=== PATIENT | male | born 1945 | race Caucasian/White ===

== ENCOUNTER → 2017-02-18 | Outpatient (CLI) | payer BC ==
[~2017-02-18] MED LIST: ASPI81TA28 PO; ATOR-26 PO; CHOL1TAB42; GLC500; GLIM2TAB2; IRBE1TAB50; METO25TA3 PO; PANT40TA PO
[2017-02-18 12:38] LABS: BASO % 0.3 %; BASO ABS # 0.03 K/uL (0-0.2); COMPLETE YES; EOS % 1.5 %; HEMATOCRIT 47.8 % (42-52); IG% 0.3 %; LYMPH % 22.8 %; LYMPH ABS # 1.96 K/uL (1.2-3.4); MEAN CELL VOLUME 87.9 fL (80-100); MEAN CORPUSCULAR HGB CONC 34.1 g/dl (32-36); MEAN PLATELET VOLUME 11.3 fL (7.4-10.4); MONO % 6.9 %; NEUT % 68.2 %; PLATELET COUNT 243 K/uL (130-400); RED BLOOD COUNT 5.44 M/uL (4.7-6.1)
[2017-02-18 12:57] LABS: ESTIMATED AVERAGE GLUCOSE 157 mg/dl; HA1C FLAG Normal (Normal)
[2017-02-18 13:27] LABS: ALT/SGPT 46 U/L (12-78); AST/SGOT 15 U/L (15-37); BLOOD UREA NITROGEN 17 mg/dl (7-18); BUN/CREATININE RATIO 17.9 (10-20); CALCIUM 9.5 mg/dl (8.5-10.1); CARBON DIOXIDE 25 mmol/L (21-32); CHLORIDE 104 mmol/L (98-107); CREATININE 0.96 mg/dl (0.60-1.40); GLUCOSE 208 mg/dl (70-99); SODIUM 138 mmol/L (136-145)
[2017-02-18 13:38] LABS: ALB/GLOB RATIO 1.1 (0.9-2); ALKALINE PHOSPHATASE 99 U/L (45-117)
[2017-02-18 14:18] LABS: LYME DISEASE AB IGG NEG (NEG); LYME DISEASE AB IGM NEG (NEG)
[2017-02-19 15:02] LABS: EBV EARLY ANTIGEN AB <0.91 INDEX; EPSTEIN BARR VIR CAPSID IGG 1.29 INDEX
--- NOTE | 2017-02-25 14:01 | CODING QUERY MEDICAL NECESSITY ---
CQSUPPORTING DIAGNOSIS NEEDED A supporting diagnosis is required for the test/procedure performed on this patient in order for us to be reimbursed by the patient's insurance. Please provide a supporting diagnosis for the following test/procedure listed below next to the test name along with your signature. *If there is no additional diagnosis for this patient that would support the following test/procedure please document that below next to the test/procedure. Test(s)/Procedure(s) that require a supporting diagnosis: DOS 02/18/17 VITAMIN D VITAMIN B12 Provider Signature: Date: Thank you Bri Bernabe Health Information Management Once completed, please kindly fax back to [phone] For questions please call [phone]
== END | disposition home or self-care (01) ==
LOC: C.LABPVFM 10:50
PROVIDERS: ATTEND Family Medicine
DX: R53.83 Other fatigue (principal); E11.65 Type 2 diabetes mellitus with hyperglycemia; E55.9 Vitamin D deficiency, unspecified; R53.1 Weakness

== ENCOUNTER → 2017-04-20 | Outpatient (CLI) | payer BC ==
[2017-04-20 13:37] LABS: CHOLESTEROL/HDL RATIO 3.8
== END | disposition home or self-care (01) ==
LOC: C.LABPVFM 09:28
PROVIDERS: ATTEND Family Medicine
DX: E78.5 Hyperlipidemia, unspecified (principal); E11.65 Type 2 diabetes mellitus with hyperglycemia

== ENCOUNTER → 2017-05-13 | Outpatient (CLI) | payer BC ==
--- NOTE | 2017-05-13 10:09 | DIAGNOSTIC IMAGING REPORT ---
(CHEST) THORAX WITHOUT CT DOSE: 569.54 mGy.cm CLINICAL HISTORY: 72 years-old Male with I71.9,R91.1. Follow-up exam for pulmonary nodules. History of thoracic aortic aneurysm. TECHNIQUE: Multiaxial CT images of the chest were performed without contrast. A dose lowering technique was utilized adhering to the principles of ALARA. COMPARISON: Chest CT 05/14/2016, 08/25/2015 and 03/07/2015. FINDINGS: Heterogeneous soft tissue attenuating mass of the left superior mediastinum contiguous with the posterior left thyroid lobe is again seen suggesting thyroid goiter measuring up to 5.0 x 4.8 x 5.8 cm, unchanged from comparison. Additionally, there is a left superior axillary lymph node which is mildly enlarged, 1.5 x 1.4 cm, 1.5 x 1.4 cm on prior study which is again nonspecific. No new adenopathy by CT size criteria. Heart is normal in size with extensive three-vessel distribution coronary arterial calcifications. Moderate atherosclerotic plaquing of the aorta. There is mild dilation of the aortic isthmus measuring up to 4.0 cm transversely, also unchanged. There is no pneumothorax or pleural effusion. The previous noted nodule of the superior segment right lower lobe has decreased in size, now measuring 5 x 5 mm, previously 7 x 5 mm on study dated 05/14/2016. There is mild bibasilar atelectasis with calcified granulomas of the right lower lobe. There is minimal subsegmental scarring of the apical segment right upper lobe and medial segment right middle lobe. There is unchanged mild right hemidiaphragmatic elevation. Central airways are patent. There is mild fatty infiltration of the liver. There is moderate pancreatic atrophy. At least moderate degenerative changes involving the shoulders bilaterally. IMPRESSION: 1. Noncalcified pulmonary nodule of the superior segment right lower lobe has slightly decreased in size from comparison, now measuring 5 x 5 mm. As there has been no documented growth of this lesion since initial exam dated 03/07/2015 this suggest benign etiology with no additional need for follow-up per the guidelines below. 2. No new noncalcified pulmonary nodules or masses are identified. 3. Unchanged mild fusiform dilation of the thoracic aortic isthmus, 4.0 cm. 4. Additional incidental findings as above including left thyroid goiter. Please refer to below summary of Fleischner criteria recommendations for follow-up of incidental CT nodules (H MacMahon, Guidelines for management of small pulmonary nodules detected on CT scans: A statement from the Fleischner Society, Radiology 237: [phone].) SOLID NODULES Solitary nodule size: <6 mm * Low risk patients: no follow-up needed * high risk patients: optional CT at 12 months Solitary nodule size: 6-8 mm * Low risk patients: follow-up at 6-12 months, then consider further follow-up at 18-24 months * high risk patients: initial follow-up CT at 6-12 months and then at 18-24 months if no change Note: newly detected indeterminate nodule in persons 35 years of age or older. * Low risk patients: minimal or absent history of smoking and/or other known risk factors * high risk patients: history of smoking or of other known risk factors (e.g. first degree relative with lung cancer, or exposure to asbestos, radon, uranium) * if a nodule up to 8 mm is partly solid or is ground glass further follow-up is required after 24 months to exclude possible slow growing adenocarcinoma (URIEL) The above report was generated using voice recognition software. It may contain grammatical, syntax or spelling errors. Electronically signed by: Josef Pinzon M.D. 05/13/2017 10:08 AM Dictated Date/Time: 05/13/2017 9:56 AM
== END | disposition home or self-care (01) ==
LOC: C.CTS 09:36
PROVIDERS: ATTEND Internal Medicine Pulmonary Disease
DX: I71.9 Aortic aneurysm of unspecified site, without rupture (principal); R91.1 Solitary pulmonary nodule

== ENCOUNTER → 2018-01-22 | Outpatient (CLI) | payer BC ==
[2018-01-22 13:53] LABS: ALBUMIN 3.8 gm/dl (3.4-5.0); ALT/SGPT 64 U/L (12-78); AST/SGOT 24 U/L (15-37); BLOOD UREA NITROGEN 12 mg/dl (7-18); CALCIUM 9.3 mg/dl (8.5-10.1); CARBON DIOXIDE 26 mmol/L (21-32); CHOLESTEROL 94 mg/dl (0-200); CREATININE 0.86 mg/dl (0.60-1.40); GLUCOSE 161 mg/dl (70-99); POTASSIUM 3.8 mmol/L (3.5-5.1); SODIUM 137 mmol/L (136-145)
[2018-01-22 13:57] LABS: ALKALINE PHOSPHATASE 83 U/L (45-117); LDL CHOLESTEROL CALCULATED 39 mg/dl; TOTAL PROTEIN 7.1 gm/dl (6.4-8.2)
[2018-01-22 14:08] LABS: HEMOGLOBIN A1C 7.2 % (4.5-5.6)
== END | disposition home or self-care (01) ==
LOC: C.LABPVFM 09:16
PROVIDERS: ATTEND Family Medicine
DX: I10 Essential (primary) hypertension (principal); E78.5 Hyperlipidemia, unspecified; R53.83 Other fatigue; F32.9 Major depressive disorder, single episode, unspecified; E11.65 Type 2 diabetes mellitus with hyperglycemia; R53.1 Weakness; R35.1 Nocturia

== ENCOUNTER → 2018-05-23 | Outpatient (CLI) | payer BC ==
[2018-05-23 13:08] LABS: HEMOGLOBIN A1C 7.6 % (4.5-5.6)
[2018-05-23 13:17] LABS: ALBUMIN 3.9 gm/dl (3.4-5.0); ALKALINE PHOSPHATASE 79 U/L (45-117); ALT/SGPT 55 U/L (12-78); AST/SGOT 23 U/L (15-37); BLOOD UREA NITROGEN 15 mg/dl (7-18); CALCIUM 9.6 mg/dl (8.5-10.1); CARBON DIOXIDE 30 mmol/L (21-32); CREATININE 0.83 mg/dl (0.60-1.40); GLUCOSE 145 mg/dl (70-99); POTASSIUM 4.2 mmol/L (3.5-5.1); SODIUM 138 mmol/L (136-145); TOTAL PROTEIN 7.2 gm/dl (6.4-8.2)
== END | disposition home or self-care (01) ==
LOC: C.LABPVFM 08:43
PROVIDERS: ATTEND Family Medicine
DX: I10 Essential (primary) hypertension (principal); E78.5 Hyperlipidemia, unspecified; R91.1 Solitary pulmonary nodule; I71.9 Aortic aneurysm of unspecified site, without rupture; K21.9 Gastro-esophageal reflux disease without esophagitis; E11.65 Type 2 diabetes mellitus with hyperglycemia; Z11.59 Encounter for screening for other viral diseases

== ENCOUNTER 2021-02-12 12:31 | Inpatient (IN) ==
[2021-02-12] MEDS ORDERED: LABETALOL HCL IV 5 MG/ML 20ML IV STA (12:57)
--- NOTE | 2021-02-12 13:02 | Emergency Department Note ---
History of Present Illness General Chief complaint: Stroke/CVA Symptoms Stated complaint: STROKE SYPMTOMS Time Seen by Provider: 02/12/21 12:47 Source: patient and family Mode of arrival: ambulatory Limitations: no limitations History of Present Illness Provider complaint: Slurred speech This is a 75-year-old male who presents to the ED with a chief complaint of some slurred speech and left-sided facial weakness. The states that she first noticed that his speech seemed to be a little weak and slurred on Saturday and possibly Saturday evening. Last known well would be Saturday. The patient upon going to tenriism this morning was noticed to have some left-sided facial droop and continued slurred speech and weak speech this morning. After tenriism the and daughter brought him in for evaluation. He has been complaining about some headaches recently according to the family. The patient has no specific complaints at this time. No recent illness or fevers. No trauma. He states that he did yard work yesterday without difficulty. He denies any focal weakness in any extremity. Home Medications Medication Instructions Recorded Confirmed Type multivitamin 1 tab PO DAILY 06/16/19 12/27/20 History aspirin 81 mg tablet 81 mg PO DAILY tab 10/25/19 12/27/20 History cholecalciferol (vitamin D3) 25 5,000 units PO DAILY cap 01/20/20 12/27/20 History mcg (1,000 unit) capsule atorvastatin 80 mg tablet 80 mg PO DAILY #90 tab 06/28/20 12/27/20 Rx metoprolol tartrate 25 mg tablet 25 mg PO DAILY #90 tab 06/28/20 12/27/20 Rx pantoprazole 40 mg tablet,delayed 40 mg PO DAILY #90 tab 06/28/20 12/27/20 Rx release sildenafil (pulm.hypertension) 20 See Rx Instructions .ROUTE 06/28/20 12/27/20 Rx mg tablet .COMPLEX #30 tablet telmisartan 80 mg tablet 80 mg PO DAILY #90 tab 06/28/20 12/27/20 Rx Novolog Flexpen U-100 Insulin 100 5 - 6 unit SQ DAILY #15 ml NS 12/19/20 12/27/20 Rx unit/mL (3 mL) subcutaneous Tresiba FlexTouch U-100 100 30 unit SQ DAILY #30 ml NS 03/01/21 03/09/21 Rx unit/mL (3 mL) subcutaneous pen blood sugar diagnostic ea 12/19/20 12/27/20 History metformin 500 mg tablet,extended 1,000 mg PO BID #360 tab 12/19/20 12/27/20 Rx release 24 hr triamcinolone acetonide 55 mcg 1 spray INTNAS DAILY PRN 12/19/20 12/27/20 History nasal spray aerosol bimatoprost 0.01 % eye drops 1 drp OPHTHALMIC (EYE) DAILY PRN 12/27/20 12/27/20 History Allergies Allergy/AdvReac Type Severity Reaction Status Date / Time lisinopril AdvReac Unknown COUGH Verified 12/27/20 10:13 Past Med/Surg History Medical History Acute sinusitis Anxiety and depression Aortic aneurysm Aortic dissection Cervical facet joint syndrome Cervicalgia DM (diabetes mellitus), type 2 Goiter Hyperlipidemia Loss of protective sensation of skin of foot Macular degeneration Mild sleep apnea Pulmonary nodule seen on imaging study Vitamin D deficiency Surgical History H/O knee surgery Family History Father Coronary heart disease Diabetes Myocardial infarction Mother Myocardial infarction Denies family history of Ovarian cancer Prostate cancer Breast cancer Colorectal cancer Cancer Social History Smoking Status: Never smoker Second Hand Exposure: No; Hx Alcohol Use: No Hx Substance Use: No marital status: Current Living Situation: Spouse current occupational status: retired Feels Safe at Home: Yes caffeine: Yes (coffee) Dental Care, Regularly: Yes Physical Activity Frequency: 3-4 Times per Week Seatbelt Use: sometimes Sunscreen Use: No Review of Systems A total of 10 systems reviewed and were otherwise negative Physical Exam Vital Signs Vital Signs - 24 hr 02/12/21 12:35 02/12/21 13:31 Temperature 36.8 C Temperature Source Oral Pulse Rate 101 H Pulse Rate [Apical] 70 Respiratory Rate 18 18 Blood Pressure 166/89 H Blood Pressure [Left Arm] 168/88 H Blood Pressure Mean 114 Blood Pressure Mean [Left Arm] 114 Pulse Oximetry 94 94 Oxygen Delivery Method Room Air Room Air Sepsis Recent Fever Within 48 Hours No Sepsis New/Unexplained Change in Mental Status No Sepsis Action Taken by Nursing No Action Required CONSTITUTIONAL/VITAL SIGNS: Reviewed / noted above. GENERAL: Non-toxic in appearance. INTEGUMENTARY: Warm, dry, and [place]. HEAD: Normocephalic. EYES: without scleral icterus or trauma. ENT/OROPHARYNX: clear and moist. LYMPHADENOPATHY/NECK: Is supple without lymphadenopathy or meningismus. RESPIRATORY: Lungs clear and equal. CARDIOVASCULAR: Regular rate and rhythm. GI/ABDOMEN: Soft and nontender. No organomegaly or pulsatile mass. No rebound or guarding. Normal bowel sounds. EXTREMITIES: Warm and well perfused. BACK: No CVA tenderness. NEUROLOGICAL: Intact without focal deficits. Mild left-sided facial weakness in the lower aspect of the face particularly when the patient is speaking. Speech is not as articulate as normal, according to the family possibly related to his left lower facial weakness. No pronator drift. Normal strength in the arms and legs. Patient read sentences normally and describe pictures normally. PSYCHIATRIC: normal affect. MUSCULOSKELETAL: Normally developed with good muscle tone. TRIAGE NURSING DOCUMENTATION REVIEWED. Course Administered Medications Discontinued Medications Labetalol HCl (Labetalol Hcl Iv 5 Mg/Ml 20ml) 10 mg IV NOW STA Stop: 02/12/21 12:58 Last Admin: 02/12/21 13:28 Dose: 10 mg Documented by: [id number] Cosigned by: [id number] Medical Decision Making Differential Diagnosis Differential includes acute coronary syndrome, myocardial infarction, CVA, TIA, anemia, infection, pneumonia, UTI, pyelonephritis, poor nutrition, dehydration, electrolyte disturbance,hypoglycemia. Medical Records Attestation: I reviewed the patient's medical records. Home Medications Current Medication List: was personally reviewed by me Laboratory Data Attestation: I reviewed the patient's lab results. Result diagrams: 02/12/21 12:45 02/12/21 12:45 Lab Results 02/12/21 02/12/21 02/12/21 Range/Units 12:45 12:45 12:45 WBC 10.44 (4.8-10.8) K/uL RBC 5.46 (4.7-6.1) M/uL Hgb 16.7 (14.0-18.0) g/dL POC Hgb (14.0-18.0) g/dl Hct 48.7 (42-52) % POC Hct (42-52) % MCV 89.2 (80-100) fL MCH 30.6 (25-34) pg MCHC 34.3 (32-36) g/dL RDW Std Deviation 45.0 (36.4-46.3) fL RDW Coeff of Taylor 13.9 (11.5-14.5) % Plt Count 220 (130-400) K/uL MPV 11.4 H (7.4-10.4) fL Immature Gran % (Auto) 0.4 % Neut % (Auto) 62.5 % Lymph % (Auto) 27.5 % [place] % (Auto) 7.6 % Eos % (Auto) 1.7 % Baso % (Auto) 0.3 % Neut # (Auto) 6.53 H (1.4-6.5) K/uL Lymph # (Auto) 2.87 (1.2-3.4) K/uL Cabell # (Auto) 0.79 H (0.11-0.59) K/uL Eos # (Auto) 0.18 (0-0.5) K/uL Baso # (Auto) 0.03 (0-0.2) K/uL Immature Gran # (Auto) 0.04 H (0.00-0.02) K/uL PT 10.6 (9.0-12.0) Seconds INR 1.0 (0.9-1.1) APTT 25.9 (21.0-31.0) Seconds PTT Ratio 1.0 POC Sodium (135-144) mmol/L Sodium 140 (136-145) mmol/L POC Potassium (3.3-5.0) mmol/L Potassium 4.2 (3.5-5.1) mmol/L POC Chloride (101-112) mmol/L Chloride 105 (98-107) mmol/L Carbon Dioxide 30 (21-32) mmol/L POC Total CO2 (24-31) mmol/L Anion Gap 5.0 (3-11) POC Anion Gap (16-25) mmol/L POC BUN (7-18) mg/dl BUN 12 (7-18) mg/dl Creatinine 0.74 (0.6-1.4) mg/dl POC Creatinine (0.6-1.3) mg/dl Est Cr Clr Drug Dosing 103.1 ml/min Est GFR ( Amer) 104.6 Est GFR (Non-Af Amer) 90.2 BUN/Creatinine Ratio 15.7 (10-20) Glucose 126 H (70-99) mg/dl POC Glucose (other) (70-99) mg/dl Calcium 9.8 (8.5-10.1) mg/dl POC Ioniz Calcium Zainab (1.12-1.32) mmol/l Magnesium 1.9 (1.8-2.4) mg/dl Total Bilirubin 0.8 (0.2-1) mg/dl AST 23 (15-37) U/L ALT 53 (12-78) U/L Alkaline Phosphatase 105 (45-117) U/L Troponin I < 0.015 (0-0.045) ng/ml Total Protein 7.8 (6.4-8.2) gm/dl Albumin 3.9 (3.4-5.0) gm/dl Globulin 3.9 (2.5-4.0) gm/dl Albumin/Globulin Ratio 1.0 (0.9-2) 02/12/21 Range/Units 12:52 WBC (4.8-10.8) K/uL RBC (4.7-6.1) M/uL Hgb (14.0-18.0) g/dL POC Hgb 17.3 (14.0-18.0) g/dl Hct (42-52) % POC Hct 51 (42-52) % MCV (80-100) fL MCH (25-34) pg MCHC (32-36) g/dL RDW Std Deviation (36.4-46.3) fL RDW Coeff of Taylor (11.5-14.5) % Plt Count (130-400) K/uL MPV (7.4-10.4) fL Immature Gran % (Auto) % Neut % (Auto) % Lymph % (Auto) % [place] % (Auto) % Eos % (Auto) % Baso % (Auto) % Neut # (Auto) (1.4-6.5) K/uL Lymph # (Auto) (1.2-3.4) K/uL [place] # (Auto) (0.11-0.59) K/uL Eos # (Auto) (0-0.5) K/uL Baso # (Auto) (0-0.2) K/uL Immature Gran # (Auto) (0.00-0.02) K/uL PT (9.0-12.0) Seconds INR (0.9-1.1) APTT (21.0-31.0) Seconds PTT Ratio POC Sodium 140 (135-144) mmol/L Sodium (136-145) mmol/L POC Potassium 4.2 (3.3-5.0) mmol/L Potassium (3.5-5.1) mmol/L POC Chloride 101 (101-112) mmol/L Chloride (98-107) mmol/L Carbon Dioxide (21-32) mmol/L POC Total CO2 27 (24-31) mmol/L Anion Gap (3-11) POC Anion Gap 16.0 (16-25) mmol/L POC BUN 11 (7-18) mg/dl BUN (7-18) mg/dl Creatinine (0.6-1.4) mg/dl POC Creatinine 0.7 (0.6-1.3) mg/dl Est Cr Clr Drug Dosing ml/min Est GFR ( Amer) Est GFR (Non-Af Amer) BUN/Creatinine Ratio (10-20) Glucose (70-99) mg/dl POC Glucose (other) 125 H (70-99) mg/dl Calcium (8.5-10.1) mg/dl POC Ioniz Calcium Zainab 1.23 (1.12-1.32) mmol/l Magnesium (1.8-2.4) mg/dl Total Bilirubin (0.2-1) mg/dl AST (15-37) U/L ALT (12-78) U/L Alkaline Phosphatase (45-117) U/L Troponin I (0-0.045) ng/ml Total Protein (6.4-8.2) gm/dl Albumin (3.4-5.0) gm/dl Globulin (2.5-4.0) gm/dl Albumin/Globulin Ratio (0.9-2) Imaging Data Radiologist's Impression: Chest X-Ray 02/12/21 12:57 XR chest 1V portable CLINICAL HISTORY: Stroke Like Symptoms COMPARISON STUDY: Chest CT October 19, 2020. FINDINGS: Lung volumes are normal. Lungs are clear. There is no pneumothorax or pleural effusion. Cardiac size is normal. Mediastinal contours are normal. There is no evidence for pulmonary edema. Elevation of the right hemidiaphragm is unchanged. Rightward displacement of the trachea with upper mediastinal widening is due to a goiter. This is unchanged. IMPRESSION: No acute cardiopulmonary findings. No significant change in appearance of the chest. ACT 112: Negative or not required by law. Electronically signed by: Ethan Colin M.D. 02/12/2021 1:[address] 02/12/21 12:57 CT OF THE HEAD WITHOUT CONTRAST CLINICAL HISTORY: Stroke Like Symptoms COMPARISON STUDY: None. TECHNIQUE: Helical axial images of the head were obtained without IV contrast. Automated exposure control was utilized for the study. A dose lowering technique was utilized adhering to the principles of ALARA. FINDINGS: No acute intracranial hemorrhage, midline shift or mass effect is present. A 9 mm hypodensity within the left rodriguez radiata is chronic. There is bilateral basal ganglia calcification. White matter hypodensity suggests small vessel disease. There are no findings to suggest acute dural sinus thrombosis or acute territorial infarct. There is no calvarial fracture. IMPRESSION: No acute intracranial findings. ACT 112: Negative or not required by law. Electronically signed by: Ethan Colin M.D. 02/12/2021 1:41 PM Head CTA 02/12/21 12:57 CTA ANGIOGRAPHY OF THE HEAD CLINICAL HISTORY: Stroke Like Symptoms COMPARISON STUDY: No previous studies for comparison. TECHNIQUE: Helical axial images of the head were obtained following uneventful intravenous administration of 120 cc of Optiray. Sagittal and coronal recon structions were viewed as well as maximal intensity projections on an independent 3-D workstation. Automated exposure control was utilized for the study. A dose lowering technique was utilized adhering to the principles of ALARA. FINDINGS: No acute intracranial hemorrhage, midline shift or mass effect is present. Bilateral basal ganglia calcification is present. The bilateral M1, M2, A1 and A2 segments are patent. There is no intracranial aneurysm. No central vessel occlusion is noted. The posterior circulation is intact. Mild plaque within the bilateral cavernous carotids is noted. The left A1 segment is dominant. IMPRESSION: No central vessel occlusion. No intracranial aneurysm. ACT 112: Negative or not required by law. Electronically signed by: Ethan Colin M.D. 02/12/2021 1:50 PM Neck CTA 02/12/21 12:57 CT ANGIOGRAPHY OF THE NECK WITH CONTRAST CLINICAL HISTORY: Stroke Like Symptoms COMPARISON STUDY: No previous studies for comparison. Technique: CT angiography of the carotid and vertebral arteries was obtained using Optiray and 3D reconstruction on an independent workstation. NASCET criteria was utilized. Automated exposure control was utilized for the study. A dose lowering technique was utilized adhering to the principles of ALARA. CT DOSE: 1276.31 mGy.cm Findings: Incidental note is made of a large left lobe thyroid nodule with rightward displacement of the trachea. This is unchanged. The origins of the bilateral vertebral arteries are suboptimally assessed on this examination. No dissection within the major vessels of the neck is noted. This extensive calcified atherosclerotic plaque within the proximal bilateral internal carotid arteries. This results in 50% stenosis of the proximal right internal carotid artery. The vessel measures 2.1 mm in caliber at site of narrowing and 4.1 mm distally. There is approximately 30% stenosis of the proximal left internal carotid artery. IMPRESSION: Extensive calcified plaque within the proximal bilateral internal carotid arteries with resultant 50% stenosis of the proximal right internal carotid gerardo ry and 30% stenosis of the proximal left internal carotid artery. ACT 112: Negative or not required by law. Electronically signed by: Ethan Colin M.D. 02/12/2021 1:47 PM ECG Data Attestation: I personally reviewed and interpreted this ECG as follows: Indication: + weakness Rate (beats per minute): 80 Rhythm: + normal sinus ECG Intervals/blocks: + Normal QT-c ECG ST segments: no ST elevation ECG Findings: no PVCs MDM Narrative Patient presents with left facial weakness and some slurred speech that has been present since possibly Saturday. No other focal weakness. Has been complaining about a headache. Mostly posterior. No visual changes. Vital signs reveal hypertension. He does take metoprolol for his blood pressure. He is also on cholesterol medication and takes aspirin 81 mg daily. He also takes insulin for his diabetes. A CT scan of the brain did not show acute process. CT scan angiogram of the head did not show acute process. CT angiogram of the neck shows extensive calcification and plaque within the bilateral internal carotid arteries with 50% stenosis of the proximal right ICA and 30% stenosis of the proximal left ICA. Patient CBC and chemistry panel was normal. Troponin was n egative. Chest x-ray did not show acute process. An EKG shows a normal sinus rhythm at a rate of 80. The patient was told the results. He will be seen by inpatient services for further inpatient evaluation and care. Impression & Plan Acute CVA (cerebrovascular accident) Discharge Plan Visit Data Chief Complaint: Stroke/CVA Symptoms Stated Complaint: STROKE SYPMTOMS ED Provider: Chepe Amezquita Discharge Problem: Acute CVA (cerebrovascular accident) Patient Disposition: Being Evaluated by Hospitalist Forms Stand Alone Forms: [facility] [employer] Prescriptions Prescriptions: No Action multivitamin tablet 1 tab PO DAILY RF: 0 aspirin 81 mg tablet 81 mg PO DAILY RF: 0 cholecalciferol (vitamin D3) 25 mcg (1,000 unit) capsule 5,000 units PO DAILY RF: 0 triamcinolone acetonide [Nasacort] 55 mcg aerosol,spray 1 spray INTNAS DAILY PRNRF: 0 atorvastatin 80 mg tablet 80 mg PO DAILY Qty: 90 RF: 3 pantoprazole 40 mg tablet,delayed release (DR/EC) 40 mg PO DAILY Qty: 90 RF: 3 telmisartan 80 mg tablet 80 mg PO DAILY Qty: 90 RF: 1 sildenafil (pulm.hypertension) 20 mg tablet See Rx Instructions .ROUTE .COMPLEX Qty: 30 RF: 1 metoprolol tartrate 25 mg tablet 25 mg PO DAILY Qty: 90 RF: 1 (DME) OneTouch Verio test strips Strip See Rx Instructions .ROUTE .MEDSUPPLY RF: 0 metformin 500 mg tablet extended release 24 hr 1,000 mg PO BID Qty: 360 RF: 3 insulin aspart U-100 [Novolog Flexpen U-100 Insulin] 100 unit/mL (3 mL) insulin pen 5 - 6 unit SQ DAILY Qty: 15 RF: 3 Tresiba FlexTouch U-100 100 unit/mL (3 mL) insulin pen 30 unit SQ DAILY Qty: 30 RF: 3 Lumigan 0.01 % drops 1 drp ophthalmic (eye) DAILY PRNRF: 0 Referrals Referrals: Jsesee Smith DO [Primary Care Provider] -
[2021-02-12 13:04] LABS: iSTAT Creatinine 0.7 mg/dl (0.6-1.3); iSTAT Hemoglobin 17.3 g/dl (14.0-18.0); iSTAT Ionized Calcium 1.23 mmol/l (1.12-1.32); iSTAT Potassium 4.2 mmol/L (3.3-5.0)
[2021-02-12 13:05] LABS: Basophils # (auto) 0.03 K/uL (0-0.2); Basophils % (auto) 0.3 %; Eosinophils # (auto) 0.18 K/uL (0-0.5); Eosinophils % (auto) 1.7 %; Hematocrit (blood only) 48.7 % (42-52); Hemoglobin 16.7 g/dL (14.0-18.0); Immature Granulocytes # (auto) 0.04 K/uL (0.00-0.02); Immature Granulocytes % (auto) 0.4 %; Lymphocytes # (auto) 2.87 K/uL (1.2-3.4); Lymphocytes % (auto) 27.5 %; Mean Corpuscular Hemoglobin 30.6 pg (25-34); Mean Corpuscular Hgb Conc 34.3 g/dL (32-36); Mean Corpuscular Volume 89.2 fL (80-100); Mean Platelet Volume 11.4 fL (7.4-10.4); Monocytes # (auto) 0.79 K/uL (0.11-0.59); Monocytes % (auto) 7.6 %; Neutrophils # (auto) 6.53 K/uL (1.4-6.5); Neutrophils % (auto) 62.5 %; Platelet Count 220 K/uL (130-400); RDW Coefficient of Variation 13.9 % (11.5-14.5); Red Blood Count 5.46 M/uL (4.7-6.1); White Blood Count 10.44 K/uL (4.8-10.8)
[2021-02-12 13:20] LABS: Alanine Aminotransferase 53 U/L (12-78); Albumin Level 3.9 gm/dl (3.4-5.0); Aspartate Aminotransferase 23 U/L (15-37); BUN Creatinine Ratio 15.7 (10-20); Blood Urea Nitrogen 12 mg/dl (7-18); Calcium 9.8 mg/dl (8.5-10.1); Carbon Dioxide 30 mmol/L (21-32); Chloride 105 mmol/L (98-107); Creatinine Clr Calc Pharmacy 103.1 ml/min; Est GFR (African American) 104.6; Est GFR (Non-African American) 90.2; Glucose 126 mg/dl (70-99); Magnesium 1.9 mg/dl (1.8-2.4); Partial Thromboplastin Time 25.9 Seconds (21.0-31.0); Potassium 4.2 mmol/L (3.5-5.1); Prothrombin Time 10.6 Seconds (9.0-12.0); Sodium 140 mmol/L (136-145)
[2021-02-12 13:25] LABS: Alkaline Phosphatase 105 U/L (45-117); Bilirubin,Total 0.8 mg/dl (0.2-1); Globulin 3.9 gm/dl (2.5-4.0); Total Protein 7.8 gm/dl (6.4-8.2); Troponin I < 0.015 ng/ml (0-0.045)
--- NOTE | 2021-02-12 13:34 | XRay Report ---
XR chest 1V portable CLINICAL HISTORY: Stroke Like Symptoms COMPARISON STUDY: Chest CT October 19, 2020. FINDINGS: Lung volumes are normal. Lungs are clear. There is no pneumothorax or pleural effusion. Car diac size is normal. Mediastinal contours are normal. There is no evidence for pulmonary edema. Burgess tion of the right hemidiaphragm is unchanged. Rightward displacement of the trachea with upper medias tinal widening is due to a goiter. This is unchanged. IMPRESSION: No acute cardiopulmonary findings. No significant change in appearance of the chest. ACT 112: Negative or not required by law. Electronically signed by: Ethan Colin M.D. 02/12/2021 1:33 PM
--- NOTE | 2021-02-12 13:42 | CT Scan Report ---
CT OF THE HEAD WITHOUT CONTRAST CLINICAL HISTORY: Stroke Like Symptoms COMPARISON STUDY: None. TECHNIQUE: Helical axial images of the head were obtained without IV contrast. Automated exposure con trol was utilized for the study. A dose lowering technique was utilized adhering to the principles o f ALARA. FINDINGS: No acute intracranial hemorrhage, midline shift or mass effect is present. A 9 mm hypodensi ty within the left rodriguez radiata is chronic. There is bilateral basal ganglia calcification. White m atter hypodensity suggests small vessel disease. There are no findings to suggest acute dural sinus t hrombosis or acute territorial infarct. There is no calvarial fracture. IMPRESSION: No acute intracranial findings. ACT 112: Negative or not required by law. Electronically signed by: Ethan Colin M.D. 02/12/2021 1:41 PM
--- NOTE | 2021-02-12 13:48 | CT Scan Report ---
CT ANGIOGRAPHY OF THE NECK WITH CONTRAST CLINICAL HISTORY: Stroke Like Symptoms COMPARISON STUDY: No previous studies for comparison. Technique: CT angiography of the carotid and vertebral arteries was obtained using Optiray and 3D rec onstruction on an independent workstation. NASCET criteria was utilized. Automated exposure control was utilized for the study. A dose lowering technique was utilized adhering to the principles of ALA RA. CT DOSE: 1276.31 mGy.cm Findings: Incidental note is made of a large left lobe thyroid nodule with rightward displacement of the trachea. This is unchanged. The origins of the bilateral vertebral arteries are suboptimally asse ssed on this examination. No dissection within the major vessels of the neck is noted. This extensive calcified atherosclerotic plaque within the proximal bilateral internal carotid arteries. This resul ts in 50% stenosis of the proximal right internal carotid artery. The vessel measures 2.1 mm in calib er at site of narrowing and 4.1 mm distally. There is approximately 30% stenosis of the proximal left internal carotid artery. IMPRESSION: Extensive calcified plaque within the proximal bilateral internal carotid arteries with resultant 50% stenosis of the proximal right internal carotid artery and 30% stenosis of the proximal left interna l carotid artery. ACT 112: Negative or not required by law. Electronically signed by: Ethan Colin M.D. 02/12/2021 1:47 PM
--- NOTE | 2021-02-12 13:52 | CT Scan Report ---
CTA ANGIOGRAPHY OF THE HEAD CLINICAL HISTORY: Stroke Like Symptoms COMPARISON STUDY: No previous studies for comparison. TECHNIQUE: Helical axial images of the head were obtained following uneventful intravenous administr ation of 120 cc of Optiray. Sagittal and coronal reconstructions were viewed as well as maximal inten sity projections on an independent 3-D workstation. Automated exposure control was utilized for the study. A dose lowering technique was utilized adhering to the principles of ALARA. FINDINGS: No acute intracranial hemorrhage, midline shift or mass effect is present. Bilateral basal ganglia calcification is present. The bilateral M1, M2, A1 and A2 segments are patent. There is no in tracranial aneurysm. No central vessel occlusion is noted. The posterior circulation is intact. Mild plaque within the bilateral cavernous carotids is noted. The left A1 segment is dominant. IMPRESSION: No central vessel occlusion. No intracranial aneurysm. ACT 112: Negative or not required by law. Electronically signed by: Ethan Colin M.D. 02/12/2021 1:50 PM
--- NOTE | 2021-02-12 15:05 | History & Physical Report ---
Date of Service February 12, 2021 Assessment & Plan (1) Acute CVA (cerebrovascular accident): [facility]- 2- left facial droop and mild dysarthria - continue ASA - - Neurology consult placed - MRI of the brain pending - Allow permissive HTN- will continue BB with his hx of thoracic aneurysm - Continue high dose statin - lipids in the morning - Telemetry r/o arrhythmia - ECHO with bubble study - Speech swallow screen pending - NPO until evaluated- IVF LR 75ml/hour (2) HTN (hypertension): Marginally controlled with outpatient review as well - goal upon discharge <130 - HLD, DM, CVA, Carotid artery stenosis (3) Hyperlipidemia: Lipid panel in the morning - continue high dose statin (4) 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- continues with screening - 4.2cm fusiform aneurysm - Continue as above (5) Type 2 diabetes mellitus with hyperlipidemia: Lantus 30 units, sliding scale, and metformin at home - hold metformin while in house - NPO 1/2 dose Lantus tonight - add sliding scale insulin in when passes swallow screen and able to take PO (6) BPH (benign prostatic hyperplasia): Patient wie 2-4 night time awakenings to void - does not feel like he completely empties his bladder - PVR bladder scan - Bladder scan PRN for retention - UA pending - reportedly refused flow agent from PCP (7) Nodular thyroid disease: Patient follows this with endocrinology Dr. Raphael- last seen 2019 - FNA was colloid nodules - Follow TSH in am CTA of the neck: note is made of a large left lobe thyroid nodule with rightward displacement of the trachea. This is unchanged. 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 - Is on B12, Vitamin D at home - Check thyroid level - This may be increasing a sedentary lifestyle and inability to perform his routine excercise requirements - B12 in morning - Am cortisol History of Present Illness Primary Care Provider: Jessee Smith, DO 75 YOM with past medical history of DM II on insulin, HTN, HLD, Proximal Descending throacic aneurysm and ascending aorta aneurysm (followed with serial CT scans and cardiology), enlarged nodular thyroid (FNA= colloid nodules), basal cell carcinoma of the face, and cervical facet syndrome, chronic fatigue, BPH with frequency and feeling of incomplete bladder emptying, benign stable pulmonary nodules and stable left axillary lymph node. Patient was accompanied to the emergency room today by his and daughter. They report that on Saturday PM he may have had some slurring of his speech. Saturday morning the definitely noticed the left sided facial droop and slurring of his speech. Today He was picking his and daughter up from [facility] and she noticed his facial droop being worse, so they made him come to the emergency room. He had a CT scan of the head and neck performed, which did not show any acute intracranial process, CTA of the neck revealed extensive calcified plaques within the proximal bilateral arteries 50% stenosis of the proximal JOSE and 30 % stenosis of the proximal LICA. He took his aspirin and his short acting insulin this morning. He is not a TPA candidate secondary to last known well. He will be admitted to the medical telemetry floor, continue CVA workup, MRI of the brain, ECHO, telemetry for 24 hours, and neurology consult. Allergies Allergy/AdvReac Type Severity Reaction Status Date / Time lisinopril AdvReac Unknown COUGH Verified 02/12/21 14:16 Home Medications Medication Instructions Recorded Confirmed Type multivitamin 1 tab PO DAILY 06/16/19 02/12/21 History cholecalciferol (vitamin D3) 25 5,000 units PO DAILY cap 01/20/20 02/12/21 History mcg (1,000 unit) capsule atorvastatin 80 mg tablet 80 mg PO DAILY #90 tab 06/28/20 02/12/21 Rx metoprolol tartrate 25 mg tablet 25 mg PO DAILY #90 tab 06/28/20 02/12/21 Rx pantoprazole 40 mg tablet,delayed 40 mg PO DAILY #90 tab 06/28/20 02/12/21 Rx release telmisartan 80 mg tablet 80 mg PO DAILY #90 tab 06/28/20 02/12/21 Rx Novolog Flexpen U-100 Insulin 100 5 - 6 unit SQ DAILY #15 ml NS 12/19/20 02/12/21 Rx unit/mL (3 mL) subcutaneous Tresiba FlexTouch U-100 100 30 unit SQ DAILY #30 ml NS 12/19/20 02/12/21 Rx unit/mL (3 mL) subcutaneous pen blood sugar diagnostic ea 12/19/20 12/27/20 History metformin 500 mg tablet,extended 1,000 mg PO BID #360 tab 12/19/20 02/12/21 Rx release 24 hr triamcinolone acetonide 55 mcg 1 spray INTNAS DAILY PRN 12/19/20 02/12/21 History nasal spray aerosol bimatoprost 0.01 % eye drops 1 drp OPHTHALMIC (EYE) DAILY PRN 12/27/20 02/12/21 History acetaminophen [Tylenol Extra 500 mg PO Q6H PRN 02/12/21 02/12/21 History Strength] aspirin 81 mg PO DAILY 02/12/21 02/12/21 History sildenafil (pulm.hypertension) 40 - 60 mg PO DIRECTED PRN 02/12/21 02/12/21 History Past Med/Surg History Medical History Acute sinusitis Anxiety and depression Aortic aneurysm Aortic dissection Cervical facet joint syndrome Cervicalgia DM (diabetes mellitus), type 2 Goiter Hyperlipidemia Loss of protective sensation of skin of foot Macular degeneration Mild sleep apnea Pulmonary nodule seen on imaging study Vitamin D deficiency Surgical History H/O knee surgery Family History Father Coronary heart disease Diabetes Myocardial infarction Mother Myocardial infarction Denies family history of Ovarian cancer Prostate cancer Breast cancer Colorectal cancer Cancer Social History Smoking Status: Never smoker Second Hand Exposure: No; Hx Alcohol Use: No Hx Substance Use: No marital status: Current Living Situation: Spouse current occupational status: retired Feels Safe at Home: Yes caffeine: Yes (coffee) Dental Care, Regularly: Yes Physical Activity Frequency: 3-4 Times per Week Seatbelt Use: sometimes Sunscreen Use: No Review of Systems Review of Systems: REVIEW OF SYSTEMS: Constitutional: (+) fatigue, No fever, sweats or chills Eyes: No diplopia, no worsening or blurred vision ENT: normal hearing, no trouble swallowing Respiratory: No cough, sputum, dyspnea at rest or on exertion Cardiovascular: No chest pain, tightness or palpitations Abdomen: No pain, nausea, vomiting, diarrhea or constipation Musculoskeletal:(+) chronic right neck pain, No joint pain, calf pain, swelling Neurologic: No weakness, numbness/tingling, or balance problems Psychiatric: No anxiety or depression Skin: No rash or itch Physical Exam Physical Exam: PHYSICAL EXAM: General: awake, alert, no apparent distress Head: Normocephalic, atraumatic ENT: no pharyngeal exudate, mucous membranes moist, eyes clear Neuro: NIHSS- 2- PERRL, EOMI, AAO x 3, speech clear and appropriate, strength intact bilaterally 5/5, sensation intact and equal all extremities and dermatomes, no pronator drift Chest: equal rise and fall of the chest, no accessory muscle use, no heaves or thrills, Clear to auscultation, on room air, Cardiac: Regular rate and rhythm, telemetry reviewed, skin warm dry, cap refill <3 seconds, peripheral pulses +2 no JVD, no murmur, no edema, no cartotid bruits GI: NABS x 4 quadrants, soft, nontender to palpation, no rebound, guarding or tenderness : Spontaneously voiding, no pain, no CVA tenderness, Extremities: Normal inspection, no peripheral edema or erythema, calfs nontender to palpation Psych: Normal mood and affect Skin: no rash or erythema Results & Data Results & Data ([facility]) Vital Signs (Past 12 Hours) Vital Signs Temp Pulse Pulse Resp BP BP Pulse Ox 02/12/21 13:31 70 18 168/88 H 94 02/12/21 12:35 36.8 C 101 H 18 166/89 H 94 Laboratory Results Abnormal lab results 02/12/21 02/12/21 02/12/21 Range/Units 12:45 12:45 12:52 MPV 11.4 H (7.4-10.4) fL Neut # (Auto) 6.53 H (1.4-6.5) K/uL [place] # (Auto) 0.79 H (0.11-0.59) K/uL Immature Gran # (Auto) 0.04 H (0.00-0.02) K/uL Glucose 126 H (70-99) mg/dl POC Glucose (other) 125 H (70-99) mg/dl Diagnostic Findings CT OF THE HEAD WITHOUT CONTRAST CLINICAL HISTORY: Stroke Like Symptoms COMPARISON STUDY: None. TECHNIQUE: Helical axial images of the head were obtained without IV contrast. Automated exposure control was utilized for the study. A dose lowering technique was utilized adhering to the principles of ALARA. FINDINGS: No acute intracranial hemorrhage, midline shift or mass effect is present. A 9 mm hypodensity within the left rodriguez radiata is chronic. There is bilateral basal ganglia calcification. White matter hypodensity suggests small vessel disease. There are no findings to suggest acute dural sinus thrombosis or acute territorial infarct. There is no calvarial fracture. IMPRESSION: No acute intracranial findings. CTA ANGIOGRAPHY OF THE HEAD CLINICAL HISTORY: Stroke Like Symptoms COMPARISON STUDY: No previous studies for comparison. TECHNIQUE: Helical axial images of the head were obtained following uneventful intravenous administration of 120 cc of Optiray. Sagittal and coronal reconstructions were viewed as well as maximal intensity projections on an independent 3-D workstation. Automated exposure control was utilized for the study. A dose lowering technique was utilized adhering to the principles of ALARA. FINDINGS: No acute intracranial hemorrhage, midline shift or mass effect is present. Bilateral basal ganglia calcification is present. The bilateral M1, M2, A1 and A2 segments are patent. There is no intracranial aneurysm. No central vessel occlusion is noted. The posterior circulation is intact. Mild plaque within the bilateral cavernous carotids is noted. The left A1 segment is dominant. IMPRESSION: No central vessel occlusion. No intracranial aneurysm. CT ANGIOGRAPHY OF THE NECK WITH CONTRAST CLINICAL HISTORY: Stroke Like Symptoms COMPARISON STUDY: No previous studies for comparison. Technique: CT angiography of the carotid and vertebral arteries was obtained using Optiray and 3D reconstruction on an independent workstation. NASCET criteria was utilized. Automated exposure control was utilized for the study. A dose lowering technique was utilized adhering to the principles of ALARA. CT DOSE: 1276.31 mGy.cm Findings: Incidental note is made of a large left lobe thyroid nodule with rightward displacement of the trachea. This is unchanged. The origins of the bilateral vertebral arteries are suboptimally assessed on this examination. No dissection within the major vessels of the neck is noted. This extensive calcified atherosclerotic plaque within the proximal bilateral internal carotid arteries. This results in 50% stenosis of the proximal right internal carotid artery. The vessel measures 2.1 mm in caliber at site of narrowing and 4.1 mm distally. There is approximately 30% stenosis of the proximal left internal carotid artery. IMPRESSION: Extensive calcified plaque within the proximal bilateral internal carotid arteries with resultant 50% stenosis of the proximal right internal carotid artery and 30% stenosis of the proximal left internal carotid artery. Medications Administered Home Medications multivitamin 1 tab PO DAILY 06/16/19 [History Confirmed 02/12/21] cholecalciferol (vitamin D3) 25 mcg (1,000 unit) capsule 5,000 units PO DAILY cap 01/20/20 [History Confirmed 02/12/21] atorvastatin 80 mg tablet 80 mg PO DAILY #90 tab 06/28/20 [Rx Confirmed 02/12/21] metoprolol tartrate 25 mg tablet 25 mg PO DAILY #90 tab 06/28/20 [Rx Confirmed 02/12/21] pantoprazole 40 mg tablet,delayed release 40 mg PO DAILY #90 tab 06/28/20 [Rx Confirmed 02/12/21] telmisartan 80 mg tablet 80 mg PO DAILY #90 tab 06/28/20 [Rx Confirmed 02/12/21] Novolog Flexpen U-100 Insulin 100 unit/mL (3 mL) subcutaneous 5 - 6 unit SQ DAILY #15 ml NS 12/19/20 [Rx Confirmed 02/12/21] Tresiba FlexTouch U-100 100 unit/mL (3 mL) subcutaneous pen 30 unit SQ DAILY #30 ml NS 12/19/20 [Rx Confirmed 02/12/21] blood sugar diagnostic ea 12/19/20 [History Confirmed 12/27/20] metformin 500 mg tablet,extended release 24 hr 1,000 mg PO BID #360 tab 12/19/20 [Rx Confirmed 02/12/21] triamcinolone acetonide 55 mcg nasal spray aerosol 1 spray INTNAS DAILY PRN 12/19/20 [History Confirmed 02/12/21] bimatoprost 0.01 % eye drops 1 drp OPHTHALMIC (EYE) DAILY PRN 12/27/20 [History Confirmed 02/12/21] acetaminophen [Tylenol Extra Strength] 500 mg PO Q6H PRN 02/12/21 [History Confirmed 02/12/21] aspirin 81 mg PO DAILY 02/12/21 [History Confirmed 02/12/21] sildenafil (pulm.hypertension) 40 - 60 mg PO DIRECTED PRN 02/12/21 [History Confirmed 02/12/21] ECG Additional Comments: Sinus rhythm with Premature atrial complexes with Aberrant conduction Nonspecific ST abnormality Abnormal ECG When compared with ECG of 03-JUL-2003 10:44, Aberrant conduction is now Present Code Status & VTE Plan Code Status CODE: FULL VTE: SCD's, Heparin subq VTE Prophylaxis Plan VTE Prophylaxis will be ordered: Yes Supervising Physician Co-Signing Physician Notes I supervised HAMMAD Uribe on this admission. I examined the patient to day independently of him. I discussed the plan of care with him with the plan being as written in his note except for any following changes/exceptions: None. Pleasant 75yo M w/ hx of CAD, DM, HTN who presents with left-sided facial droops and dysarthria for about 2 days. Family at first thought it was dry mouth or fatigue, but with facial droop on Saturday decided to bring him to the hospital. At present, still with mild facial droop, though I don't notice overt dysarthria. Plan for CVA work-up with TTE, MRI, neurology consult, risk factor mitigation. PG Care Time/CCT Total # of Minutes Spent Total Time Spent with Patient: Total time spent is greater than 50% in coordination of care (as documented) at patient's floor/unit and/or counseling patient: Coding Level of Care Code 26797 Initial Inpt Care Lvl 3 Diagnoses Acute CVA (cerebrovascular accident) I63.9 HTN (hypertension) I10 Hypertension type: essential hypertension Hyperlipidemia E78.5 Hyperlipidemia type: unspecified Intrathoracic aortic aneurysm I71.2 Type 2 diabetes mellitus with hyperlipidemia E11.69; E78.5 BPH (benign prostatic hyperplasia) N40.1; R39.14 Lower urinary tract symptom detail: incomplete bladder emptying Lower urinary tract symptom presence: symptoms present Nodular thyroid disease E04.1 Cervical facet joint syndrome M47.812 Urinary frequency R35.0 Carotid artery stenosis I65.29 Chronic fatigue R53.82 (1) BPH (benign prostatic hyperplasia) Lower urinary tract symptom detail: incomplete bladder emptying Lower urinary tract symptom presence: symptoms present Qualified Code(s): N40.1 - Benign prostatic hyperplasia with lower urinary tract symptoms; R39.14 - Feeling of incomplete bladder emptying (2) Hyperlipidemia Hyperlipidemia type: unspecified Qualified Code(s): E78.5 - Hyperlipidemia, unspecified (3) HTN (hypertension) Hypertension type: essential hypertension Qualified Code(s): I10 - Essential (primary) hypertension
[2021-02-12 16:09] LABS: Influenza A virus by PCR Negative (Neg); Influenza B virus by PCR Negative (Neg); RSV by PCR Negative (Neg); SARS CoV2 RNA(COVID-19) InHosp NEGATIVE (Negative)
[2021-02-12] MEDS ORDERED: ONDANSETRON INJ 2 MG/ML 2 ML VIAL IV PRN (18:12)
[2021-02-12] MEDS ORDERED: DEXTROSE 50% 50 ML SYRINGE IV PRN (18:12)
[2021-02-12] MEDS ORDERED: CARBOHYDRATES FOR HYPOGLYCEMIA PO PRN (18:12)
[2021-02-12] MEDS ORDERED: GLUCAGON FOR INJ 1 MG VIAL SQ PRN (18:12)
[2021-02-12] MEDS ORDERED: ACETAMINOPHEN 325 MG TAB PO PRN (18:12)
[2021-02-12] MEDS ORDERED: PHARMACIST DISCHARGE MED REC CONSULT PRN (18:12)
[2021-02-12] MEDS ORDERED: GLUCOSE 40% GEL 15 GM TUBE PO PRN (18:12)
[2021-02-12] MEDS ORDERED: POLYETHYLENE (MIRALAX) 17 GM PACK PO PRN (18:12)
[2021-02-12] MEDS ORDERED: LACTATED RINGER'S 1,000 ML IV SCH (18:12)
[2021-02-12] MEDS ORDERED: GLUCOSE 10 TABS/TUBE PO PRN (18:12)
[2021-02-12] MEDS ORDERED: BIMATOPROST 0.01% OP SOLN 2.5 ML BTL OP PRN (18:49)
[2021-02-12 19:18] LABS: INR 1.1 (0.9-1.1); Partial Thromboplastin Time 25.9 Seconds (21.0-31.0); Prothrombin Time 10.8 Seconds (9.0-12.0)
[2021-02-12 20:43] LABS: Appearance Urine Clear (Clear); Bilirubin Urine Negative (Negative); Blood Urine Negative (Negative); Color Urine Yellow; Glucose Urine UA Negative (Negative); Ketones Urine Negative (Negative); Leukocyte Esterase Urine Negative (Negative); Nitrite Urine Negative (Negative); Protein Urine Negative (Negative); Specific Gravity Urine 1.029 (1.000-1.030); Urobilinogen Urine Negative (Negative); pH Urine 7.5 (4.5-7.5)
[2021-02-12] MEDS ORDERED: Nursing to Pharmacy Communication SCH (20:45)
[2021-02-12] MEDS ORDERED: INSULIN GLARGINE SOLOSTAR 100 UNITS/ML 3 ML PEN SC SCH ×2 (21:00)
[2021-02-12] MEDS: D5W AND NSS 1,000 ML IV SCH (21:01)
[2021-02-12] MEDS: HEPARIN SOD 5,000 UNIT/0.5 ML VIAL SQ SCH (21:15)
--- NOTE | 2021-02-13 07:32 | Magnetic Resonance Report ---
Brain MRI WITHOUT CONTRAST HISTORY: Left-sided facial droop and slurred speech. TECHNIQUE: Multiplanar multisequence MRI of the brain was performed without the use of contrast. COMPARISON STUDY: Head CT 02/12/2021. FINDINGS: There is a 1 cm focus of restricted diffusion seen within the right periventricular white m atter consistent with an acute lacunar infarct. Atrophy and microvascular ischemic changes are noted. There is a chronic lacunar infarct within the left rodriguez radiata. The paranasal sinuses and mastoid air cells are clear. The major vascular level to the skull base are well-maintained. There is no mas s, hematoma or midline shift. IMPRESSION: A 1 cm acute lacunar infarct seen within the right periventricular white matter. ACT 112: Negative or not required by law. Electronically signed by: Rei Woodruff M.D. 02/13/2021 7:30 AM
[2021-02-13 07:54] LABS: Basophils # (auto) 0.04 K/uL (0-0.2); Basophils % (auto) 0.6 %; Eosinophils # (auto) 0.19 K/uL (0-0.5); Eosinophils % (auto) 2.6 %; Hematocrit (blood only) 45.8 % (42-52); Hemoglobin 15.8 g/dL (14.0-18.0); Immature Granulocytes # (auto) 0.03 K/uL (0.00-0.02); Immature Granulocytes % (auto) 0.4 %; Lymphocytes # (auto) 2.03 K/uL (1.2-3.4); Lymphocytes % (auto) 28.3 %; Mean Corpuscular Hemoglobin 30.4 pg (25-34); Mean Corpuscular Hgb Conc 34.5 g/dL (32-36); Mean Corpuscular Volume 88.1 fL (80-100); Mean Platelet Volume 11.2 fL (7.4-10.4); Monocytes # (auto) 0.57 K/uL (0.11-0.59); Monocytes % (auto) 7.9 %; Neutrophils # (auto) 4.31 K/uL (1.4-6.5); Neutrophils % (auto) 60.2 %; Platelet Count 209 K/uL (130-400); RDW Standard Deviation 45.6 fL (36.4-46.3); White Blood Count 7.17 K/uL (4.8-10.8)
[2021-02-13 08:23] LABS: BUN Creatinine Ratio 12.4 (10-20); Calcium 9.1 mg/dl (8.5-10.1); Creatinine Clr Calc Pharmacy 110.6 ml/min; Est GFR (African American) 107.6; Est GFR (Non-African American) 92.9; Potassium 3.7 mmol/L (3.5-5.1)
[2021-02-13 08:28] LABS: Estimated Average Glucose 143 mg/dl; Hemoglobin A1C 6.6 % (4.5-5.6)
[2021-02-13] MEDS ORDERED: PANTOprazole 40 MG TAB PO SCH (09:00)
[2021-02-13] MEDS ORDERED: METOPROLOL TARTRATE 25 MG TAB PO SCH (09:00)
[2021-02-13] MEDS ORDERED: CHOLECALCIFEROL 1,000 UNITS 25 MCG TAB PO SCH (09:00)
[2021-02-13] MEDS ORDERED: ASPIRIN 300 MG SUPP PR PRN (09:00)
[2021-02-13] MEDS ORDERED: ATORVASTATIN 40 MG TAB PO SCH (09:00)
[2021-02-13] MEDS ORDERED: ASPIRIN 81 MG ECTAB PO SCH (09:00)
[2021-02-13] MEDS: HEPARIN SOD 5,000 UNIT/0.5 ML VIAL SQ SCH (09:34)
[2021-02-13] MEDS: D5W AND NSS 1,000 ML IV SCH (10:57)
--- NOTE | 2021-02-13 12:56 | XCELERA ---
[id number]
--- NOTE | 2021-02-13 14:13 | Electrocardiogram Report ---
Test Reason : Blood Pressure : / mmHG Vent. Rate : 080 BPM Atrial Rate : 080 BPM P-R Int : 132 ms QRS Dur : 094 ms QT Int : 392 ms P-R-T Axes : 051 -22 019 degrees QTc Int : 452 ms Sinus rhythm Nonspecific ST abnormality Abnormal ECG When compared with ECG of 03-JUL-2003 10:44, No significant change Confirmed by Srinath Ying ([id number]) on 02/13/2021 2:13:28 PM Referred By: Confirmed By:Srinath Ying
--- NOTE | 2021-02-13 14:38 | Electrocardiogram Report ---
Test Reason : Blood Pressure : / mmHG Vent. Rate : 059 BPM Atrial Rate : 059 BPM P-R Int : 136 ms QRS Dur : 094 ms QT Int : 468 ms P-R-T Axes : 045 -07 006 degrees QTc Int : 463 ms Sinus bradycardia Inferior infarct , age undetermined Abnormal ECG When compared with ECG of 12-FEB-2021 12:46, (unconfirmed) Aberrant conduction is no longer Present Confirmed by Srinath Ying ([id number]) on 02/13/2021 2:37:53 PM Referred By: REFERRED SELF Confirmed By:Srinath Ying
--- NOTE | 2021-02-13 14:39 | Neurology Consultation ---
Date of Consultation February 13, 2021 Assessment & Plan (1) Carotid artery stenosis: (2) Acute CVA (cerebrovascular accident): Chris Lynn is a 75 yo man w/ PMH of HTN, HLD, SUSAN, DM, anxiety/depression, known aortic aneurysm and cervicalgia who p/t [facility] with acute onset of dysarthria and left facial droop. Symptom localization: right centrum semiovale Stroke mechanism: most likely lacunar/lipohyalinosis, much less likely vessel to vessel Stroke WorkUp: - CT head: shows no hemorrhage; there is significant bilateral basal ganglia calcification, small chronic infarct in the left centrum semiovale - CTA head/neck: notable for mild to moderate right ICA stenosis at the bifurcation with calcified plaque, mild left ICA stenosis at the bifurcation, and diffuse extra and intracranial atherosclerosis, no LVO, high-grade stenosis or aneurysm noted - MRI brain: shows a small acute infarct in the right centrum semiovale, re- demonstration of bilateral basal ganglia calcification, moderate SVID, mild generalized atrophy with ex vacuo dilation - TTE: EF 55-60%, mild LVH, moderate , no interatrial shunt - Telemetry: NSR - A1c: 6.6 - FLP: 38 - B12: 1158 - Troponin, TSH: negative, WNL Stroke Management: - Acute treatment: ASA - Continuous cardiac monitoring, consider 7 day event monitor as outpatient if telemetry here unrevealing - Vitals, Neurochecks, NIHSS per unit routine - BP parameters: SBP CAP 180, restart home anti-hypertensives for goal normotension - Consult speech, PT, OT for supportive management - Will business and financial counsel concerning stroke education, smoking cessation, healthy diet, physical activity, weight loss - Follow up with PCP for assistance with outpatient goals (BP <130/80, LDL <70, A1c <7) - Follow up in neurology clinic in 6-8 weeks with CARLINE Vazquez Secondary Stroke Prevention: - Antiplatelet: ASA 81mg po daily/plavix 75mg daily x 21 days, then plavix 75mg daily - Anticoagulation: Not indicated at this time - Statin: Atorvastatin 80mg daily HTN: - BP parameters, as above - Restart home medications with goal of lowering BP to normotension over next 3- 4 days FEN/GI: - Diet: Cardiac HH diet and PO meds given absence of bulbar signs or symptoms - Monitor lytes and replete PRN Glucose Control: - Sliding scale insulin and accuchecks per primary team to avoid hyperglycemia Thank you for this interesting consult. Plan of care was discussed with primary team. Please call with any questions. He is stable for discharge from a neurology standpoint. (3) HTN (hypertension): (4) Type 2 diabetes mellitus with hyperlipidemia: History of Present Illness Attending Physician: Odin Pabon MD History of Present Illness Chris Lynn is a 75 yo man w/ PMH of HTN, HLD, SUSAN, DM, anxiety/depression, known aortic aneurysm and cervicalgia who p/t [facility] with acute onset of dysar thria and left facial droop. 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 In the ED, he was afebrile, BP 166/89, heart rate 101, respiratory 18, satting 94% on room air. Labs notable for WBC 10.44, hemoglobin 16.7, platelets 220, electrolytes within normal, creatinine 0.74, glucose 126, INR 1, LFTs within normal, troponin negative. Imaging independently reviewed. CT head shows no hemorrhage; there is significant bilateral basal ganglia calcification, small chronic infarct in the left centrum semiovale. CTA head and neck notable for mild to moderate right ICA stenosis at the bifurcation with calcified plaque, mild left ICA stenosis at the bifurcation, and diffuse extra and intracranial atherosclerosis, no LVO, high-grade stenosis or aneurysm noted. MRI brain shows a small acute infarct in the right centrum semiovale, re-demonstration of bilateral basal ganglia calcification, moderate SVID, mild generalized atrophy with ex vacuo dilation. On examination, he reports that he was in his normal state of health until Saturday when his noticed dysarthria and facial droop. Symptoms did not improve, so he presented to the ED for evaluation. Denies any N/T/W in extremities, speech difficulties or vision changes with symptoms. May have missed a few doses of aspirin recently. Denies any other medication changes, illnesses or injuries recently. Does endorse smoking cigars occasionally and has a h/o tobacco abuse in the past. Stroke Workflow: Where patient arrived from: home CT ASPECT: 9 Time IV tpa is given: NA tPA bolus: NA tPA dose: NA If tpa not given, why not: Outside of time window If delay >60min after hospital arrival, why: NA If no IA therapy, why not: No LVO on CTA Patient Features: Admission NIHSS: 2 Admission Modified John Scale: 0-1 Time patient last seen well: 02/10/21 Wake up stroke: No Intubation status: Not intubated Stroke Risk Factors: Hypertension: Y Hyperlipidemia: Y Atrial Fib: N Tobacco: N Diabetes: Y Taking NOAC or warfarin: Y Allergies Allergy/AdvReac Type Severity Reaction Status Date / Time lisinopril AdvReac Mild COUGH Verified 02/13/21 10:58 Home Medications Medication Instructions Recorded Confirmed Type multivitamin 1 tab PO DAILY 06/16/19 02/12/21 History cholecalciferol (vitamin D3) 25 5,000 units PO DAILY cap 01/20/20 02/12/21 History mcg (1,000 unit) capsule atorvastatin 80 mg tablet 80 mg PO DAILY #90 tab 06/28/20 02/12/21 Rx metoprolol tartrate 25 mg tablet 25 mg PO DAILY #90 tab 06/28/20 02/12/21 Rx pantoprazole 40 mg tablet,delayed 40 mg PO DAILY #90 tab 06/28/20 02/12/21 Rx release telmisartan 80 mg tablet 80 mg PO DAILY #90 tab 06/28/20 02/12/21 Rx Novolog Flexpen U-100 Insulin 100 5 - 6 unit SQ DAILY #15 ml NS 12/19/20 02/12/21 Rx unit/mL (3 mL) subcutaneous Tresiba FlexTouch U-100 100 30 unit SQ DAILY #30 ml NS 12/19/20 02/12/21 Rx unit/mL (3 mL) subcutaneous pen blood sugar diagnostic ea 12/19/20 12/27/20 History metformin 500 mg tablet,extended 1,000 mg PO BID #360 tab 12/19/20 02/12/21 Rx release 24 hr triamcinolone acetonide 55 mcg 1 spray INTNAS DAILY PRN 12/19/20 02/12/21 History nasal spray aerosol bimatoprost 0.01 % eye drops 1 drp OPHTHALMIC (EYE) DAILY PRN 12/27/20 02/12/21 History acetaminophen [Tylenol Extra 500 mg PO Q6H PRN 02/12/21 02/12/21 History Strength] aspirin 81 mg PO DAILY 02/12/21 02/12/21 History sildenafil (pulm.hypertension) 40 - 60 mg PO DIRECTED PRN 02/12/21 02/12/21 History clopidogrel [Plavix] 75 mg PO DAILY #30 tab 02/13/21 Rx Patient History Medical History Acute sinusitis Anxiety and depression Aortic aneurysm Aortic dissection Cervical facet joint syndrome Cervicalgia DM (diabetes mellitus), type 2 Goiter Hyperlipidemia Loss of protective sensation of skin of foot Macular degeneration Mild sleep apnea Pulmonary nodule seen on imaging study Vitamin D deficiency Surgical History H/O knee surgery Family History Father Coronary heart disease Diabetes Myocardial infarction Mother Myocardial infarction Denies family history of Ovarian cancer Prostate cancer Breast cancer Colorectal cancer Cancer Social History Smoking Status: Never smoker Second Hand Exposure: No; Hx Alcohol Use: No Hx Substance Use: No Preferred Language: Angolan Communication Ability: Effective 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 Exam (Neuro) Physical Exam: General Exam: GEN: NAD, sitting down in examination bed. HEENT: No conjunctival injection, no rhinorrhea. CV: RRR on monitor, no significant edema. PULM: Nonlabored respirations on room air. Neuro Exam: MS: Awake and Alert. Oriented to person, place, and date. Speech fluent and appropriate without dysarthria or paraphasic errors. Language intact including naming, comprehension, repetition. Cognition and memory grossly intact. Attention intact. No neglect. CN: Visual rowe full, + blink to threat bilaterally. No extinction to double simultaneous stimuli. Unable to visualize fundi on fundoscopic exam. PERRLA OU. EOMI without nystagmus. Facial sensation intact to LT. Facial muscles full and symmetric. Hearing intact to conversations. Shoulder shrug normal. Tongue midline. MOTOR: Normal bulk and tone. No pronator drift. BUE strength 5/5 at deltoids, biceps, triceps, wrist flexors and extensors, and finger flexors bilaterally. BLE strength 5/5 at iliopsoas, hamstrings, quadriceps, tibialis anterior, and gastrocnemius bilaterally. REFLEXES: 1+ at biceps, triceps, brachioradialis, trace patella, and absent Achilles bilaterally. Flexor plantar responses bilaterally. SENSORY: Intact to LT throughout, no extinction to double simultaneous stimuli. Vibration diminished in BLEs up to the knees. COORDINATION: No dysmetria or ataxia on [id number] bilaterally. Normal Maggie bilaterally. GAIT: Deferred due to physical status. NIH STROKE SCALE 1A. Level of Consciousness (0-3) = 0 1B. LOC Questions (0-2) = 0 1C. LOC Commands (0-2) = 0 2. Best Horizontal Gaze (0-2) = 0 3. Visual Rowe (0-3) = 0 4. Facial Palsy (0-3) = 0 5. Motor Arm Right (0-4) = 0 Left (0-4) = 0 6. Motor Leg Right (0-4) = 0 Left (0-4) = 0 7. Limb Ataxia (0-2) = 0 8. Sensory (0-2) = 0 9. Best Language (0-3) = 0 10. Dysarthria (0-2) = 0 11. Extinction and Inattention (0-2) = 0 NIHSS TOTAL = 0 Results & Data ([facility]) Vital Signs (Past 12 Hours) Vital Signs Temp Pulse Pulse Pulse Resp BP Pulse Ox 02/13/21 12:00 36.5 C 52 L 20 163/79 H 95 02/13/21 09:40 36.6 C 62 16 169/89 H 95 02/13/21 07:42 62 02/13/21 03:21 36.5 C 63 18 167/82 H 95 PG Care Time/CCT Total # of Minutes Spent Total Time Spent with Patient: Total time spent is greater than 50% in coordination of care (as documented) at patient's floor/unit and/or counseling patient: 60 Coding Level of Care Code 99678 Initial Inpt Care Lvl 3 Diagnoses Carotid artery stenosis I65.29 Acute CVA (cerebrovascular accident) I63.9 HTN (hypertension) I10 Hypertension type: essential hypertension Type 2 diabetes mellitus with hyperlipidemia E11.69; E78.5 (1) HTN (hypertension) Hypertension type: essential hypertension Qualified Code(s): I10 - Essential (primary) hypertension
[2021-02-13] MEDS ORDERED: STROKE PATIENT DISCHARGE STA (16:43)
--- NOTE | 2021-02-13 17:10 | Pharmacy Report ---
Pharmacist Stroke Counseling - Date of Service February 13, 2021 - Scope: Pharmacy has been consulted to provide medication discharge counseling for this patient admitted with [ischemic stroke] [hemorrhagic stroke] [transient ischemic attack] as per the Pharmacist Discharge Counseling for Stroke Patients Protoc ol. - Medications on Discharge: Home Medications Medication Instructions Recorded Confirmed multivitamin 1 tab PO DAILY 06/16/19 02/12/21 cholecalciferol (vitamin D3) 25 5,000 units PO DAILY cap 01/20/20 02/12/21 mcg (1,000 unit) capsule blood sugar diagnostic ea 12/19/20 12/27/20 triamcinolone acetonide 55 mcg 1 spray INTNAS DAILY PRN 12/19/20 02/12/21 nasal spray aerosol bimatoprost 0.01 % eye drops 1 drp OPHTHALMIC (EYE) DAILY PRN 12/27/20 02/12/21 acetaminophen [Tylenol Extra 500 mg PO Q6H PRN 02/12/21 02/12/21 Strength] aspirin 81 mg PO DAILY 02/12/21 02/12/21 sildenafil (pulm.hypertension) 40 - 60 mg PO DIRECTED PRN 02/12/21 02/12/21 New Rx's Medication Instructions Recorded atorvastatin 80 mg tablet 80 mg PO DAILY #90 tab 06/28/20 metoprolol tartrate 25 mg tablet 25 mg PO DAILY #90 tab 06/28/20 pantoprazole 40 mg tablet,delayed 40 mg PO DAILY #90 tab 06/28/20 release telmisartan 80 mg tablet 80 mg PO DAILY #90 tab 06/28/20 Novolog Flexpen U-100 Insulin 100 5 - 6 unit SQ DAILY #15 ml NS 12/19/20 unit/mL (3 mL) subcutaneous Tresiba FlexTouch U-100 100 30 unit SQ DAILY #30 ml NS 12/19/20 unit/mL (3 mL) subcutaneous pen metformin 500 mg tablet,extended 1,000 mg PO BID #360 tab 12/19/20 release 24 hr clopidogrel [Plavix] 75 mg PO DAILY #30 tab 02/13/21 - Action: The above medications, specifically ones for stroke treatment/prophylaxis, have been reviewed in detail with the patient and/or patient inside sales account representative(s) prior to discharge. This includes indication, common adverse reactions, drug interactions, and medication administration. Medication counseling has been employed using the teach-back method to ensure understanding. - Outcome: The patient and/or patient inside sales account representative(s) have demonstrated understanding of the medications. Thank you for allowing pharmacy to be involved in the care of this patient. Please call [phone] with any additional questions
--- NOTE | 2021-02-13 18:14 | Discharge Summary ---
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 Patient was accompanied to the emergency room today by his and daughter. They report that on Saturday PM he may have had some slurring of his speech. Saturday morning the d efinitely noticed the left sided facial droop and slurring of his speech. Today He was picking his and daughter up from [facility] and she noticed his facial droop being worse, so they made him come to the emergency room. He had a CT scan of the head and neck performed, which did not show any acute intracranial process, CTA of the neck revealed extensive calcified plaques within the proximal bilateral arteries 50% stenosis of the proximal JOSE and 30 % stenosis of the proximal LICA. He took his aspirin and his short acting insulin this morning. He is not a TPA candidate secondary to last known well. He will be admitted to the medical telemetry floor, continue CVA workup, MRI of the brain, ECHO, telemetry for 24 hours, and neurology consult. Principal Diagnosis Stroke Discharge Exam Constitutional WD/WN, vitals as above Eyes EOM intact bilaterally; no conjunctival abnormality ENMT external ear and nose normal, oropharynx normal Neck trachea midline, no thyromegaly normal visual inspection Respiratory normal respiratory effort, lungs clear to auscultation no respiratory distress Cardiovascular RRR, no murmur, no edema Gastrointestinal (Abdomen) Inspection/Auscultation: abdomen normal to inspection; abdomen not distended Musculoskeletal no cyanosis or clubbing, extremities motor strength 5/5 Skin no rashes, warm and dry Neurologic moves all extremities and awake Speech / Cognition: + abnormal speech (Mild dysarthria) Psychiatric Orientation: alert, oriented to person and cooperative Discharge Data Allergies Allergy/AdvReac Type Severity Reaction Status Date / Time lisinopril AdvReac Mild COUGH Verified 02/13/21 10:58 Consultations 02/12/21 18:12 Consult Neurology Routine Ordered Studies 02/12/21 12:57 CT angio head w con Stat CT angio neck with con Stat CT head/brain wo con Stat 02/12/21 14:40 MR brain wo con Routine Hospital Course (1) Acute CVA (cerebrovascular accident): MRI brain showed a 1 cm acute lacunar infarct seen within the right periventricular white matter. - Neurology recommended: * ASA & Plavix for 3 weeks, then just use Plavix. * Continue statin, DM, HTN care. All of these sound like they are in quite good control at home. Mildly hypertensive here, but in the context of stress. Increased metoprolol to BID dosing. * Follow-up with neurology in 4-6 weeks. 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 (2) HTN (hypertension): Marginally controlled with outpatient review as well - Goal upon discharge <130 (3) Hyperlipidemia: Lipid panel in the morning showed good control with LDL < 70. - Continue high dose statin (4) 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- continues with screening - 4.2cm fusiform aneurysm - Increased beta-genna on discharge to BID. (5) Type 2 diabetes mellitus with hyperlipidemia: Lantus 30 units, sliding scale, and metformin at home - hold metformin while in house - NPO 1/2 dose Lantus tonight - add sliding scale insulin in when passes swallow screen and able to take PO (6) BPH (benign prostatic hyperplasia): Patient wie 2-4 night time awakenings to void - Does not feel like he completely empties his bladder - PVR bladder scan - Bladder scan PRN for retention - Reportedly refused flow agent from PCP -> Can reassess as outpatient. (7) Nodular thyroid disease: Patient follows this with endocrinology Dr. Raphael- last seen 2019 - FNA was colloid nodules - Follow TSH in am CTA of the neck: note is made of a large left lobe thyroid nodule with rightward displacement of the trachea. This is unchanged. (8) Cervical facet joint syndrome: Chronic- last injected in 2020 by chronic pain - no acute needs, continue Tylenol for pain when able to take PO (9) Urinary frequency: UA showed no infection. (10) Carotid artery stenosis: As above, lipid lowering medication, blood pressure control, HGB A1c improvement, weight reducation (11) Chronic fatigue: Patient has been following up with his PCP and custom stock maker for this . - Is on B12, Vitamin D at home -> B12 is high/normal. - TSH was 1.1 in 12/2020. - AM cortisol was 21, so normal as well. - Unclear cause; continue work-up with PCP. Total Time Total Time Spent Total Time Spent (In Minutes): 35 Discharge Plan Discharge Items Patient Disposition: Home - Home Health Services Reason For Visit: CVA Discharge Diagnosis: Stroke Activity: Resume your previous activity Non-emergency contact: Primary Care Provider and Neurologist Call non-emergency contact if: your symptoms worsen Follow-up/Referrals: Jessee Smith DO [Primary Care Provider] - 02/16/21 11:00 am (If you have any questions or need to change this appointment, please call [phone].) Yvnone Mcdaniels PA-C [Physician Cooker Pie Filling] - (Dr Sarmiento's office will call you to set up an neurology appointment. If you have any questions, please call [phone].) Diet: Carb Consistent or DM2 and Heart Healthy Addtl Attending Provider Instructions: Mr. Lynn, You were admitted to the hospital with some slurred speech and facial droop that your family noticed. Unfortunately, the MRI machine here showed that you had a small stroke. Dr. Sarmiento (our neurologist) saw you and has some medication adjustments to try to avoid this from happening again. We are also setting up speech therapy to visit you at home to help continue to improve your speech and get it back to normal. Finally, we will adjust your medications to help prevent this from happening again. First: For 21 days, please take BOTH aspirin 81 mg (sometimes called a baby aspirin) and a new medication called Plavix. Do this for 3 weeks, then STOP JUST the baby aspirin. CONTINUE the Plavix daily until seen by Dr. Sarmiento or another provider in the clinic. Second: Please take your metoprolol twice per day to help keep your heart rate and blood pressure under good control. Addtl Car Painter Provider Instructions: [facility] will provide home Speech Therapy and will contact you to schedule times. If you decide that you would rather outpatient speech therapy, please call Greg Allenhurst to make an appointment ([phone]). It's located in the [facility]. Pending Studies at Discharge: No Stand-Alone Forms: My [facility] [employer], Smoking Cessation Medications and DC Order Prescriptions: New clopidogrel [Plavix] 75 mg tablet 75 mg PO DAILY Qty: 30 RF: 1 Continued multivitamin tablet 1 tab PO DAILY RF: 0 cholecalciferol (vitamin D3) 25 mcg (1,000 unit) capsule 5,000 units PO DAILY RF: 0 triamcinolone acetonide [Nasacort] 55 mcg aerosol,spray 1 spray INTNAS DAILY PRN (Reason: Unknown) RF: 0 atorvastatin 80 mg tablet 80 mg PO DAILY Qty: 90 RF: 3 pantoprazole 40 mg tablet,delayed release (DR/EC) 40 mg PO DAILY Qty: 90 RF: 3 telmisartan 80 mg tablet 80 mg PO DAILY Qty: 90 RF: 1 (DME) OneTouch Verio test strips Strip See Rx Instructions .ROUTE .MEDSUPPLY RF: 0 metformin 500 mg tablet extended release 24 hr 1,000 mg PO BID Qty: 360 RF: 3 insulin aspart U-100 [Novolog Flexpen U-100 Insulin] 100 unit/mL (3 mL) insulin pen 5 - 6 unit SQ DAILY Qty: 15 RF: 3 Tresiba FlexTouch U-100 100 unit/mL (3 mL) insulin pen 30 unit SQ DAILY Qty: 30 RF: 3 Lumigan 0.01 % drops 1 drp ophthalmic (eye) DAILY PRN (Reason: Unknown) RF: 0 aspirin 81 mg Tablet,Delayed Release (Dr/Ec) 81 mg PO DAILY RF: 0 acetaminophen [Tylenol Extra Strength] 500 mg Tablet 500 mg PO Q6H PRN (Reason: Pain) RF: 0 sildenafil (pulm.hypertension) 20 mg tablet 40 - 60 mg PO DIRECTED PRN (Reason: sexual dysfunction) RF: 0 Changed metoprolol tartrate 25 mg tablet 25 mg PO BID Qty: 90 RF: 1 Discharge Orders: Discharge Order (Routine); Ordered 02/13/21 Ordered By: Odin Pabon Admission Data Admit Date/Time: 02/12/21 14:47 Attending Provider: Odin Pabon Admit Provider: Odin Pabon Primary Care Provider: Jessee Smith Other Providers: Jim Reagan Other Interventions: Discharge Summary Assessment (RN) Last Done: 02/13/21 17:50 Coding Level of Care Code D/C Day Management >30 mins Diagnoses Acute CVA (cerebrovascular accident) I63.9 HTN (hypertension) I10 Hypertension type: essential hypertension Hyperlipidemia E78.5 Hyperlipidemia type: unspecified Intrathoracic aortic aneurysm I71.2 Type 2 diabetes mellitus with hyperlipidemia E11.69; E78.5 BPH (benign prostatic hyperplasia) N40.1; R39.14 Lower urinary tract symptom presence: symptoms present Lower urinary tract symptom detail: incomplete bladder emptying Nodular thyroid disease E04.1 Cervical facet joint syndrome M47.812 Urinary frequency R35.0 Carotid artery stenosis I65.29 Chronic fatigue R53.82
--- NOTE | 2021-02-23 13:18 | Coding Query ---
CODING QUERY To promote full compliance with coding requirements relating to patient care, provider participation is requested in all cases of buckle wire inserter uncertainty. Please assist us with the question(s) below: Coding Question(s): Acute CVA is documented as well as Carotid Artery Stenosis 50% stenosis of the proximal JOSE and 30% stenosis of the proximal LICA. Please specify below in your clinical opinion, regarding the relationship, if any, between the Carotid Stenosis and the Acute CVA. (X ) Acute CVA not likely due to Carotid Stenosis ( ) Acute CVA likely due to Carotid Stenosis. Please specify below, regarding the Carotid Stenosis likely causing CVA: ( ) Right ICA ( ) Left ICA ( ) Bilateral ICA ( ) Other: Please Specify_Unlikely that the small stroke was vessel to vessel from the known R ICA stenosis but cannot completely rule that out Physician's Response(s): Thank you Irish Purcell Principal Diagnosis: "that condition established after study, to be chiefly responsible for occasioning the admission of the patient to the hospital for care." Co-Existing Principal Diagnosis: "when two or more diagnoses equally meet the criteria for principal diagnosis as determined by the circumstances of admission, diagnostic work up, and/or therapy provided, and the Alphabetic Index, Tabular List, or another coding guideline does not provide sequencing direction, any one of the diagnoses may be sequenced first." "When the physician has documented what appears to be a current diagnosis in the body of the record, but has not included the diagnosis in the final diagnostic statement, the physician should be asked whether the diagnosis should be added." (Source Coding Clinic 2 QTR90. p3-4) LO
== END 2021-02-13 18:20 | disposition home health service (06) | DRG 66 ==
LOC: ED 12:31 → 2N 14:47

== ENCOUNTER 2022-01-21 10:56 | Observation (INO) ==
[2022-01-21] MEDS ORDERED: SODIUM CHLORIDE 0.9% 1000ML 500 ML IV ONE ×2 (11:33→13:58)
[2022-01-21 11:45] LABS: Eosinophils # (auto) 0.03 K/uL (0-0.5); Eosinophils % (auto) 0.3 %; Hematocrit (blood only) 44.2 % (42-52); Hemoglobin 14.9 g/dL (14.0-18.0); Immature Granulocytes # (auto) 0.05 K/uL (0.00-0.02); Immature Granulocytes % (auto) 0.4 %; Lymphocytes % (auto) 6.9 %; Mean Corpuscular Hemoglobin 30.8 pg (25-34); Mean Corpuscular Hgb Conc 33.7 g/dL (32-36); Mean Corpuscular Volume 91.3 fL (80-100); Mean Platelet Volume 11.2 fL (7.4-10.4); Monocytes # (auto) 0.79 K/uL (0.11-0.59); Monocytes % (auto) 6.8 %; Neutrophils # (auto) 9.99 K/uL (1.4-6.5); Neutrophils % (auto) 85.6 %; Platelet Count 173 K/uL (130-400); RDW Coefficient of Variation 14.1 % (11.5-14.5); RDW Standard Deviation 47.3 fL (36.4-46.3); Red Blood Count 4.84 M/uL (4.7-6.1); White Blood Count 11.66 K/uL (4.8-10.8)
[2022-01-21 12:13] LABS: Troponin I < 0.03 ng/ml (0-0.04)
--- NOTE | 2022-01-21 12:16 | XRay Report ---
XR chest 1V portable CLINICAL HISTORY: vomiting COMPARISON STUDY: Chest CT November 29, 2021. Chest radiograph January 06, 2022. FINDINGS: Elevation of the right hemidiaphragm is unchanged. Left upper mediastinal widening with rig htward displacement of the trachea is unchanged and due to a goiter, as shown on prior CT. Cardiomedi astinal silhouette is stable. There is no evidence for pulmonary edema.] Basilar opacity favors atele ctasis. There is no consolidation to suggest pneumonia. IMPRESSION: No acute cardiopulmonary findings. No change in appearance of the chest. ACT 112: Negative or not required by law. Electronically signed by: Ethan Colin M.D. 01/21/2022 12:15 PM
[2022-01-21 12:17] LABS: Alanine Aminotransferase 36 U/L (7-52); Albumin Level 3.1 gm/dl (3.4-5.0); Alkaline Phosphatase 78 U/L (34-104); Anion Gap 7 (3-11); Aspartate Aminotransferase 18 U/L (13-39); BUN Creatinine Ratio 33.3 (10-20); Bilirubin Direct 0.3 mg/dl (0-0.2); Bilirubin,Total 0.9 mg/dl (0.2-1.0); Blood Urea Nitrogen 21 mg/dl (6-23); Carbon Dioxide 27 mmol/L (21-32); Chloride 99 mmol/L (98-107); Creatinine Clr Calc Pharmacy 119.2 ml/min; Est GFR (African American) 110.9 ml/min; Est GFR (Non-African American) 95.7 ml/min; Glucose 156 mg/dl (70-99(Fasting)); Lipase 39 U/L (11-82); Sodium 133 mmol/L (136-145); Total Protein 5.3 gm/dl (6.0-8.3)
--- NOTE | 2022-01-21 12:35 | Emergency Department Note ---
Impression & Plan Somnolence, Vomiting, Headache, Diffuse abdominal pain, Abdominal mass, RLQ (right lower quadrant) ED Provider Note Name: PRERY VARELA Age: 76 Sex: M Arrives Via: Ambulance Informant: Patient, Daughter, ED Provider: Titi Dobson MD Chief Complaint: weakness Impression: As per impressions above Medical Decision Makin-year-old gentleman arrives for evaluation of nausea, vomiting, weakness and increased somnolence. He reportedly had a headache and abdominal pain earlier. He has been in [facility] rehab for the last few days after discharge from [facility]. He was admitted at [place] for bilateral subdurals is now status post surgery. Prior to this he did have a fall little over a month and a half ago with transfer to [facility] [place] for trauma evaluation. At that point a mass had been seen in the right lower abdomen which is still to be followed up by Onc surgeon as the trauma ich issues have preceded this. Per daughter and patient was much more confused earlier in the day but after Zofran and fluids he does appear improved. He is not yet back to his baseline. Patient is making comments joking about being back in the hospital. He has a CT head which shows residual subdurals bilaterally and a minimal midline shift. I did discuss this with the neurosurgeon at [facility] [place] who will review the films further but feels no need for emergent surgical intervention. Labs are unremarkable. CT of the abdomen and pelvis reveals mass in the right lower quadrant remains. I did discuss this all with the daughter and were aware of the mass in her awaiting follow-up. Per family he is far too weak [facility] and I think this is reasonable to keep him here continue some hydration and obtain repeat CT in 24 hours. Hospitalist consulted and are on board with this. Prior Medical Record and Triage/Nursing Notes reviewed by Me Additional history obtained from chart, [facility] Physician, family Differentials:Infection, dehydration, metabolic abnormality, hypo/hype rglycemia, electrolyte disturbance, anemia, hypoxia, cardiac sources, intracerebral event, toxicologic, neurologic, as well as other pathologies. Vital Signs: reviewed and remarkable for no significant abnormalities Interventions: nss bolus 500ml x2 Labs:Reviewed and remarkable for no significant abnormalities Imaging:CT head as per report below EKG:Per My Interpretation: Indication Weakness: Sinus David 57 bpm, qtc 439. No Ectopy. No Ischemia. Compared to EKG 01/06/22, no significant changes. Consults:Dr Alisa RAMSEY Hospitalist. Edyta [facility]. Plan: Disposition:Hospitalization. Condition: Fair History of Present Illness:76-year-old male arrives for evaluation of nausea an d vomiting. Patient notes that starting last night he developed abdominal pain he states it is diffuse and radiating throughout entire abdomen. At times it is sharp and then it is dull. He vomited multiple times throughout the night. He did have a normal bowel movement yesterday. She notes that his abdominal pain has now as well as his nausea. He developed some headache yesterday as well wit h a bit of vertigo but states that this is pretty chronic. He states that he was in [place] for a brain operation with bleeding on the brain after a fall a couple weeks ago. He has been living in a rehab facility recently. He was given Zofran prior to arrival and states he feels much better now. He has no current abdominal pain or nausea. He denies any chest pain, shortness of breath, current headache, visual changes, neurologic deficits other than generalized weakness. He has no other complaints nor concerns. He has had no new falls nor injuries. According to the chart he was sent to the ER for further evaluation to get imaging and his neurosurgeon wish to have the images sent down to them and [facility] [place]. ROS: See above HPI for pertinent positives & negatives. A total of 10 systems reviewed and were otherwise negative. Past Medical History:See Below Past Surgical History:See Below Family History:See Below Social History:See Below Home Medications:See Below Allergies:lisinopril Vitals:Blood Pressure: 121/56, Pulse 60, RR 16, T 36.7C, O2 96% on RA Physical Exam: GENERAL: Patient is chronically unwell appearing and in minimal distress. EYES: No scleral icterus, unremarkable pupils. ENT: Mucous membranes moist, no nasal congestion. NECK: No masses appreciated, nomeningismus, trachea is midline. RESPIRATORY: No dyspnea. Clear to auscultation and equal bilaterally. No wheeze, no rhonchi. CARDIOVASCULAR: Regular rate and rhythm.No murmurs, rubs, gallops appreciated. GASTROINTESTINAL: Abdomen soft, non-tender, no peritonitis.Bowel sounds positive.No masses appreciated. BACK: No midline tenderness, no CVA tenderness EXTREMITIES: Normal motion all extremities, no cyanosis, no edema. NEUROLOGIC: Alert and oriented, no acute motor or sensory deficits, no focal weakness, cranial nerves grossly intact. SKIN: No rash, no jaundice, no diaphoresis. PSYCH: Appropriate GCS: 15 ED Course: Times/Reassessments: Patient is breathing comfortably in no distress. He does appear bit more with it as he got fluids. Per family still not quite back to his baseline in the are on board to monitor him in the hospital overnight. Titi Dobson MD Past Med/Surg History Medical History Acute sinusitis Aortic aneurysm Aortic dissection Cervical facet joint syndrome Cervicalgia DM (diabetes mellitus), type 2 Hammertoe of right foot Hyperlipidemia Loss of protective sensation of skin of foot Macular degeneration Mild sleep apnea Pulmonary nodule seen on imaging study Vitamin D deficiency Surgical History H/O knee surgery Family History Father Coronary heart disease Diabetes Myocardial infarction Mother Myocardial infarction Denies family history of Ovarian cancer Prostate cancer Breast cancer Colorectal cancer Cancer Social History Smoking Status: Former smoker Tobacco Type: Cigars Second Hand Exposure: No; Hx Alcohol Use: No Hx Substance Use: No Preferred Language: Spanish Communication Ability: Effective Pocket Assembler Required: No Beliefs That Will Affect Care: None marital status: Current Living Situation: Spouse current occupational status: retired Feels Safe at Home: Yes caffeine: Yes (coffee) Dental Care, Regularly: Yes Physical Activity Frequency: 3-4 Times per Week Seatbelt Use: sometimes Sunscreen Use: No Assistive Devices: Cane Allergies Allergies Allergy/AdvReac Type Severity Reaction Status Date / Time lisinopril AdvReac Mild COUGH Verified 01/06/22 22:21 Home Meds Home Medications Medication Instructions Recorded Confirmed multivitamin 1 tab PO DAILY 06/16/19 01/21/22 triamcinolone acetonide 55 mcg 1 spray INTNAS DAILY PRN 12/19/20 01/21/22 nasal spray aerosol (Nasacort) acetaminophen 500 mg tablet 500 mg PO Q6H PRN 02/12/21 01/21/22 (Tylenol Extra Strength) sildenafil (pulm.hypertension) 20 40 - 60 mg PO DIRECTED PRN 02/12/21 01/21/22 mg tablet cholecalciferol (vitamin D3) 125 125 mcg PO DAILY 06/06/21 01/21/22 mcg (5,000 unit) capsule hydrocodone 5 mg-acetaminophen 325 1 tab PO Q6H PRN 01/06/22 01/21/22 mg tablet solifenacin 5 mg tablet (Vesicare) 5 mg PO QAM 01/06/22 01/21/22 Previous Rx's Medication Instructions Recorded telmisartan 80 mg tablet 80 mg PO DAILY #90 tab 03/06/21 atorvastatin 80 mg tablet 80 mg PO DAILY #90 tab 06/01/21 clopidogrel 75 mg tablet (Plavix) 75 mg PO DAILY #90 tab 06/01/21 metoprolol tartrate 50 mg tablet 50 mg PO BID #180 tab 06/01/21 amlodipine 2.5 mg tablet 2.5 mg PO DAILY #90 tab 07/13/21 escitalopram oxalate 10 mg tablet 10 mg PO DAILY #90 tab 07/13/21 tamsulosin 0.4 mg capsule 0.8 mg PO DAILY #180 cap 07/13/21 metformin 500 mg tablet,extended 1,000 mg PO DAILY 90 Days #180 tab 11/02/21 release 24 hr Novolog Flexpen U-100 Insulin 100 5 unit SQ DAILY #15 ml NS 12/12/21 unit/mL (3 mL) subcutaneous (insulin aspart U-100) insulin glargine U-300 conc 300 26 unit SUBCUT DAILY 90 Days 12/12/21 unit/mL (1.5 mL) subcutaneous pen #7.803 ml (Toujeo SoloStar U-300 Insulin) pantoprazole 40 mg tablet,delayed 40 mg PO DAILY PRN #30 tab 12/12/21 release Results & Data (ED) Vital Signs Vital Signs - 24 hr 01/21/22 11:05 01/21/22 13:00 Temperature 36.7 C Temperature Source Oral Pulse Rate 60 Pulse Rate [Left] 55 L Pulse Rhythm Regular Pulse Rhythm [Left] Regular Pulse Strength Normal Pulse Strength [Left] Normal Respiratory Rate 16 16 Respiratory Effort / Characteristics Non-Labored Spontaneous Non-Labored Spontaneous Respiratory Depth Normal Normal Respiratory Pattern Regular Regular Blood Pressure 121/56 L Blood Pressure [Right Arm] 115/58 L Blood Pressure Mean 77 Blood Pressure Mean [Right Arm] 77 Blood Pressure Position Lying Blood Pressure Position [Right Arm] Lying Pulse Oximetry 96 95 Oxygen Delivery Method Room Air Room Air Sepsis Recent Fever Within 48 Hours No Sepsis New/Unexplained Change in Mental Status N/A Sepsis Action Taken by Nursing No Action Required Laboratory Data Result diagrams: 01/22/22 06:53 01/22/22 06:53 Lab Results 01/21/22 01/21/22 01/21/22 Range/Units 11:35 11:35 14:00 WBC 11.66 H (4.8-10.8) K/uL RBC 4.84 (4.7-6.1) M/uL Hgb 14.9 (14.0-18.0) g/dL Hct 44.2 (42-52) % MCV 91.3 (80-100) fL MCH 30.8 (25-34) pg MCHC 33.7 (32-36) g/dL RDW Std Deviation 47.3 H (36.4-46.3) fL RDW Coeff of Taylor 14.1 (11.5-14.5) % Plt Count 173 (130-400) K/uL MPV 11.2 H (7.4-10.4) fL Immature Gran % (Auto) 0.4 % Neut % (Auto) 85.6 % Lymph % (Auto) 6.9 % [place] % (Auto) 6.8 % Eos % (Auto) 0.3 % Baso % (Auto) 0.0 % Neut # (Auto) 9.99 H (1.4-6.5) K/uL Lymph # (Auto) 0.80 L (1.2-3.4) K/uL [place] # (Auto) 0.79 H (0.11-0.59) K/uL Eos # (Auto) 0.03 (0-0.5) K/uL Baso # (Auto) 0.00 (0-0.2) K/uL Immature Gran # (Auto) 0.05 H (0.00-0.02) K/uL Sodium 133 L (136-145) mmol/L Potassium 4.0 (3.5-5.1) mmol/L Chloride 99 (98-107) mmol/L Carbon Dioxide 27 (21-32) mmol/L Anion Gap 7 (3-11) BUN 21 (6-23) mg/dl Creatinine 0.63 (0.6-1.4) mg/dl Est Cr Clr Drug Dosing 119.2 ml/min Est GFR ( Amer) 110.9 ml/min Est GFR (Non-Af Amer) 95.7 ml/min BUN/Creatinine Ratio 33.3 H (10-20) Glucose 156 H (70-99(Fasting)) mg/dl Calcium 8.0 L (8.5-10.1) mg/dl Total Bilirubin 0.9 (0.2-1.0) mg/dl Direct Bilirubin 0.3 H (0-0.2) mg/dl AST 18 (13-39) U/L ALT 36 (7-52) U/L Alkaline Phosphatase 78 (34-104) U/L Troponin I < 0.03 (0-0.04) ng/ml Total Protein 5.3 L (6.0-8.3) gm/dl Albumin 3.1 L (3.4-5.0) gm/dl Lipase 39 (11-82) U/L Urine Color Dark Yellow Urine Appearance Clear (Clear) Urine pH 7.0 (4.5-7.5) Ur Specific [place] 1.026 (1.000-1.030) Urine Protein Negative (Negative) Urine Glucose (UA) Trace H (Negative) Urine Ketones Trace H (Negative) Urine Blood Negative (Negative) Urine Nitrite Negative (Negative) Urine Bilirubin 1+ H (Negative) Urine Urobilinogen Positive H (Negative) Ur Leukocyte Esterase Negative (Negative) SARS-CoV-2, RNA, NAAT (NEGATIVE) 01/21/22 Range/Units 14:03 WBC (4.8-10.8) K/uL RBC (4.7-6.1) M/uL Hgb (14.0-18.0) g/dL Hct (42-52) % MCV (80-100) fL MCH (25-34) pg MCHC (32-36) g/dL RDW Std Deviation (36.4-46.3) fL RDW Coeff of Taylor (11.5-14.5) % Plt Count (130-400) K/uL MPV (7.4-10.4) fL Immature Gran % (Auto) % Neut % (Auto) % Lymph % (Auto) % [place] % (Auto) % Eos % (Auto) % Baso % (Auto) % Neut # (Auto) (1.4-6.5) K/uL Lymph # (Auto) (1.2-3.4) K/uL [place] # (Auto) (0.11-0.59) K/uL Eos # (Auto) (0-0.5) K/uL Baso # (Auto) (0-0.2) K/uL Immature Gran # (Auto) (0.00-0.02) K/uL Sodium (136-145) mmol/L Potassium (3.5-5.1) mmol/L Chloride (98-107) mmol/L Carbon Dioxide (21-32) mmol/L Anion Gap (3-11) BUN (6-23) mg/dl Creatinine (0.6-1.4) mg/dl Est Cr Clr Drug Dosing ml/min Est GFR ( Amer) ml/min Est GFR (Non-Af Amer) ml/min BUN/Creatinine Ratio (10-20) Glucose (70-99(Fasting)) mg/dl Calcium (8.5-10.1) mg/dl Total Bilirubin (0.2-1.0) mg/dl Direct Bilirubin (0-0.2) mg/dl AST (13-39) U/L ALT (7-52) U/L Alkaline Phosphatase (34-104) U/L Troponin I (0-0.04) ng/ml Total Protein (6.0-8.3) gm/dl Albumin (3.4-5.0) gm/dl Lipase (11-82) U/L Urine Color Urine Appearance (Clear) Urine pH (4.5-7.5) Ur Specific [place] (1.000-1.030) Urine Protein (Negative) Urine Glucose (UA) (Negative) Urine Ketones (Negative) Urine Blood (Negative) Urine Nitrite (Negative) Urine Bilirubin (Negative) Urine Urobilinogen (Negative) Ur Leukocyte Esterase (Negative) SARS-CoV-2, RNA, NAAT NEGATIVE (NEGATIVE) Administered Medications Acetaminophen (Acetaminophen 325 Mg Tab) 650 mg PO Q4H PRN PRN Reason: Pain or Fever Stop: 02/20/22 16:15 Last Admin: 01/21/22 20:32 Dose: 650 mg Documented by: [id number] Amlodipine Besylate (Amlodipine Besylate 5 Mg Tab) 2.5 mg PO DAILY [facility] Stop: 02/21/22 08:59 Last Admin: 01/22/22 11:22 Dose: 2.5 mg Documented by: [id number] Atorvastatin Calcium (Atorvastatin 40 Mg Tab) 80 mg PO DAILY CYNTHIA Stop: 02/21/22 08:59 Last Admin: 01/22/22 11:22 Dose: 80 mg Documented by: [id number] Calcium Carbonate (Calcium Carbonate 1250mg Tab) 1,250 mg PO BID CYNTHIA Stop: 02/21/22 08:59 Last Admin: 01/22/22 12:43 Dose: 1,250 mg Documented by: [id number] Escitalopram Oxalate (Escitalopram Oxalate 10 Mg Tab) 10 mg PO DAILY [facility] Stop: 02/21/22 08:59 Last Admin: 01/22/22 11:23 Dose: 10 mg Documented by: [id number] Lactated Ringer's (Lr) 1,000 mls @ 80 mls/hr IV .[id number] [facility] Stop: 02/20/22 16:15 Last Admin: 01/22/22 05:33 Dose: 80 mls/hr Documented by: [id number] Infusion: 01/22/22 05:33 Dose: 80 mls/hr Documented by: [id number] Admin: 01/21/22 17:26 Dose: 80 mls/hr Documented by: [id number] Insulin Aspart (Insulin Aspart Per Unit) 0 units SC ACHS [facility] Stop: 02/20/22 16:29 Last Admin: 01/22/22 12:43 Dose: 4 units Documented by: [id number] Cosigned by: [id number] Admin: 01/22/22 09:23 Dose: Not Given Documented by: [id number] Admin: 01/21/22 20:35 Dose: Not Given Documented by: [id number] Admin: 01/21/22 17:04 Dose: Not Given Documented by: [id number] Miscellaneous (Solifenacin [Vesicare] 5 Mg - Order Awaiting Action) 1 ea N/A QS [facility] Stop: 02/21/22 00:00 Last Admin: 01/22/22 17:21 Dose: Not Given Documented by: [id number] Admin: 01/22/22 09:24 Dose: Not Given Documented by: [id number] Admin: 01/21/22 23:42 Dose: Not Given Documented by: [id number] Ondansetron HCl (Ondansetron Inj 2 Mg/Ml 2 Ml Vial) 4 mg IV Q6H PRN PRN Reason: Nausea Stop: 02/20/22 16:15 Last Admin: 01/21/22 17:29 Dose: 4 mg Documented by: [id number] Tamsulosin HCl (Tamsulosin Hcl 0.4 Mg Cap) 0.8 mg PO DAILY CYNTHIA Stop: 02/21/22 08:59 Last Admin: 01/22/22 11:23 Dose: 0.8 mg Documented by: [id number] Telmisartan (Telmisartan 40 Mg Tab) 80 mg PO DAILY CYNTHIA Stop: 02/21/22 08:59 Last Admin: 01/22/22 11:23 Dose: 80 mg Documented by: [id number] Vitamin D (Cholecalciferol 5,000 Units 125 Mcg Tab) 5,000 units PO DAILY CYNTHIA Stop: 02/21/22 08:59 Last Admin: 01/22/22 11:23 Dose: 5,000 units Documented by: [id number] Discontinued Medications Sodium Chloride (Nss 1000ml) 500 mls @ 999 mls/hr IV .Q31M ONE Stop: 01/21/22 12:03 Last Infusion: 01/21/22 12:45 Dose: 0 mls/hr Documented by: [id number] Admin: 01/21/22 11:37 Dose: 999 mls/hr Documented by: [id number] Sodium Chloride (Nss 1000ml) 500 mls @ 999 mls/hr IV .Q31M ONE Stop: 01/21/22 14:28 Last Infusion: 01/21/22 15:33 Dose: 0 mls/hr Documented by: [id number] Admin: 01/21/22 14:15 Dose: 999 mls/hr Documented by: [id number] Imaging Data Radiologist's Impression: Abdomen/Pelvis CT 01/21/22 11:33 CT OF THE ABDOMEN AND PELVIS WITHOUT CONTRAST CLINICAL HISTORY: diffuse abdominal pain, vomiting COMPARISON STUDY: CT of the abdomen and pelvis January 04, 2022. TECHNIQUE: Axial images of the abdomen and pelvis were obtained without IV contrast. Images were reviewed in the axial, sagittal, and coronal planes. Automated exposure control was utilized for the study. A dose lowering technique was utilized adhering to the principles of ALARA. FINDINGS: Lung bases are unremarkable. No pneumatosis, free air or portal venous gas is present. Multiple hepatic lesions are better depicted on recent con trast-enhanced CT of January 04, 2022. These measure up to approximately 2.7 cm. These are difficult to visualize on this unenhanced exam. There is no biliary or pancreatic ductal dilatation. Unenhanced images of the spleen, adrenal glands, kidneys and pancreas are unremarkable. There is no hydronephrosis. A portion of the sigmoid colon is located within a left inguinal hernia. There is no resultant bowel obstruction. Sigmoid diverticulosis is noted without evidence for acute diverticulitis. Note is made of a 3 cm irregular lobulated mass within the right lower quadrant mesentery. This has apparent desmoplastic reaction. 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 No suspicious osseous lesions are present. No acute fractures are identified within visualized skeletal structures. Multiple healing right- sided ribs are incidentally noted. Foci of infiltration and subcutaneous gas within the anterior abdominal wall are likely related to subcutaneous injections. IMPRESSION: 1. No acute process within the abdomen or pelvis on unenhanced exam. 2. Redemonstration of a 3 cm lobulated right lower quadrant mesenteric mass. 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 Multiple hepatic lesions are better depicted on prior contrast enhanced CT and are suspicious for hepatic carcinoid metastases. 3. Portion of the sigmoid colon within a left inguinal hernia. No bowel obstruction. 4. Sigmoid diverticulosis. No evidence for acute diverticulitis. ACT 112: Negative or not required by law. Electronically signed by: Ethan Colin M.D. 01/21/2022 1:[address] 01/21/22 11:33 CT OF THE HEAD WITHOUT CONTRAST CLINICAL HISTORY: recent ICH with decompression, vomiting COMPARISON STUDY: Head CT January 06, 2022. TECHNIQUE: Helical axial images of the head were obtained without IV contrast. Automated exposure control was utilized for the study. A dose lowering technique was utilized adhering to the principles of ALARA. FINDINGS: Interval right parietal craniotomy/magdi hole placement as noted. There is also interval left parietal magdi hole placement and skin merlin. There is linear radiodense extra-axial material along the inner table of the left temporal bone. Isointense left subdural hematoma measures 1.3 cm in thickness. This previously measured 1.[address] of January 06, 2022. This has moderately decreased in size. A mixed attenuation right subdural hematoma has decreased in size since prior exam following evacuation. This measures 1.5 cm in thickness. Trace acute subdural hemorrhage along the posterior falx and right tentorium is noted. A small amount of pneumocephalus is noted. Midline shift has diminished. There is now 4 mm of leftward midline shift. No intraventricular hemorrhage is present. Basal cisterns are patent. Bilateral basal ganglia and cerebellar hemisphere calcification is chronic. There are no findings to suggest acute dural sinus thrombosis or acute territorial infarct. 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 There is no acute calvarial fracture. IMPRESSION: Status post interval bilateral subdural hematoma evacuation. [id number] residual bilateral subdural hematomas, decreased in size since CT of January 06, 2022. Interval decrease in mass effect. Short-term follow-up head CT in one to 2 days is recommended to ensure stability. ACT 112: Negative or not required by law. Electronically signed by: Ethan Colin M.D. 01/21/2022 1:13 PM Chest X-Ray 01/21/22 11:34 XR chest 1V portable CLINICAL HISTORY: vomiting COMPARISON STUDY: Chest CT November 29, 2021. Chest radiograph January 06, 2022. FINDINGS: Elevation of the right hemidiaphragm is unchanged. Left upper mediastinal widening with rightward displacement of the trachea is unchanged and due to a goiter, as shown on prior CT. Cardiomediastinal silhouette is stable. There is no evidence for pulmonary edema.] Basilar opacity favors atelectasis. There is no consolidation to suggest pneumonia. IMPRESSION: No acute cardiopulmonary findings. No change in appearance of the chest. ACT 112: Negative or not required by law. Electronically signed by: Ethan Colin M.D. 01/21/2022 12:15 PM Discharge Plan Visit Data Chief Complaint: Vomiting Stated Complaint: VOMITING ED Provider: Titi Dobson Discharge Problem: Somnolence, Vomiting, Headache, Diffuse abdominal pain, Abdominal mass, RLQ (right lower quadrant) Patient Disposition: Admitted As Inpatient Discharge Instructions Interventions: ED Discharge Assessment Last Done: 01/21/22 15:59 Discharge Problem: Vomiting Qualifiers: Vomiting type: unspecified Nausea presence: with nausea Qualified Code(s): R11.2 - Nausea with vomiting, unspecified Headache Qualifiers: Headache type: unspecified Headache chronicity pattern: acute headache Intrac tability: not intractable Qualified Code(s): R51.9 - Headache, unspecified
--- NOTE | 2022-01-21 13:15 | CT Scan Report ---
CT OF THE HEAD WITHOUT CONTRAST CLINICAL HISTORY: recent ICH with decompression, vomiting COMPARISON STUDY: Head CT January 06, 2022. TECHNIQUE: Helical axial images of the head were obtained without IV contrast. Automated exposure con trol was utilized for the study. A dose lowering technique was utilized adhering to the principles o f ALARA. FINDINGS: Interval right parietal craniotomy/magdi hole placement as noted. There is also interval lef t parietal magdi hole placement and skin merlin. There is linear radiodense extra-axial material codi g the inner table of the left temporal bone. Isointense left subdural hematoma measures 1.3 cm in thi ckness. This previously measured 1.[address] of January 06, 2022. This has moderately decreased in siz e. A mixed attenuation right subdural hematoma has decreased in size since prior exam following evacu ation. This measures 1.5 cm in thickness. Trace acute subdural hemorrhage along the posterior falx an d right tentorium is noted. A small amount of pneumocephalus is noted. Midline shift has diminished. There is now 4 mm of leftward midline shift. No intraventricular hemorrhage is present. Basal cistern s are patent. Bilateral basal ganglia and cerebellar hemisphere calcification is chronic. There are n o findings to suggest acute dural sinus thrombosis or acute territorial infarct. 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 There is no acute calvarial fracture. IMPRESSION: Status post interval bilateral subdural hematoma evacuation. [id number] residual bilateral sub dural hematomas, decreased in size since CT of January 06, 2022. Interval decrease in mass effect. Shor t-term follow-up head CT in one to 2 days is recommended to ensure stability. ACT 112: Negative or not required by law. Electronically signed by: Ethan Colin M.D. 01/21/2022 1:13 PM
--- NOTE | 2022-01-21 13:31 | CT Scan Report ---
CT OF THE ABDOMEN AND PELVIS WITHOUT CONTRAST CLINICAL HISTORY: diffuse abdominal pain, vomiting COMPARISON STUDY: CT of the abdomen and pelvis January 04, 2022. TECHNIQUE: Axial images of the abdomen and pelvis were obtained without IV contrast. Images were revi ewed in the axial, sagittal, and coronal planes. Automated exposure control was utilized for the keke dy. A dose lowering technique was utilized adhering to the principles of ALARA. FINDINGS: Lung bases are unremarkable. No pneumatosis, free air or portal venous gas is present. Mult iple hepatic lesions are better depicted on recent contrast-enhanced CT of January 04, 2022. These ana ure up to approximately 2.7 cm. These are difficult to visualize on this unenhanced exam. There is no biliary or pancreatic ductal dilatation. Unenhanced images of the spleen, adrenal glands, kidneys an d pancreas are unremarkable. There is no hydronephrosis. A portion of the sigmoid colon is located wi thin a left inguinal hernia. There is no resultant bowel obstruction. Sigmoid diverticulosis is noted without evidence for acute diverticulitis. Note is made of a 3 cm irregular lobulated mass within th e right lower quadrant mesentery. This has apparent desmoplastic reaction. 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 No suspicious osseous lesions a re present. No acute fractures are identified within visualized skeletal structures. Multiple healing right-sided ribs are incidentally noted. Foci of infiltration and subcutaneous gas within the anteri or abdominal wall are likely related to subcutaneous injections. IMPRESSION: 1. No acute process within the abdomen or pelvis on unenhanced exam. 2. Redemonstration of a 3 cm lobulated right lower quadrant mesenteric mass. 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 Multiple hepatic lesions are better depicted on prior contras t enhanced CT and are suspicious for hepatic carcinoid metastases. 3. Portion of the sigmoid colon within a left inguinal hernia. No bowel obstruction. 4. Sigmoid diverticulosis. No evidence for acute diverticulitis. ACT 112: Negative or not required by law. Electronically signed by: Ethan Colin M.D. 01/21/2022 1:29 PM
--- NOTE | 2022-01-21 14:41 | History & Physical Report ---
Date of Service January 21, 2022 Assessment & Plan (1) Diffuse abdominal pain: Plan: -Since last evening, WBC 11.66, generalized abdominal pain last night and this morning, some nausea and ? confusion, does have a known mesenteric mass. No obvious source of infection. -His pain has resolved in ED with Zofran, IVF. -Stool PCR panel ordered, pending. (2) Subdural hematoma: Plan: -Chronic from falls on 11/29, 01/06, admitted to [facility] on both occasions with decompression on 01/06. -There was concern at [facility] that he was more lethargic and confused, on my exam he is A+O x4 and joking with me. reports sugar was 60 last evening, also has been bradycardic with borderline hypotension, this may be the cause of his lethargy and confusion. -CT of head shows [id number] residual bilateral subdural hematomas, decreased in size since CT of January 06, 2022. Interval decrease in mass effect. -Repeat head CT in AM or for worsening neuro status. (3) DM (diabetes mellitus), type 2: Plan: -Home regimen includes NovoLog 5 units daily, glargine 26 units daily Metformin 1000 daily. -Hold metformin. -In the setting of nausea/vomiting, low sugar reported last night, will order accuchecks ACHS with SSI for now, can restart lantus tomorrow if pt is tolerating po intake well. 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 Had plans to see surg/onc for evaluation, however his fall resulting in SDH has delayed this. (5) Anxiety and depression: Plan: -Continue lexapro 10 mg daily. (6) Benign hypertension: Plan: -Has been borderline hypotensive today with low HR as well, may be contributing to his reported lethargy, confusion at [facility]. -Home meds include amlodipine 2.5 mg daily and telmisartan 80mg daily. -Hold these, as well as metoprolol for now. (7) Hyperlipidemia: Plan: -Continue atorvastatin 80 mg daily. (8) Aortic aneurysm: Plan: -Chronic, stable, follows with cardiology, serial CT scans. -Takes metoprolol 50 mg BID, has been bradycardic today with HR in 50s, will hold for now. (9) GERD (gastroesophageal reflux disease): Plan: -Continue Protonix 40 mg daily. (10) BPH (benign prostatic hyperplasia): Plan: -Continue Flomax .4 mg daily, Vesicare 5mg daily. Plan: -Obs med/tele. -SCDs for DVT ppx, holding on chemoppx in setting of recent SDH. -Full Code. 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 Abdominal pain is diffuse, generalized, and dull, patient and family is unsure how many times he has vomited, but that has not been frequent, however they concerned with this in the setting of a recent subdural hematoma which required surgical intervention. also reports he had a low sugar last night, reports it was in the 60s, it came up appropriately after cookies and orange juice. Otherwise has been doing well at [facility], denies fever/chills, headache, weakness, myalgias, chest pain, shortness of breath, palpitations, hematemesis, diarrhea, constipation, hematochezia, melena. In ED, he slightly bradycardic heart rate 55, otherwise vital signs within normal limits, stable. Labs significant for WBC 11.66, Na+ 133, glucose 156, UA . Head CT [id number] residual bilateral subdural hematomas, decreased in size since CT of January 06, 2022. Interval decrease in mass effect. CT A/P did not show an acute process within the abdomen or pelvis on unenhanced exam. There was re-demonstration of a 3 cm lobulated right lower quadrant mesenteric mass. Sigmoid diverticulosis without acute diverticulitis and part of sigmoid colon is in a left inguinal hernia without bowel obstruction. CXR unremarkable. The ED provider did discuss the patient's presentation and head CT findings with the neurosurgeon at [facility] who will review the films further but feels there is no need for emergent surgical intervention, recommends repeating a CT in 24-48 hours to confirm no acute change. Hospitalist service was consulted for further evaluation. Patient will be kept overnight for further monitoring of mental status, observation and repeat CT in the a.m. We will continue IV fluids, antiemetics, and pain control for management of abdominal pain. Allergies Allergy/AdvReac Type Severity Reaction Status Date / Time lisinopril AdvReac Mild COUGH Verified 01/06/22 22:21 Home Medications Medication Instructions Recorded Confirmed Type multivitamin 1 tab PO DAILY 06/16/19 01/21/22 History triamcinolone acetonide 55 mcg 1 spray INTNAS DAILY PRN 12/19/20 01/21/22 History nasal spray aerosol (Nasacort) acetaminophen 500 mg tablet 500 mg PO Q6H PRN 02/12/21 01/21/22 History (Tylenol Extra Strength) sildenafil (pulm.hypertension) 20 40 - 60 mg PO DIRECTED PRN 02/12/2101/09 History mg tablet telmisartan 80 mg tablet 80 mg PO DAILY #90 tab 03/06/21 01/21/22 Rx atorvastatin 80 mg tablet 80 mg PO DAILY #90 tab 06/01/21 01/21/22 Rx clopidogrel 75 mg tablet (Plavix) 75 mg PO DAILY #90 tab 06/01/21 01/21/22 Rx metoprolol tartrate 50 mg tablet 50 mg PO BID #180 tab 06/01/21 01/21/22 Rx cholecalciferol (vitamin D3) 125 125 mcg PO DAILY 06/06/21 01/21/22 History mcg (5,000 unit) capsule amlodipine 2.5 mg tablet 2.5 mg PO DAILY #90 tab 07/13/21 01/21/22 Rx escitalopram oxalate 10 mg tablet 10 mg PO DAILY #90 tab 07/13/21 01/21/22 Rx tamsulosin 0.4 mg capsule 0.8 mg PO DAILY #180 cap 07/13/21 01/21/22 Rx metformin 500 mg tablet,extended 1,000 mg PO DAILY 90 Days #180 tab 11/02/21 01/21/22 Rx release 24 hr Novolog Flexpen U-100 Insulin 100 5 unit SQ DAILY #15 ml NS 12/12/21 01/21/22 Rx unit/mL (3 mL) subcutaneous (insulin aspart U-100) insulin glargine U-300 conc 300 26 unit SUBCUT DAILY 90 Days 12/12/21 01/21/22 Rx unit/mL (1.5 mL) subcutaneous pen #7.803 ml (Tousridhar SoloStar U-300 Insulin) pantoprazole 40 mg tablet,delayed 40 mg PO DAILY PRN #30 tab 12/12/21 01/21/22 Rx release hydrocodone 5 mg-acetaminophen 325 1 tab PO Q6H PRN 01/06/22 01/21/22 History mg tablet solifenacin 5 mg tablet (Vesicare) 5 mg PO QAM 01/06/22 01/21/22 History Past Med/Surg History Medical History Acute sinusitis Aortic aneurysm Aortic dissection Cervical facet joint syndrome Cervicalgia DM (diabetes mellitus), type 2 Hammertoe of right foot Hyperlipidemia Loss of protective sensation of skin of foot Macular degeneration Mild sleep apnea Pulmonary nodule seen on imaging study Vitamin D deficiency Surgical History H/O knee surgery Family History Father Coronary heart disease Diabetes Myocardial infarction Mother Myocardial infarction Denies family history of Ovarian cancer Prostate cancer Breast cancer Colorectal cancer Cancer Social History Smoking Status: Former smoker Tobacco Type: Cigars Second Hand Exposure: No; Hx Alcohol Use: No Hx Substance Use: No Preferred Language: Bulgarian Communication Ability: Effective 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 Required: No Beliefs That Will Affect Care: None marital status: Current Living Situation: Spouse current occupational status: retired Feels Safe at Home: Yes caffeine: Yes (coffee) Dental Care, Regularly: Yes Physical Activity Frequency: 3-4 Times per Week Seatbelt Use: sometimes Sunscreen Use: No Assistive Devices: Walker Review of Systems Review of Systems: Constitutional: No fever/chills, weakness, myalgias, night sweats, or axial Eyes: No diplopia, no worsening or blurred vision ENT: normal hearing, no trouble swallowing Respiratory: No cough, sputum, dyspnea at rest or on exertion Cardiovascular: No chest pain, tightness or palpitations Abdomen: Reports diffuse, dull abdominal pain since last evening with nausea and associated vomiting x2; denies hematemesis, diarrhea, constipation, hematoch ezia or melena : Denies dysuria, hematuria, increased urgency/frequency, urinary retention Musculoskeletal: No joint pain, calf pain, swelling Neurologic: No weakness, numbness/tingling, or balance problems Psychiatric: No anxiety or depression Skin: No rash or itch Physical Exam Physical Exam: General: Patient sleeping during my exam, but easily arousable, alert and oriented x4 Head: Normocephalic, atraumatic ENT: PERRL, EOMI, no pharyngeal exudate, mucous membranes moist Chest: Clear to auscultation, on room air, no adventitious breath sounds Cardiac: Regular rate and rhythm, no murmur, no JVD, normal peripheral pulses, good capillary refill Abdominal: NABS x 4 quadrants, soft, nontender to palpation, no rebound, guarding or tenderness Extremities: Normal inspection, no peripheral edema or erythema, calfs nontender to palpation Psych: Normal mood and affect Neuro: AAO x 3, strength intact bilaterally and rated 5/5, no motor deficits, speech is clear, no peripheral sensory deficits Skin: no rash or erythema Results & Data Results & Data ([facility]) Vital Signs (Past 12 Hours) Vital Signs Temp Pulse Pulse Resp BP BP Pulse Ox 01/21/22 13:00 55 L 16 115/58 L 95 01/21/22 11:05 36.7 C 60 16 121/56 L 96 Laboratory Results Abnormal lab results 01/21/22 01/21/22 01/21/22 Range/Units 11:35 11:35 14:00 WBC 11.66 H (4.8-10.8) K/uL RDW Std Deviation 47.3 H (36.4-46.3) fL MPV 11.2 H (7.4-10.4) fL Neut # (Auto) 9.99 H (1.4-6.5) K/uL Lymph # (Auto) 0.80 L (1.2-3.4) K/uL Gregg # (Auto) 0.79 H (0.11-0.59) K/uL Immature Gran # (Auto) 0.05 H (0.00-0.02) K/uL Sodium 133 L (136-145) mmol/L BUN/Creatinine Ratio 33.3 H (10-20) Glucose 156 H (70-99(Fasting)) mg/dl POC Glucose (70-99) mg/dl Calcium 8.0 L (8.5-10.1) mg/dl Direct Bilirubin 0.3 H (0-0.2) mg/dl Total Protein 5.3 L (6.0-8.3) gm/dl Albumin 3.1 L (3.4-5.0) gm/dl Urine Glucose (UA) Trace H (Negative) Urine Ketones Trace H (Negative) Urine Bilirubin 1+ H (Negative) Urine Urobilinogen Positive H (Negative) 01/21/22 Range/Units 16:18 WBC (4.8-10.8) K/uL RDW Std Deviation (36.4-46.3) fL MPV (7.4-10.4) fL Neut # (Auto) (1.4-6.5) K/uL Lymph # (Auto) (1.2-3.4) K/uL Gregg # (Auto) (0.11-0.59) K/uL Immature Gran # (Auto) (0.00-0.02) K/uL Sodium (136-145) mmol/L BUN/Creatinine Ratio (10-20) Glucose (70-99(Fasting)) mg/dl POC Glucose 119 H (70-99) mg/dl Calcium (8.5-10.1) mg/dl Direct Bilirubin (0-0.2) mg/dl Total Protein (6.0-8.3) gm/dl Albumin (3.4-5.0) gm/dl Urine Glucose (UA) (Negative) Urine Ketones (Negative) Urine Bilirubin (Negative) Urine Urobilinogen (Negative) Diagnostic Findings Abdomen/Pelvis CT 01/21/22 11:33 CT OF THE ABDOMEN AND PELVIS WITHOUT CONTRAST CLINICAL HISTORY: diffuse abdominal pain, vomiting COMPARISON STUDY: CT of the abdomen and pelvis January 04, 2022. TECHNIQUE: Axial images of the abdomen and pelvis were obtained without IV contrast. Images were reviewed in the axial, sagittal, and coronal planes. Automated exposure control was utilized for the study. A dose lowering technique was utilized adhering to the principles of ALARA. FINDINGS: Lung bases are unremarkable. No pneumatosis, free air or portal venous gas is present. Multiple hepatic lesions are better depicted on recent contrast- enhanced CT of January 04, 2022. These measure up to approximately 2.7 cm. These are difficult to visualize on this unenhanced exam. There is no biliary or pancreatic ductal dilatation. Unenhanced images of the spleen, adrenal glands, kidneys and pancreas are unremarkable. There is no hydronephrosis. A portion of the sigmoid colon is located within a left inguinal hernia. There is no resultant bowel obstruction. Sigmoid diverticulosis is noted without evidence for acute diverticulitis. Note is made of a 3 cm irregular lobulated mass within the right lower quadrant mesentery. This has apparent desmoplastic reaction. 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 No suspicious osseous lesions are present. No acute fractures are identified within visualized skeletal structures. Multiple healing right- sided ribs are incidentally noted. Foci of infiltration and subcutaneous gas within the anterior abdominal wall are likely related to subcutaneous injections. IMPRESSION: 1. No acute process within the abdomen or pelvis on unenhanced exam. 2. Redemonstration of a 3 cm lobulated right lower quadrant mesenteric mass. 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 Multiple hepatic lesions are better depicted on prior contrast enhanced CT and are suspicious for hepatic carcinoid metastases. 3. Portion of the sigmoid colon within a left inguinal hernia. No bowel obstruction. 4. Sigmoid diverticulosis. No evidence for acute diverticulitis. ACT 112: Negative or not required by law. Electronically signed by: Ethan Colin M.D. 01/21/2022 1:[address] 01/21/22 11:33 CT OF THE HEAD WITHOUT CONTRAST CLINICAL HISTORY: recent ICH with decompression, vomiting COMPARISON STUDY: Head CT January 06, 2022. TECHNIQUE: Helical axial images of the head were obtained without IV contrast. Automated exposure control was utilized for the study. A dose lowering technique was utilized adhering to the principles of ALARA. FINDINGS: Interval right parietal craniotomy/magdi hole placement as noted. There is also interval left parietal magdi hole placement and skin merlin. There is linear radiodense extra-axial material along the inner table of the left temporal bone. Isointense left subdural hematoma measures 1.3 cm in thickness. This previously measured 1.[address] of January 06, 2022. This has moderately decreased in size. A mixed attenuation right subdural hematoma has decreased in size since prior exam following evacuation. This measures 1.5 cm in thickness. Trace acute subdural hemorrhage along the posterior falx and right tentorium is noted. A small amount of pneumocephalus is noted. Midline shift has diminished. There is now 4 mm of leftward midline shift. No intraventricular hemorrhage is present. Basal cisterns are patent. Bilateral basal ganglia and cerebellar hemisphere calcification is chronic. There are no findings to suggest acute dural sinus thrombosis or acute territorial infarct. 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 There is no acute calvarial fracture. IMPRESSION: Status post interval bilateral subdural hematoma evacuation. [id number] residual bilateral subdural hematomas, decreased in size since CT of January 06, 2022. Interval decrease in mass effect. Short-term follow-up head CT in one to 2 days is recommended to ensure stability. ACT 112: Negative or not required by law. Electronically signed by: Ethan Colin M.D. 01/21/2022 1:13 PM Chest X-Ray 01/21/22 11:34 XR chest 1V portable CLINICAL HISTORY: vomiting COMPARISON STUDY: Chest CT November 29, 2021. Chest radiograph January 06, 2022. FINDINGS: Elevation of the right hemidiaphragm is unchanged. Left upper mediastinal widening with rightward displacement of the trachea is unchanged and due to a goiter, as shown on prior CT. Cardiomediastinal silhouette is stable. There is no evidence for pulmonary edema.] Basilar opacity favors atelectasis. There is no consolidation to suggest pneumonia. IMPRESSION: No acute cardiopulmonary findings. No change in appearance of the chest. ACT 112: Negative or not required by law. Electronically signed by: Ethan Colin M.D. 01/21/2022 12:15 PM ECG Additional Comments: Sinus bradycardia Inferior infarct (cited on or before 13-FEB-2021) Abnormal ECG When compared with ECG of 06-JAN-2022 22:22, No significant change was found. Code Status & VTE Plan Code Status Full Code. Supervising Physician Co-Signing Physician Notes I personally saw and examined the patient. I verified all galvez points and agree with Shireen Panchal PA-C with the following exceptions and/or additions: 76 year old male with known subdural hematoma presents from [facility] due to diarrhea, nausea and vomiting. O/E HS bradycardic, regular rhythm without murmur, Chest CTAB, Abdomen SNT, BS normal, no focal neurological deficit, normal speech, A&Ox3 A/P Diarrhea, nausea and vomiting - No abdominal pain on exam, No acute etiology found on CT imaging, GI PCR stool if having diarrhea. Hypotension and bradycardia - hold metoprolol and monitor on telemetry. Other anti-hypertensives with hold parameters if sBP < 100. T2DM - unclear if he still requires Lantus especially as appetite is unknown. Agree with just using sliding scale currently especially with hypoglycemic events at [facility]. Hepatic masses - previous known but pending further workup as an outpatient, delayed due to subdural hematoma Subdural hematoma - not increasing in size, discussed with neurosurgery by ER physician and recommended repeat CT head in 24 hours to make sure this is stable. Hold clopidogrel (this was previously on hold until 01/18/22 but can likely be resumed if ok by neurosurgery depending on repeat CT head tomorrow). PG Care Time/CCT Total # of Minutes Spent Total Time Spent with Patient: Total time spent is greater than 50% in coordination of care (as documented) at patient's floor/unit and/or counseling patient: Coding Level of Care Code INT OBSERVATION CARE 70M LVL 3 Diagnoses DM (diabetes mellitus), type 2 E11.9 Subdural hematoma S06.5X9A Diffuse abdominal pain R10.84 Mesenteric mass K63.89 Anxiety and depression F41.9; F32.9 Benign hypertension I10 Aortic aneurysm I71.9 Hyperlipidemia E78.5 GERD (gastroesophageal reflux disease) K21.9 BPH (benign prostatic hyperplasia) N40.1; R39.14 Lower urinary tract symptom detail: incomplete bladder emptying Lower urinary tract symptom presence: symptoms present (1) BPH (benign prostatic hyperplasia) Lower urinary tract symptom detail: incomplete bladder emptying Lower urinary tract symptom presence: symptoms present Qualified Code(s): N40.1 - Benign prostatic hyperplasia with lower urinary tract symptoms; R39.14 - Feeling of incomplete bladder emptying
[2022-01-21] MEDS ORDERED: PROMETHAZINE HCL 12.5 MG in SODIUM CHLORIDE 0.9% 50 ML IV PRN (16:16)
[2022-01-21] MEDS ORDERED: POLYETHYLENE (MIRALAX) 17 GM PACK PO PRN (16:16)
[2022-01-21] MEDS ORDERED: GLUCOSE 40% GEL 15 GM TUBE PO PRN (16:16)
[2022-01-21] MEDS ORDERED: GLUCOSE 10 TABS/TUBE PO PRN (16:16)
[2022-01-21] MEDS ORDERED: KETOROLAC TROMETHAMINE 15 MG/ML VIAL IV PRN (16:16)
[2022-01-21] MEDS ORDERED: CARBOHYDRATES FOR HYPOGLYCEMIA PO PRN (16:16)
[2022-01-21] MEDS ORDERED: ACETAMINOPHEN 325 MG TAB PO PRN (16:16)
[2022-01-21] MEDS ORDERED: PANTOprazole 40 MG TAB PO PRN (16:16)
[2022-01-21] MEDS ORDERED: DEXTROSE 50% 50 ML SYRINGE IV PRN (16:16)
[2022-01-21] MEDS ORDERED: ACETAMINOPHEN 500 MG TAB PO PRN (16:16)
[2022-01-21] MEDS ORDERED: TRIAMCINOLONE ACET NASAL SPRAY 10.8ML BTL NAE PRN (16:16)
[2022-01-21] MEDS ORDERED: ONDANSETRON INJ 2 MG/ML 2 ML VIAL IV PRN (16:16)
[2022-01-21] MEDS ORDERED: GLUCAGON FOR INJ 1 MG VIAL SQ PRN (16:16)
[2022-01-21] MEDS: INSULIN ASPART PER UNIT SC SCH ×2 (17:04→20:35)
[2022-01-21 17:16] LABS: Appearance Urine Clear (Clear); Blood Urine Negative (Negative); Color Urine Dark Yellow; Glucose Urine UA Trace (Negative); Ketones Urine Trace (Negative); Leukocyte Esterase Urine Negative (Negative); Nitrite Urine Negative (Negative); Protein Urine Negative (Negative); Specific Gravity Urine 1.026 (1.000-1.030); Urobilinogen Urine Positive (Negative)
[2022-01-21 17:18] LABS: Bilirubin Urine 1+ (Negative)
[2022-01-21] MEDS: LACTATED RINGER'S 1,000 ML IV SCH (17:26)
[2022-01-22] MEDS: LACTATED RINGER'S 1,000 ML IV SCH ×2 (05:33→18:45)
[2022-01-22 07:27] LABS: Basophils # (auto) 0.02 K/uL (0-0.2); Basophils % (auto) 0.2 %; Eosinophils % (auto) 2.5 %; Hematocrit (blood only) 41.4 % (42-52); Hemoglobin 14.1 g/dL (14.0-18.0); Immature Granulocytes # (auto) 0.05 K/uL (0.00-0.02); Immature Granulocytes % (auto) 0.6 %; Lymphocytes # (auto) 1.53 K/uL (1.2-3.4); Lymphocytes % (auto) 19.1 %; Mean Corpuscular Hemoglobin 31.3 pg (25-34); Mean Corpuscular Hgb Conc 34.1 g/dL (32-36); Mean Corpuscular Volume 91.8 fL (80-100); Mean Platelet Volume 11.3 fL (7.4-10.4); Monocytes # (auto) 0.84 K/uL (0.11-0.59); Monocytes % (auto) 10.5 %; Neutrophils # (auto) 5.37 K/uL (1.4-6.5); Neutrophils % (auto) 67.1 %; Platelet Count 159 K/uL (130-400); RDW Coefficient of Variation 14.3 % (11.5-14.5); RDW Standard Deviation 48.4 fL (36.4-46.3); Red Blood Count 4.51 M/uL (4.7-6.1); White Blood Count 8.01 K/uL (4.8-10.8)
[2022-01-22 07:48] LABS: BUN Creatinine Ratio 21.9 (10-20); Calcium 8.1 mg/dl (8.5-10.1); Creatinine Clr Calc Pharmacy 117.4 ml/min; Est GFR (African American) 110.2 ml/min; Est GFR (Non-African American) 95.1 ml/min; Potassium 3.8 mmol/L (3.5-5.1)
--- NOTE | 2022-01-22 08:13 | CT Scan Report ---
HEAD CT NONCONTRAST CT DOSE: 537.48 mGy.cm HISTORY: Follow-up intracranial hemorrhage. TECHNIQUE: Multiaxial CT images of the head were performed without the use of intravenous contrast. A utomated exposure control was utilized for this study. A dose lowering technique was utilized adheri ng to the principles of ALARA. Comparison: None. Findings: The paranasal sinuses and mastoid air cells are clear. Bilateral mixed density subdural hem atomas are similar to the prior study and measure approximately 14 mm in thickness. There is mass eff ect along the cerebral hemispheres, unchanged. No significant midline shift. Atrophy and microvascula r ischemic changes are again noted. There are few small periventricular and right basal ganglia infar ct is again noted. Small amount of right-sided pneumocephalus remains unchanged. Small right parietal craniotomy and a left-sided parietal magdi hole remain unchanged. Impression: 1. No significant change in the small to moderate mixed density bilateral subdural hematomas. No midline shift. 2. Continued follow-up to ensure resolution. 3. Postoperative changes consistent with bilateral subdural evacuation. ACT 112: Negative or not required by law. Electronically signed by: Rei Woodruff M.D. 01/22/2022 8:12 AM
[2022-01-22] MEDS: INSULIN ASPART PER UNIT SC SCH ×4 (09:23→21:49)
--- NOTE | 2022-01-22 11:06 | Hospitalist Progress Note ---
Date of Service January 22, 2022 Assessment & Plan (1) Diffuse abdominal pain: Plan: Diffuse abdominal pain Improving, not yet resolved Improving but poor p.o. intake limited by nausea without additional vomiting Creatinine at baseline, BUN/creatinine ratio elevated 21.9 Leukocytosis resolved, initial likely reactive/demargination in the setting of vomiting Patient with known mesenteric mass pending additional evaluation Stool PCR remains pending, no bowel movements since ordered Continue Zofran, IVF while p.o. is improving Patient is hypercalcemic which may be contributing to his nausea/GI complaints and weakness. Supplementation ordered, repeat BMP tomorrow (2) Subdural hematoma: Plan: -Chronic from falls on 11/29, 01/06, admitted to [facility] on both occasions with decompression on 01/06. -There was concern at [facility] that he was more lethargic and confused, on my exam he is A+O x4 and joking with me. reports sugar was 60 last evening, also has been bradycardic with borderline hypotension, this may be the cause of his lethargy and confusion. -CT of head shows [id number]-ic-[id number] residual bilateral subdural hematomas, decreased in size since CT of January 06, 2022. Interval decrease in mass effect. -Serial head CT 01/22: 1. No significant change in the small to moderate mixed density bilateral subdural hematomas. No midline shift. 2. Continued follow-up to ensure resolution. 3. Postoperative changes consistent with bilateral subdural evacuation. (3) DM (diabetes mellitus), type 2: Plan: -Home regimen includes NovoLog 5 units daily, glargine 26 units daily Metformin 1000 daily. -Hold metformin. -Continue accuchecks ACHS with SSI for now. BSG 118, defer Lantus as p.o. 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 Had plans to see surg/onc for evaluation, however his fall resulting in SDH has delayed this. Patient is improving, unclear if is contributing to acute symptoms. Will follow for progress, if patient returns to baseline may appropriate to continue outpatient surgical oncology follow-up (5) Anxiety and depression: Plan: -Continue lexapro 10 mg daily. (6) Benign hypertension: Plan: -Has been borderline hypotensive today with low HR as well, may be contributing to his reported lethargy, confusion at [facility]. Patient mildly hypertensive today, creatinine at baseline We will resume losartan and amlodipine. Metoprolol held for bradycardia, patient does have a stable aortic aneurysm as noted below. (7) Hyperlipidemia: Plan: -Continue atorvastatin 80 mg daily. (8) Aortic aneurysm: Plan: -Chronic, stable, follows with cardiology, serial CT scans. -Takes metoprolol 50 mg BID, has been bradycardic today with HR in 50s, will hold for now. (9) GERD (gastroesophageal reflux disease): Plan: -Continue Protonix 40 mg daily. (10) BPH (benign prostatic hyperplasia): Plan: -Continue Flomax .4 mg daily, Vesicare 5mg daily. Plan: -Obs med/tele. -SCDs for DVT ppx, holding on chemoppx in setting of recent SDH. -Full Code. Admission and Anticipated Discharge Date Admission Date: January 21, 2022 Subjective Seen at bedside this morning. He reports he feels 50 to 60% better compared to yesterday. At time of visit reports he feels a little bit achy, but denies chest pain/chest pressure/difficulty breathing/shortness of breath. He does endorse some left groin pain like a pulled muscle. Denies abdominal pain at time of visit. Has not had a bowel movement yet today. He feels very nauseous and had trouble eating breakfast, but has not vomited "like it sitting there in the background still ". Minimal appetite. Still feels weak. Review of Systems Review of Systems: All systems reviewed & are unremarkable except as noted in Subjective Physical Exam Physical Exam: General: Wakens easily, oriented to name, place, and year. HEENT: Atraumatic, normocephalic. Visual acuity intact, hearing grossly intact. Pulm: Moderate air movement. CTAB A&P. -wheezes, -rales, -rhonchi. Symmetrical chest rise. No increase in work of breathing. No respiratory distress. Cardiac: RRR, -mrg. Radial pulses intact and symmetrical. Abdominal: Nontender, nondistended, soft. BS present. : Left groin tenderness with fullness consistent with inguinal hernia, no overlying erythema/warmth. Extremities: 4/5 strength in upper and lower extremities bilaterally. Fatigues easily on exam. Results & Data Results & Data ([facility]) Vital Signs (Past 12 Hours) Vital Signs Temp Pulse Pulse Pulse Resp BP BP 01/22/22 10:49 36.6 C 50 L 14 156/88 H 01/22/22 07:10 36.6 C 47 L 12 138/80 01/22/22 03:47 36.6 C 51 L 18 119/68 01/22/22 00:00 48 L 01/21/22 23:36 36.6 C 56 L 18 121/70 Pulse Ox 01/22/22 10:49 96 01/22/22 07:10 97 01/22/22 03:47 97 01/22/22 00:00 01/21/22 23:36 96 PG Care Time/CCT Total # of Minutes Spent Total Time Spent with Patient: Total time spent is greater than 50% in coordination of care (as documented) at patient's floor/unit and/or counseling patient: Coding Level of Care Code 39730 Subseq Obs Care Lvl 3 Diagnoses Diffuse abdominal pain R10.84 Subdural hematoma S06.5X9A DM (diabetes mellitus), type 2 E11.9 Mesenteric mass K63.89 Anxiety and depression F41.9; F32.9 Benign hypertension I10 Hyperlipidemia E78.5 Aortic aneurysm I71.9 GERD (gastroesophageal reflux disease) K21.9 BPH (benign prostatic hyperplasia) N40.1; R39.14 Lower urinary tract symptom presence: symptoms present Lower urinary tract symptom detail: incomplete bladder emptying (1) BPH (benign prostatic hyperplasia) Lower urinary tract symptom presence: symptoms present Lower urinary tract symptom detail: incomplete bladder emptying Qualified Code(s): N40.1 - Benign prostatic hyperplasia with lower urinary tract symptoms; R39.14 - Feeling of incomplete bladder emptying
[2022-01-22] MEDS: ATORVASTATIN 40 MG TAB PO SCH (11:22)
[2022-01-22] MEDS: amLODIPine BESYLATE 5 MG TAB PO SCH (11:22)
[2022-01-22] MEDS: CHOLECALCIFEROL 5,000 UNITS 125 MCG TAB PO SCH (11:23)
[2022-01-22] MEDS: ESCITALOPRAM OXALATE 10 MG TAB PO SCH (11:23)
[2022-01-22] MEDS: TAMSULOSIN HCL 0.4 MG CAP PO SCH (11:23)
[2022-01-22] MEDS: TELMISARTAN 40 MG TAB PO SCH (11:23)
[2022-01-22] MEDS: CALCIUM CARBONATE 1250MG TAB PO SCH ×2 (12:43→21:56)
[2022-01-23] MEDS: LACTATED RINGER'S 1,000 ML IV SCH (06:06)
--- NOTE | 2022-01-23 06:32 | Electrocardiogram Report ---
Test Reason : Blood Pressure : / mmHG Vent. Rate : 057 BPM Atrial Rate : 057 BPM P-R Int : 140 ms QRS Dur : 096 ms QT Int : 452 ms P-R-T Axes : 040 -01 013 degrees QTc Int : 439 ms Poor data quality, interpretation may be adversely affected Sinus bradycardia Inferior infarct (cited on or before 13-FEB-2021) Abnormal ECG When compared with ECG of 06-JAN-2022 22:22, No significant change was found Confirmed by Joo Cannon ([id number]) on 01/23/2022 6:32:24 AM Referred By: Confirmed By:Joo Cannon
[2022-01-23] MEDS: CHOLECALCIFEROL 5,000 UNITS 125 MCG TAB PO SCH (08:29)
[2022-01-23] MEDS: TAMSULOSIN HCL 0.4 MG CAP PO SCH (08:30)
[2022-01-23] MEDS: amLODIPine BESYLATE 5 MG TAB PO SCH (08:30)
[2022-01-23] MEDS: CALCIUM CARBONATE 1250MG TAB PO SCH (08:30)
[2022-01-23] MEDS: ATORVASTATIN 40 MG TAB PO SCH (08:31)
[2022-01-23] MEDS: TELMISARTAN 40 MG TAB PO SCH (08:31)
[2022-01-23] MEDS: ESCITALOPRAM OXALATE 10 MG TAB PO SCH (08:31)
[2022-01-23] MEDS: INSULIN ASPART PER UNIT SC SCH ×2 (08:33→12:50)
[2022-01-23 09:42] LABS: Basophils # (auto) 0.01 K/uL (0-0.2); Basophils % (auto) 0.1 %; Eosinophils # (auto) 0.21 K/uL (0-0.5); Eosinophils % (auto) 1.7 %; Hematocrit (blood only) 45.2 % (42-52); Hemoglobin 15.6 g/dL (14.0-18.0); Immature Granulocytes # (auto) 0.05 K/uL (0.00-0.02); Immature Granulocytes % (auto) 0.4 %; Lymphocytes # (auto) 1.22 K/uL (1.2-3.4); Lymphocytes % (auto) 10.1 %; Mean Corpuscular Hemoglobin 31.6 pg (25-34); Mean Corpuscular Hgb Conc 34.5 g/dL (32-36); Mean Corpuscular Volume 91.5 fL (80-100); Mean Platelet Volume 11.2 fL (7.4-10.4); Monocytes # (auto) 0.93 K/uL (0.11-0.59); Monocytes % (auto) 7.7 %; Neutrophils # (auto) 9.71 K/uL (1.4-6.5); Platelet Count 179 K/uL (130-400); RDW Coefficient of Variation 14.2 % (11.5-14.5); RDW Standard Deviation 47.6 fL (36.4-46.3); Red Blood Count 4.94 M/uL (4.7-6.1); White Blood Count 12.13 K/uL (4.8-10.8)
[2022-01-23 10:17] LABS: BUN Creatinine Ratio 15.5 (10-20); Calcium 8.8 mg/dl (8.5-10.1); Creatinine Clr Calc Pharmacy 102.8 ml/min; Est GFR (African American) 105.6 ml/min; Est GFR (Non-African American) 91.1 ml/min; Potassium 3.8 mmol/L (3.5-5.1)
[2022-01-23 10:25] LABS: Adenovirus F 40/41 PCR Not Detected (NotDetected); Astrovirus PCR Not Detected (NotDetected); Campylobacter PCR Not Detected (NotDetected); Clostridium diff Toxin A/B PCR Not Detected (NotDetected); Cryptosporidium PCR Not Detected (NotDetected); Cyclospora cayetanensis PCR Not Detected (NotDetected); Entamoeba histolytica PCR Not Detected (NotDetected); Enteroaggregative E.coli(EAEC) Not Detected (NotDetected); Enteropathogenic E.coli (EPEC) Not Detected (NotDetected); Enterotoxigenic E.coli (ETEC) Not Detected (NotDetected); Giardia lamblia PCR Not Detected (NotDetected); Plesiomonas shigelloides PCR Not Detected (NotDetected); Rotavirus A PCR Not Detected (NotDetected); Salmonella PCR Not Detected (NotDetected); Sapovirus PCR Not Detected (NotDetected); Shiga-like Toxin E.coli (STEC) Not Detected (NotDetected); Shigella/Enteroinvasive E.coli Not Detected (NotDetected); Vibrio cholerae PCR Not Detected (NotDetected); Vibrio species PCR Not Detected (NotDetected); Yersinia enterocolitica PCR Not Detected (NotDetected)
[2022-01-23 10:49] LABS: Norovirus GI/GII PCR DETECTED (NotDetected)
--- NOTE | 2022-01-23 16:36 | Discharge Summary ---
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 Abdominal pain is diffuse, generalized, and dull, patient and family is unsure how many times he has vomited, but that has not been frequent, however they concerned with this in the setting of a recent subdural hematoma which required surgical intervention. also reports he had a low sugar last night, reports it was in the 60s, it came up appropriately after cookies and orange juice. Otherwise has been doing well at [facility], denies fever/chills, headache, weakness, myalgias, chest pain, shortness of breath, palpitations, hematemesis, diarrhea, constipation, hematochezia, melena. In ED, he slightly bradycardic heart rate 55, otherwise vital signs within normal limits, stable. Labs significant for WBC 11.66, Na+ 133, glucose 156, UA . Head CT fcrda-ip-[id number] residual bilateral subdural hematomas, decreased in size since CT of January 06, 2022. Interval decrease in mass effect. CT A/P did not show an acute process within the abdomen or pelvis on unenhanced exam. There was re-demonstration of a 3 cm lobulated right lower quadrant mesenteric mass. Sigmoid diverticulosis without acute diverticulitis and part of sigmoid colon is in a left inguinal hernia without bowel obstruction. CXR unremarkable. The ED provider did discuss the patient's presentation and head CT findings with the neurosurgeon at [facility] who will review the films further but feels there is no need for emergent surgical intervention, recommends repeating a CT in 24-48 hours to confirm no acute change. Hospitalist service was consulted for further evaluation. Patient will be kept overnight for further monitoring of mental status, observation and repeat CT in the a.m. We will continue IV fluids, antiemetics, and pain control for management of abdominal pain. Principal Diagnosis Norovirus Discharge Exam General: Wakens easily, oriented to name, place, and year. HEENT: Atraumatic, normocephalic. Visual acuity intact, hearing grossly intact. Pulm: Moderate air movement. CTAB A&P. -wheezes, -rales, -rhonchi. Symmetrical chest rise. No increase in work of breathing. No respiratory distress. Cardiac: RRR, -mrg. Radial pulses intact and symmetrical. Abdominal: Nontender, nondistended, soft. BS present. : Left groin tenderness with fullness consistent with inguinal hernia, no overlying erythema/warmth. Extremities: 4-/5 strength in upper and lower extremities bilaterally. Fatigues easily on exam. Discharge Data Allergies Allergy/AdvReac Type Severity Reaction Status Date / Time lisinopril AdvReac Mild COUGH Verified 01/06/22 22:21 Ordered Studies 01/21/22 11:33 CT abd pelvis wo con Stat CT head/brain wo con Stat 01/22/22 09:19 CT head/brain wo con Routine Hospital Course (1) Diffuse abdominal pain: Patient presented with acute on chronic weakness, generalized abdominal pain, nausea, and some increased confusion. Was found to have norovirus on PCR panel, improved with fluids and rehydration To do as outpatient: 1. Continue rehab 2. Follow-up with surgery/oncology. On CT-A/P Redemonstration of a 3 cm lobulated right lower quadrant mesenteric mass. 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 Multiple hepatic lesions are better depicted on prior contrast enhanced CT and are suspicious for hepatic carcinoid metastases. Pt noted already knew this, and has a outpt surgery appointment to address and is waiting for further recovery from his subdural hematoms. 3. Followup with general surgery for elective repair of L inguinal hernia 4. Repeat BMP/CMP within 1 week 5. Hold metoprolol for HR <60 Abdominal Pain -Norovirus positive -CT-A/p: 1. No acute process within the abdomen or pelvis on unenhanced exam.2. Redemonstration of a 3 cm lobulated right lower quadrant mesenteric mass. 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 Multiple hepatic lesions are better depicted on prior contrast enhanced CT and are suspicious for hepatic carcinoid metastases.3. Portion of the sigmoid colon within a left inguinal hernia. No bowel obstruction.4. Sigmoid diverticulosis. No evidence for acute diverticulitis. -His pain has resolved in ED with Zofran, IVF. - No cdiff or ecoli. May use PRN imodium. (2) Subdural hematoma: -Chronic from falls on 11/29, 01/06, admitted to [facility] on both occasions with decompression on 01/06. -There was concern at [facility] that he was more lethargic and confused, on my exam he is A+O x4 and joking with me. reports sugar was 60 last evening, also has been bradycardic with borderline hypotension, this may be the cause of his lethargy and confusion. -CT of head shows [id number] residual bilateral subdural hematomas, decreased in size since CT of January 06, 2022. Interval decrease in mass effect. -Repeat head CT in AM stable (3) DM (diabetes mellitus), type 2: -Home regimen includes NovoLog 5 units daily, glargine 26 units daily Metformin 1000 daily. -Hold metformin as inpatient, resume on discharge (4) Mesenteric mass: -With multiple hepatic lesions, patient family is aware, not a new finding. Had plans to see surg/onc for evaluation, however his fall resulting in SDH has delayed this. Pt is comfortable following up on this w/ his , request appointment be made with [facility] Dr. Hanson with whom they were already scheduled. (5) Anxiety and depression: -Continue lexapro 10 mg daily. (6) Benign hypertension: -Has been borderline hypotensive today with low HR as well, may be contributing to his reported lethargy, confusion at [facility]. -Home meds include amlodipine 2.5 mg daily and telmisartan 80mg daily. -Home meds held on admission, pt clinically improved, resumed on dc. MTP held for bradycardia. (7) Hyperlipidemia: -Continue atorvastatin 80 mg daily. (8) Aortic aneurysm: -Chronic, stable, follows with cardiology, serial CT scans. -Takes metoprolol 50 mg BID, has been bradycardic today with HR in 50s, will hold for now. Recommend contined hold parameters <60bmp (9) GERD (gastroesophageal reflux disease): -Continue Protonix 40 mg daily. (10) BPH (benign prostatic hyperplasia): -Continue Flomax .4 mg daily, Vesicare 5mg daily. -Obs med/tele. -SCDs for DVT ppx, holding on chemoppx in setting of recent SDH. -Full Code. Total Time Total Time Spent Total Time Spent (In Minutes): total time spend 55 minutes including direct patient care, review of labs and images, coordination of care, and documentation Discharge Plan Discharge Items Patient Disposition: Transfer Inpatient Rehab Fac Reason For Visit: NAUSEA AND VOMITING Discharge Diagnosis: Norovirus Activity: Per Instructions section Non-emergency contact: Primary Care Provider Call non-emergency contact if: you have any medication questions, your symptoms worsen, your pain is not controlled, your pain is worsening and your pain is unusual for you Follow-up/Referrals: Clary Yost CRNP [Primary Care Provider] - Diet: Carb Consistent or DM2 Addtl Attending Provider Instructions: You are seen in the hospital for an acute illness and tested positive for norovirus. Norovirus is a viral infection which can cause nausea, vomiting, and diarrhea leading to acutely worsened weakness. You did receive IV fluids during admission. Your calcium was low, you received calcium supplementation and your calcium levels returned to normal by time of discharge. Antibiotics do not help neurovirus, it must run its course on its own. You were improving, although not back at baseline, at time of discharge. You may use an skou-mfa-efrzahe medication such as Imodium for diarrhea, your C. difficile testing was negative. 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 This was redemonstrated on your CAT scan during admission this was not likely to have contributed to her acute presentation, please keep your appointment with Dr. Hanson for further assessment and management of this. Initial work-up had been recommended to be delayed due to your brain bleed which is improving. Repeat CT scans showed stability and no worsening of your prior brain bleed. You are also noted to have a left inguinal hernia on your CT scan. Please discuss this with general surgery at your appointment, this can be electively repaired. This was not incarcerated at time of admission and did not require emergent surgical intervention. If you develop any new or worsening symptoms including fever, chills, sweats, chest pain, chest pressure, difficulty breathing, uncontrolled nausea/vomiting, rash, wheezing, passing out or nearly passing out, bleeding, black/bloody bowel movements, or other new or concerning symptoms please call your primary care physician, or call 911 for re-evaluation in the emergency department if you are very concerned. Pending Studies at Discharge: No Stand-Alone Forms: My [facility] Skilled Items Patient informed of condition?: Yes DNR: No Discharge Level of Care: Acute rehab Communicable Disease: No Discharge Prognosis: Stable Lines: None Urinary Catheter: No Medications and DC Order Prescriptions: Continued telmisartan 80 mg tablet 80 mg PO DAILY Qty: 90 RF: 3 Toujeo SoloStar U-300 Insulin 300 unit/mL (1.5 mL) insulin pen 26 unit subcut DAILY 90 Days Qty: 7.803 RF: 3 insulin aspart U-100 [Novolog Flexpen U-100 Insulin] 100 unit/mL (3 mL) insulin pen 5 unit SQ DAILY Qty: 15 RF: 3 pantoprazole 40 mg tablet,delayed release (DR/EC) 40 mg PO DAILY PRN (Reason: indigestion) Qty: 30 RF: 2 multivitamin tablet 1 tab PO DAILY RF: 0 triamcinolone acetonide [Nasacort] 55 mcg aerosol,spray 1 spray INTNAS DAILY PRN (Reason: Unknown) RF: 0 metoprolol tartrate 50 mg tablet 50 mg PO BID Qty: 180 RF: 3 clopidogrel [Plavix] 75 mg tablet 75 mg PO DAILY Qty: 90 RF: 3 atorvastatin 80 mg tablet 80 mg PO DAILY Qty: 90 RF: 3 tamsulosin 0.4 mg capsule 0.8 mg PO DAILY Qty: 180 RF: 3 escitalopram oxalate 10 mg tablet 10 mg PO DAILY Qty: 90 RF: 3 amlodipine 2.5 mg tablet 2.5 mg PO DAILY Qty: 90 RF: 3 cholecalciferol (vitamin D3) 125 mcg (5,000 unit) capsule 125 mcg PO DAILY RF: 0 metformin 500 mg tablet extended release 24 hr 1,000 mg PO DAILY 90 Days Qty: 180 RF: 3 acetaminophen [Tylenol Extra Strength] 500 mg Tablet 500 mg PO Q6H PRN (Reason: Pain) RF: 0 sildenafil (pulm.hypertension) 20 mg tablet 40 - 60 mg PO DIRECTED PRN (Reason: sexual dysfunction) RF: 0 solifenacin [Vesicare] 5 mg tablet 5 mg PO QAM RF: 0 hydrocodone-acetaminophen 5-325 mg tablet 1 tab PO Q6H PRN (Reason: Pain) RF: 0 Discharge Orders: Discharge Order (Routine); Ordered 01/23/22 Ordered By: Mark Jay Admission Data Admit Date/Time: 01/21/22 14:52 Attending Provider: Mark Jay Admit Provider: Deandre Cuellar Primary Care Provider: Clary Yost Other Providers: [facility] Other Interventions: Discharge Summary Assessment (RN) Last Done: 01/23/22 16:15 Coding Level of Care Code D/C DAY MANAGEMENT >30 MINS Diagnoses Diffuse abdominal pain R10.84 Subdural hematoma S06.5X9A DM (diabetes mellitus), type 2 E11.9 Mesenteric mass K63.89 Anxiety and depression F41.9; F32.9 Benign hypertension I10 Hyperlipidemia E78.5 Aortic aneurysm I71.9 GERD (gastroesophageal reflux disease) K21.9 BPH (benign prostatic hyperplasia) N40.1; R39.14 Lower urinary tract symptom presence: symptoms present Lower urinary tract symptom detail: incomplete bladder emptying
--- NOTE | 2022-02-05 13:51 | Coding Query ---
A supporting diagnosis is required for the test/procedure performed on this patient in order for us to be reimbursed by the patient's insurance. Please provide a supporting diagnosis for the following test/procedure listed below next to the test name along with your signature. *If there is no additional diagnosis for this patient that would support the following test/procedure please document that below next to the test/procedure. Test(s)/Procedure(s) that require a supporting diagnosis: * 69565 GI GASTROINTESTINAL PANEL DIAGNOSIS: Diarrhea DATE OF SERVICE: 01/23/22 Provider Signature: Date: Thank you Jignesh Mariee [facility] Information Management Once completed, please kindly fax back to [phone] For questions please call [phone] LO
== END 2022-01-23 17:50 ==
LOC: 2W 10:56 → ED 10:56 → SUATTDRO 14:52 → 2W 15:59
DX: I71.9 Aortic aneurysm of unspecified site, without rupture; I62.00 Nontraumatic subdural hemorrhage, unspecified; K21.9 Gastro-esophageal reflux disease without esophagitis; R10.84 Generalized abdominal pain; Z79.4 Long term (current) use of insulin; N40.1 Benign prostatic hyperplasia with lower urinary tract symptoms; E78.5 Hyperlipidemia, unspecified; I10 Essential (primary) hypertension; F32.9 Major depressive disorder, single episode, unspecified; E11.9 Type 2 diabetes mellitus without complications; R39.14 Feeling of incomplete bladder emptying; F17.290 Nicotine dependence, other tobacco product, uncomplicated; K63.89 Other specified diseases of intestine; Z79.84 Long term (current) use of oral hypoglycemic drugs; R19.7 Diarrhea, unspecified; Z79.01 Long term (current) use of anticoagulants; F41.9 Anxiety disorder, unspecified; Z79.899 Other long term (current) drug therapy

== ENCOUNTER 2023-01-25 19:20 | Inpatient (IN) ==
[2023-01-25] MEDS ORDERED: CEFEPIME 2,000 MG/20 ML VIAL IV STA (19:22)
[2023-01-25] MEDS ORDERED: ALBUT/IPRATROP 3MG/0.5MG NEB 3 ML VIAL NEB STA (19:22)
[2023-01-25] MEDS ORDERED: SODIUM CHLORIDE 0.9% 1000ML 500 ML IV ONE ×2 (19:31→21:08)
--- NOTE | 2023-01-25 19:35 | Emergency Department Note ---
Impression & Plan Weakness, Acute confusion, SOB (shortness of breath), Vomiting, COVID-19, Dehydration ED Provider Note NAME: PERRY VARELA AGE: 77 SEX: M : 1945 ARRIVES VIA: Ambulance INFORMANT: [Patient][nursing, EMS] ED PROVIDER(S): [Rasta Angel MD] CHIEF COMPLAINT: Confusion, fever HISTORY OF PRESENT ILLNESS: The patient is a 77-year-old male who tested positive for COVID-19 yesterday. Apparently, he has had several days of fatigue, cough, fever and malaise. Apparently, prior to arrival, the patient's O2 saturation dropped below 90%, he seemed more confused and there was an episode of vomiting. He was too weak to even stand. He was brought to the hospital for evaluation. He did receive Zofran IV in route. The patient is a poor historian. He admits to feeling poorly in general but does not give the best timeline of this illness. No family at the bedside. Given the mental state, no further history obtainable. The patient's family did arrive, they confirmed the above story. He is too weak and exhausted for them to care for him at home. PMHx/PSHx: See Below SOCIAL HISTORY: See Below. PHYSICAL EXAM: GENERAL: Patient is in no acute distress. HEENT: No acute trauma, normocephalic atraumatic, mucous membranes moist, no nasal congestion. NECK: No stridor, no adenopathy, no meningismus, trachea is midline. LUNGS: No respiratory distress, lungs are clear with listening anterior. A moist cough is noted. No respiratory distress. HEART: 3/6 systolic murmur, regular rate and rhythm. ABDOMEN: Soft, nontender, bowel sounds positive, no peritonitis. EXTREMITIES: No cyanosis or edema, full range of motion of all the joints without pain or difficulty, no signs for acute trauma. NEUROLOGIC: Awake and alert, moves all extremities, no speech slur, poor historian. SKIN: No rash, no jaundice, no diaphoresis. DIFFERENTIAL DIAGNOSIS: Sepsis or bacteremia, pneumonia, UTI, dehydration, electrolyte imbalance, COVID- 19, anemia, hypoxia, among others. EMERGENCY DEPARTMENT COURSE/PROCEDURES: Prior/Outside records reviewed: EMS notes. Recent outpatient doctor note. ECG per my interpretation: Indication was weakness. The ECG shows a normal sinus rhythm with some artifact. The rate is 67. There was no obvious ST elevation, there was some nonspecific ST change. No PVCs. The QTc was 464. Continuous Cardiac Monitoring per my interpretation: An order was placed for continuous cardiac monitoring. The monitor shows a rate of 74 with normal sinus rhythm. Critical Care Note: I have personally spent 43 minutes of critical care time in the direct management of this patient. This includes bedside care, interpretation of diagnostic studies, and testing, discussion with consultants, patient, and family members, and other required patient management activities. This 43 minutes is in excess of all separately billable procedures. MEDICAL DECISION MAKING: There is no leukocytosis or concerning anemia. Platelet count slightly low at 119. No coagulopathy. Sodium and potassium were both slightly low but not in need of emergent correction. No renal failure. Magnesium was low at 1.6. No concerning liver enzyme elevation. ECG showed a normal sinus rhythm, no obvious ischemia. Cardiac enzyme testing x1 is not consistent with acute cardiac injury. Urinalysis shows findings of dehydration, no evidence for infection. COVID test returned positive, influenza and RSV test were negative. Brain CT showed some chronic changes, no acute bleed or mass effect. Chest film per my review shows some chronic changes, no focal pneumonia. On exam, the patient appeared washed out and tired. He was not hypoxic or toxic. No speech slur or one-sided weakness. The patient received a 500 cc IV saline bolus, a second 500 cc IV saline bolus was ordered. He was ordered for IV magnesium, a DuoNeb and IV cefepime. The patient has COVID-19, this has caused dehydration, weakness, fatigue and a lower O2 saturation. He is in need of a hospital stay. I did speak with the on-call hospitalist, I spoke with the family and the patient, the case management team has been involved. DISPOSITION: Patient's presentation and findings warrant a hospital stay. 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 H/O knee surgery Hx of colonoscopy Family History Father Coronary heart disease Diabetes Myocardial infarction Mother Myocardial infarction Denies family history of Ovarian cancer Prostate cancer Breast cancer Colorectal cancer Cancer Social History Smoking Status: Former smoker Tobacco Type: Cigars Second Hand Exposure: No; Hx Alcohol Use: No Hx Substance Use: No Preferred Language: [place] Communication Ability: Effective Visual Impairment: Limited Hearing Ability: Normal Honeycomb Decapper Required: No Beliefs That Will Affect Care: None marital status: Current Living Situation: Spouse current occupational status: retired How many Children do You have: 2 Feels Safe at Home: Yes Childhood Exposure to Second-Hand Smoke: No caffeine: Yes (coffee) during the past year weight has: decreased > 10 lbs Dental Care, Regularly: Yes Physical Activity Frequency: 3-4 Times per Week Seatbelt Use: always Sunscreen Use: No Do you think of yourself as: straight/heterosexual Gender Identity: Male Assistive Devices: Cane and Glasses Allergies Allergies Allergy/AdvReac Type Severity Reaction Status Date / Time lisinopril AdvReac Mild COUGH Verified 12/26/22 09:12 Home Meds Home Medications Medication Instructions Recorded Confirmed cholecalciferol (vitamin D3) 125 125 mcg PO QAM 06/06/21 01/25/23 mcg (5,000 unit) capsule lutegold 1 tab PO HS macular degeneration 03/20/22 01/25/23 pantoprazole 40 mg tablet,delayed 40 mg PO BID PRN Gastric Reflux 12/26/22 01/25/23 release atorvastatin 80 mg tablet 80 mg PO QAM 01/25/23 01/25/23 clopidogrel 75 mg tablet (Plavix) 75 mg PO QAM 01/25/23 01/25/23 escitalopram oxalate 10 mg tablet 10 mg PO QAM 01/25/23 01/25/23 insulin glargine U-300 conc 300 12 - 22 unit subcut DAILY 01/25/23 01/25/23 unit/mL (1.5 mL) subcutaneous pen (Toaylin SoloStar U-300 Insulin) metformin 500 mg tablet,extended 1,000 mg PO QAM 01/25/23 01/25/23 release 24 hr Previous Rx's Medication Instructions Recorded blood sugar diagnostic (OneTouch #300 ea 09/19/22 Verio test strips) blood sugar diagnostic (OneTouch #400 ea 09/19/22 Verio test strips) dutasteride 0.5 mg capsule 0.5 mg PO DAILY #90 caps 11/08/22 molnupiravir 200 mg capsule (EUA) 800 mg PO Q12H 5 days #40 caps 01/25/23 Results & Data (ED) Vital Signs Vital Signs - 24 hr 01/25/23 19:27 01/25/23 19:48 01/25/23 20:41 Temperature 36.9 C Temperature Source Oral Pulse Rate 67 80 73 Respiratory Rate 18 22 Blood Pressure 192/79 H Blood Pressure Mean 116 Pulse Oximetry 92 93 Oxygen Delivery Method Room Air Room Air Sepsis Recent Fever Within 48 Hours Yes Sepsis New/Unexplained Change in Mental Status Yes Sepsis Action Taken by Nursing Physician Notified 01/25/23 19:42 01/25/23 20:30 01/25/23 20:46 Temperature Temperature Source Pulse Rate 66 75 Respiratory Rate 22 24 Blood Pressure 169/77 H 166/72 H Blood Pressure Mean 107 103 Pulse Oximetry 97 93 Oxygen Delivery Method Room Air Sepsis Recent Fever Within 48 Hours Sepsis New/Unexplained Change in Mental Status Sepsis Action Taken by [facility]pc Medications Current Medication List: was personally reviewed by me Laboratory Data Attestation: I reviewed the patient's lab results. 01/25/23 19:25 01/25/23 19:25 Lab Results 01/25/23 01/25/23 01/25/23 Range/Units 19:25 19:25 19:25 WBC 7.15 (4.8-10.8) K/ul RBC 4.72 (4.70-6.10) M/uL Hgb 14.4 (14.0-18.0) g/dl Hct 41.8 L (42.0-52.0) % MCV 88.6 (80.0-100.0) fL MCH 30.5 (25.0-34.0) pg MCHC 34.4 (32.0-36.0) g/dL RDW Std Deviation 42.5 (36.4-46.3) fL RDW Coeff of Taylor 13.1 (11.5-14.5) % Plt Count 119 L (130-400) K/uL MPV 10.8 (9.4-12.4) fL Immature Gran % (Auto) 0.1 % Neut % (Auto) 83.3 % Lymph % (Auto) 7.8 % Bulloch % (Auto) 8.5 % Eos % (Auto) 0.0 % Baso % (Auto) 0.3 % Neut # (Auto) 5.95 (1.40-6.50) K/uL Lymph # (Auto) 0.56 L (1.2-3.4) K/uL Bulloch # (Auto) 0.61 H (0.11-0.59) K/uL Eos # (Auto) 0.00 (0-0.50) K/uL Baso # (Auto) 0.02 (0-0.2) K/uL Immature Gran # (Auto) 0.01 (0.01-0.20) K/uL PT 11.5 (9.0-12.0) Seconds INR 1.1 (0.9-1.1) APTT 28.6 (21.0-31.0) Seconds PTT Ratio 1.0 Sodium 133 L (136-145) mmol/L Potassium 3.4 L (3.5-5.1) mmol/L Chloride 99 (98-107) mmol/L Carbon Dioxide 26 (21-32) mmol/L Anion Gap 8 (3-11) BUN 11 (6-23) mg/dl Creatinine 0.53 L (0.6-1.4) mg/dl Est Cr Clr Drug Dosing 139.5 ml/min Est GFR ( Amer) 118.3 ml/min Est GFR (Non-Af Amer) 102.1 ml/min BUN/Creatinine Ratio 20.8 H (10-20) Glucose 191 H (70-99(Fasting)) mg/dl POC Glucose (70-99) mg/dl Lactate (0.4-2.0) mmol/L Calcium 8.8 (8.6-10.3) mg/dl Magnesium 1.6 L (1.7-2.4) mg/dl Total Bilirubin 0.8 (0.2-1.0) mg/dl Direct Bilirubin 0.2 (0-0.2) mg/dl AST 20 (13-39) U/L ALT 20 (7-52) U/L Alkaline Phosphatase 84 (34-104) U/L Troponin I High Sens 9.0 (0-20) pg/ml Total Protein 6.1 (6.0-8.3) gm/dl Albumin 3.8 (3.4-5.0) gm/dl Procalcitonin (0-0.5) ng/ml 01/25/23 01/25/23 01/25/23 Range/Units 19:25 19:28 20:05 WBC (4.8-10.8) K/ul RBC (4.70-6.10) M/uL Hgb (14.0-18.0) g/dl Hct (42.0-52.0) % MCV (80.0-100.0) fL MCH (25.0-34.0) pg MCHC (32.0-36.0) g/dL RDW Std Deviation (36.4-46.3) fL RDW Coeff of Taylor (11.5-14.5) % Plt Count (130-400) K/uL MPV (9.4-12.4) fL Immature Gran % (Auto) % Neut % (Auto) % Lymph % (Auto) % Bulloch % (Auto) % Eos % (Auto) % Baso % (Auto) % Neut # (Auto) (1.40-6.50) K/uL Lymph # (Auto) (1.2-3.4) K/uL Bulloch # (Auto) (0.11-0.59) K/uL Eos # (Auto) (0-0.50) K/uL Baso # (Auto) (0-0.2) K/uL Immature Gran # (Auto) (0.01-0.20) K/uL PT (9.0-12.0) Seconds INR (0.9-1.1) APTT (21.0-31.0) Seconds PTT Ratio Sodium (136-145) mmol/L Potassium (3.5-5.1) mmol/L Chloride (98-107) mmol/L Carbon Dioxide (21-32) mmol/L Anion Gap (3-11) BUN (6-23) mg/dl Creatinine (0.6-1.4) mg/dl Est Cr Clr Drug Dosing ml/min Est GFR ( Amer) ml/min Est GFR (Non-Af Amer) ml/min BUN/Creatinine Ratio (10-20) Glucose (70-99(Fasting)) mg/dl POC Glucose 177 H (70-99) mg/dl Lactate 1.2 (0.4-2.0) mmol/L Calcium (8.6-10.3) mg/dl Magnesium (1.7-2.4) mg/dl Total Bilirubin (0.2-1.0) mg/dl Direct Bilirubin (0-0.2) mg/dl AST (13-39) U/L ALT (7-52) U/L Alkaline Phosphatase (34-104) U/L Troponin I High Sens (0-20) pg/ml Total Protein (6.0-8.3) gm/dl Albumin (3.4-5.0) gm/dl Procalcitonin < 0.05 (0-0.5) ng/ml Administered Medications Magnesium Sulfate/Dextrose (Magnesium Sulfate / D5w) 1 gm in 100 mls @ 100 mls/hr IV NOW STA Stop: 01/25/23 21:27 Last Admin: 01/25/23 20:59 Dose: 100 mls/hr Documented By: SHELLI Discontinued Medications Albuterol (Albut/Ipratrop 3mg/0.5mg Neb 3 Ml Vial) 3 ml NEB NOW STA; Protocol Stop: 01/25/23 19:23 Last Admin: 01/25/23 19:40 Dose: 3 ml Documented By: SHELLI Cefepime HCl (Maxipime) 2,000 mg in 20 mls @ 5 mls/min IV NOW STA; Protocol Stop: 01/25/23 19:25 Last Admin: 01/25/23 20:24 Dose: 5 mls/min Documented By: SHELLI Sodium Chloride (Nss 1000ml) 500 mls @ 999 mls/hr IV .Q31M ONE Stop: 01/25/23 20:01 Last Infusion: 01/25/23 20:24 Dose: 0 mls/hr Documented By: Admin: 01/25/23 19:40 Dose: 999 mls/hr Documented By: SHELLI Imaging Data Attestation: I personally reviewed and interpreted this imaging study as follows: My Impression: Chest x-ray: Per my review, there are some chronic changes. The right hemidiaphragm is elevated. There is no focal pneumonia, no CHF. The film looks similar to previous films. Radiologist's Impression: Head CT 01/25/23 19:35 Exam(s): CT HEAD Without Contrast EXAM: CT Head Without Intravenous Contrast CLINICAL HISTORY: Reason for exam: confused. TECHNIQUE: Axial computed tomography images of the head/brain without intravenous contrast. CTDI is 36.81 mGy and DLP is 614.27 mGy-cm. Automated exposure control was utilized for the study. A dose lowering technique was utilized adhering to the principles of ALARA. COMPARISON: CT head 05/07/2022. FINDINGS: Brain: Global parenchymal volume loss with chronic microvascular ischemic changes. No hemorrhage. Ventricles: No ventriculomegaly. Bones/joints: Right parietal craniotomy and left parietal magdi hole. No acute fracture. Soft tissues: Unremarkable. Sinuses: Unremarkable as visualized. Mastoid air cells: Unremarkable as visualized. No mastoid effusion. Other findings: Dense calcifications in the globus paladi and dentate nuclei. IMPRESSION: 1. No intracranial hemorrhage or other acute intracranial abnormality identified. 2. Global parenchymal volume loss with chronic microvascular ischemic changes. Electronically signed by: Martin Caballero MD 01/25/23 20:50 PM Discharge Plan Visit Data Chief Complaint: Altered Mental Status Stated Complaint: Covid+, Increased Confusion, Fever, SOB ED Provider: Rasta Angel Discharge Problem: Weakness, Acute confusion, SOB (shortness of breath), Vomiting, COVID-19, Dehydration Patient Disposition: Admitted As Inpatient Condition: Fair Forms Stand Alone Forms: [facility] Prescriptions Prescriptions: No Action (DME) OneTouch Verio test strips Strip See Rx Instructions .ROUTE .MEDSUPPLY Qty: 300 3RF Rx Instructions: test TID (DME) OneTouch Verio test strips Strip See Rx Instructions .ROUTE .MEDSUPPLY Qty: 400 2RF Rx Instructions: test TID molnupiravir 200 mg capsule 800 mg PO Q12H 5 Days Qty: 40 0RF cholecalciferol (vitamin D3) 125 mcg (5,000 unit) capsule 125 mcg PO QAM lutegold 1 tab PO HS dutasteride 0.5 mg capsule 0.5 mg PO DAILY Qty: 90 3RF pantoprazole 40 mg tablet,delayed release (DR/EC) 40 mg PO BID PRN (Reason: Gastric Reflux) Rx Instructions: 40 mg orally as needed; atorvastatin 80 mg tablet 80 mg PO QAM clopidogrel [Plavix] 75 mg tablet 75 mg PO QAM metformin 500 mg tablet extended release 24 hr 1,000 mg PO QAM escitalopram oxalate 10 mg tablet 10 mg PO QAM Toujeo SoloStar U-300 Insulin 300 unit/mL (1.5 mL) insulin pen 12 - 22 unit subcut DAILY Patient Comments: "we use a sliding scale, he received 16 units on 12/25/22 approx 21:00" Referrals Referrals: Clary Yost CRNP [Primary Care Provider] - Vomiting Qualifiers: Vomiting type: unspecified Nausea presence: with nausea Qualified Code(s): R11.2 - Nausea with vomiting, unspecified
[2023-01-25 20:12] LABS: Basophils # (auto) 0.02 K/uL (0-0.2); Basophils % (auto) 0.3 %; Hematocrit (blood only) 41.8 % (42.0-52.0); Hemoglobin 14.4 g/dl (14.0-18.0); Immature Granulocytes # (auto) 0.01 K/uL (0.01-0.20); Immature Granulocytes % (auto) 0.1 %; Lymphocytes # (auto) 0.56 K/uL (1.2-3.4); Lymphocytes % (auto) 7.8 %; Mean Corpuscular Hemoglobin 30.5 pg (25.0-34.0); Mean Corpuscular Hgb Conc 34.4 g/dL (32.0-36.0); Mean Corpuscular Volume 88.6 fL (80.0-100.0); Mean Platelet Volume 10.8 fL (9.4-12.4); Monocytes # (auto) 0.61 K/uL (0.11-0.59); Monocytes % (auto) 8.5 %; Neutrophils # (auto) 5.95 K/uL (1.40-6.50); Neutrophils % (auto) 83.3 %; Platelet Count 119 K/uL (130-400); RDW Coefficient of Variation 13.1 % (11.5-14.5); RDW Standard Deviation 42.5 fL (36.4-46.3); Red Blood Count 4.72 M/uL (4.70-6.10); White Blood Count 7.15 K/ul (4.8-10.8)
[2023-01-25 20:25] LABS: Albumin Level 3.8 gm/dl (3.4-5.0); BUN Creatinine Ratio 20.8 (10-20); Bilirubin Direct 0.2 mg/dl (0-0.2); Bilirubin,Total 0.8 mg/dl (0.2-1.0); Calcium 8.8 mg/dl (8.6-10.3); Creatinine Clr Calc Pharmacy 139.5 ml/min; Est GFR (African American) 118.3 ml/min; Est GFR (Non-African American) 102.1 ml/min; Magnesium 1.6 mg/dl (1.7-2.4); Potassium 3.4 mmol/L (3.5-5.1); Total Protein 6.1 gm/dl (6.0-8.3)
[2023-01-25] MEDS ORDERED: MAGNESIUM SULFATE / D5W 1 GM/100 ML BAG IV STA (20:28)
[2023-01-25 20:35] LABS: INR 1.1 (0.9-1.1); Partial Thromboplastin Time 28.6 Seconds (21.0-31.0); Prothrombin Time 11.5 Seconds (9.0-12.0)
--- NOTE | 2023-01-25 20:51 | CT Scan Report ---
Exam(s): CT HEAD Without Contrast EXAM: CT Head Without Intravenous Contrast CLINICAL HISTORY: Reason for exam: confused. TECHNIQUE: Axial computed tomography images of the head/brain without intravenous contrast. CTDI is 36.81 mGy and DLP is 614.27 mGy-cm. Automated exposure control was utilized for the study. A dose lowering technique was utilized adhering to the principles of ALARA. COMPARISON: CT head 05/07/2022. FINDINGS: Brain: Global parenchymal volume loss with chronic microvascular ischemic changes. No hemorrhage. Ventricles: No ventriculomegaly. Bones/joints: Right parietal craniotomy and left parietal magdi hole. No acute fracture. Soft tissues: Unremarkable. Sinuses: Unremarkable as visualized. Mastoid air cells: Unremarkable as visualized. No mastoid effusion. Other findings: Dense calcifications in the globus paladi and dentate nuclei. IMPRESSION: 1. No intracranial hemorrhage or other acute intracranial abnormality identified. 2. Global parenchymal volume loss with chronic microvascular ischemic changes. Electronically signed by: Martin Caballero MD 01/25/23 20:50 PM
[2023-01-25 20:53] LABS: Influenza A virus by PCR Negative (Neg); Influenza B virus by PCR Negative (Neg); RSV by PCR Negative (Neg)
[2023-01-25 21:05] LABS: Appearance Urine Clear (Clear); Bacteria Urine Automated Negative (Negative); Bilirubin Urine Negative (Negative); Blood Urine Trace (Negative); Color Urine Yellow; Glucose Urine UA 3+ (Negative); Ketones Urine 3+ (Negative); Leukocyte Esterase Urine Negative (Negative); Nitrite Urine Negative (Negative); Protein Urine 1+ (Negative); RBC Urine Automated 0-4 /hpf (0-4); Specific Gravity Urine 1.022 (1.000-1.030); Urobilinogen Urine Negative (Negative); pH Urine 6.5 (4.5-7.5)
[2023-01-25 21:06] LABS: SARS CoV2 RNA(COVID-19) Ceph POSITIVE (Negative)
--- NOTE | 2023-01-25 21:23 | History & Physical Report ---
Date of Service January 25, 2023 Assessment & Plan (1) Weakness: Plan: Patient with baseline ambulatory dysfunction due to left greater than right lower extremity weakness as residual deficit of previous CVA. With increasing weakness over the last several days in the setting of COVID-19 infection, N/V, poor oral intake. Treatment of COVID-19 and electrolyte derangement as described below. PT and OT evaluations when able and patient improving to assist with dispo planning. (2) Vomiting: Plan: Suspected due to viral gastroenteritis from COVID-19. Zofran as needed for nausea/vomiting. Urine specific gravity 1.022, mildly elevated BUN/creatinine ratio, this coupled with history suggests element of mild dehydration. Patient received a total of 1 L of normal saline in the ER, continue gentle fluids overnight 80 cc/h of normal saline x1 bag with oral intake as tolerated. Last echocardiogram on file in 2020 with an EF of 55-60%. (3) COVID-19: Plan: Positive test on ER labs 01/25/23. Without hypoxia on room air at this time. Defer medications such as dexamethasone and remdesivir unless patient develops clinically significant hypoxia. Suspect this as cause of gastroenteritis. (4) Hypokalemia: Plan: Potassium of 3.4 on admission, will give KCl p.o. 40 M EQ x1, repeat BMP in the morning. Anticipate this will improve with better oral intake and symptomatic control of vomiting. (5) Hypomagnesemia: Plan: Magnesium 1.6, received 1 g magnesium sulfate in the ER, will give 2 more bags with repeat magnesium in the morning. This is likely secondary to gastroenteritis. (6) Neuroendocrine carcinoma metastatic to liver: Plan: History of a mesenteric mass first noted in November 2021, underwent biopsy of liver lesions by interventional radiology with evidence of neuroendocrine tumor. Due to the slow-growing nature, has been undergoing outpatient follow-up with primary care and surgical services, but no abdominal pain, no acute concerns in this regard on admission. (7) Subdural hematoma: Plan: History of subdural hematoma that was found following a fall in December 2021, [place] [facility] [place] Underwent right-sided craniotomy and soft left-sided bur hole for surgical evacuation of subdural collections on 01/09/2022. Also underwent bilateral middle meningeal artery embolization on 01/11/2022. Was on steroid therapy and antiepileptics, but these have since been de-escalated and discontinued. No reports of recent seizure activity per patient or his family members. (8) DM (diabetes mellitus), type 2: Plan: History of type 2 diabetes on Toujeo and metformin. Will initiate Lantus 10 units twice daily, with sliding scale coverage. Adjust basal/bolus parameters based on BSG's. (9) GERD (gastroesophageal reflux disease): Plan: Continue PPI. Plan Patient is a full code Heart healthy, DM 2 diet SCDs for DVT prophylaxis, deferring chemoprophylaxis at this time given profound history of subdural hematoma 1 year ago Med/surg for monitoring, PT/OT, supportive care of COVID-19 infection and gastroenteritis History of Present Illness Chief Complaint: weakness, vomiting, COVID-19 Primary Care Provider: HAMMAD Foster 77-year-old male past medical history significant for subdural hematoma s/p evacuation and middle meningeal artery embolization in Spring 2021, neuroendocrine carcinoma with mets to the liver, DM 2, BPH, GERD presented to the ER for symptoms of weakness and vomiting in the setting of positive COVID-19 test at home in the last several days. They also checked a pulse ox at home and reportedly had O2 saturation of 90%. Has had some nausea and vomiting in the last couple of days, with poor intake. Legs have been so weak that patient's and daughter have been unable to pick him up. In the ER patient noted to be COVID-19 positive, hemodynamically stable saturating 93% on room air, CBC with thrombocytopenia 119, sodium 133, potassium 3.4, magnesium 1.6, normal procalcitonin, UA without evidence of infection, influenza/RSV negative. Head CT performed for increased confusion/weakness without evidence of intracranial hemorrhage or other acute intracranial abno rmality. Chest x-ray performed without evidence of lobar consolidation. Patient received IVF, cefepime, albuterol neb, and magnesium supplementation in ER. Hospitalist service was consulted for admission for ambulatory dysfunction, vomiting, and electrolyte derangement. At time of my interview patient denies chest pain, shortness of breath, abdominal pain. He does not note any nausea at this time but does have an emesis bag. Allergies Allergy/AdvReac Type Severity Reaction Status Date / Time lisinopril AdvReac Mild COUGH Verified 12/26/22 09:12 Home Medications Medication Instructions Recorded Confirmed Type cholecalciferol (vitamin D3) 125 125 mcg PO QAM 06/06/21 01/25/23 History mcg (5,000 unit) capsule lutegold 1 tab PO HS macular degeneration 03/20/22 01/25/23 History blood sugar diagnostic (OneTouch #300 ea 09/19/22 01/25/23 Rx Verio test strips) blood sugar diagnostic (OneTouch #400 ea 09/19/22 01/25/23 Rx Verio test strips) dutasteride 0.5 mg capsule 0.5 mg PO DAILY #90 caps 11/08/22 01/25/23 Rx pantoprazole 40 mg tablet,delayed 40 mg PO BID PRN Gastric Reflux 12/26/22 01/25/23 History release atorvastatin 80 mg tablet 80 mg PO QAM 01/25/23 01/25/23 History clopidogrel 75 mg tablet (Plavix) 75 mg PO QAM 01/25/23 01/25/23 History escitalopram oxalate 10 mg tablet 10 mg PO QAM 01/25/23 01/25/23 History insulin glargine U-300 conc 300 12 - 22 unit subcut DAILY 01/25/23 01/25/23 History unit/mL (1.5 mL) subcutaneous pen (Toujeo SoloStar U-300 Insulin) metformin 500 mg tablet,extended 1,000 mg PO QAM 01/25/23 01/25/23 History release 24 hr molnupiravir 200 mg capsule (EUA) 800 mg PO Q12H 5 days #40 caps 01/25/23 01/25/23 Rx Past Med/Surg History Medical History Acute sinusitis Aortic aneurysm Aortic dissection Cervical facet joint syndrome Cervicalgia COVID-19 virus infection DM (diabetes mellitus), type 2 Fracture, ribs Hammertoe of right foot Hyperlipidemia Hypertension Loss of protective sensation of skin of foot Macular degeneration Mild sleep apnea Pulmonary nodule seen on imaging study Stroke Subdural hematoma Vitamin D deficiency Surgical History H/O brain surgery decompressional subdural hematoma 12/2021 H/O knee surgery Hx of colonoscopy Family History Father Coronary heart disease Diabetes Myocardial infarction Mother Myocardial infarction Denies family history of Ovarian cancer Prostate cancer Breast cancer Colorectal cancer Cancer Social History Smoking Status: Former smoker Tobacco Type: Cigars Second Hand Exposure: No; Hx Alcohol Use: No Hx Substance Use: No Preferred Language: Pakistani Communication Ability: Effective Visual Impairment: Limited Hearing Ability: Normal Cloud Automation Tester Required: No Beliefs That Will Affect Care: None marital status: Current Living Situation: Spouse current occupational status: retired How many Children do You have: 2 Feels Safe at Home: Yes Childhood Exposure to Second-Hand Smoke: No caffeine: Yes (coffee) during the past year weight has: decreased > 10 lbs Dental Care, Regularly: Yes Physical Activity Frequency: 3-4 Times per Week Seatbelt Use: always Sunscreen Use: No Do you think of yourself as: straight/heterosexual Gender Identity: Male Assistive Devices: Cane and Glasses Review of Systems Review of Systems: All systems reviewed & are unremarkable except as noted in Subjective Physical Exam Constitutional: well developed and well nourished; no acute distress Eyes: PERRL, conjunctivae normal, anicteric sclerae ENMT: external ear and nose normal, oropharynx normal Respiratory: normal respiratory effort, lungs clear to auscultation Cardiovascular: RRR, no murmur, no edema Gastrointestinal (Abdomen): normal bowel sounds, soft, nontender, no hepatosplenomegaly Skin: no rashes, warm and dry Neurologic: AAOx2, normal speech. PERRLA, EOMI, no nystagmus. Bilateral UE, LE, and face without sensory deficits. Decreased strength LLE>RLE, chronic per family members in room. No pronator drift. No tremor. Psychiatric: alert and oriented to self and place Results & Data Results & Data Vital Signs (Past 12 Hours) Vital Signs Temp Pulse Resp BP Pulse Ox O2 Del Method 01/25/23 20:46 Room Air 01/25/23 20:30 75 24 166/72 H 93 01/25/23 19:42 66 22 169/77 H 97 01/25/23 20:41 73 22 93 Room Air 01/25/23 19:48 36.9 C 80 18 192/79 H 92 Room Air 01/25/23 19:27 67 PG Care Time/CCT Total # of Minutes Spent Total Time Spent with Patient: Total time spent is greater than 50% in coordination of care (as documented) at patient's floor/unit and/or counseling patient: Coding Level of Care Code 61230 INT INP/OBS CARE 3/75MIN Diagnoses Weakness R53.1 Vomiting R11.2 Nausea presence: with nausea Vomiting type: unspecified COVID-19 U07.1 Hypokalemia E87.6 Hypomagnesemia E83.42 Neuroendocrine carcinoma metastatic to liver C7A.8; C7B.8 Subdural hematoma S06.5X9A DM (diabetes mellitus), type 2 E11.9 GERD (gastroesophageal reflux disease) K21.9 (2) Vomiting Nausea presence: with nausea Vomiting type: unspecified Qualified Code(s): R11.2 - Nausea with vomiting, unspecified
[2023-01-25] MEDS ORDERED: SODIUM CHLORIDE 0.9% 1000ML 1,000 ML IV STA (22:10)
[2023-01-25] MEDS ORDERED: ACETAMINOPHEN 325 MG TAB PO STA (22:22)
[2023-01-26] MEDS ORDERED: GLUCOSE 40% GEL 15 GM TUBE PO PRN (00:18)
[2023-01-26] MEDS ORDERED: ACETAMINOPHEN 325 MG TAB PO PRN (00:18)
[2023-01-26] MEDS ORDERED: DEXTROSE 50% 50 ML SYRINGE IV PRN (00:18)
[2023-01-26] MEDS ORDERED: GLUCAGON FOR INJ 1 MG VIAL SQ PRN (00:18)
[2023-01-26] MEDS ORDERED: PANTOprazole 40 MG TAB PO PRN ×2 (00:18)
[2023-01-26] MEDS ORDERED: CARBOHYDRATES FOR HYPOGLYCEMIA PO PRN (00:18)
[2023-01-26] MEDS ORDERED: POLYETHYLENE (MIRALAX) 17 GM PACK PO PRN (00:18)
[2023-01-26] MEDS ORDERED: ONDANSETRON INJ 2 MG/ML 2 ML VIAL IV PRN (00:18)
[2023-01-26] MEDS ORDERED: GLUCOSE 10 TAB/TUBE PO PRN (00:18)
[2023-01-26] MEDS ORDERED: POTASSIUM CHLORIDE CRTAB 20 MEQ TABCR PO STA ×2 (00:18→09:10)
[2023-01-26] MEDS: INSULIN ASPART PER UNIT CHARGE SC SCH ×5 (00:47→20:50)
[2023-01-26] MEDS: MAGNESIUM SULFATE / D5W 1 GM/100 ML BAG IV SCH ×2 (00:50→03:00)
[2023-01-26 06:04] LABS: Hematocrit (blood only) 41.5 % (42.0-52.0); Hemoglobin 14.6 g/dl (14.0-18.0); Mean Corpuscular Hemoglobin 30.9 pg (25.0-34.0); Mean Corpuscular Hgb Conc 35.2 g/dL (32.0-36.0); Mean Corpuscular Volume 87.7 fL (80.0-100.0); Mean Platelet Volume 11.2 fL (9.4-12.4); Platelet Count 112 K/uL (130-400); RDW Coefficient of Variation 13.2 % (11.5-14.5); RDW Standard Deviation 42.6 fL (36.4-46.3); Red Blood Count 4.73 M/uL (4.70-6.10); White Blood Count 7.32 K/ul (4.8-10.8)
[2023-01-26 06:18] LABS: BUN Creatinine Ratio 16.4 (10-20); Calcium 8.1 mg/dl (8.6-10.3); Creatinine Clr Calc Pharmacy 134.4 ml/min; Est GFR (African American) 116.5 ml/min; Est GFR (Non-African American) 100.5 ml/min; Magnesium 2.5 mg/dl (1.7-2.4); Potassium 3.5 mmol/L (3.5-5.1)
--- NOTE | 2023-01-26 08:22 | XRay Report ---
XR chest 1V portable CLINICAL HISTORY: Sepsis. COMPARISON STUDY: Chest radiograph January 21, 2022. Chest CT January 17, 2023. FINDINGS: Elevation the right hemidiaphragm is unchanged. Right basilar opacity is similar to exam of January 06, 2022. This favors atelectasis. No evidence for pulmonary edema. Rightward deviation of the trachea with mediastinal widening is unchanged. This is due to a thyroid goiter. IMPRESSION: No acute cardiopulmonary findings. No significant change in appearance of the chest. ACT 112: Negative or not required by law. Electronically signed by: Ethan Colin M.D. 01/26/2023 8:21 AM
[2023-01-26] MEDS: ATORVASTATIN 40 MG TAB PO SCH (09:13)
[2023-01-26] MEDS: ESCITALOPRAM OXALATE 10 MG TAB PO SCH (09:13)
[2023-01-26] MEDS: CLOPIDOGREL BISULFATE 75 MG TAB PO SCH (09:13)
[2023-01-26] MEDS: CHOLECALCIFEROL 5,000 UNITS 125 MCG TAB PO SCH (09:14)
[2023-01-26] MEDS ORDERED: ENOXAPARIN INJ 40 MG/0.4 ML SYR SQ SCH (09:15)
[2023-01-26] MEDS: LANTUS PER UNIT CHARGE SQ SCH ×2 (09:41→20:50)
--- NOTE | 2023-01-26 12:04 | Hospitalist Progress Note ---
Date of Service January 26, 2023 Assessment & Plan (1) Weakness: Plan: Continue supportive care. Will eventually order OT and PT. Treat underlying COVID infection (2) Vomiting: Plan: Due to viral infection. We will treat the symptoms. Continue IV fluids until nausea and vomiting resolved. (3) COVID-19: Plan: Positive test on ER labs 01/25/23. Without hypoxia on room air at this time. Vitamin D and zinc have been ordered along with intravenous dexamethasone. Lovenox increased to every 12 hour dosing due to hypercoagulable state from COVID-19. (4) Hypokalemia: Plan: Oral replacement. Serial labs (5) Hypomagnesemia: Plan: Parenteral replacement. Serial labs (6) Neuroendocrine carcinoma metastatic to liver: Plan: Diagnosed in November 2021, underwent biopsy of liver lesions by interventional radiology with evidence of neuroendocrine tumor. Due to the slow-growing nature, has been undergoing outpatient follow-up with primary care and surgical services. No intervention needed at this time. (7) Subdural hematoma: Plan: History of subdural hematoma that was found following a fall in December 2021. Status post right-sided craniotomy and soft left-sided bur hole for surgical evacuation of subdural collections on 01/09/2022. Also underwent bilateral middle meningeal artery embolization on 01/11/2022. No reports of recent seizure activity per patient or his family members. (8) DM (diabetes mellitus), type 2: Plan: History of type 2 diabetes on Toujeo and metformin. Now on Lantus while hospitalized. Sliding scale coverage as needed. Expect glucose bump while on steroid therapy (9) GERD (gastroesophageal reflux disease): Plan: Stable. Continue PPI. Plan To be determined. Will eventually need OT and PT assessments and he may need SNF placement temporarily. Admission and Anticipated Discharge Date Admission Date: January 25, 2023 Subjective Alert and oriented. He had some nausea and vomiting this morning. He is still quite weak. He is on vitamin D. Zinc has been added. Lovenox increased to every 12 hour dosing. Intravenous dexamethasone ordered. Supportive care. Continue IV fluids until oral intake improves. Potassium still low at 3.5. Review of Systems Review of Systems: Constitutional-Malays, generalized weakness ENT-no blurred vision, no double vision, no epistaxis, no sore throat Respiratory-no cough, no wheezing, no shortness of breath Cardiac-no palpitations, no chest pain, no syncope GI-he still has some nausea and vomiting. No hematemesis. No diarrhea, melena, hematochezia -no urinary retention, no urinary incontinence, no dysuria, no hematuria Musculoskeletal-no joint pain, no muscle tenderness Skin-no bruising, no rashes, no pruritus Neuro-no focal deficits. Generalized weakness Psych-no depression, no anxiety Physical Exam Physical Exam: General-alert and oriented x3, no fevers, no chills HEENT-head atraumatic and normocephalic, pupils equal and reactive to light, extraocular muscles intact Neck-no lymphadenopathy or thyromegaly, trachea midline Chest-clear to auscultation percussion. No rales wheezing or rhonchi Cardiac-regular rate and rhythm, normal S1 and S2, no murmurs Abdomen-normal bowel sounds, no hepatosplenomegaly. He does report intermittent nausea and vomiting Extremities-no cyanosis, clubbing, or edema Neuro-cranial nerves II through XII intact, motor and sensory function within normal limits, strength symmetrical , no focal deficits Psych-normal affect, normal mood Results & Data Results & Data Vital Signs (Past 12 Hours) Vital Signs Temp Pulse Resp BP Pulse Ox O2 Del Method 01/26/23 07:35 Room Air 01/26/23 07:51 36.9 C 01/26/23 07:42 37.8 C H 74 16 177/69 H 93 Room Air 01/26/23 01:36 Room Air 01/26/23 00:23 36.8 C 62 16 145/60 H 95 Room Air Laboratory Results 01/26/23 05:18 01/26/23 05:17 PG Care Time/CCT Total # of Minutes Spent Total Time Spent with Patient: Total time spent is greater than 50% in coordination of care (as documented) at patient's floor/unit and/or counseling patient: Coding Level of Care Code 99417 SUB INP/OBS CARE 3/50MIN Diagnoses Weakness R53.1 Vomiting R11.2 Nausea presence: with nausea Vomiting type: unspecified COVID-19 U07.1 Hypokalemia E87.6 Hypomagnesemia E83.42 Neuroendocrine carcinoma metastatic to liver C7A.8; C7B.8 Subdural hematoma S06.5X9A DM (diabetes mellitus), type 2 E11.9 GERD (gastroesophageal reflux disease) K21.9 (2) Vomiting Nausea presence: with nausea Vomiting type: unspecified Qualified Code(s): R11.2 - Nausea with vomiting, unspecified
[2023-01-26] MEDS: ZINC SULFATE 220 MG CAPSULE PO SCH (12:27)
[2023-01-26] MEDS: SODIUM CHLORIDE 0.9% 1000ML 1,000 ML IV SCH (12:45)
[2023-01-26] MEDS: dexAMETHasone 6 MG in SYRINGE 0 ML IV SCH ×2 (12:45→21:07)
[2023-01-26] MEDS ORDERED: hydrALAZINE HCL 20 MG/ML VIAL IV PRN (13:29)
[2023-01-26] MEDS: ENOXAPARIN INJ 40 MG/0.4 ML SYR SQ SCH (21:07)
--- NOTE | 2023-01-26 21:28 | Electrocardiogram Report ---
Test Reason : Blood Pressure : / mmHG Vent. Rate : 067 BPM Atrial Rate : 067 BPM P-R Int : 136 ms QRS Dur : 106 ms QT Int : 440 ms P-R-T Axes : 056 015 052 degrees QTc Int : 464 ms Normal sinus rhythm Nonspecific ST abnormality When compared with ECG of 21-JAN-2022 11:42, No significant change was found Confirmed by Cristi Fragoso ([id number]) on 01/26/2023 9:28:49 PM Referred By: REFERRED SELF Confirmed By:Cristi Fragoso
[2023-01-27] MEDS: SODIUM CHLORIDE 0.9% 1000ML 1,000 ML IV SCH ×2 (01:30→13:19)
[2023-01-27 05:59] LABS: Basophils # (auto) 0.01 K/uL (0-0.2); Basophils % (auto) 0.1 %; Hematocrit (blood only) 40.8 % (42.0-52.0); Hemoglobin 14.4 g/dl (14.0-18.0); Immature Granulocytes # (auto) 0.04 K/uL (0.01-0.20); Immature Granulocytes % (auto) 0.4 %; Lymphocytes % (auto) 11.1 %; Mean Corpuscular Hemoglobin 30.7 pg (25.0-34.0); Mean Corpuscular Hgb Conc 35.3 g/dL (32.0-36.0); Mean Platelet Volume 11.3 fL (9.4-12.4); Monocytes # (auto) 0.76 K/uL (0.11-0.59); Monocytes % (auto) 8.4 %; Neutrophils # (auto) 7.23 K/uL (1.40-6.50); Platelet Count 119 K/uL (130-400); RDW Coefficient of Variation 13.2 % (11.5-14.5); RDW Standard Deviation 41.7 fL (36.4-46.3); Red Blood Count 4.69 M/uL (4.70-6.10); White Blood Count 9.04 K/ul (4.8-10.8)
[2023-01-27 06:09] LABS: BUN Creatinine Ratio 22.7 (10-20); Calcium 8.4 mg/dl (8.6-10.3); Est GFR (African American) 127.7 ml/min; Est GFR (Non-African American) 110.2 ml/min; Potassium 3.8 mmol/L (3.5-5.1)
[2023-01-27] MEDS: INSULIN ASPART PER UNIT CHARGE SC SCH ×4 (09:17→21:32)
[2023-01-27] MEDS: LANTUS PER UNIT CHARGE SQ SCH ×2 (09:17→21:43)
[2023-01-27] MEDS: dexAMETHasone 6 MG in SYRINGE 0 ML IV SCH ×2 (09:23→21:38)
[2023-01-27] MEDS: CHOLECALCIFEROL 5,000 UNITS 125 MCG TAB PO SCH (09:23)
[2023-01-27] MEDS: ATORVASTATIN 40 MG TAB PO SCH (09:24)
[2023-01-27] MEDS: CLOPIDOGREL BISULFATE 75 MG TAB PO SCH (09:24)
[2023-01-27] MEDS: ESCITALOPRAM OXALATE 10 MG TAB PO SCH (09:24)
[2023-01-27] MEDS: ZINC SULFATE 220 MG CAPSULE PO SCH (09:24)
[2023-01-27] MEDS: ENOXAPARIN INJ 40 MG/0.4 ML SYR SQ SCH ×2 (09:25→21:38)
--- NOTE | 2023-01-27 12:40 | Hospitalist Progress Note ---
Date of Service January 27, 2023 Assessment & Plan (1) Weakness: Plan: Continue supportive care. OT and PT ordered. Treat underlying COVID infection (2) Vomiting: Plan: Due to viral infection. We will treat the symptoms. Continue IV fluids until nausea and vomiting totally resolved. (3) COVID-19: Plan: Positive test on ER labs 01/25/23. Without hypoxia on room air at this time. Vitamin D and zinc have been ordered along with intravenous dexamethasone. Lovenox has been increased to every 12 hour dosing due to hypercoagulable state from COVID-19. (4) Hypokalemia: Plan: Oral replacement. Serial labs . Corrected (5) Hypomagnesemia: Plan: Parenteral replacement. Serial labs . Corrected (6) Neuroendocrine carcinoma metastatic to liver: Plan: Diagnosed in November 2021, underwent biopsy of liver lesions by interventional radiology with evidence of neuroendocrine tumor. Due to the slow-growing nature, has been undergoing outpatient follow-up with primary care and surgical services. No intervention needed at this time. (7) Subdural hematoma: Plan: History of subdural hematoma that was found following a fall in December 2021. Status post right-sided craniotomy and soft left-sided bur hole for surgical evacuation of subdural collections on 01/09/2022. Also underwent bilateral middle meningeal artery embolization on 01/11/2022. No reports of recent seizure activity per patient or his family members. (8) DM (diabetes mellitus), type 2: Plan: History of type 2 diabetes on Toujeo and metformin. Now on Lantus while hospitalized. Sliding scale coverage as needed. Expect glucose bump while on steroid therapy (9) GERD (gastroesophageal reflux disease): Plan: Stable. Continue PPI. Plan Anticipate discharge to SNF or IPR yet this week. Admission and Anticipated Discharge Date Admission Date: January 27, 2023 Subjective Alert and oriented. No new problems. I spoke to his , Consuelo, by phone. IV fluids tapered down. Admitted from observation status. Probable rehab or SNF placement yet this week. Low magnesium and potassium levels have been corrected. He remains on intravenous dexamethasone, oral vitamin D, oral zinc, and Lovenox every 12 hours. Review of Systems Review of Systems: Constitutional-Malays, generalized weakness ENT-no blurred vision, no double vision, no epistaxis, no sore throat Respiratory-no cough, no wheezing, no shortness of breath Cardiac-no palpitations, no chest pain, no syncope GI-he still has some nausea and vomiting. No hematemesis. No diarrhea, melena, hematochezia -no urinary retention, no urinary incontinence, no dysuria, no hematuria Musculoskeletal-no joint pain, no muscle tenderness Skin-no bruising, no rashes, no pruritus Neuro-no focal deficits. Generalized weakness Psych-no depression, no anxiety Physical Exam Physical Exam: General-alert and oriented x3, no fevers, no chills HEENT-head atraumatic and normocephalic, pupils equal and reactive to light, extraocular muscles intact Neck-no lymphadenopathy or thyromegaly, trachea midline Chest-clear to auscultation percussion. No rales wheezing or rhonchi Cardiac-regular rate and rhythm, normal S1 and S2, no murmurs Abdomen-normal bowel sounds, no hepatosplenomegaly. He does report intermittent nausea and vomiting Extremities-no cyanosis, clubbing, or edema Neuro-cranial nerves II through XII intact, motor and sensory function within normal limits, strength symmetrical , no focal deficits Psych-normal affect, normal mood Results & Data Results & Data Vital Signs (Past 12 Hours) Vital Signs Temp Pulse Resp BP Pulse Ox O2 Del Method 01/27/23 09:00 Room Air 01/27/23 07:41 36.8 C 58 L 18 123/74 94 Room Air Laboratory Results 01/27/23 05:14 01/27/23 05:14 PG Care Time/CCT Total # of Minutes Spent Total Time Spent with Patient: Total time spent is greater than 50% in coordination of care (as documented) at patient's floor/unit and/or counseling patient: Coding Level of Care Code 30643 SUB INP/OBS CARE 3/50MIN Diagnoses Weakness R53.1 Vomiting R11.2 Nausea presence: with nausea Vomiting type: unspecified COVID-19 U07.1 Hypokalemia E87.6 Hypomagnesemia E83.42 Neuroendocrine carcinoma metastatic to liver C7A.8; C7B.8 Subdural hematoma S06.5X9A DM (diabetes mellitus), type 2 E11.9 GERD (gastroesophageal reflux disease) K21.9 (2) Vomiting Nausea presence: with nausea Vomiting type: unspecified Qualified Code(s): R11.2 - Nausea with vomiting, unspecified
[2023-01-28] MEDS: INSULIN ASPART PER UNIT CHARGE SC SCH ×4 (08:52→21:28)
[2023-01-28] MEDS: LANTUS PER UNIT CHARGE SQ SCH ×2 (08:53→21:28)
[2023-01-28] MEDS: dexAMETHasone 6 MG in SYRINGE 0 ML IV SCH (08:55)
[2023-01-28] MEDS: ATORVASTATIN 40 MG TAB PO SCH (08:56)
[2023-01-28] MEDS: ESCITALOPRAM OXALATE 10 MG TAB PO SCH (08:57)
[2023-01-28] MEDS: CHOLECALCIFEROL 5,000 UNITS 125 MCG TAB PO SCH (08:57)
[2023-01-28] MEDS: ENOXAPARIN INJ 40 MG/0.4 ML SYR SQ SCH ×2 (08:57→21:36)
[2023-01-28] MEDS: ZINC SULFATE 220 MG CAPSULE PO SCH (08:57)
[2023-01-28] MEDS: CLOPIDOGREL BISULFATE 75 MG TAB PO SCH (08:57)
[2023-01-28] MEDS: SODIUM CHLORIDE 0.9% 1000ML 1,000 ML IV SCH (08:58)
[2023-01-28 10:02] LABS: Basophils # (auto) 0.01 K/uL (0-0.2); Basophils % (auto) 0.1 %; Hematocrit (blood only) 42.3 % (42.0-52.0); Hemoglobin 14.7 g/dl (14.0-18.0); Immature Granulocytes # (auto) 0.02 K/uL (0.01-0.20); Immature Granulocytes % (auto) 0.3 %; Lymphocytes # (auto) 1.13 K/uL (1.2-3.4); Lymphocytes % (auto) 15.3 %; Mean Corpuscular Hemoglobin 30.5 pg (25.0-34.0); Mean Corpuscular Hgb Conc 34.8 g/dL (32.0-36.0); Mean Corpuscular Volume 87.8 fL (80.0-100.0); Monocytes # (auto) 0.56 K/uL (0.11-0.59); Monocytes % (auto) 7.6 %; Neutrophils # (auto) 5.67 K/uL (1.40-6.50); Neutrophils % (auto) 76.7 %; Platelet Count 129 K/uL (130-400); RDW Coefficient of Variation 13.2 % (11.5-14.5); RDW Standard Deviation 42.7 fL (36.4-46.3); Red Blood Count 4.82 M/uL (4.70-6.10); White Blood Count 7.39 K/ul (4.8-10.8)
[2023-01-28 10:15] LABS: BUN Creatinine Ratio 20.4 (10-20); Calcium 8.3 mg/dl (8.6-10.3); Creatinine Clr Calc Pharmacy 136.9 ml/min; Est GFR (African American) 117.4 ml/min; Est GFR (Non-African American) 101.3 ml/min; Potassium 3.5 mmol/L (3.5-5.1)
--- NOTE | 2023-01-28 16:47 | Hospitalist Progress Note ---
Date of Service January 28, 2023 Assessment & Plan (1) Weakness: Plan: Improving, walked 6 feet with physical therapy today Continue supportive care. Continue PT/OT evaluations Treating COVID (2) Vomiting: Plan: Due to viral infection. Now completely resolved DC IV fluids (3) COVID-19: Plan: Positive test on ER labs 01/25/23. He did have a few pulse ox readings that were less than 94% was started on IV Decadron Continue Vitamin D and zinc Decrease Decadron to 6 mg IV once daily down from twice daily Continue Lovenox h Q 12 hour dosing due to hypercoagulable state from COVID-19. (4) Neuroendocrine carcinoma metastatic to liver: Plan: Diagnosed in November 2021, underwent biopsy of liver lesions by interventional radiology with evidence of neuroendocrine tumor. Due to the slow-growing nature, has been undergoing outpatient follow-up with primary care and surgical services. No intervention needed at this time. (5) Subdural hematoma: Plan: History of subdural hematoma that was found following a fall in December 2021. Status post right-sided craniotomy and soft left-sided bur hole for surgical evacuation of subdural collections on 01/09/2022. Also underwent bilateral middle meningeal artery embolization on 01/11/2022. No reports of recent seizure activity per patient or his family members. (6) DM (diabetes mellitus), type 2: Plan: History of type 2 diabetes on Toujeo and metformin. Now on Lantus while hospitalized. Sliding scale coverage as needed. Expect glucose bump while on steroid therapy We will watch now that Decadron dosing is decreased (7) GERD (gastroesophageal reflux disease): Plan: Stable. Continue PPI. (8) Ischemic cerebrovascular accident (CVA): Plan: History of such Continue statin, Plavix Plan DVT prophylaxis-Lovenox Disposition-improving, awaiting final recommendations on repeat from PT/OT to determine if needs rehab versus home with home health Admission and Anticipated Discharge Date Admission Date: January 27, 2023 Subjective Patient reports feeling better. No vomiting, eating a little bit more, no moved his bowels this morning. No cough or shortness of breath. Is on room air Physical Exam Constitutional: WD/WN, vitals as above ENMT: external ear and nose normal, oropharynx normal Neck: trachea midline, no thyromegaly Respiratory: normal respiratory effort, lungs clear to auscultation Cardiovascular: RRR, no murmur, no edema Chest (Breasts): Chest: normal inspection of chest Gastrointestinal (Abdomen): normal bowel sounds, soft, nontender, no hepatosplenomegaly Musculoskeletal: Extremities: extremities normal to inspection; no cyanosis and no clubbing Skin: no rashes, warm and dry Neurologic: moves all extremities and awake; no focal motor deficits Lymphatic: no lymphedema Results & Data Results & Data Vital Signs (Past 12 Hours) Vital Signs Temp Pulse Resp BP BP Pulse Ox O2 Del Method 01/28/23 15:26 36.6 C 63 16 139/57 L 96 Room Air 01/28/23 09:00 Room Air 01/28/23 07:30 36.7 C 52 L 18 158/75 H 97 Room Air Laboratory Results CBC, BMP reviewed PG Care Time/CCT Total # of Minutes Spent Total Time Spent with Patient: Total time spent is greater than 50% in coordination of care (as documented) at patient's floor/unit and/or counseling patient: Coding Level of Care Code 18469 SUB INP/OBS CARE 2/35MIN Diagnoses Weakness R53.1 Vomiting R11.2 Nausea presence: with nausea Vomiting type: unspecified COVID-19 U07.1 Neuroendocrine carcinoma metastatic to liver C7A.8; C7B.8 Subdural hematoma S06.5X9A DM (diabetes mellitus), type 2 E11.9 GERD (gastroesophageal reflux disease) K21.9 Ischemic cerebrovascular accident (CVA) I63.9 (2) Vomiting Nausea presence: with nausea Vomiting type: unspecified Qualified Code(s): R11.2 - Nausea with vomiting, unspecified
[2023-01-29] MEDS: dexAMETHasone 6 MG in SYRINGE 0 ML IV SCH (08:58)
[2023-01-29] MEDS: CLOPIDOGREL BISULFATE 75 MG TAB PO SCH (08:59)
[2023-01-29] MEDS: CHOLECALCIFEROL 5,000 UNITS 125 MCG TAB PO SCH (08:59)
[2023-01-29] MEDS: ESCITALOPRAM OXALATE 10 MG TAB PO SCH (08:59)
[2023-01-29] MEDS: ATORVASTATIN 40 MG TAB PO SCH (09:00)
[2023-01-29] MEDS: ENOXAPARIN INJ 40 MG/0.4 ML SYR SQ SCH ×2 (09:00→21:45)
[2023-01-29] MEDS: ZINC SULFATE 220 MG CAPSULE PO SCH (09:00)
[2023-01-29] MEDS: INSULIN ASPART PER UNIT CHARGE SC SCH ×4 (09:11→21:36)
[2023-01-29] MEDS: LANTUS PER UNIT CHARGE SQ SCH (09:12)
--- NOTE | 2023-01-29 16:36 | Hospitalist Progress Note ---
Date of Service January 29, 2023 Assessment & Plan (1) Weakness: Plan: Improving, but still weak, needs rehab Continue supportive care. Continue PT/OT Treating COVID (2) Vomiting: Plan: Due to viral infection.Also had diarrhea -now resolved. Now completely resolved (3) COVID-19: Plan: Positive test on ER labs 01/25/23. He did have a few pulse ox readings that were less than 94% was started on IV Decadron Continue Vitamin D and zinc Continue Decadron 6 mg IV once daily and convert to po on discharge to finish out 10 day course Continue Lovenox h Q12 hour dosing due to hypercoagulable state from COVID-19. (4) Neuroendocrine carcinoma metastatic to liver: Plan: Diagnosed in November 2021, underwent biopsy of liver lesions by interventional radiology with evidence of neuroendocrine tumor. Due to the slow-growing nature, has been undergoing outpatient follow-up with primary care and surgical services. No intervention needed at this time. (5) Subdural hematoma: Plan: History of subdural hematoma that was found following a fall in December 2021. Status post right-sided craniotomy and soft left-sided bur hole for surgical evacuation of subdural collections on 01/09/2022. Also underwent bilateral middle meningeal artery embolization on 01/11/2022. No reports of recent seizure activity per patient or his family members. Does seem to have some cognitive impairment (6) DM (diabetes mellitus), type 2: Plan: History of type 2 diabetes on Toujeo and metformin. Now on Lantus while hospitalized. Sliding scale coverage as needed. Expect glucose bump while on steroid therapy We will watch now that Decadron dosing is decreased-glucose low this AM decrease evening Lantus to 5 units (7) GERD (gastroesophageal reflux disease): Plan: Stable. Continue PPI. (8) Ischemic cerebrovascular accident (CVA): Plan: History of such Continue statin, Plavix Plan DVT prophylaxis-Lovenox Disposition-medically stable for discharge, needs rehab placement- and patient in agreement with this Admission and Anticipated Discharge Date Admission Date: January 27, 2023 Subjective Pt has no complaints Is agreeable to rehab. Talked to his on the phone while I was in the room. No further diarrhea Physical Exam Constitutional: WD/WN, vitals as above Neck: trachea midline, no thyromegaly Respiratory: normal respiratory effort, lungs clear to auscultation Cardiovascular: RRR, no murmur, no edema Chest (Breasts): Chest: normal inspection of chest Gastrointestinal (Abdomen): normal bowel sounds, soft, nontender, no hepatosplenomegaly Musculoskeletal: Extremities: extremities normal to inspection; no cyanosis and no clubbing Skin: no rashes, warm and dry Neurologic: moves all extremities and awake; no focal motor deficits Lymphatic: no lymphedema Results & Data Results & Data Vital Signs (Past 12 Hours) Vital Signs Temp Pulse Resp BP Pulse Ox O2 Del Method 01/29/23 09:10 Room Air 01/29/23 08:17 36.7 C 52 L 18 126/61 95 Room Air Laboratory Results no labs PG Care Time/CCT Total # of Minutes Spent Total Time Spent with Patient: Total time spent is greater than 50% in coordination of care (as documented) at patient's floor/unit and/or counseling patient: Coding Level of Care Code 69598 SUB INP/OBS CARE 25MIN Diagnoses Weakness R53.1 Vomiting R11.2 Nausea presence: with nausea Vomiting type: unspecified COVID-19 U07.1 Neuroendocrine carcinoma metastatic to liver C7A.8; C7B.8 Subdural hematoma S06.5X9A DM (diabetes mellitus), type 2 E11.9 GERD (gastroesophageal reflux disease) K21.9 Ischemic cerebrovascular accident (CVA) I63.9 (2) Vomiting Nausea presence: with nausea Vomiting type: unspecified Qualified Code(s): R11.2 - Nausea with vomiting, unspecified
[2023-01-29] MEDS ORDERED: LANTUS PER UNIT CHARGE SQ SCH (21:00)
[2023-01-30] MEDS: INSULIN ASPART PER UNIT CHARGE SC SCH ×4 (09:04→21:08)
[2023-01-30] MEDS: LANTUS PER UNIT CHARGE SQ SCH (09:05)
[2023-01-30] MEDS: dexAMETHasone 6 MG in SYRINGE 0 ML IV SCH (09:11)
[2023-01-30] MEDS: ENOXAPARIN INJ 40 MG/0.4 ML SYR SQ SCH ×2 (09:12→21:13)
[2023-01-30] MEDS: CLOPIDOGREL BISULFATE 75 MG TAB PO SCH (09:13)
[2023-01-30] MEDS: ZINC SULFATE 220 MG CAPSULE PO SCH (09:13)
[2023-01-30] MEDS: ESCITALOPRAM OXALATE 10 MG TAB PO SCH (09:14)
[2023-01-30] MEDS: CHOLECALCIFEROL 5,000 UNITS 125 MCG TAB PO SCH (09:14)
[2023-01-30] MEDS: ATORVASTATIN 40 MG TAB PO SCH (09:14)
--- NOTE | 2023-01-30 19:16 | Hospitalist Progress Note ---
Date of Service January 30, 2023 Assessment & Plan (1) Weakness: Plan: Improving, but still weak, needs rehab Continue supportive care. Continue PT/OT Treating COVID (2) Vomiting: Plan: Due to viral infection.Also had diarrhea -now resolved. Now completely resolved (3) COVID-19: Plan: Positive test on ER labs 01/25/23. He did have a few pulse ox readings that were less than 94% was started on IV Decadron Continue Vitamin D and zinc Continue Decadron 6 mg IV once daily and convert to po on discharge to finish out 10 day course Continue Lovenox h Q12 hour dosing due to hypercoagulable state from COVID-19. (4) Neuroendocrine carcinoma metastatic to liver: Plan: Diagnosed in November 2021, underwent biopsy of liver lesions by interventional radiology with evidence of neuroendocrine tumor. Due to the slow-growing nature, has been undergoing outpatient follow-up with primary care and surgical services. No intervention needed at this time. (5) Subdural hematoma: Plan: History of subdural hematoma that was found following a fall in December 2021. Status post right-sided craniotomy and soft left-sided bur hole for surgical evacuation of subdural collections on 01/09/2022. Also underwent bilateral middle meningeal artery embolization on 01/11/2022. No reports of recent seizure activity per patient or his family members. Does seem to have some cognitive impairment (6) DM (diabetes mellitus), type 2: Plan: History of type 2 diabetes on Toujeo and metformin. We will watch now that Decadron dosing is decreased-glucose low yet again this AM Discontinue evening Lantus dose but continue Lantus 10 units in the morning Continue NovoLog sliding scale (7) GERD (gastroesophageal reflux disease): Plan: Stable. Continue PPI. (8) Ischemic cerebrovascular accident (CVA): Plan: History of such Continue statin, Plavix Plan DVT prophylaxis-Lovenox Disposition-medically stable for discharge, needs rehab placement- and patient in agreement with this-awaiting insurance authorization for [facility] Admission and Anticipated Discharge Date Admission Date: January 27, 2023 Subjective Patient has no complaints. He is eating and drinking, no diarrhea or nausea. Physical Exam Constitutional: WD/WN, vitals as above ENMT: external ear and nose normal, oropharynx normal Neck: trachea midline, no thyromegaly Respiratory: normal respiratory effort, lungs clear to auscultation Cardiovascular: RRR, no murmur, no edema Chest (Breasts): Chest: normal inspection of chest Gastrointestinal (Abdomen): normal bowel sounds, soft, nontender, no hepatosplenomegaly Musculoskeletal: Extremities: extremities normal to inspection; no cyanosis and no clubbing Skin: no rashes, warm and dry Neurologic: moves all extremities and awake; no focal motor deficits Lymphatic: no lymphedema Results & Data Results & Data Vital Signs (Past 12 Hours) Vital Signs Temp Pulse Resp BP Pulse Ox O2 Del Method 01/30/23 15:25 36.7 C 60 17 135/70 92 Room Air 01/30/23 07:53 Room Air 01/30/23 07:41 37 C 53 L 18 145/67 H 94 Room Air PG Care Time/CCT Total # of Minutes Spent Total Time Spent with Patient: Total time spent is greater than 50% in coordination of care (as documented) at patient's floor/unit and/or counseling patient: Coding Level of Care Code 80673 SUB INP/OBS CARE 11/14MIN Diagnoses Weakness R53.1 Vomiting R11.2 Nausea presence: with nausea Vomiting type: unspecified COVID-19 U07.1 Neuroendocrine carcinoma metastatic to liver C7A.8; C7B.8 Subdural hematoma S06.5X9A DM (diabetes mellitus), type 2 E11.9 GERD (gastroesophageal reflux disease) K21.9 Ischemic cerebrovascular accident (CVA) I63.9 (2) Vomiting Nausea presence: with nausea Vomiting type: unspecified Qualified Code(s): R11.2 - Nausea with vomiting, unspecified
[2023-01-31] MEDS: INSULIN ASPART PER UNIT CHARGE SC SCH ×2 (09:17→12:16)
[2023-01-31] MEDS: LANTUS PER UNIT CHARGE SQ SCH (09:18)
[2023-01-31] MEDS: ENOXAPARIN INJ 40 MG/0.4 ML SYR SQ SCH (09:25)
[2023-01-31] MEDS: ATORVASTATIN 40 MG TAB PO SCH (09:26)
[2023-01-31] MEDS: dexAMETHasone 6 MG in SYRINGE 0 ML IV SCH (09:27)
[2023-01-31] MEDS: ESCITALOPRAM OXALATE 10 MG TAB PO SCH (09:29)
[2023-01-31] MEDS: CHOLECALCIFEROL 5,000 UNITS 125 MCG TAB PO SCH (09:29)
[2023-01-31] MEDS: CLOPIDOGREL BISULFATE 75 MG TAB PO SCH (09:30)
[2023-01-31] MEDS: ZINC SULFATE 220 MG CAPSULE PO SCH (09:30)
--- NOTE | 2023-01-31 12:18 | Discharge Summary ---
Date of Service January 31, 2023 Admission HPI Per Admitting Provider 77-year-old male past medical history significant for subdural hematoma s/p evacuation and middle meningeal artery embolization in Spring 2021, neuroendocrine carcinoma with mets to the liver, DM 2, BPH, GERD presented to the ER for symptoms of weakness and vomiting in the setting of positive COVID-19 test at home in the last several days. They also checked a pulse ox at home and reportedly had O2 saturation of 90%. Has had some nausea and vomiting in the last couple of days, with poor intake. Legs have been so weak that patient's and daughter have been unable to pick him up. In the ER patient noted to be COVID-19 positive, hemodynamically stable saturating 93% on room air, CBC with thrombocytopenia 119, sodium 133, potassium 3.4, magnesium 1.6, normal procalcitonin, UA without evidence of infection, influenza/RSV negative. Head CT performed for increased confusion/weakness without evidence of intracranial hemorrhage or other acute intracranial abnormality. Chest x-ray performed without evidence of lobar consolidation. Patient received IVF, cefepime, albuterol neb, and magnesium supplementation in ER. Hospitalist service was consulted for admission for ambulatory dysfunction, vomiting, and electrolyte derangement. At time of my interview patient denies chest pain, shortness of breath, abdominal pain. He does not note any nausea at this time but does have an emesis bag. Principal Diagnosis COVID-19, Nausea/vomiting, Generalized weakness Discharge Exam Constitutional WD/WN, vitals as above Neck trachea midline, no thyromegaly Respiratory normal respiratory effort, lungs clear to auscultation Cardiovascular RRR, no murmur, no edema Chest (Breasts) Chest: normal inspection of chest Gastrointestinal (Abdomen) normal bowel sounds, soft, nontender, no hepatosplenomegaly Musculoskeletal Extremities: extremities normal to inspection; no cyanosis and no clubbing Skin no rashes, warm and dry Neurologic moves all extremities and awake; no focal motor deficits Lymphatic no lymphedema Discharge Data Allergies Allergy/AdvReac Type Severity Reaction Status Date / Time lisinopril AdvReac Mild COUGH Verified 12/26/22 09:12 Consultations 01/25/23 20:55 ED Decision to Admit Stat Ordered Studies 01/25/23 19:35 CT head/brain wo con Stat Hospital Course (1) Weakness: Improving, but still weak, needs rehab Continue supportive care. Continue PT/OT Treating COVID (2) Vomiting: Due to viral infection.Also had diarrhea -now resolved. Now completely resolved (3) COVID-19: Positive test on ER labs 01/25/23. He did have a few pulse ox readings that were less than 94% was started on IV Decadron Continue Vitamin D and zinc Continue Decadron 6 mg po once daily on discharge to finish out 10 day course- needs 4 more days received Lovenox h Q12 hour dosing due to hypercoagulable state from COVID-19. Can continue on discharge until more ambulatory-defer to acute rehab (4) Neuroendocrine carcinoma metastatic to liver: Diagnosed in November 2021, underwent biopsy of liver lesions by interventional radiology with evidence of neuroendocrine tumor. Due to the slow-growing nature, has been undergoing outpatient follow-up with primary care and surgical services. No intervention needed at this time. (5) Subdural hematoma: History of subdural hematoma that was found following a fall in December 2021. Status post right-sided craniotomy and soft left-sided bur hole for surgical evacuation of subdural collections on 01/09/2022. Also underwent bilateral middle meningeal artery embolization on 01/11/2022. No reports of recent seizure activity per patient or his family members. Does seem to have some cognitive impairment (6) DM (diabetes mellitus), type 2: History of type 2 diabetes on Toujeo and metformin. adjustments made to insulin regimen while on steroids. Having AM lows and evening dose of Lantus discontinued Continue Toukeo 10 units in AM, Novolog sliding scale while on steroids restart hoe metformin (7) GERD (gastroesophageal reflux disease): Stable. Continue PPI. (8) Ischemic cerebrovascular accident (CVA): History of such Continue statin, Plavix Plan DVT prophylaxis-Lovenox Disposition-dc to rehab discussed care with on phone on day of discharge Total Time Total Time Spent Total Time Spent (In Minutes): 35 min Discharge Plan Discharge Items Patient Disposition: Transfer Inpatient Rehab Fac Reason For Visit: WEAKNESS, VOMITING, ELECTROLYTE DEREANGEMENT Discharge Diagnosis: COVID-19, weakness, Nausea/vomiting Condition on Discharge: Fair Activity: As commented below Lifting: Gradually increase as tolerated Bathing: No limitations Exercise/Sports: Gradually increase as tolerated Non-emergency contact: Primary Care Provider Call non-emergency contact if: you have any medication questions and your symptoms worsen Follow-up/Referrals: Clary Yost CRNP [Primary Care Provider] - (Follow up after discharge from rehab) Diet: Carb Consistent or DM2 Addtl Attending Provider Instructions: Please finish out 4 more days of po dexamethasone for your mild hypoxia with COVID-19. Your insulin may need continued adjustments while on steroid therapy. You will need PT/OT for strengthening. Pending Studies at Discharge: No Stand-Alone Forms: My [facility] Skilled Items Patient informed of condition?: Yes DNR: No Discharge Level of Care: Acute rehab Communicable Disease: Yes (COVID-19) Discharge Prognosis: Improving Lines: None Urinary Catheter: No Medications and DC Order Prescriptions: New zinc sulfate [Orazinc] 50 mg zinc (220 mg) Capsule 220 mg PO QAM Qty: 4 0RF dexamethasone 6 mg tablet 6 mg PO DAILY Qty: 4 0RF Continued (DME) OneTouch Verio test strips Strip See Rx Instructions .ROUTE .MEDSUPPLY Qty: 300 3RF Rx Instructions: test TID (DME) OneTouch Verio test strips Strip See Rx Instructions .ROUTE .MEDSUPPLY Qty: 400 2RF Rx Instructions: test TID cholecalciferol (vitamin D3) 125 mcg (5,000 unit) capsule 125 mcg PO QAM lutegold 1 tab PO HS dutasteride 0.5 mg capsule 0.5 mg PO DAILY Qty: 90 3RF pantoprazole 40 mg tablet,delayed release (DR/EC) 40 mg PO BID PRN (Reason: Gastric Reflux) Rx Instructions: 40 mg orally as needed; atorvastatin 80 mg tablet 80 mg PO QAM clopidogrel [Plavix] 75 mg tablet 75 mg PO QAM metformin 500 mg tablet extended release 24 hr 1,000 mg PO QAM escitalopram oxalate 10 mg tablet 10 mg PO QAM Changed Tousridhar SoloStar U-300 Insulin 300 unit/mL (1.5 mL) insulin pen 10 unit subcut DAILY Qty: 1.5 0RF Patient Comments: "we use a sliding scale, he received 16 units on 12/25/22 approx 21:00" Discontinued molnupiravir 200 mg capsule 800 mg PO Q12H 5 Days Qty: 40 0RF Discharge Orders: Discharge Order (Routine); Ordered 01/31/23 Ordered By: Mary Hoyos Admission Data Admit Date/Time: 01/27/23 10:50 Attending Provider: Mary Hoyos Admit Provider: Maddie Cornelius Primary Care Provider: Clary Yost Other Providers: Maddie Cornelius ; [facility] ; [place],[facility] ; [facility] Coding Level of Care Code 61304 INP/OBS DISCH >30 MIN Diagnoses Weakness R53.1 Vomiting R11.2 Nausea presence: with nausea Vomiting type: unspecified COVID-19 U07.1 Neuroendocrine carcinoma metastatic to liver C7A.8; C7B.8 Subdural hematoma S06.5X9A DM (diabetes mellitus), type 2 E11.9 GERD (gastroesophageal reflux disease) K21.9 Ischemic cerebrovascular accident (CVA) I63.9
== END 2023-01-31 14:20 | DRG 178 ==
LOC: 3E 19:20 → ED 19:20 → SUATTDRO 21:20 → 3E 23:51 → SUATTDRO 01-27 10:50

== ENCOUNTER 2023-08-24 14:40 | Inpatient (IN) ==
--- NOTE | 2023-08-24 15:06 | Emergency Department Note ---
Impression & Plan Generalized weakness, Dizziness, Ground-level fall, Hallucinations, Systolic murmur ED Provider Note Name: PERRY VARELA Age: 78 Sex: Male Arrives Via: Ambulance Informant: Patient, Daughter, ED Provider: Titi Dobson MD Chief Complaint: Weakness Impression: As per impressions above Medical Decision Makin-year-old gentleman with a complex past medical history including intracranial hemorrhage as well as multiple strokes arrives for evaluation of worsening weakness over the last week and a half. Associated with reported dizziness. On examination he is neurologically intact though somewhat dehydrated. Family also notes he has been having increasing episodes of confusion and at times even hallucinations. Patient is not having any of those at the moment. He was given some IV fluids while awaiting CT head and laboratory work-up. Work-up is essentially benign. Unfortunately patient is a bit too weak to even really get up and move around too well. Family does not feel safe bringing him home especially given the multiple falls recently. Discussed with hospitalist will bring him in for further evaluation. I will note patient does have a systolic murmur. Family is not aware of this in the past however it appears an echo several years ago did show some aortic stenosis and I suspect that is the cause. Hospitalist will further evaluate. Patient is not septic he does not have any clear evidence of stroke by examination and he does not have evidence of meningitis at time of hospitalization. He is clear lungs and a soft nontender abdomen. Triage/Nursing Notes reviewed by Me External Chart Review by me: Extensive review of previous hospitalizations transfers and cardiac evaluations by me Differential:Infection, dehydration, metabolic abnormality, hypo/hyperglycemia, electrolyte disturbance, anemia, hypoxia, cardiac sources, intracerebral event, toxicologic, neurologic, as well as other pathologies. Vital Signs: reviewed and remarkable for no significant abnormalities Interventions: Saline bolus IV Labs:ED labs Reviewed by me and remarkable for no significant abnormalities Imaging:CT of the head without contrast as per my informal interpretation. Multiple old infarcts no evidence of acute intracranial hemorrhage or mass effect appreciated. Reviewed by radiologist who concurs. X ray results are stated below per my interpretation: Chest: 1 view: No infiltrate, no effusion, normal cardiac border. EKG:As per my interpretation. Indication weakness. Normal sinus rhythm at 60 bpm with a right bundle branch block. No ectopy or ischemia appreciated. compared to February 28, 2023 EKG there is no significant change. Cardiac/Tele Monitoring: Cardiac Monitoring: An Order was placed for continuous cardiac monitoring. The monitor shows a rate of 60 with a normal sinus rhythm. Consults:Dr. Olmstead of the [facility] service Plan: Disposition:Hospitalization. Condition: Good History of Present Illness: 78-year-old male arrives for evaluation of weakness. Patient notes for the last 10 days has been feeling weak dizzy. Does have some associated vertiginous type symptoms where he feels like the world is spinning a bit. This has been worsening over the last few days and now has had several days of a headache. It is led to multiple falls at home. Patient reportedly is having episodes of confusion as well and at times becomes very agitated and angry towards people while he is confused. No fevers reported. Patient has not been eating very well recently either. Further discussion family notes that patient has been stumbling around and while he is only fallen a couple times the last 2 weeks they are constantly having to catch him. No acute neurologic deficits per family. Patient denies any chest pain, shortness of breath, palpitations, abdominal pain, back pain, leg swelling or other concerning signs or symptoms Past Medical History:See Below Home Medications:See Below Allergies:lisinopril Vitals:Blood Pressure: 163/65, Pulse 58, RR 18, T 36.9C, O2 99% on RA Physical Exam: GENERAL: Patient is chronically unwell appearing and in mild distress. HEAD: Shunt left upper scalp, no TTP nor swelling. RESPIRATORY: No dyspnea. Clear to auscultation and equal bilaterally. CARDIOVASCULAR: Regular rate and rhythm.Slight systolic murmur noted GASTROINTESTINAL: Abdomen soft, non-tender, no peritonitis. EXTREMITIES: Normal motion all extremities, no cyanosis, no edema. NEUROLOGIC: Alert and oriented. No focal neurologic deficits appreciated SKIN: No rash, no jaundice, no diaphoresis. PSYCH: Appropriate GCS: 15 ED Course: Times/Reassessments: Patient does appear a bit better after some IV fluids though family still feels uncomfortable with him at home given multiple falls. He had hallucinations he has been having at night. Titi Dobson MD Past Med/Surg History Medical History COVID-19 virus infection Stroke Hypertension Subdural hematoma Fracture, ribs Aortic aneurysm Aortic dissection Macular degeneration Mild sleep apnea Pulmonary nodule seen on imaging study Vitamin D deficiency Cervicalgia Cervical facet joint syndrome Hammertoe of right foot Acute sinusitis Loss of protective sensation of skin of foot Hyperlipidemia DM (diabetes mellitus), type 2 Surgical History Hx of colonoscopy H/O brain surgery decompressional subdural hematoma 12/2021 H/O knee surgery Family History Father Coronary heart disease Diabetes Myocardial infarction Mother Myocardial infarction Denies family history of Ovarian cancer Prostate cancer Breast cancer Colorectal cancer Cancer Social History Smoking Status: Never smoker Tobacco Type: Cigars Second Hand Exposure: No; Do You Dip or Chew Tobacco: No; Hx Alcohol Use: No Hx Substance Use: No Preferred Language: Italian Communication Ability: Effective Visual Impairment: Limited Hearing Ability: Normal Advanced Practice Rn Required: No Beliefs That Will Affect Care: None marital status: Current Living Situation: Spouse Current Living Situation Comment: spouse is caregiver current occupational status: retired How many Children do You have: 2 Other Information That Helps Us Care for You: No Feels Safe at Home: Yes Safety Concerns: Feels Safe At This Time Childhood Exposure to Second-Hand Smoke: No Diet: regular caffeine: Yes (coffee) during the past year weight has: decreased > 10 lbs Dental Care, Regularly: Yes Physical Activity Frequency: 3-4 Times per Week Seatbelt Use: always Sunscreen Use: No Do you think of yourself as: straight/heterosexual Gender Identity: Male Assistive Devices: Cane, Glasses and Walker Allergies Allergies Allergy/AdvReac Type Severity Reaction Status Date / Time lisinopril AdvReac Intermediate COUGH Verified 08/24/23 17:38 Home Meds Home Medications Medication Instructions Recorded Confirmed cholecalciferol (vitamin D3) 125 125 mcg PO QAM 06/06/21 08/24/23 mcg (5,000 unit) capsule lutegold 1 tab PO HS macular degeneration 03/20/22 08/24/23 metformin 500 mg tablet,extended 1,000 mg PO QAM 01/25/23 08/24/23 release 24 hr mecobalamin (vitamin B12) 500 mcg 500 mcg PO DAILY 04/01/23 08/24/23 chewable tablet melatonin 3 mg capsule 3 mg PO HS PRN Sleep 04/01/23 08/24/23 aspirin 81 mg tablet,delayed 81 mg PO .EVERY OTHER DAY 04/24/23 08/24/23 release (Adult Low Dose Aspirin) pantoprazole 40 mg tablet,delayed 40 mg PO DAILY PRN Gastric Reflux 04/24/23 08/24/23 release insulin glargine U-300 conc 300 10 - 15 unit subcut PM 08/24/23 08/24/23 unit/mL (1.5 mL) subcutaneous pen (Toaylin SoloStar U-300 Insulin) Previous Rx's Medication Instructions Recorded blood sugar diagnostic (OneTouch #300 ea 09/19/22 Verio test strips) blood sugar diagnostic (OneTouch #400 ea 09/19/22 Verio test strips) escitalopram oxalate 20 mg tablet 20 mg PO DAILY #90 tabs 02/12/23 amlodipine 5 mg tablet 5 mg PO DAILY #90 tabs 04/08/23 losartan 50 mg tablet 50 mg PO BID #180 tabs 04/08/23 sodium chloride 1,000 mg soluble 1,000 mg PO TID 90 days #270 tabs 06/06/23 tablet atorvastatin 80 mg tablet 80 mg PO QAM #90 tabs 06/10/23 blood-glucose meter,continuous #1 ea 06/20/23 (Dexcom G7 Chief Vendor Quality) blood-glucose sensor (Dexcom G7 #9 ea 06/20/23 Sensor device) pen needle, diabetic 31 gauge x #50 ea 06/20/23 3/16" (BD Ultra-Fine Mini Pen Needle) meclizine 25 mg tablet 25 mg PO Q8H PRN dizziness #60 tabs 08/19/23 Results & Data (ED) Vital Signs Vital Signs - 24 hr 08/24/23 14:47 08/24/23 14:48 08/24/23 14:50 Pulse Rate 59 L 59 L 59 L Pulse Rate from SpO2 Sensor 59 L 59 L Respiratory Rate 18 10 L 11 L Respiratory Effort / Characteristics Non-Labored Spontaneous Respiratory Depth Normal Respiratory Pattern Regular Blood Pressure 163/65 H 163/65 H Blood Pressure Mean 97 97 Pulse Oximetry 99 99 99 Oxygen Delivery Method Room Air Sepsis New/Unexplained Change in Mental Status Yes Sepsis Action Taken by Nursing No Action Required 08/24/23 14:54 08/24/23 15:00 08/24/23 15:10 Pulse Rate 58 L 56 L 60 Pulse Rate from SpO2 Sensor 56 L 59 L Respiratory Rate 15 16 Respiratory Effort / Characteristics Respiratory Depth Respiratory Pattern Blood Pressure Blood Pressure Mean Pulse Oximetry 100 99 Oxygen Delivery Method Sepsis New/Unexplained Change in Mental Status Sepsis Action Taken by Nursing 08/24/23 15:20 08/24/23 15:30 08/24/23 15:40 Pulse Rate 63 Pulse Rate from SpO2 Sensor 61 60 62 Respiratory Rate 16 Respiratory Effort / Characteristics Respiratory Depth Respiratory Pattern Blood Pressure Blood Pressure Mean Pulse Oximetry 99 99 100 Oxygen Delivery Method Sepsis New/Unexplained Change in Mental Status Sepsis Action Taken by Nursing 08/24/23 15:50 08/24/23 16:00 08/24/23 16:10 Pulse Rate 53 L 57 L 53 L Pulse Rate from SpO2 Sensor 54 L 58 L 53 L Respiratory Rate 16 16 11 L Respiratory Effort / Characteristics Respiratory Depth Respiratory Pattern Blood Pressure Blood Pressure Mean Pulse Oximetry 96 95 96 Oxygen Delivery Method Sepsis New/Unexplained Change in Mental Status Sepsis Action Taken by Nursing 08/24/23 16:20 08/24/23 16:30 08/24/23 16:40 Pulse Rate 51 L 50 L 49 L Pulse Rate from SpO2 Sensor 52 L 51 L 50 L Respiratory Rate 17 16 14 Respiratory Effort / Characteristics Respiratory Depth Respiratory Pattern Blood Pressure Blood Pressure Mean Pulse Oximetry 96 95 96 Oxygen Delivery Method Sepsis New/Unexplained Change in Mental Status Sepsis Action Taken by Nursing 08/24/23 16:50 08/24/23 17:00 08/24/23 17:10 Pulse Rate 49 L 47 L 51 L Pulse Rate from SpO2 Sensor 49 L 48 L 51 L Respiratory Rate 12 13 14 Respiratory Effort / Characteristics Respiratory Depth Respiratory Pattern Blood Pressure Blood Pressure Mean Pulse Oximetry 96 96 96 Oxygen Delivery Method Sepsis New/Unexplained Change in Mental Status Sepsis Action Taken by Nursing 08/24/23 17:20 08/24/23 17:30 08/24/23 17:40 Pulse Rate 49 L 51 L 50 L Pulse Rate from SpO2 Sensor 50 L 54 L 51 L Respiratory Rate 17 13 16 Respiratory Effort / Characteristics Respiratory Depth Respiratory Pattern Blood Pressure Blood Pressure Mean Pulse Oximetry 96 96 96 Oxygen Delivery Method Sepsis New/Unexplained Change in Mental Status Sepsis Action Taken by Nursing 08/24/23 17:50 08/24/23 18:00 08/24/23 18:06 Pulse Rate 52 L 66 52 L Pulse Rate from SpO2 Sensor 52 L 56 L Respiratory Rate 14 27 H 14 Respiratory Effort / Characteristics Respiratory Depth Respiratory Pattern Blood Pressure 165/90 H Blood Pressure Mean 115 Pulse Oximetry 95 95 Oxygen Delivery Method Sepsis New/Unexplained Change in Mental Status Sepsis Action Taken by Nursing 08/24/23 18:10 Pulse Rate 55 L Pulse Rate from SpO2 Sensor Respiratory Rate 16 Respiratory Effort / Characteristics Respiratory Depth Respiratory Pattern Blood Pressure Blood Pressure Mean Pulse Oximetry Oxygen Delivery Method Sepsis New/Unexplained Change in Mental Status Sepsis Action Taken by Nursing Laboratory Data 08/25/23 05:31 08/25/23 05:31 Lab Results 08/24/23 08/24/23 Range/Units 15:36 18:00 WBC 6.87 (4.8-10.8) K/ul RBC 5.03 (4.70-6.10) M/uL Hgb 15.6 (14.0-18.0) g/dl Hct 44.6 (42.0-52.0) % MCV 88.7 (80.0-100.0) fL MCH 31.0 (25.0-34.0) pg MCHC 35.0 (32.0-36.0) g/dL RDW Std Deviation 43.2 (36.4-46.3) fL RDW Coeff of Taylor 13.2 (11.5-14.5) % Plt Count 210 (130-400) K/uL MPV 10.4 (9.4-12.4) fL Immature Gran % (Auto) 0.3 % Neut % (Auto) 67.9 % Lymph % (Auto) 21.5 % [place] % (Auto) 7.1 % Eos % (Auto) 2.5 % Baso % (Auto) 0.7 % Neut # (Auto) 4.66 (1.40-6.50) K/uL Lymph # (Auto) 1.48 (1.20-3.40) K/uL [place] # (Auto) 0.49 (0.11-0.59) K/uL Eos # (Auto) 0.17 (0.00-0.50) K/uL Baso # (Auto) 0.05 (0.00-0.20) K/uL Immature Gran # (Auto) 0.02 (0.01-0.20) K/uL PT 11.6 (9.0-12.0) Seconds INR 1.1 (0.9-1.1) Sodium 137 (136-145) mmol/L Potassium 3.6 (3.5-5.1) mmol/L Chloride 103 (98-107) mmol/L Carbon Dioxide 28 (21-32) mmol/L Anion Gap 6 (3-11) BUN 9 (6-23) mg/dl Creatinine 0.68 (0.6-1.4) mg/dl Est Cr Clr Drug Dosing 94.2 ml/min Est GFR ( Amer) 106.0 ml/min Est GFR (Non-Af Amer) 91.5 ml/min BUN/Creatinine Ratio 13.2 (10-20) Glucose 249 H (70-99(Fasting)) mg/dl Calcium 9.4 (8.6-10.3) mg/dl Magnesium 1.8 (1.7-2.4) mg/dl Total Bilirubin 1.1 H (0.2-1.0) mg/dl Direct Bilirubin 0.3 H (0-0.2) mg/dl AST 15 (13-39) U/L ALT 20 (7-52) U/L Alkaline Phosphatase 104 (34-104) U/L Troponin I High Sens 5.5 (0-20) pg/ml Total Protein 7.1 (6.0-8.3) gm/dl Albumin 4.1 (3.4-5.0) gm/dl TSH 2.008 (0.300-4.500) uIu/ml SARS-CoV-2, RNA, NAAT NEGATIVE (NEGATIVE) Administered Medications Amlodipine Besylate (Amlodipine Besylate 5 Mg Tab) 5 mg PO DAILY CYNTHIA Stop: 09/24/23 08:59 Last Admin: 08/25/23 08:45 Dose: 5 mg Documented By: NISA Aspirin (Aspirin 81 Mg Ectab) 81 mg PO Q48H CYNTHIA Stop: 09/24/23 08:59 Last Admin: 08/25/23 08:46 Dose: 81 mg Documented By: NISA Atorvastatin Calcium (Atorvastatin 40 Mg Tab) 80 mg PO QAM CYNTHIA Stop: 09/24/23 08:59 Last Admin: 08/25/23 08:46 Dose: 80 mg Documented By: NISA Escitalopram Oxalate (Escitalopram Oxalate 20 Mg Tab) 20 mg PO DAILY CYNTHIA Stop: 09/24/23 08:59 Last Admin: 08/25/23 08:46 Dose: 20 mg Documented By: NISA Insulin Aspart (Insulin Aspart Per Unit Charge) 0 units SC ACHS CYNTHIA Stop: 09/23/23 22:29 Last Admin: 08/25/23 09:44 Dose: 5 units Documented By: NISA Co-signed By: BRUNILDA Admin: 08/24/23 23:12 Dose: 4 units Documented By: DANIELLA Co-signed By: GIOVANNY Insulin Glargine (Lantus Per Unit Charge) 7 units SQ BID CYNTHIA Stop: 09/23/23 22:29 Last Admin: 08/25/23 08:44 Dose: 7 units Documented By: NISA Co-signed By: LORENA Admin: 08/24/23 23:12 Dose: 7 units Documented By: DANIELLA Co-signed By: GIOVANNY Losartan Potassium (Losartan Potassium 50 Mg Tab) 50 mg PO BID CYNTHIA Stop: 09/23/23 22:29 Last Admin: 08/25/23 08:45 Dose: 50 mg Documented By: Admin: 08/24/23 23:15 Dose: 50 mg Documented By: DANIELLA Meclizine HCl (Meclizine Hcl 25 Mg Tab) 25 mg PO Q8H CYNTHIA Stop: 09/23/23 21:59 Last Admin: 08/25/23 05:19 Dose: 25 mg Documented By: Admin: 08/24/23 23:14 Dose: 25 mg Documented By: DANIELLA Melatonin (Melatonin 3 Mg Tab) 3 mg PO HSZ PRN PRN Reason: Sleep Stop: 09/23/23 22:41 Last Admin: 08/24/23 23:13 Dose: 3 mg Documented By: DANIELLA Sodium Chloride (Sodium Chloride 1 Gm Tablet) 1 gm PO TID CYNTHIA Stop: 09/23/23 22:29 Last Admin: 08/25/23 08:46 Dose: 1 gm Documented By: Admin: 08/24/23 23:14 Dose: 1 gm Documented By: DANIELLA Discontinued Medications Sodium Chloride (Nss) 1,000 mls @ 999 mls/hr IV .Q1H1M ONE Stop: 08/24/23 17:26 Last Infusion: 08/24/23 19:35 Dose: Infused Documented By: Admin: 08/24/23 16:33 Dose: 999 mls/hr Documented By: QGV Lactated Ringer's (Lr) 1,000 mls @ 125 mls/hr IV .Q8H CYNTHIA Stop: 08/25/23 06:44 Last Infusion: 08/25/23 05:34 Dose: Infused Documented By: Admin: 08/24/23 23:23 Dose: 125 mls/hr Documented By: DANIELLA Potassium Chloride (Potassium Chloride Crtab 20 Meq Tabcr) 40 meq PO NOW STA Stop: 08/25/23 10:21 Last Admin: 08/25/23 10:27 Dose: 40 meq Documented By: K Discharge Plan Visit Data Chief Complaint: Fall Stated Complaint: weakness ED Provider: Titi Dobson Discharge Problem: Generalized weakness, Dizziness, Ground-level fall, Hallucinations, Systolic murmur Patient Disposition: Admitted As Inpatient Discharge Instructions Interventions: ED Discharge Assessment Last Done: 08/24/23 20:25
[2023-08-24 15:54] LABS: Basophils # (auto) 0.05 K/uL (0.00-0.20); Basophils % (auto) 0.7 %; Eosinophils # (auto) 0.17 K/uL (0.00-0.50); Eosinophils % (auto) 2.5 %; Hematocrit (blood only) 44.6 % (42.0-52.0); Hemoglobin 15.6 g/dl (14.0-18.0); Immature Granulocytes # (auto) 0.02 K/uL (0.01-0.20); Immature Granulocytes % (auto) 0.3 %; Lymphocytes # (auto) 1.48 K/uL (1.20-3.40); Lymphocytes % (auto) 21.5 %; Mean Corpuscular Volume 88.7 fL (80.0-100.0); Mean Platelet Volume 10.4 fL (9.4-12.4); Monocytes # (auto) 0.49 K/uL (0.11-0.59); Monocytes % (auto) 7.1 %; Neutrophils # (auto) 4.66 K/uL (1.40-6.50); Neutrophils % (auto) 67.9 %; Platelet Count 210 K/uL (130-400); RDW Coefficient of Variation 13.2 % (11.5-14.5); RDW Standard Deviation 43.2 fL (36.4-46.3); Red Blood Count 5.03 M/uL (4.70-6.10); White Blood Count 6.87 K/ul (4.8-10.8)
[2023-08-24 16:13] LABS: Appearance Urine Clear (Clear); Bilirubin Urine Negative (Negative); Blood Urine Negative (Negative); Color Urine Yellow; Glucose Urine UA 3+ (Negative); Ketones Urine Negative (Negative); Leukocyte Esterase Urine Negative (Negative); Nitrite Urine Negative (Negative); Protein Urine Negative (Negative); Urobilinogen Urine Negative (Negative); pH Urine 5.5 (4.5-7.5)
[2023-08-24 16:14] LABS: Albumin Level 4.1 gm/dl (3.4-5.0); BUN Creatinine Ratio 13.2 (10-20); Bilirubin Direct 0.3 mg/dl (0-0.2); Bilirubin,Total 1.1 mg/dl (0.2-1.0); Calcium 9.4 mg/dl (8.6-10.3); Creatinine Clr Calc Pharmacy 94.2 ml/min; Est GFR (Non-African American) 91.5 ml/min; Magnesium 1.8 mg/dl (1.7-2.4); Potassium 3.6 mmol/L (3.5-5.1); Total Protein 7.1 gm/dl (6.0-8.3)
[2023-08-24 16:20] LABS: Troponin I High Sensitivity 5.5 pg/ml (0-20)
[2023-08-24 16:22] LABS: INR 1.1 (0.9-1.1); Prothrombin Time 11.6 Seconds (9.0-12.0)
[2023-08-24] MEDS ORDERED: SODIUM CHLORIDE 0.9% 1,000 ML IV ONE (16:26)
--- NOTE | 2023-08-24 16:50 | XRay Report ---
XR chest 1V portable CLINICAL HISTORY: weakness TECHNIQUE: Single frontal radiograph of the chest was obtained. Comparison: Comparison is made to chest radiograph 02/28/2023 FINDINGS: [employer] shunt is seen. The cardiomediastinal silhouette is normal. The lungs are clear. No evidence of ple ural effusion or pneumothorax. IMPRESSION: No acute chest disease. ACT 112: Negative or not required by law. Electronically signed by: Que Soto M.D. 08/24/2023 4:48 PM
--- NOTE | 2023-08-24 16:55 | CT Scan Report ---
CT head/brain wo con CLINICAL HISTORY: confusion, headache Technique: Contiguous axial CT images of the head were acquired from the base of the skull to the ruben samy without intravenous contrast administration. Images were viewed in brain, subdural and bone [facility]. Automated dose lowering techniques and/or adjustment according to patient size were utilized for this exam. Comparison: Comparison is made to CT head 07/17/2023 Findings: Areas of decreased attenuation are present in the periventricular and subcortical white matter bilate rally consistent with small vessel ischemic disease. Generalized cerebral atrophy with commensurate e nlargement of the ventricles, sulci, and cisterns is also present. There is no acute intracranial hem orrhage or evidence of acute territorial infarction. No shift of the midline structures, mass effect, or extra-axial abnormalities are shown. Atherosclerotic calcifications are present in the intracran ial segments of the internal carotid arteries. A shunt catheter terminates in the right lateral vent ricle body. Imaged portions of the paranasal sinuses and mastoid air cells are clear. The orbits appear normal. There are no acute fractures of the calvaria or scalp swelling. Impression: Age-related changes with similar size of the ventricles compared to prior exam. Stable position of ve ntriculostomy catheter. ACT 112: Negative or not required by law. Electronically signed by: Que Soto M.D. 08/24/2023 4:53 PM
--- NOTE | 2023-08-24 18:18 | History & Physical Report ---
Date of Service August 24, 2023 Assessment & Plan (1) Dizziness: Plan: 78-year-old male with history of intracranial hemorrhage status post UTILIZATION MANAGEMENT RN shunt placement, hypertension, hyperlipidemia, diabetes and GERD presenting with 10 days of ongoing dizziness, gait instability and falls. Also with increased confusion, hallucinations and behavioral change. Laboratory work-up largely unremarkable to include normal WBC count, no anemia, normal chemistry and renal function. He does have elevated blood glucose at 249 and mild elevation of bilirubin (T. bili = 1.1, D bili = 0.3) UA does not suggest infection. Chest x-ray without infiltrate. CT of the head with stable placement of ventriculostomy tube and normal-sized ventricles. Admit to medical We will check TSH and Ammonia level -Check CT neck given unwitnessed fall Neurochecks every 4 hours MRI brain to assess for CVA. If this study is negative, would consider treatment with scheduled meclizine and steroids for presumed labyrinthitis PT/OT evaluations appreciated (2) Benign hypertension: Plan: Patient with elevated blood pressure. Presently 170/71 which is within the range of prior measurements noted in the system Continue amlodipine 5 mg p.o. daily Continue losartan 50 mg p.o. twice daily Continue to monitor (3) History of SIADH: Plan: Sodium level within normal limits Continue home sodium chloride tablets 1 g p.o. 3 times daily Repeat labs in the morning (4) Hyperlipidemia: Plan: Chronic. Stable. Continue atorvastatin 80 mg p.o. every morning (5) Ischemic cerebrovascular accident (CVA): Plan: Patient with history of prior stroke, prior intracranial hemorrhage, placement of UTILIZATION MANAGEMENT RN shunt. He follows with neurosurgery Continue aspirin 81 mg p.o. every other day Continue atorvastatin 80 mg p.o. every morning (6) DM (diabetes mellitus), type 2: Plan: Elevated blood sugar presently with glucose = 249. Overall, well controlled diabetes. Last hemoglobin A1c 06/04/2023 = 6.5 We will hold metformin Lantus 7 units twice daily Insulin sliding scale Goal blood sugar 110-140 while inpatient F/E/NLR at 125 mL/h x 1 L, electrolytes within normal limits, carb consistent diet as tolerated Prophylaxislow risk for DVT. No Ppx: at this time. Codefull Disposition admit to medical History of Present Illness Chief Complaint: Vertigo Primary Care Provider: HAMMAD Fosterer is a 78-year-old male with history of hemorrhagic stroke, UTILIZATION MANAGEMENT RN shunt in place, diabetes, hyperlipidemia, sleep apnea and GERD presenting from home with 10 days of dizziness, ambulatory dysfunction. Patient was in his usual state of health until the evening of 08/14/2023 when he developed acute onset of dizziness/vertigo, feeling that the room is spinning as well as nausea with multiple episodes of nonbloody/nonbilious emesis. Also with gait instability and ambulatory dysfunction. Also reports vague upper respiratory symptoms at that as well. Patient's symptoms persisted and he was seen by his primary care physician on 08/19/2025. Patient had testing performed for COVID and influenza as possible sources of acute labyrinthitis which were negative. He was prescribed meclizine 25 mg p.o. every 8 hours as needed for treatment of presumed vertigo. Patient took several doses of meclizine which helped with the vomiting however, he continued to have ambulatory dysfunction and gait instability. His reports that he fell 2 times over the past several days. The first 1 being a soft fall that was witnessed by family, the second fall was unwitnessed. states that he may have struck his head. Patient does not recall details of this fall. Over the past several days he has been more confused and has been having some hallucinations as wellseeing people in his basement that are not really there. Today patient became somewhat combative which is entirely out of character for him. He also was unable to get out of bed due to persistent weakness. reports that at baseline patient ambulates with a cane. He does need some assistance with dressing and performing hygiene. He does have some infrequent episodes of confusion. Over the past several days he has been requiring more assistance and has been using a wheelchair at home. Also has been more persistently confused. In the ER, patient afebrile, hypertensive with episodes of bradycardia (heart rate in the 40s to 50s which she has demonstrated before upon review of vitals) ER course: Normal saline x1 L bolus Allergies Allergy/AdvReac Type Severity Reaction Status Date / Time lisinopril AdvReac Intermediate COUGH Verified 08/24/23 17:38 Home Medications Medication Instructions Recorded Confirmed Type cholecalciferol (vitamin D3) 125 125 mcg PO QAM 06/06/21 08/24/23 History mcg (5,000 unit) capsule lutegold 1 tab PO HS macular degeneration 03/20/22 08/24/23 History blood sugar diagnostic (OneTouch #300 ea 09/19/22 08/24/23 Rx Verio test strips) blood sugar diagnostic (OneTouch #400 ea 09/19/22 08/24/23 Rx Verio test strips) metformin 500 mg tablet,extended 1,000 mg PO QAM 01/25/23 08/24/23 History release 24 hr escitalopram oxalate 20 mg tablet 20 mg PO DAILY #90 tabs 02/12/23 08/24/23 Rx mecobalamin (vitamin B12) 500 mcg 500 mcg PO DAILY 04/01/23 08/24/23 History chewable tablet melatonin 3 mg capsule 3 mg PO HS PRN Sleep 04/01/23 08/24/23 History amlodipine 5 mg tablet 5 mg PO DAILY #90 tabs 04/08/23 08/24/23 Rx losartan 50 mg tablet 50 mg PO BID #180 tabs 04/08/23 08/24/23 Rx aspirin 81 mg tablet,delayed 81 mg PO .EVERY OTHER DAY 04/24/23 08/24/23 History release (Adult Low Dose Aspirin) pantoprazole 40 mg tablet,delayed 40 mg PO DAILY PRN Gastric Reflux 04/24/23 08/24/23 History release sodium chloride 1,000 mg soluble 1,000 mg PO TID 90 days #270 tabs 06/06/23 08/24/23 Rx tablet atorvastatin 80 mg tablet 80 mg PO QAM #90 tabs 06/10/23 08/24/23 Rx blood-glucose meter,continuous #1 ea 06/20/23 08/24/23 Rx (Dex[employer] G7 Project Asst) blood-glucose sensor (Dexcom G7 #9 ea 06/20/23 08/24/23 Rx Sensor device) pen needle, diabetic 31 gauge x #50 ea 06/20/23 08/24/23 Rx 3/16" (BD Ultra-Fine Mini Pen Needle) meclizine 25 mg tablet 25 mg PO Q8H PRN dizziness #60 tabs 08/19/23 08/24/23 Rx insulin glargine U-300 conc 300 10 - 15 unit subcut PM 08/24/23 08/24/23 History unit/mL (1.5 mL) subcutaneous pen (Toujeo SoloStar U-300 Insulin) Past Med/Surg History Medical History COVID-19 virus infection Stroke Hypertension Subdural hematoma Fracture, ribs Aortic aneurysm Aortic dissection Macular degeneration Mild sleep apnea Pulmonary nodule seen on imaging study Vitamin D deficiency Cervicalgia Cervical facet joint syndrome Hammertoe of right foot Acute sinusitis Loss of protective sensation of skin of foot Hyperlipidemia DM (diabetes mellitus), type 2 Surgical History Hx of colonoscopy H/O brain surgery decompressional subdural hematoma 12/2021 H/O knee surgery Family History Father Coronary heart disease Diabetes Myocardial infarction Mother Myocardial infarction Denies family history of Ovarian cancer Prostate cancer Breast cancer Colorectal cancer Cancer Social History Smoking Status: Former smoker Tobacco Type: Cigars Second Hand Exposure: No; Do You Dip or Chew Tobacco: No; Hx Alcohol Use: No Hx Substance Use: No Preferred Language: Palauan Communication Ability: Effective Visual Impairment: Limited Hearing Ability: Normal Fishing Vessel Mate Required: No Beliefs That Will Affect Care: None marital status: Current Living Situation: Spouse Current Living Situation Comment: home with , who is his manager respiratory care current occupational status: retired How many Children do You have: 2 Feels Safe at Home: Yes Childhood Exposure to Second-Hand Smoke: No Diet: regular caffeine: Yes (coffee) during the past year weight has: decreased > 10 lbs Dental Care, Regularly: Yes Physical Activity Frequency: 3-4 Times per Week Seatbelt Use: always Sunscreen Use: No Do you think of yourself as: straight/heterosexual Gender Identity: Male Assistive Devices: Cane and Walker Review of Systems Review of Systems: All systems reviewed & are unremarkable except as noted in HPI & below Physical Exam Physical Exam: General: patient resting comfortably, no acute distress, oriented to person and somewhat to place Skin: warm, dry, intact, no rashes or lesions HEENT: NC/AT, PERRL, EOMI, anicteric sclera, conjunctiva without injection, external ear normal to inspection and nontender, tympanic membranes pearly with no evidence of infection or fluid, nares patent, moist mucus membranes, dentition intact, no oropharyngeal lesions, neck supple, trachea midline, no LAD, no thyromegaly, no JVD, cervical spine with no tenderness, deformity or step-off Heart: +S1/S2, regular, 3/6 systolic ejection murmur across precordium with radiation to bilateral carotids, no rubs or gallops Lungs: equal air entry bilaterally, no rales/rhonchi/wheezes Abd: +BS, soft, NT/ND, no masses/organomegaly/ascites Ext: warm, 2+ pulses in UE/LE bilaterally, no clubbing/cyanosis or edema Neuro: Speech clear and appropriate, mild swelling over left eye (family notes this is baseline), cranial nerves II through XII intact with exception of diminished hearing in the right ear, sensation to light touch intact, muscle strength 5 out of 5 in upper and lower extremities bilaterally with no drift noted in arms or legs, mild dysmetria noted with [id number] specifically with left hand, [id number] intact, HINTS testing with corrective saccade, no appreciable nystagmus, possible skew deviation of right eye noted on cover/uncover testing Results & Data Results & Data Vital Signs (Past 12 Hours) Vital Signs Pulse Resp BP Pulse Ox O2 Del Method 08/24/23 16:50 49 L 12 96 08/24/23 16:40 49 L 14 96 08/24/23 16:30 50 L 16 95 08/24/23 16:20 51 L 17 96 08/24/23 16:10 53 L 11 L 96 08/24/23 16:00 57 L 16 95 08/24/23 15:50 53 L 16 96 08/24/23 15:40 100 08/24/23 15:30 99 08/24/23 15:20 63 16 99 08/24/23 15:10 60 16 99 08/24/23 15:00 56 L 15 100 08/24/23 14:54 58 L 08/24/23 14:50 59 L 11 L 99 08/24/23 14:48 59 L 10 L 163/65 H 99 08/24/23 14:47 59 L 18 163/65 H 99 Room Air Laboratory Results Laboratory Results WBC 6.87 K/ul (4.8-10.8) 08/24/23 15:36 RBC 5.03 M/uL (4.70-6.10) 08/24/23 15:36 Hgb 15.6 g/dl (14.0-18.0) 08/24/23 15:36 Hct 44.6 % (42.0-52.0) 08/24/23 15:36 MCV 88.7 fL (80.0-100.0) 08/24/23 15:36 MCH 31.0 pg (25.0-34.0) 08/24/23 15:36 MCHC 35.0 g/dL (32.0-36.0) 08/24/23 15:36 RDW Std Deviation 43.2 fL (36.4-46.3) 08/24/23 15:36 RDW Coeff of [place] 13.2 % (11.5-14.5) 08/24/23 15:36 Plt Count 210 K/uL (130-400) 08/24/23 15:36 MPV 10.4 fL (9.4-12.4) 08/24/23 15:36 Immature Gran % (Auto) 0.3 % 08/24/23 15:36 Neut % (Auto) 67.9 % 08/24/23 15:36 Lymph % (Auto) 21.5 % 08/24/23 15:36 [place] % (Auto) 7.1 % 08/24/23 15:36 Eos % (Auto) 2.5 % 08/24/23 15:36 Baso % (Auto) 0.7 % 08/24/23 15:36 Neut # (Auto) 4.66 K/uL (1.40-6.50) 08/24/23 15:36 Lymph # (Auto) 1.48 K/uL (1.20-3.40) 08/24/23 15:36 [place] # (Auto) 0.49 K/uL (0.11-0.59) 08/24/23 15:36 Eos # (Auto) 0.17 K/uL (0.00-0.50) 08/24/23 15:36 Baso # (Auto) 0.05 K/uL (0.00-0.20) 08/24/23 15:36 Immature Gran # (Auto) 0.02 K/uL (0.01-0.20) 08/24/23 15:36 PT 11.6 Seconds (9.0-12.0) 08/24/23 15:36 INR 1.1 (0.9-1.1) 08/24/23 15:36 Sodium 137 mmol/L (136-145) 08/24/23 15:36 Potassium 3.6 mmol/L (3.5-5.1) 08/24/23 15:36 Chloride 103 mmol/L (98-107) 08/24/23 15:36 Carbon Dioxide 28 mmol/L (21-32) 08/24/23 15:36 Anion Gap 6 (3-11) 08/24/23 15:36 BUN 9 mg/dl (6-23) 08/24/23 15:36 Creatinine 0.68 mg/dl (0.6-1.4) 08/24/23 15:36 Est Cr Clr Drug Dosing 94.2 ml/min 08/24/23 15:36 Est GFR ( Amer) 106.0 ml/min 08/24/23 15:36 Est GFR (Non-Af Amer) 91.5 ml/min 08/24/23 15:36 BUN/Creatinine Ratio 13.2 (10-20) 08/24/23 15:36 Glucose 249 mg/dl (70-99(Fasting)) H 08/24/23 15:36 Calcium 9.4 mg/dl (8.6-10.3) 08/24/23 15:36 Magnesium 1.8 mg/dl (1.7-2.4) 08/24/23 15:36 Total Bilirubin 1.1 mg/dl (0.2-1.0) H 08/24/23 15:36 Direct Bilirubin 0.3 mg/dl (0-0.2) H 08/24/23 15:36 AST 15 U/L (13-39) 08/24/23 15:36 ALT 20 U/L (7-52) 08/24/23 15:36 Alkaline Phosphatase 104 U/L (34-104) 08/24/23 15:36 Troponin I High Sens 5.5 pg/ml (0-20) 08/24/23 15:36 Total Protein 7.1 gm/dl (6.0-8.3) 08/24/23 15:36 Albumin 4.1 gm/dl (3.4-5.0) 08/24/23 15:36 TSH 2.008 uIu/ml (0.300-4.500) 08/24/23 15:36 Urine Color Yellow 08/24/23 Unknown Urine Appearance Clear (Clear) 08/24/23 Unknown Urine pH 5.5 (4.5-7.5) 08/24/23 Unknown Ur Specific [place] 1.020 (1.000-1.030) 08/24/23 Unknown Urine Protein Negative (Negative) 08/24/23 Unknown Urine Glucose (UA) 3+ (Negative) H 08/24/23 Unknown Urine Ketones Negative (Negative) 08/24/23 Unknown Urine Blood Negative (Negative) 08/24/23 Unknown Urine Nitrite Negative (Negative) 08/24/23 Unknown Urine Bilirubin Negative (Negative) 08/24/23 Unknown Urine Urobilinogen Negative (Negative) 08/24/23 Unknown Ur Leukocyte Esterase Negative (Negative) 08/24/23 Unknown SARS-CoV-2, RNA, NAAT NEGATIVE (NEGATIVE) 08/24/23 18:[address] 08/24/23 15:02 CT head/brain wo con CLINICAL HISTORY: confusion, headache Technique: Contiguous axial CT images of the head were acquired from the base of the skull to the vertex without intravenous contrast administration. Images were viewed in brain, subdural and bone windows. Automated dose lowering techniques and/or adjustment according to patient size were utilized for this exam. Comparison: Comparison is made to CT head 07/17/2023 Findings: Areas of decreased attenuation are present in the periventricular and subcortical white matter bilaterally consistent with small vessel ischemic disease. Generalized cerebral atrophy with commensurate enlargement of the ventricles, sulci, and cisterns is also present. There is no acute intracranial hemorrhage or evidence of acute territorial infarction. No shift of the midline structures, mass effect, or extra-axial abnormalities are shown. Atherosclerotic calcifications are present in the intracranial segments of the internal carotid arteries. A shunt catheter terminates in the right lateral ventricle body. Imaged portions of the paranasal sinuses and mastoid air cells are clear. The orbits appear normal. There are no acute fractures of the calvaria or scalp swelling. Impression: Age-related changes with similar size of the ventricles compared to prior exam. Stable position of ventriculostomy catheter. ACT 112: Negative or not required by law. Electronically signed by: Que Soto M.D. 08/24/2023 4:53 PM Chest X-Ray 08/24/23 15:04 XR chest 1V portable CLINICAL HISTORY: weakness TECHNIQUE: Single frontal radiograph of the chest was obtained. Comparison: Comparison is made to chest radiograph 02/28/2023 FINDINGS: UTILIZATION MANAGEMENT RN shunt is seen. The cardiomediastinal silhouette is normal. The lungs are clear. No evidence of pleural effusion or pneumothorax. IMPRESSION: No acute chest disease. ACT 112: Negative or not required by law. Electronically signed by: Que Soto M.D. 08/24/2023 4:48 PM ECG Additional Comments: EKG per my interpretation reveals normal sinus rhythm at 60 bpm, normal axis, AR = 156, QRS = 140 with right bundle branch block pattern, QTc = 492. When compared to prior study from February, right bundle branch block is new PG Care Time/CCT Total # of Minutes Spent Total Time Spent with Patient: Total time spent is greater than 50% in coordination of care (as documented) at patient's floor/unit and/or counseling patient: Coding Level of Care Code 60283 INT INP/OBS CARE 375MIN Diagnoses Dizziness R42 Benign hypertension I10 History of SIADH Z86.39 Hyperlipidemia E78.5 Ischemic cerebrovascular accident (CVA) I63.9 DM (diabetes mellitus), type 2 E11.9
[2023-08-24] MEDS ORDERED: ACETAMINOPHEN 325 MG TAB PO PRN (20:47)
[2023-08-24] MEDS ORDERED: GLUCAGON FOR INJ 1 MG VIAL SQ PRN (20:47)
[2023-08-24] MEDS ORDERED: DEXTROSE 50% 50 ML SYRINGE IV PRN (20:47)
[2023-08-24] MEDS ORDERED: GLUCOSE 40% GEL 15 GM TUBE PO PRN (20:47)
[2023-08-24] MEDS ORDERED: GLUCOSE 10 TAB/TUBE PO PRN (20:47)
[2023-08-24] MEDS ORDERED: CARBOHYDRATES FOR HYPOGLYCEMIA PO PRN (20:47)
[2023-08-24] MEDS ORDERED: MELATONIN 3 MG TAB PO PRN (22:42)
[2023-08-24] MEDS ORDERED: LACTATED RINGER'S 1,000 ML IV SCH (22:45)
[2023-08-24] MEDS: LANTUS PER UNIT CHARGE SQ SCH (23:12)
[2023-08-24] MEDS: INSULIN ASPART PER UNIT CHARGE SC SCH (23:12)
[2023-08-24] MEDS: SODIUM CHLORIDE 1 GM TABLET PO SCH (23:14)
[2023-08-24] MEDS: MECLIZINE HCL 25 MG TAB PO SCH (23:14)
[2023-08-24] MEDS: LOSARTAN POTASSIUM 50 MG TAB PO SCH (23:15)
--- NOTE | 2023-08-25 01:18 | CT Scan Report ---
Exam(s): CT C SPINE EXAM: CT Cervical Spine Without Intravenous Contrast CLINICAL HISTORY: Reason for exam: unwitnessed fall. TECHNIQUE: Axial computed tomography images of the cervical spine without intravenous contrast. CTDI is 17.69 mGy and DLP is 366.44 mGy-cm. Automated exposure control was utilized for the study. A dose lowering technique was utilized adhering to the principles of ALARA. COMPARISON: No relevant prior studies available. FINDINGS: The vertebral body heights are maintained. The craniocervical junction is intact. The atlanto-dens interval is maintained. The dens is intact. There is no spondylolisthesis. Multilevel cervical spondylosis and degenerative disc disease. Straightening of the cervical lordosis. Osseous demineralization. Enlarged LEFT thyroid gland. IMPRESSION: No acute fracture or subluxation of the cervical spine. Electronically signed by: Orlando Chin MD 08/25/23 01:17 AM
[2023-08-25] MEDS: MECLIZINE HCL 25 MG TAB PO SCH ×2 (05:19→13:19)
[2023-08-25 06:41] LABS: Hematocrit (blood only) 38.2 % (42.0-52.0); Hemoglobin 13.3 g/dl (14.0-18.0); Mean Corpuscular Hemoglobin 30.7 pg (25.0-34.0); Mean Corpuscular Hgb Conc 34.8 g/dL (32.0-36.0); Mean Corpuscular Volume 88.2 fL (80.0-100.0); Mean Platelet Volume 10.9 fL (9.4-12.4); Platelet Count 193 K/uL (130-400); RDW Standard Deviation 41.9 fL (36.4-46.3); Red Blood Count 4.33 M/uL (4.70-6.10); White Blood Count 8.24 K/ul (4.8-10.8)
[2023-08-25 07:14] LABS: Albumin Level 3.4 gm/dl (3.4-5.0); Bilirubin Direct 0.2 mg/dl (0-0.2); Bilirubin,Total 0.8 mg/dl (0.2-1.0); Calcium 8.9 mg/dl (8.6-10.3); Est GFR (African American) 120.3 ml/min; Est GFR (Non-African American) 103.8 ml/min; Potassium 3.2 mmol/L (3.5-5.1); Total Protein 5.6 gm/dl (6.0-8.3)
[2023-08-25] MEDS: LANTUS PER UNIT CHARGE SQ SCH ×2 (08:44→20:07)
[2023-08-25] MEDS: LOSARTAN POTASSIUM 50 MG TAB PO SCH ×2 (08:45→20:07)
[2023-08-25] MEDS: ASPIRIN 81 MG ECTAB PO SCH (08:46)
[2023-08-25] MEDS: ESCITALOPRAM OXALATE 20 MG TAB PO SCH (08:46)
[2023-08-25] MEDS: SODIUM CHLORIDE 1 GM TABLET PO SCH ×3 (08:46→20:07)
[2023-08-25] MEDS: ATORVASTATIN 40 MG TAB PO SCH (08:46)
[2023-08-25] MEDS ORDERED: amLODIPine BESYLATE 5 MG TAB PO SCH (09:00)
[2023-08-25] MEDS: INSULIN ASPART PER UNIT CHARGE SC SCH ×4 (09:44→19:52)
[2023-08-25] MEDS ORDERED: POTASSIUM CHLORIDE CRTAB 20 MEQ TABCR PO STA (10:20)
--- NOTE | 2023-08-25 17:12 | Hospitalist Progress Note ---
Date of Service August 25, 2023 Assessment & Plan (1) Dizziness: Plan: 78-year-old male with history of intracranial hemorrhage status post PLANNING ANALYST shunt placement, hypertension, hyperlipidemia, diabetes and GERD presenting with 10 days of ongoing dizziness, gait instability and falls. Also with increased confusion, hallucinations and behavioral change after starting treatment with meclizine. His dizziness came on after a few days of cold symptoms. Laboratory work-up largely unremarkable to include normal WBC count, no anemia, normal chemistry and renal function. He does have elevated blood glucose at 249 and mild elevation of bilirubin (T. bili = 1.1, D bili = 0.3) UA does not suggest infection. Chest x-ray without infiltrate. CT of the head with stable placement of ventriculostomy tube and normal-sized ventricles. TSH and ammonia levels are negative. CT of the cervical spine is negative given unwitnessed fall. MRI brain unable to be completed here due to his PLANNING ANALYST shunt-this would require reprogramming after an MRI and we do not have that capability Suspect viral labyrinthitis given cold symptoms prior to onset of dizziness 10 days prior to admission -Discontinue scheduled meclizine as this likely precipitated his acute delirium that prompted hospitalization -Consult neurology-pending -Would not give high-dose steroids at this time for labyrinthitis as this could also precipitate psychosis and he is already with encephalopathy due to meclizi ne PT/OT evaluations-recommending rehab. Needs vestibular rehab exercises as well (2) Acute encephalopathy: Plan: Most likely secondary to meclizine in the setting of recent head trauma CT head negative Discontinue meclizine Observe for improvement (3) Benign hypertension: Plan: Blood pressures are somewhat elevated-need controlled blood pressures in the history of previous subarachnoid hemorrhage Continue amlodipine 5 mg p.o. daily Continue losartan 50 mg p.o. twice daily Continue to monitor -Echocardiogram ordered for murmur-he has known moderate aortic stenosis, echo read is pending (4) History of SIADH: Plan: Sodium level within normal limits Continue home sodium chloride tablets 1 g p.o. 3 times daily Follow BMP (5) Hyperlipidemia: Plan: Chronic. Stable. Continue atorvastatin 80 mg p.o. every morning (6) Ischemic cerebrovascular accident (CVA): Plan: Patient with history of prior stroke, prior intracranial hemorrhages, placement of PLANNING ANALYST shunt. He follows with neurosurgery at [facility] History of subdural hematoma that was found following a fall in December 2021. Status post right-sided craniotomy and soft left-sided bur hole for surgical evacuation of subdural collections on 01/09/2022. Also underwent bilateral midd le meningeal artery embolization on 01/11/2022. He then went on to have another hemorrhagic stroke in 02/2023 with subsequent PLANNING ANALYST shunt placement Continue aspirin 81 mg p.o. every other day which is for his history of previous ischemic strokes prior to his hemorrhagic stroke Continue atorvastatin 80 mg p.o. every morning (7) DM (diabetes mellitus), type 2: Plan: Overall, well controlled diabetes. Last hemoglobin A1c 06/04/2023 = 6.5 We will hold metformin from home Lantus 7 units twice daily Insulin sliding scale Goal blood sugar 110-140 while inpatient (8) Hypokalemia: Plan: Replace with oral potassium chloride and follow BMP in the morning (9) Nodular thyroid disease: Plan: Thyroid nodule noted on PET scan earlier this year TSH here normal at 2.0 Follow-up as an outpatient (10) Neuroendocrine carcinoma metastatic to liver: Plan: Has known carcinoid but further evaluation and treatment for this has been delayed due to his hemorrhagic strokes Recommend follow-up with oncology as an outpatient Diagnosed in November 2021, underwent biopsy of liver lesions by interventional radiology with evidence of neuroendocrine tumor. Due to the slow-growing nature, has been undergoing outpatient follow-up with primary care and surgical services. Plan DVT prophylaxis-add SCDs Disposition-continued stay, PT/OT recommending rehab Admission and Anticipated Discharge Date Admission Date: August 24, 2023 Subjective Patient's is at the bedside and reports the patient is better as far as his mentation today. She feels like his confusion and hallucinations and paranoia started after starting the meclizine. He does report he still feels dizzy and has a mild frontal headache. His reports that he has had headaches ever since his PLANNING ANALYST shunt was placed. He is eating and drinking and has not had any issues all day. He did work with physical therapy today. Physical Exam Constitutional: WD/WN, vitals as above Eyes: PERRL, conjunctivae normal, anicteric sclerae ENMT: external ear and nose normal, oropharynx normal Respiratory: normal respiratory effort, lungs clear to auscultation Cardiovascular: RRR, no murmur, no edema Gastrointestinal (Abdomen): normal bowel sounds, soft, nontender, no hepatosplenomegaly Neurologic: moves all extremities and awake; no focal motor deficits and not confused Psychiatric: Orientation: alert, oriented to person, oriented to place and cooperative Results & Data Results & Data Vital Signs (Past 12 Hours) Vital Signs Temp Pulse Resp BP Pulse Ox O2 Del Method 08/25/23 15:52 36.7 C 58 L 16 145/69 H 94 Room Air 08/25/23 08:31 36.9 C 70 16 171/68 H 94 Room Air 08/25/23 07:30 Room Air Laboratory Results CBC, CMP, ammonia level reviewed PG Care Time/CCT Total # of Minutes Spent Total Time Spent with Patient: Total time spent is greater than 50% in coordination of care (as documented) at patient's floor/unit and/or counseling patient: Coding Level of Care Code 70563 SUB INP/OBS CARE 3/50MIN Diagnoses Dizziness R42 Acute encephalopathy G93.40 Benign hypertension I10 History of SIADH Z86.39 Hyperlipidemia E78.5 Ischemic cerebrovascular accident (CVA) I63.9 DM (diabetes mellitus), type 2 E11.9 Hypokalemia E87.6 Nodular thyroid disease E04.1 Neuroendocrine carcinoma metastatic to liver C7A.8; C7B.8
--- NOTE | 2023-08-25 19:24 | Electrocardiogram Report ---
Test Reason : Blood Pressure : / mmHG Vent. Rate : 060 BPM Atrial Rate : 060 BPM P-R Int : 156 ms QRS Dur : 140 ms QT Int : 492 ms P-R-T Axes : 055 -16 000 degrees QTc Int : 492 ms Normal sinus rhythm Right bundle branch block Abnormal ECG When compared with ECG of 28-FEB-2023 16:44, Right bundle branch block is now Present Confirmed by Joo Cannon ([id number]) on 08/25/2023 7:24:09 PM Referred By: REFERRED SELF Confirmed By:Joo Cannon
[2023-08-26] MEDS: INSULIN ASPART PER UNIT CHARGE SC SCH ×4 (08:19→20:01)
[2023-08-26] MEDS: LOSARTAN POTASSIUM 50 MG TAB PO SCH ×2 (08:25→20:01)
[2023-08-26] MEDS: ESCITALOPRAM OXALATE 20 MG TAB PO SCH (08:25)
[2023-08-26] MEDS: ATORVASTATIN 40 MG TAB PO SCH (08:25)
[2023-08-26] MEDS: SODIUM CHLORIDE 1 GM TABLET PO SCH ×3 (08:25→20:00)
[2023-08-26] MEDS: LANTUS PER UNIT CHARGE SQ SCH (08:26)
[2023-08-26 08:32] LABS: BUN Creatinine Ratio 12.9 (10-20); Calcium 8.9 mg/dl (8.6-10.3); Creatinine Clr Calc Pharmacy 103.2 ml/min; Est GFR (African American) 110.1 ml/min; Magnesium 1.7 mg/dl (1.7-2.4); Potassium 3.2 mmol/L (3.5-5.1)
[2023-08-26] MEDS: amLODIPine BESYLATE 5 MG TAB PO SCH (09:18)
[2023-08-26] MEDS ORDERED: POTASSIUM CHLORIDE CRTAB 20 MEQ TABCR PO STA (09:27)
[2023-08-26] MEDS ORDERED: MAGNESIUM SULFATE / D5W 1 GM/100 ML BAG IV ONE (09:30)
--- NOTE | 2023-08-26 09:42 | XCELERA ---
[id number]
--- NOTE | 2023-08-26 11:20 | Neurology Consultation ---
Date of Consultation August 26, 2023 Assessment & Plan (1) Acute encephalopathy: (2) Cognitive changes: (3) Dizziness: (4) Generalized weakness: (5) Intracranial shunt: (6) Gait disturbance: (7) Idiopathic polyneuropathy: (8) Neuroendocrine carcinoma metastatic to liver: (9) Carotid stenosis, bilateral: Plan This is a very complicated patient from a neurologic standpoint. He has a background of metastatic carcinoid tumor and multiple falls including head trauma with subdural hematomas, intraparenchymal hemorrhage and intraventricular hemorrhage requiring surgical procedures and most recently a ventriculoperitoneal shunt. He is had problems with cognitive issues and confusion with hallucinations, ongoing gait disturbance and urinary incontinence (which I witnessed). On examination he had some proximal lower extremity weakness and changes in reflexes likely consistent with a peripheral neuropathy (has diabetes) The gait disturbance is likely multifactorial, including sensory ataxia from peripheral neuropathy and more central issues. With the incontinence, confusion, and gait disturbance normal pressure hydrocephalus is quite possible. Just because the ventricular size is similar to the previous CT scan, I can not exclude that his shunt is working optimally. With the history of bilateral carotid stenosis I can not exclude decreased cerebral perfusion creating his more recent symptoms. 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 He has hearing loss and tinnitus suggesting inner ear issues which could also affect his balance. Recommendations: 1. An MRI of the brain with and without contrast should be obtained in this patient to rule out acute stroke, carcinoid metastases, and inner ear pathology.. If he can not get the MRI here, he should go to [facility] to have the MRI and his shunt recalibrated. 2. Repeat CT angiography of the head and neck and compared to the previous study of 2020 3. Continue 81 mg aspirin for now. Unfortunately, he was not able to continue Plavix because of his falling and intracranial bleeding. 4. Physical and occupational therapy for strengthening and gait training 5. A regular PET scan will not assess certain neuroendocrine tumors adequately. A gallium 68 (or newer version of this) CT PET scan should be done to further assess his neuroendocrine tumors. This also is done at [facility]. 6. Consider B12, CK, ESR, folate, Lyme antibody titers if not done recently Overall, I spent a total of 75 minutes with this case including review of records, review of CT and other films, direct evaluation the patient, report generation, and discussing the case with the patient and RN at bedside, and Dr. Hoyos including differential diagnosis and treatment options 2. History of Present Illness Reason for Consultation: Patient is a 78-year-old, who I was asked to see the request of Dr. Hoyos, for neurologic evaluation regarding falling and other issues Requesting Physician: Dr. Hoyos Attending Physician: Mary Hoyos MD History of Present Illness This patient has a history of diagnosis of carcinoid tumor November of 2021. I am not certain that he has had any treatment for this but a most recent PET scan in February of this year showed Mets in the liver and right lower quadrant. There were small nodules in the CT scan of the lung that were not present on the PET scan. Apparently this carcinoid tumor is slow growing and the treatment has been delayed as the neurovascular issues have been attended to. In January of 2021 patient had a right centrum semiovale stroke and was noted to have bilateral internal carotid artery stenosis, 50% right 30% left with plaque. He was put on aspirin and Plavix for 21 days and then Plavix alone. While on Plavix in November of 2021 he fell and hit his head. He had a small subdural hematoma with some small hemorrhagic contusions requiring no surgery. In December of 2021 he fell again and had acute on chronic bilateral subdural hematomas requiring magdi hole and evacuation. He then had bilateral MMA embolization and was taken off Plavix. He did fairly well but then fell and ended up with an intraventricular hemorrhage and hemorrhage in the left basal ganglia. At [facility] he underwent a shunt procedure. He has been stable neurologically since although over the last 10 days he is had generalized weakness, dizziness which seems to be a mixture of lightheadedness and vertiginous symptoms, confusion and some hallucinations. He is had a headache for several days as well The patient tells me that he was having bilateral left greater than right hearing deficits and right greater than left tinnitus. He has no ear pain. On August 24 at 2:47 p.m. he came to the emergency room with a pulse of 59, respiratory rate 18, blood pressure 163/65, and O2 saturation 99 %. He had no focal deficits. CBC and Chem profile were unremarkable TSH and urinalysis were normal. CT scan of the head showed the shunt placement, and the ventricles same size as a previous scan at the end of June. CT scan of the cervical spine was unremarkable. This morning the patient feels good with no pain, headache, confusion, weakness, numbness, or pain. Lying in bed he feels fairly good but if he sits up he will get dizzy. When asked to be more specific it seems to be a combination of lightheadedness and vertiginous feelings. They will fade after he maintains a position for a while. Allergies Allergy/AdvReac Type Severity Reaction Status Date / Time lisinopril AdvReac Intermediate COUGH Verified 08/24/23 17:38 Home Medications Medication Instructions Recorded Confirmed Type cholecalciferol (vitamin D3) 125 125 mcg PO QAM 06/06/21 08/24/23 History mcg (5,000 unit) capsule lutegold 1 tab PO HS macular degeneration 03/20/22 08/24/23 History blood sugar diagnostic (OneTouch #300 ea 09/19/22 08/24/23 Rx Verio test strips) blood sugar diagnostic (OneTouch #400 ea 09/19/22 08/24/23 Rx Verio test strips) metformin 500 mg tablet,extended 1,000 mg PO QAM 01/25/23 08/24/23 History release 24 hr escitalopram oxalate 20 mg tablet 20 mg PO DAILY #90 tabs 02/12/23 08/24/23 Rx mecobalamin (vitamin B12) 500 mcg 500 mcg PO DAILY 04/01/23 08/24/23 History chewable tablet melatonin 3 mg capsule 3 mg PO HS PRN Sleep 04/01/23 08/24/23 History amlodipine 5 mg tablet 5 mg PO DAILY #90 tabs 04/08/23 08/24/23 Rx losartan 50 mg tablet 50 mg PO BID #180 tabs 04/08/23 08/24/23 Rx aspirin 81 mg tablet,delayed 81 mg PO .EVERY OTHER DAY 04/24/23 08/24/23 History release (Adult Low Dose Aspirin) pantoprazole 40 mg tablet,delayed 40 mg PO DAILY PRN Gastric Reflux 04/24/23 08/24/23 History release sodium chloride 1,000 mg soluble 1,000 mg PO TID 90 days #270 tabs 06/06/23 08/24/23 Rx tablet atorvastatin 80 mg tablet 80 mg PO QAM #90 tabs 06/10/23 08/24/23 Rx blood-glucose meter,continuous #1 ea 06/20/23 08/24/23 Rx (Dexcom G7 Installation Coordinator) blood-glucose sensor (Dexcom G7 #9 ea 06/20/23 08/24/23 Rx Sensor device) pen needle, diabetic 31 gauge x #50 ea 06/20/23 08/24/23 Rx 3/16" (BD Ultra-Fine Mini Pen Needle) meclizine 25 mg tablet 25 mg PO Q8H PRN dizziness #60 tabs 08/19/23 08/24/23 Rx insulin glargine U-300 conc 300 10 - 15 unit subcut PM 08/24/23 08/24/23 History unit/mL (1.5 mL) subcutaneous pen (Toujeo SoloStar U-300 Insulin) Patient History Medical History COVID-19 virus infection Stroke Hypertension Subdural hematoma Fracture, ribs Aortic aneurysm Aortic dissection Macular degeneration Mild sleep apnea Pulmonary nodule seen on imaging study Vitamin D deficiency Cervicalgia Cervical facet joint syndrome Hammertoe of right foot Acute sinusitis Loss of protective sensation of skin of foot Hyperlipidemia DM (diabetes mellitus), type 2 Surgical History Hx of colonoscopy H/O brain surgery decompressional subdural hematoma 12/2021 H/O knee surgery Family History Father , age 67 of heart issues Coronary heart disease Diabetes Myocardial infarction Mother , age 53 of heart issues Myocardial infarction Denies family history of Ovarian cancer Prostate cancer Breast cancer Colorectal cancer Cancer Social History Smoking Status: Former smoker Tobacco Type: Cigars Second Hand Exposure: No; Do You Dip or Chew Tobacco: No; Hx Alcohol Use: No Hx Substance Use: No Preferred Language: Wolof Communication Ability: Effective Visual Impairment: Limited Hearing Ability: Normal Refrigerator Glazier Required: No Beliefs That Will Affect Care: None marital status: Current Living Situation: Spouse Current Living Situation Comment: spouse is caregiver current occupational status: retired 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 How many Children do You have: 2 Feels Safe at Home: Yes Childhood Exposure to Second-Hand Smoke: No Diet: regular caffeine: Yes (coffee) during the past year weight has: decreased > 10 lbs Dental Care, Regularly: Yes Physical Activity Frequency: 3-4 Times per Week Seatbelt Use: always Sunscreen Use: No Do you think of yourself as: straight/heterosexual Gender Identity: Male Assistive Devices: Cane, Glasses and Walker Review of Systems Constitutional: no fever, no fatigue and no weakness Eyes: no diplopia, no eye pain and no worsening vision Ear, Nose, Mouth, Throat: + tinnitus, + hearing loss and + dizzine ss; no ear pain, no snoring, no hoarseness and no dysphagia Respiratory: no cough and no dyspnea Cardiovascular: no chest pain, no palpitations and no lightheadedness Gastrointestinal: no abdominal pain, no nausea and no vomiting Musculoskeletal: no back pain, no neck pain, no radicular pain, no joint pain and no myalgia Integumentary: no rash and no lesions Neurologic: + gait abnormality, + localized weakness and + confusion; no generalized weakness, no tingling, no numbness, no tremor(s), no abnormal movements, no headache(s), no abnormal speech and no memory loss Psychiatric: no depression, no irritability, no anxiety, no difficulty concentrating, no confusion and no hallucinations Endocrine: no fatigue and no flushing Hematologic / Lymphatic: no easy bleeding and no easy bruising Allergy / Immunological: no urticaria and no problem reported Exam (Neuro) Physical Exam: The patient is right-handed. The patient is awake, alert, and attentive. Speech is normal without any aphasia or dysarthria. The patient can name objects, repeat phrases, and has normal spontaneous speech. Mood is normal and affect is appropriate. He answered some questions fairly well but others he had trouble on and I suspect some short-term memory issues are apparent. He did get confused once or twice when I talk to him but he quickly recovered. Pupils are 3 mm bilaterally and reactive to light. Extraocular eye muscles are intact without nystagmus. Visual acuity and visual layton seem normal grossly to confrontation. There are no deficits to sensation in the face in all 3 distributions of the fifth cranial nerve bilaterally. Corneal reflexes are positive bilaterally. Facial strength and symmetry was normal bilaterally. Hearing seems normal bilaterally. Palate moves well without asymmetry. There is normal sternocleidomastoid and trapezius (shoulder shrug) strength bilaterally. Tongue is midline with good strength bilaterally. Neck has a full range of motion without discomfort. There are no cervical bruits bilaterally. There are no cranial or ocular bruits. Heart has a systolic murmur. There is a regular rhythm and rate. Cervical, thoracic, and lumbar spine are nontender to palpation. The patient has difficulty going from sitting to standing and when he goes from standing to sitting he flops back into the bed. He expresses dizziness when he stands up but again there was no nystagmus during this. A with feet together and eyes open he sways considerably to the left. With eyes closed does the same thing. Gait is narrow based and very cautious including turns. When the patient stood up he had the immediate loss of urine without awareness. With outstretched arms there is no drift. There are no resting, postural, or action tremors. There is no ataxia with finger to nose testing. There is good facility in the hands. No other abnormal involuntary movements are noted. Motor strength is 5/5 diffusely in the arms bilaterally including deltoids, biceps, triceps, brachioradialis, wrist flexors and extensors, boat engine mechanic, and intrinsic hand muscles. Motor strength is 4/5 in the hip flexors and quadriceps muscles bilaterally and 5/5 distally including Coombs and plantar flexion bilaterally. The limbs have good tone without rigidity or spasticity. There is no atrophy noted in the muscles. Muscle bulk is normal, there is no tenderness to palpation, no myotonia to percussion, and no fasciculations seen. Sensory examination is intact to touch and pin throughout all 4 limbs diffusely. Reflexes are 1/4 in the biceps and triceps tendons bilaterally. Brachioradialis, quadriceps, and Achilles tendon reflexes are absent bilaterally. There is no clonus bilaterally. Toes are downgoing with plantar stimulation bilaterally. Peripheral pulses are present and of normal quality distally in all 4 limbs. There is no peripheral edema noted in the limbs. Results & Data Vital Signs (Past 12 Hours) Vital Signs Temp Pulse Resp BP Pulse Ox O2 Del Method 08/26/23 07:10 36.5 C 55 L 18 160/66 H 96 Room Air 08/25/23 23:00 Room Air PG Care Time/CCT Total # of Minutes Spent Total Time Spent with Patient: Total time spent is greater than 50% in coordination of care (as documented) at patient's floor/unit and/or counseling patient: Coding Level of Care Code 91735 INT INP/OBS CARE MIN Diagnoses Acute encephalopathy G93.40 Cognitive changes R41.89 Dizziness R42 Generalized weakness R53.1 Intracranial shunt Z98.2 Gait disturbance R26.9 Idiopathic polyneuropathy G60.9 Neuroendocrine carcinoma metastatic to liver C7A.8; C7B.8 Carotid stenosis, bilateral I65.23
[2023-08-26] MEDS ORDERED: OPTIRAY 320 500ml IV ONE (12:49)
[2023-08-26 12:56] LABS: Folate (Folic Acid),Ser orPlas 21.89 ng/ml (>5.38)
--- NOTE | 2023-08-26 13:13 | CT Scan Report ---
CT ANGIOGRAM OF THE NECK CLINICAL HISTORY: Dizziness. Ventricular shunt. COMPARISON STUDY: CT exam of the neck dated 02/12/2021. TECHNIQUE: Following the IV administration of 107 of Optiray 320, CT angiogram of the neck was perfor med from the aortic arch to the skull base. Images are reviewed in the axial, sagittal, and coronal p lanes. 3-D MIPS images are created and assessed. IV contrast was administered without complication. A ll measurements were calculated based on NASCET criteria. A dose lowering technique was utilized adh ering to the principles of ALARA. CT DOSE: 514.73 mGy.cm FINDINGS: Thoracic aorta: There is atherosclerotic calcification of the thoracic aorta. Visualized portions of the thoracic aorta are normal in caliber. The aortic arch demonstrates standard 3-vessel anatomy. Right carotid arterial system: The right common carotid artery is widely patent. There is advanced at herosclerotic calcification of the carotid bulb. This causes 50-69% stenosis at the origin of the rig ht internal carotid artery. The mid to distal portions of the right internal carotid artery are widel y patent. There is moderate stenosis at the origin of the right external carotid artery. The right ex ternal carotid arteries otherwise patent. Left carotid arterial system: The left common carotid artery is widely patent. There is advanced athe rosclerotic calcification of the carotid bulb. This causes approximately 50% focal stenosis of the pr oximal left internal carotid artery. The mid to distal portions of the left internal carotid artery a re widely patent, as is the left external carotid artery. Vertebral arteries: There is moderate stenosis at the origin of both vertebral arteries. The vertebra l arteries are otherwise patent bilaterally and codominant. Subclavian arteries: Widely patent bilaterally. Intracranial vasculature: The visualized intracranial vessels at the skull base are patent. Jugular veins: Widely patent bilaterally. Brain parenchyma: The visualized brain parenchyma the skull base is within normal limits. Lung apices: Partially visualized upper lobe lung parenchyma appears clear. Soft tissues: The visualized pharyngeal soft tissues are normal in appearance noting angiographic pha se technique. The oropharyngeal airway appears widely patent. Marked enlargement of the left thyroid lobe extending into the superior mediastinum is similar to previous and consistent with goiter. The s alivary glands are normal in appearance. No cervical lymphadenopathy is seen. A ventricular shunt cat heter is seen within the soft tissues of the left neck. Skeletal structures: The skeletal structures are heterogeneously osteopenic. The visualized calvarium at the skull base appears intact. The imaged cervical spine is maintained noting advanced multilevel spondylosis. Sinuses and mastoids: The skeletal structures are osteopenic. Trace mucosal thickening is noted in th e left maxillary antrum. There is a trace left mastoid effusion. The right mastoid air cells are well pneumatized. IMPRESSION: 1. There is 50-69% stenosis at the origin of the right internal carotid artery. 2. There is approximately 50% stenosis at the origin of the left internal carotid artery. 3. Mild stenosis is seen at the origin of both vertebral arteries. 4. Thyroid goiter. 5. Additional findings as above. ACT 112: Negative or not required by law. Electronically signed by: Rasta Cordova M.D. 08/26/2023 1:12 PM
--- NOTE | 2023-08-26 13:13 | CT Scan Report ---
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 Acute dizziness COMPARISON STUDY: Head CT 08/24/2023 TECHNIQUE: Following the IV administration of 107 cc of Optiray, CT angiogram of the brain was perfor med from the skull base to the vertex. Images are reviewed in the axial, sagittal, and coronal planes . 3-D MIPS images are created and assessed. IV contrast was administered without complication. All me asurements were obtained according to NASCET criteria. A dose lowering technique was utilized adherin g to the principles of ALARA. FINDINGS: A left frontal approach ventriculostomy catheter is again noted with distal tip terminating within th e right lateral ventricle. Senescent calcifications in the basal ganglia. White matter hypodensities suggestive of chronic microvascular ischemic disease. Bilateral craniotomy changes. CT ANGIOGRAM OF THE BRAIN: The imaged bilateral internal carotid arteries are patent. The bilateral anterior and middle cerebral arteries are also patent. The vertebrobasilar system and posterior cerebral arteries are widely bailey nt. There is no aneurysm, high-grade stenosis, or proximal branch occlusion identified. Dural sinuses appear patent. IMPRESSION: 1. Unremarkable CTA of the head. 2. Chronic findings as above. ACT 112: Negative or not required by law. The above report was generated using voice recognition software. It may contain grammatical, syntax o r spelling errors. Electronically signed by: aDvid Pinzon M.D. 08/26/2023 1:12 PM
[2023-08-26 13:23] LABS: Lyme Ab IgG w/WB Rflx Negative (Negative); Lyme Ab IgM w/WB Rflx Negative (Negative)
--- NOTE | 2023-08-26 14:11 | Hospitalist Progress Note ---
Date of Service August 26, 2023 Assessment & Plan (1) Dizziness: Plan: 78-year-old male with history of intracranial hemorrhage status post EDGE BURNISHER UPPERS shunt placement, hypertension, hyperlipidemia, diabetes and GERD presenting with 10 days of ongoing dizziness, gait instability and falls. Also with increased confusion, hallucinations and behavioral change after starting treatment with meclizine. His dizziness came on after a few days of cold symptoms. He also does have some urinary incontinence and ataxia He is afebrile and no evidence of encephalitis or meningitis Laboratory work-up largely unremarkable to include normal WBC count, no anemia, normal chemistry and renal function. He did have elevated blood glucose at 249 and mild elevation of bilirubin (T. bili = 1.1, D bili = 0.3) UA does not suggest infection. Chest x-ray without infiltrate. CT of the head with stable placement of ventriculostomy tube and no change in size of enlargement of ventricles from previous TSH and ammonia levels are negative. CT of the cervical spine is negative given unwitnessed fall. MRI brain unable to be completed here due to his EDGE BURNISHER UPPERS shunt-this would require reprogramming after an MRI and we do not have that capability Suspect viral labyrinthitis given cold symptoms prior to onset of dizziness 10 days prior to admission CT angiogram head and neck with mild vertebral artery stenosis, moderate bilateral carotid artery stenosis which may be contributing to poor perfusion of the brain Dizziness ongoing-consulted neurology-appreciate consultation-check ESR, B12, folate, Lyme titer which were all negative. Recommended MRI of the brain and discussion with neurosurgery at [facility]. I did contact Dr. Flores on-call neurosurgeon at [place]. He thought it was not consistent with infection of the EDGE BURNISHER UPPERS shunt and that the symptoms of ataxia and incontinence and confusion are not typical signs of dysfunction of the EDGE BURNISHER UPPERS shunt as well. He did not recommend urgent transfer as the patient was stable. He will arrange close outpatient follow-up with the patient's primary neurosurgeon, Dr. De La Cruz and an outpatient MRI. -Discontinued scheduled meclizine as this likely precipitated his acute delirium that prompted hospitalization -Would not give high-dose steroids at this time for labyrinthitis as this could also precipitate psychosis and he is already with encephalopathy due to meclizine PT/OT evaluations-recommending rehab. Needs vestibular rehab exercises as well (2) Acute encephalopathy: Plan: Most likely secondary to meclizine in the setting of recent head trauma-seems to be improving with stopping meclizine CT head negative Supportive care Does also have a history of metastatic carcinoid and would benefit from follow- up with oncology and potential specific imaging looking for TECHNICAL ASST involvement with testing as per neurology recommendations (3) Benign hypertension: Plan: Blood pressures are somewhat elevated-need controlled blood pressures in the history of previous subarachnoid hemorrhage Increase amlodipine to 7.5 mg p.o. daily Continue losartan 50 mg p.o. twice daily Continue to monitor -Echocardiogram ordered for murmur-he has known moderate aortic stenosis and now echo with moderate-severe aortic stenosis and mild AI-follow as an outpatient (4) History of SIADH: Plan: Sodium level within normal limits Continue home sodium chloride tablets 1 g p.o. 3 times daily Follow BMP (5) Hyperlipidemia: Plan: Chronic. Stable. Continue atorvastatin 80 mg p.o. every morning (6) Ischemic cerebrovascular accident (CVA): Plan: Patient with history of prior stroke, prior intracranial hemorrhages, placement of EDGE BURNISHER UPPERS shunt. He follows with neurosurgery at [place] History of subdural hematoma that was found following a fall in December 2021. Status post right-sided craniotomy and soft left-sided bur hole for surgical evacuation of subdural collections on 01/09/2022. Also underwent bilateral middle meningeal artery embolization on 01/11/2022. He then went on to have another hemorrhagic stroke in 02/2023 with subsequent EDGE BURNISHER UPPERS shunt placement Continue aspirin 81 mg p.o. every other day which is for his history of previous ischemic strokes prior to his hemorrhagic stroke Continue atorvastatin 80 mg p.o. every morning -Checked CT angiogram head and neck-shows moderate bilateral RENA-needs outpatient vascular surgery follow-up (7) DM (diabetes mellitus), type 2: Plan: Overall, well controlled diabetes. Last hemoglobin A1c 06/04/2023 = 6.5 With low to normal blood sugars here We will hold metformin from home Decrease Lantus to 7 units once daily Insulin sliding scale Goal blood sugar 110-140 while inpatient (8) Hypokalemia: Plan: Replace again with oral potassium and follow BMP in the morning (9) Nodular thyroid disease: Plan: Thyroid nodule noted on PET scan earlier this year With large thyroid goiter noted on CT angiogram of the neck TSH here normal at 2.0 Follow-up as an outpatient (10) Neuroendocrine carcinoma metastatic to liver: Plan: Has known carcinoid but further evaluation and treatment for this has been delayed due to his hemorrhagic strokes Recommend follow-up with oncology as an outpatient Diagnosed in November 2021, underwent biopsy of liver lesions by interventional radiology with evidence of neuroendocrine tumor. Due to the slow-growing nature, has been undergoing outpatient follow-up with primary care and surgical services. (11) Carotid stenosis, bilateral: Plan: As noted above, 50-69% on the right and 50% on the left Needs outpatient vascular surgery follow-up Continue aspirin and statin (12) Aortic stenosis: Plan: Now moderate-severe Discussed with patient and his and daughter Follow-up with cardiology as an outpatient Plan DVT prophylaxis-SCDs Disposition-continued stay, PT/OT recommending rehab placement-referrals made Medically stable for discharge likely tomorrow Admission and Anticipated Discharge Date Admission Date: August 26, 2023 Anticipated date of discharge: 08/27/23 Subjective Patient reports still some ongoing dizziness and mild headache. He otherwise is eating well, no further nausea vomiting. Was unable to walk very far and had urinary incontinence with standing up. I discussed his case extensively with neurology here on 2 different occasions. I also discussed his care with his as well as his daughter on the phone. I also spent 30 minutes in phone calls with neurosurgery and the transfer center at [facility] discussing his care. Physical Exam Constitutional: WD/WN, vitals as above Eyes: PERRL, conjunctivae normal, anicteric sclerae ENMT: external ear and nose normal, oropharynx normal Respiratory: normal respiratory effort, lungs clear to auscultation Cardiovascular: RRR, no murmur, no edema Gastrointestinal (Abdomen): normal bowel sounds, soft, nontender, no hepatosplenomegaly Neurologic: moves all extremities and awake; no focal motor deficits and not confused Psychiatric: Orientation: alert, oriented to person, oriented to place and cooperative Results & Data Results & Data Vital Signs (Past 12 Hours) Vital Signs Temp Pulse Resp BP Pulse Ox O2 Del Method 08/26/23 07:10 36.5 C 55 L 18 160/66 H 96 Room Air Laboratory Results BMP, magnesium level, Lyme titer, ESR, B12 and folate reviewed Diagnostic Findings CT angiogram head and neck reviewed PG Care Time/CCT Total # of Minutes Spent Total Time Spent with Patient: Total time spent is greater than 50% in coordination of care (as documented) at patient's floor/unit and/or counseling patient: Coding Level of Care Code 64765 SUB INP/OBS CARE 3/50MIN (25 - SIGNIFICANT, SEPARATELY IDENTIFIABLE ) Diagnoses Dizziness R42 Acute encephalopathy G93.40 Benign hypertension I10 History of SIADH Z86.39 Hyperlipidemia E78.5 Ischemic cerebrovascular accident (CVA) I63.9 DM (diabetes mellitus), type 2 E11.9 Hypokalemia E87.6 Nodular thyroid disease E04.1 Neuroendocrine carcinoma metastatic to liver C7A.8; C7B.8 Carotid stenosis, bilateral I65.23 Aortic stenosis I35.0
--- NOTE | 2023-08-26 15:30 | XRay Report ---
XR cervical spine 2 or 3V HISTORY: 78 years-old Male Visualize Shunt shunt catheter evaluation COMPARISON: CTA neck of same day TECHNIQUE: 2 views of the cervical spine FINDINGS: The visualized ventriculoperitoneal shunt catheter appears intact projected over the left chest and l eft neck. The imaged lung layton appear clear. Moderate to severe degenerative changes of the cervica l spine. Demineralized appearance of the bones. Calcified plaque of the carotid bulbs. IMPRESSION: The visualized shunt catheter appears intact. ACT 112: Negative or not required by law. The above report was generated using voice recognition software. It may contain grammatical, syntax o r spelling errors. Electronically signed by: David Pinzon M.D. 08/26/2023 3:29 PM
--- NOTE | 2023-08-26 15:34 | XRay Report ---
ABDOMEN 2 VIEWS CLINICAL HISTORY: Ventricular peritoneal shunt. FINDINGS: AP supine and lateral views of the abdomen are correlated with abdominal CT dated 11/21/2022. There is a nonobstructed abdominal gas pattern. Moderate fecal retention is seen throughout the colo n. No evidence of intraperitoneal free air is identified. A ventriculoperitoneal shunt catheter is in place. This traverses the ventral abdominal wall, with the tip coiled in the pelvis. Imaged portions of the catheter appear intact. Excreted IV contrast is seen within the renal collecting systems. The Skeletal structures are osteopenic but appear intact. Moderate to advanced lumbosacral spondylosis i s observed. IMPRESSION: No acute abnormality is identified. See above. Electronically signed by: Rasta Cordova M.D. 08/26/2023 3:32 PM
--- NOTE | 2023-08-26 15:36 | XRay Report ---
XR chest 2V PA/lateral HISTORY: 78 years-old Male Visualize Shunt shunt catheter series. COMPARISON: Cervical spine radiograph of same day TECHNIQUE: Chest radiograph 08/24/2023 FINDINGS: Cardiac silhouette is mildly enlarged. Unchanged right hemidiaphragmatic elevation. Thyroid goiter re sults in rightward deviation of the trachea. No pneumothorax, pleural effusion or airspace consolidat ion. Bones appear grossly intact. The visualized shunt catheter projected over the left neck, chest a nd abdomen appears intact. IMPRESSION: 1. Cardiomegaly without acute process. 2. The visualized shunt catheter appears intact. 3. Thyroid goiter. ACT 112: Negative or not required by law. The above report was generated using voice recognition software. It may contain grammatical, syntax o r spelling errors. Electronically signed by: David Pinzon M.D. 08/26/2023 3:34 PM
--- NOTE | 2023-08-26 15:41 | XRay Report ---
XR skull <4V CLINICAL HISTORY: Visualize Shunt COMPARISON STUDY: Head CT 08/26/2023. FINDINGS: There is a left frontal approach ventriculostomy catheter with the tip terminating near the midline. The visualized tubing appears intact. Bilateral magdi hole/craniotomy is are noted. IMPRESSION: The visualized shunt catheter appears intact. ACT 112: Negative or not required by law. Electronically signed by: Rei Woodruff M.D. 08/26/2023 3:40 PM
[2023-08-27 08:13] LABS: Basophils # (auto) 0.06 K/uL (0.00-0.20); Basophils % (auto) 0.7 %; Eosinophils # (auto) 0.15 K/uL (0.00-0.50); Eosinophils % (auto) 1.8 %; Hematocrit (blood only) 40.1 % (42.0-52.0); Hemoglobin 13.8 g/dl (14.0-18.0); Immature Granulocytes # (auto) 0.05 K/uL (0.01-0.20); Immature Granulocytes % (auto) 0.6 %; Lymphocytes # (auto) 1.72 K/uL (1.20-3.40); Mean Corpuscular Hemoglobin 30.5 pg (25.0-34.0); Mean Corpuscular Hgb Conc 34.4 g/dL (32.0-36.0); Mean Corpuscular Volume 88.7 fL (80.0-100.0); Mean Platelet Volume 10.1 fL (9.4-12.4); Monocytes # (auto) 0.73 K/uL (0.11-0.59); Monocytes % (auto) 8.9 %; Neutrophils # (auto) 5.49 K/uL (1.40-6.50); Platelet Count 209 K/uL (130-400); RDW Coefficient of Variation 13.2 % (11.5-14.5); RDW Standard Deviation 43.1 fL (36.4-46.3); Red Blood Count 4.52 M/uL (4.70-6.10)
[2023-08-27] MEDS: ESCITALOPRAM OXALATE 20 MG TAB PO SCH (08:44)
[2023-08-27] MEDS: ATORVASTATIN 40 MG TAB PO SCH (08:44)
[2023-08-27] MEDS: LOSARTAN POTASSIUM 50 MG TAB PO SCH ×2 (08:44→20:55)
[2023-08-27] MEDS: SODIUM CHLORIDE 1 GM TABLET PO SCH ×3 (08:44→20:55)
[2023-08-27 08:45] LABS: BUN Creatinine Ratio 18.5 (10-20); Creatinine Clr Calc Pharmacy 118.5 ml/min; Est GFR (African American) 116.6 ml/min; Est GFR (Non-African American) 100.6 ml/min; Magnesium 1.9 mg/dl (1.7-2.4); Potassium 3.8 mmol/L (3.5-5.1)
[2023-08-27] MEDS: amLODIPine BESYLATE 5 MG TAB PO SCH (08:45)
[2023-08-27] MEDS: ASPIRIN 81 MG ECTAB PO SCH (08:45)
[2023-08-27] MEDS: INSULIN ASPART PER UNIT CHARGE SC SCH ×4 (09:40→20:54)
[2023-08-27] MEDS: LANTUS PER UNIT CHARGE SQ SCH (09:40)
[2023-08-27] MEDS ORDERED: predniSONE 20 MG TAB PO STA (17:39)
--- NOTE | 2023-08-27 17:39 | Hospitalist Progress Note ---
Date of Service August 27, 2023 Assessment & Plan (1) Dizziness: Plan: 78-year-old male with history of intracranial hemorrhage status post RESERVOIR CARETAKER shunt placement, hypertension, hyperlipidemia, diabetes and GERD presenting with 10 days of ongoing dizziness, gait instability and falls. Also with increased confusion, hallucinations and behavioral change after starting treatment with meclizine. His dizziness came on after a few days of cold symptoms. He also does have some urinary incontinence and ataxia He is afebrile and no evidence of encephalitis or meningitis Laboratory work-up largely unremarkable to include normal WBC count, no anemia, normal chemistry and renal function. He did have elevated blood glucose at 249 and mild elevation of bilirubin (T. bili = 1.1, D bili = 0.3) UA does not suggest infection. Chest x-ray without infiltrate. CT of the head with stable placement of ventriculostomy tube and no change in size of enlargement of ventricles from previous TSH and ammonia levels are negative. CT of the cervical spine is negative given unwitnessed fall. Shunt xray series shows shunt in good position MRI brain unable to be completed here due to his RESERVOIR CARETAKER shunt-this would require reprogramming after an MRI and we do not have that capability Suspect viral labyrinthitis given cold symptoms prior to onset of dizziness 10 days prior to admission CT angiogram head and neck with mild vertebral artery stenosis, moderate bilateral carotid artery stenosis which may be contributing to poor perfusion of the brain Dizziness ongoing-consulted neurology-appreciate consultation-check ESR, B12, folate, Lyme titer which were all negative. Recommended MRI of the brain and discussion with neurosurgery at [facility]. I did contact Dr. Flores on-call neurosurgeon at [place]. He thought it was not consistent with infection of the RESERVOIR CARETAKER shunt and that the symptoms of ataxia and incontinence and confusion are not typical signs of dysfunction of the RESERVOIR CARETAKER shunt as well. He did not recommend urgent transfer as the patient was stable. He will arrange close outpatient follow-up with the patient's primary neurosurgeon, Dr. De La Cruz and an outpatient MRI. -Discontinued scheduled meclizine as this likely precipitated his acute delirium that prompted hospitalization -initially wanted to avoid giving high-dose steroids for labyrinthitis as this could also precipitate psychosis and he is already with encephalopathy due to meclizine--> HOWEVER now mentation completely improved with stopping meclizine--> will trial prednisone 40mg po daily for short course to see if helps dizziness PT/OT evaluations-recommending rehab. Needs vestibular rehab exercises as well (2) Acute encephalopathy: Plan: Most likely secondary to meclizine in the setting of recent head trauma-seems to be improving with stopping meclizine CT head negative Supportive care Does also have a history of metastatic carcinoid and would benefit from follow- up with oncology and potential specific imaging looking for [employer] SU[employer] TECHNICIAN involvement with testing as per neurology recommendations (3) Benign hypertension: Plan: Blood pressures are continuing to be somewhat elevated-need controlled blood pressures in the history of previous subarachnoid hemorrhage Increased amlodipine to 7.5 mg p.o. daily and consider increasing further by 10/28 if not improving Continue losartan 50 mg p.o. twice daily Continue to monitor -Echocardiogram ordered for murmur-he has known moderate aortic stenosis and now echo with moderate-severe aortic stenosis and mild AI-follow as an outpatient (4) History of SIADH: Plan: Sodium level within normal limits Continue home sodium chloride tablets 1 g p.o. 3 times daily Follow BMP (5) Hyperlipidemia: Plan: Chronic. Stable. Continue atorvastatin 80 mg p.o. every morning (6) Ischemic cerebrovascular accident (CVA): Plan: Patient with history of prior stroke, prior intracranial hemorrhages, placement of RESERVOIR CARETAKER shunt. He follows with neurosurgery at [place] History of subdural hematoma that was found following a fall in December 2021. Status post right-sided craniotomy and soft left-sided bur hole for surgical evacuation of subdural collections on 01/09/2022. Also underwent bilateral middle meningeal artery embolization on 01/11/2022. He then went on to have another hemorrhagic stroke in 02/2023 with subsequent RESERVOIR CARETAKER shunt placement Continue aspirin 81 mg p.o. every other day which is for his history of previous ischemic strokes prior to his hemorrhagic stroke Continue atorvastatin 80 mg p.o. every morning -Checked CT angiogram head and neck-shows moderate bilateral RENA-needs outpatient vascular surgery follow-up (7) DM (diabetes mellitus), type 2: Plan: Overall, well controlled diabetes. Last hemoglobin A1c 06/04/2023 = 6.5 With low to normal blood sugars here We will hold metformin from home Decrease Lantus to 7 units once daily Insulin sliding scale Goal blood sugar 110-140 while inpatient (8) Nodular thyroid disease: Plan: Thyroid nodule noted on PET scan earlier this year With large thyroid goiter noted on CT angiogram of the neck TSH here normal at 2.0 Follow-up as an outpatient (9) Neuroendocrine carcinoma metastatic to liver: Plan: Has known carcinoid but further evaluation and treatment for this has been delayed due to his hemorrhagic strokes Recommend follow-up with oncology as an outpatient Diagnosed in November 2021, underwent biopsy of liver lesions by interventional radiology with evidence of neuroendocrine tumor. Due to the slow-growing nature, has been undergoing outpatient follow-up with primary care and surgical services. (10) Carotid stenosis, bilateral: Plan: As noted above, 50-69% on the right and 50% on the left Needs outpatient vascular surgery follow-up Continue aspirin and statin (11) Aortic stenosis: Plan: Now moderate-severe on ECHO 08/25 Discussed with patient and his and daughter Follow-up with cardiology as an outpatient Plan DVT prophylaxis-SCDs Disposition-continued stay, PT/OT recommending rehab placement-referrals made and is accepted on 08/29 Medically stable for discharge Admission and Anticipated Discharge Date Admission Date: August 26, 2023 Subjective Pt feeling well today and asks me if I have a million bucks or otherwise a jug of whiskey. at bedside reports he is back to his usual self and is pleased with this. Still with some dizziness. No other acute issues, is eating and drinking, no pain. Physical Exam Constitutional: WD/WN, vitals as above Respiratory: normal respiratory effort, lungs clear to auscultation Cardiovascular: RRR, no murmur, no edema Gastrointestinal (Abdomen): normal bowel sounds, soft, nontender, no hepatosplenomegaly Neurologic: moves all extremities and awake; no focal motor deficits and not confused Psychiatric: Orientation: alert, oriented to person, oriented to place and cooperative Results & Data Results & Data Vital Signs (Past 12 Hours) Vital Signs Temp Pulse Pulse Resp BP BP Pulse Ox 08/27/23 14:20 36.4 C L 59 L 14 130/60 99 08/27/23 11:59 36.7 C 61 16 162/61 H 97 08/27/23 09:49 08/27/23 08:08 36.6 C 62 18 154/69 H 98 O2 Del Method 08/27/23 14:20 Room Air 08/27/23 11:59 Room Air 08/27/23 09:49 Room Air 08/27/23 08:08 Room Air Laboratory Results CBC, BMP, magnesium reviewed Diagnostic Findings shunt series reviewed PG Care Time/CCT Total # of Minutes Spent Total Time Spent with Patient: Total time spent is greater than 50% in coordination of care (as documented) at patient's floor/unit and/or counseling patient: Coding Level of Care Code 17242 SUB INP/OBS CARE 2/35MIN Diagnoses Dizziness R42 Acute encephalopathy G93.40 Benign hypertension I10 History of SIADH Z86.39 Hyperlipidemia E78.5 Ischemic cerebrovascular accident (CVA) I63.9 DM (diabetes mellitus), type 2 E11.9 Nodular thyroid disease E04.1 Neuroendocrine carcinoma metastatic to liver C7A.8; C7B.8 Carotid stenosis, bilateral I65.23 Aortic stenosis I35.0
[2023-08-28 07:34] VITALS: RESP 16
[2023-08-28] MEDS: LOSARTAN POTASSIUM 50 MG TAB PO SCH ×2 (09:05→19:59)
[2023-08-28] MEDS: SODIUM CHLORIDE 1 GM TABLET PO SCH ×3 (09:05→19:59)
[2023-08-28] MEDS: amLODIPine BESYLATE 5 MG TAB PO SCH (09:05)
[2023-08-28] MEDS: ATORVASTATIN 40 MG TAB PO SCH (09:05)
[2023-08-28] MEDS: predniSONE 20 MG TAB PO SCH (09:06)
[2023-08-28] MEDS: ESCITALOPRAM OXALATE 20 MG TAB PO SCH (09:06)
[2023-08-28] MEDS: LANTUS PER UNIT CHARGE SQ SCH (09:15)
[2023-08-28] MEDS: INSULIN ASPART PER UNIT CHARGE SC SCH ×4 (09:16→19:58)
--- NOTE | 2023-08-28 09:36 | Neurology Progress Note ---
Date of Service August 28, 2023 Assessment & Plan (1) Acute encephalopathy: (2) Cognitive changes: (3) Dizziness: (4) Generalized weakness: (5) Intracranial shunt: (6) Gait disturbance: (7) Idiopathic polyneuropathy: (8) Neuroendocrine carcinoma metastatic to liver: (9) Carotid stenosis, bilateral: Plan This is a very complicated patient from a neurologic standpoint. He has a background of metastatic carcinoid tumor and multiple falls including head trauma with subdural hematomas, intraparenchymal hemorrhage and intraventricular hemorrhage requiring surgical procedures and most recently a ventriculoperitoneal shunt. He is had problems with cognitive issues and confusion with hallucinations, ongoing gait disturbance and urinary incontinence (which I witnessed). Today he is less confused and more pleasant and cooperative On examination he is stable no focal findings The gait disturbance is likely multifactorial, including sensory ataxia from peripheral neuropathy and more central issues. With the incontinence, confusion, and gait disturbance normal pressure hydrocephalus is quite possible. Just because the ventricular size is similar to the previous CT scan, I can not exclude that his shunt is working optimally. With the history of bilateral carotid stenosis I can not exclude decreased cerebral perfusion creating his more recent symptoms. 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 He has hearing loss and tinnitus suggesting inner ear issues, which could also affect his balance. Currently CT angiography showed a 50 % stenosis at the origin of the left ICA and 50-69% stenosis at the origin of the right ICA. This is a little more prominent than it was back in 2020. Recommendations: 1. An MRI of the brain with and without contrast should be obtained in this patient to rule out acute stroke, carcinoid metastases, and inner ear pathology.. If he can not get the MRI here, he should go to [facility] to have the MRI and his shunt recalibrated. 2. Continue 81 mg aspirin for now. Unfortunately, he was not able to continue Plavix because of his falling and intracranial bleeding. 3. Physical and occupational therapy for strengthening and gait training. Apparently he is going to the rehab hospital for further strengthening, August 29 4. A regular PET scan will not assess certain neuroendocrine tumors adequately. A gallium 68 (or newer version of this) CT PET scan should be done to further assess his neuroendocrine tumors. This also is done at [facility]. Overall, I spent a total of 35 minutes with this case including review of records, direct evaluation the patient, report generation, and discussion of the case with the patient and RN at bedside, and Dr. Hoyos including differential diagnosis and treatment options Admission and Anticipated Discharge Date Admission Date: August 26, 2023 Subjective Patient feels improved today compared to admission. He does have a mild bifrontal achy headache but is not confused. He is not dizzy lying down but does get somewhat dizzy sitting up and standing (a woozy movement sensation as opposed to a lightheadedness). Nursing reports no new issues. Glucose was 161 and blood pressure was 143/75. Results & Data Vital Signs (Past 12 Hours) Vital Signs Temp Pulse Resp BP Pulse Ox O2 Del Method 08/28/23 07:32 36.6 C 67 16 143/75 H 95 Room Air 08/27/23 22:23 Room Air Exam (Neuro) Physical Exam: He is awake and alert. Speech is without aphasia or dysarthria. Mood is normal and affect is appropriate. Thought processes are intact to conversation. Extraocular eye muscles are intact without nystagmus. Pupils are 4 mm bilaterally and reactive to light. There is no facial droop. Tongue is midline. With outstretched arms there is no drift. There is no ataxia or tremor with [id number] testing. Strength is 5/5 diffusely in all major muscle groups in arms and legs both proximally and distally. The patient was sat up he had some dizziness which was more of a wooziness. He had some slight nystagmus with right gaze, fast component in the direction gaze. When he stood he similarly had dizziness but I did not note nystagmus. Gait was very tenuous/unstable PG Care Time/CCT Total # of Minutes Spent Total Time Spent with Patient: Total time spent is greater than 50% in coordination of care (as documented) at patient's floor/unit and/or counseling patient: Coding Level of Care Code 15730 SUB INP/OBS CARE 2/35MIN Diagnoses Acute encephalopathy G93.40 Cognitive changes R41.89 Dizziness R42 Generalized weakness R53.1 Intracranial shunt Z98.2 Gait disturbance R26.9 Idiopathic polyneuropathy G60.9 Neuroendocrine carcinoma metastatic to liver C7A.8; C7B.8 Carotid stenosis, bilateral I65.23 Time Spent (min) 35
--- NOTE | 2023-08-28 14:11 | Hospitalist Progress Note ---
Date of Service August 28, 2023 Assessment & Plan (1) Dizziness: Plan: 78-year-old male with history of intracranial hemorrhage status post TURKISH RUBBER shunt placement, hypertension, hyperlipidemia, diabetes and GERD presenting with 10 days of ongoing dizziness, gait instability and falls. Also with increased confusion, hallucinations and behavioral change after starting treatment with meclizine. His dizziness came on after a few days of cold symptoms. He also does have some urinary incontinence and ataxia He is afebrile and no evidence of encephalitis or meningitis Laboratory work-up largely unremarkable to include normal WBC count, no anemia, normal chemistry and renal function. He did have elevated blood glucose at 249 and mild elevation of bilirubin (T. bili = 1.1, D bili = 0.3) UA does not suggest infection. Chest x-ray without infiltrate. CT of the head with stable placement of ventriculostomy tube and no change in size of enlargement of ventricles from previous TSH and ammonia levels are negative. CT of the cervical spine is negative given unwitnessed fall. Shunt xray series shows shunt in good position MRI brain unable to be completed here due to his TURKISH RUBBER shunt-this would require reprogramming after an MRI and we do not have that capability Suspect viral labyrinthitis given cold symptoms prior to onset of dizziness 10 days prior to admission CT angiogram head and neck with mild vertebral artery stenosis, moderate bilateral carotid artery stenosis which may be contributing to poor perfusion of the brain Dizziness ongoing-consulted neurology-appreciate consultation-check ESR, B12, folate, Lyme titer which were all negative. Recommended MRI of the brain and discussion with neurosurgery at [facility]. I did contact Dr. Flores on-call neurosurgeon at [facility]. He thought it was not consistent with infection of the TURKISH RUBBER shunt and that the symptoms of ataxia and incontinence and confusion are not typical signs of dysfunction of the TURKISH RUBBER shunt as well. He did not recommend urgent transfer as the patient was stable. He will arrange close outpatient follow-up with the patient's primary neurosurgeon, Dr. De La Cruz and an outpatient MRI. -Discontinued scheduled meclizine as this likely precipitated his acute delirium that prompted hospitalization -initially wanted to avoid giving high-dose steroids for labyrinthitis as this could also precipitate psychosis and he is already with encephalopathy due to meclizine--> HOWEVER now mentation completely improved with stopping meclizine--> will trial prednisone 40mg po daily for short course to see if helps dizziness-started 08/27 PT/OT evaluations-recommending rehab. Needs vestibular rehab exercises as well (2) Acute encephalopathy: Plan: Most likely secondary to meclizine in the setting of recent head trauma-seems to be improving with stopping meclizine CT head negative Supportive care Does also have a history of metastatic carcinoid and would benefit from follow- up with oncology and potential specific imaging looking for [employer] involvement with testing as per neurology recommendations (3) Benign hypertension: Plan: Blood pressures are continuing to be somewhat elevated-need controlled blood pressures in the history of previous subarachnoid hemorrhage Increased amlodipine to 7.5 mg p.o. daily and consider increasing further by 08/28 if not improving Continue losartan 50 mg p.o. twice daily Continue to monitor -Echocardiogram ordered for murmur-he has known moderate aortic stenosis and now echo with moderate-severe aortic stenosis and mild AI-follow as an outpatient (4) History of SIADH: Plan: Sodium level within normal limits Continue home sodium chloride tablets 1 g p.o. 3 times daily Follow BMP (5) Hyperlipidemia: Plan: Chronic. Stable. Continue atorvastatin 80 mg p.o. every morning (6) Ischemic cerebrovascular accident (CVA): Plan: Patient with history of prior stroke, prior intracranial hemorrhages, placement of TURKISH RUBBER shunt. He follows with neurosurgery at [facility] History of subdural hematoma that was found following a fall in December 2021. Status post right-sided craniotomy and soft left-sided bur hole for surgical evacuation of subdural collections on 01/09/2022. Also underwent bilateral middle meningeal artery embolization on 01/11/2022. He then went on to have another hemorrhagic stroke in 02/2023 with subsequent TURKISH RUBBER shunt placement Continue aspirin 81 mg p.o. every other day which is for his history of previous ischemic strokes prior to his hemorrhagic stroke Continue atorvastatin 80 mg p.o. every morning -Checked CT angiogram head and neck-shows moderate bilateral RENA-needs outpatient vascular surgery follow-up (7) DM (diabetes mellitus), type 2: Plan: Overall, well controlled diabetes. Last hemoglobin A1c 06/04/2023 = 6.5 With low to normal blood sugars here We will hold metformin from home Decrease Lantus to 7 units once daily Insulin sliding scale Goal blood sugar 110-140 while inpatient (8) Nodular thyroid disease: Plan: Thyroid nodule noted on PET scan earlier this year With large thyroid goiter noted on CT angiogram of the neck TSH here normal at 2.0 Follow-up as an outpatient (9) Neuroendocrine carcinoma metastatic to liver: Plan: Has known carcinoid but further evaluation and treatment for this has been delayed due to his hemorrhagic strokes Recommend follow-up with oncology as an outpatient Diagnosed in November 2021, underwent biopsy of liver lesions by interventional radiology with evidence of neuroendocrine tumor. Due to the slow-growing nature, has been undergoing outpatient follow-up with primary care and surgical services. (10) Carotid stenosis, bilateral: Plan: As noted above, 50-69% on the right and 50% on the left Needs outpatient vascular surgery follow-up Continue aspirin and statin (11) Aortic stenosis: Plan: Now moderate-severe on ECHO 08/25 Discussed with patient and his and daughter Follow-up with cardiology as an outpatient Plan DVT prophylaxis-SCDs Disposition-continued stay, PT/OT recommending rehab placement-referrals made and is accepted on 08/29 Medically stable for discharge Admission and Anticipated Discharge Date Admission Date: August 26, 2023 Subjective Still feels dizzy with getting up, otherwise no acute issues Physical Exam Constitutional: WD/WN, vitals as above Respiratory: normal respiratory effort, lungs clear to auscultation Cardiovascular: Rate/Rhythm: regular rate and regular rhythm Heart Sounds: + murmur (2/6 STEVE at RUSB) Gastrointestinal (Abdomen): normal bowel sounds, soft, nontender, no hepatosplenomegaly Neurologic: moves all extremities and awake; no focal motor deficits and not confused Psychiatric: Orientation: alert, oriented to person, oriented to place and cooperative Results & Data Results & Data Vital Signs (Past 12 Hours) Vital Signs Temp Pulse Resp BP Pulse Ox O2 Del Method 08/28/23 10:21 Room Air 08/28/23 07:32 36.6 C 67 16 143/75 H 95 Room Air PG Care Time/CCT Total # of Minutes Spent Total Time Spent with Patient: Total time spent is greater than 50% in coordination of care (as documented) at patient's floor/unit and/or counseling patient: Coding Level of Care Code 72112 SUB INP/OBS CARE 1/25MIN Diagnoses Dizziness R42 Acute encephalopathy G93.40 Benign hypertension I10 History of SIADH Z86.39 Hyperlipidemia E78.5 Ischemic cerebrovascular accident (CVA) I63.9 DM (diabetes mellitus), type 2 E11.9 Nodular thyroid disease E04.1 Neuroendocrine carcinoma metastatic to liver C7A.8; C7B.8 Carotid stenosis, bilateral I65.23 Aortic stenosis I35.0
[2023-08-29] MEDS: amLODIPine BESYLATE 5 MG TAB PO SCH (08:48)
[2023-08-29] MEDS: ATORVASTATIN 40 MG TAB PO SCH (08:48)
[2023-08-29] MEDS: ASPIRIN 81 MG ECTAB PO SCH (08:49)
[2023-08-29] MEDS: LOSARTAN POTASSIUM 50 MG TAB PO SCH (08:49)
[2023-08-29] MEDS: SODIUM CHLORIDE 1 GM TABLET PO SCH (08:49)
[2023-08-29] MEDS: ESCITALOPRAM OXALATE 20 MG TAB PO SCH (08:50)
[2023-08-29] MEDS: predniSONE 20 MG TAB PO SCH (08:50)
[2023-08-29] MEDS: INSULIN ASPART PER UNIT CHARGE SC SCH (09:02)
[2023-08-29] MEDS: LANTUS PER UNIT CHARGE SQ SCH (09:03)
[2023-08-29 11:19] VITALS: TEMP 98.1; O2SAT 98
--- NOTE | 2023-08-29 11:27 | Discharge Summary ---
Discharge Summary Date of Service August 29, 2023 Notes For Next Care Provider Medication Changes From Visit Discontinued meclizine Added prednisone 40mg po x 4 more days Increased amlodipine to 7.5mg po daily Admission HPI Per Admitting Provider Chris Lynn is a 78-year-old male with history of hemorrhagic stroke, TECHNICAL SUPPORT ASSISTANT shunt in place, diabetes, hyperlipidemia, sleep apnea and GERD presenting from home with 10 days of dizziness, ambulatory dysfunction. Patient was in his usual state of health until the evening of 08/14/2023 when he developed acute onset of dizziness/vertigo, feeling that the room is spinning as well as nausea with multiple episodes of nonbloody/nonbilious emesis. Also with gait instability and ambulatory dysfunction. Also reports vague upper respi ratory symptoms at that as well. Patient's symptoms persisted and he was seen by his primary care physician on 08/19/2025. Patient had testing performed for COVID and influenza as possible sources of acute labyrinthitis which were negative. He was prescribed meclizine 25 mg p.o. every 8 hours as needed for treatment of presumed vertigo. Patient took several doses of meclizine which helped with the vomiting however, he continued to have ambulatory dysfunction and gait instability. His reports that he fell 2 times over the past several days. The first 1 being a soft fall that was witnessed by family, the second fall was unwitnessed. states that he may have struck his head. Patient does not recall details of this fall. Over the past several days he has been more confused and has been having some hallucinations as wellseeing people in his basement that are not really there. Today patient became somewhat combative which is entirely out of character for him. He also was unable to get out of bed due to persistent weakness. reports that at baseline patient ambulates with a cane. He does need some assistance with dressing and performing hygiene. He does have some infrequent episodes of confusion. Over the past several days he has been requiring more assistance and has been using a wheelchair at home. Also has been more persistently confused. In the ER, patient afebrile, hypertensive with episodes of bradycardia (heart rate in the 40s to 50s which she has demonstrated before upon review of vitals) ER course: Normal saline x1 L bolus Principal Dx & Hospital Course #1 = Principal Diagnosis (1) Dizziness: 78-year-old male with history of intracranial hemorrhage status post TECHNICAL SUPPORT ASSISTANT shunt placement, hypertension, hyperlipidemia, diabetes and GERD presenting with 10 days of ongoing dizziness, gait instability and falls. Also with increased confusion, hallucinations and behavioral change after starting treatment with meclizine. His dizziness came on after a few days of cold symptoms. He also does have some urinary incontinence and ataxia He is afebrile and no evidence of encephalitis or meningitis Laboratory work-up largely unremarkable to include normal WBC count, no anemia, normal chemistry and renal function. He did have elevated blood glucose at 249 and mild elevation of bilirubin (T. bili = 1.1, D bili = 0.3) UA does not suggest infection. Chest x-ray without infiltrate. CT of the head with stable placement of ventriculostomy tube and no change in size of enlargement of ventricles from previous TSH and ammonia levels are negative. CT of the cervical spine is negative given unwitnessed fall. Shunt xray series shows shunt in good position MRI brain unable to be completed here due to his TECHNICAL SUPPORT ASSISTANT shunt-this would require reprogramming after an MRI and we do not have that capability Suspect viral labyrinthitis given cold symptoms prior to onset of dizziness 10 days prior to admission CT angiogram head and neck with mild vertebral artery stenosis, moderate bilateral carotid artery stenosis which may be contributing to poor perfusion of the brain Dizziness ongoing-consulted neurology-appreciate consultation-check ESR, B12, folate, Lyme titer which were all negative. Recommended MRI of the brain and discussion with neurosurgery at [facility]. I did contact Dr. Flores on-call neurosurgeon at [place]. He thought it was not consistent with infection of the TECHNICAL SUPPORT ASSISTANT shunt and that the symptoms of ataxia and incontinence and confusion are not typical signs of dysfunction of the TECHNICAL SUPPORT ASSISTANT shunt as well. He did not recommend urgent transfer as the patient was stable. He will arrange close outpatient follow-up with the patient's primary neurosurgeon, Dr. De La Cruz and an outpatient MRI. -Discontinued scheduled meclizine as this likely precipitated his acute delirium that prompted hospitalization -initially wanted to avoid giving high-dose steroids for labyrinthitis as this could also precipitate psychosis and he is already with encephalopathy due to meclizine--> HOWEVER now mentation completely improved with stopping meclizine--> will trial prednisone 40mg po daily for short course x 7 days to see if helps dizziness PT/OT evaluations-recommending rehab. Needs vestibular rehab exercises as well -f/u Neurosurgery as outpt (2) Acute encephalopathy: Most likely secondary to meclizine in the setting of recent head trauma-seems to be improving with stopping meclizine CT head negative Supportive care Does also have a history of metastatic carcinoid and would benefit from follow- up with oncology and potential specific imaging looking for [employer] involvement with testing as per neurology recommendations (3) Benign hypertension: Blood pressures are continuing to be somewhat elevated-need controlled blood pressures in the history of previous subarachnoid hemorrhage Increased amlodipine to 7.5 mg p.o. daily and consider increasing further by 08/28 if not improving Continue losartan 50 mg p.o. twice daily Continue to monitor at rehab -Echocardiogram ordered for murmur-he has known moderate aortic stenosis and now echo with moderate-severe aortic stenosis and mild AI-follow as an outpatient (4) History of SIADH: Sodium level within normal limits Continue home sodium chloride tablets 1 g p.o. 3 times daily Follow BMP as outpt (5) Hyperlipidemia: Chronic. Stable. Continue atorvastatin 80 mg p.o. every morning (6) Ischemic cerebrovascular accident (CVA): Patient with history of prior stroke, prior intracranial hemorrhages, placement of TECHNICAL SUPPORT ASSISTANT shunt. He follows with neurosurgery at [place] History of subdural hematoma that was found following a fall in December 2021. Status post right-sided craniotomy and soft left-sided bur hole for surgical evacuation of subdural collections on 01/09/2022. Also underwent bilateral middle meningeal artery embolization on 01/11/2022. He then went on to have another hemorrhagic stroke in 02/2023 with subsequent TECHNICAL SUPPORT ASSISTANT shunt placement Continue aspirin 81 mg p.o. every other day which is for his history of previous ischemic strokes prior to his hemorrhagic stroke Continue atorvastatin 80 mg p.o. every morning -Checked CT angiogram head and neck-shows moderate bilateral RENA-needs outpatient vascular surgery follow-up (7) DM (diabetes mellitus), type 2: Overall, well controlled diabetes. Last hemoglobin A1c 06/04/2023 = 6.5 With low to normal blood sugars here We will hold metformin from home Decrease Lantus to 7 units once daily Insulin sliding scale Goal blood sugar 110-140 while inpatient (8) Nodular thyroid disease: Thyroid nodule noted on PET scan earlier this year With large thyroid goiter noted on CT angiogram of the neck TSH here normal at 2.0 Follow-up as an outpatient (9) Neuroendocrine carcinoma metastatic to liver: Has known carcinoid but further evaluation and treatment for this has been delayed due to his hemorrhagic strokes Recommend follow-up with oncology as an outpatient Diagnosed in November 2021, underwent biopsy of liver lesions by interventional radiology with evidence of neuroendocrine tumor. Due to the slow-growing nature, has been undergoing outpatient follow-up with primary care and surgical services. (10) Carotid stenosis, bilateral: As noted above, 50-69% on the right and 50% on the left Needs outpatient vascular surgery follow-up Continue aspirin and statin (11) Aortic stenosis: Now moderate-severe on ECHO 08/25 Discussed with patient and his and daughter Follow-up with cardiology as an outpatient Plan DVT prophylaxis-SCDs Disposition-dc to SNF for rehab Medically stable for discharge Discharge Exam Constitutional WD/WN, vitals as above Respiratory normal respiratory effort, lungs clear to auscultation Cardiovascular Rate/Rhythm: regular rate and regular rhythm Heart Sounds: + murmur (2/6 STEVE at [facility]) Neurologic moves all extremities and awake; no focal motor deficits and not confused Psychiatric Orientation: alert, oriented to person, oriented to place and cooperative Updated Medication List Medication Instructions Recorded Confirmed Type cholecalciferol (vitamin D3) 125 125 mcg PO QAM 06/06/21 08/24/23 History mcg (5,000 unit) capsule lutegold 1 tab PO HS macular degeneration 03/20/22 08/24/23 History blood sugar diagnostic (OneTouch #300 ea 09/19/22 08/24/23 Rx Verio test strips) blood sugar diagnostic (OneTouch #400 ea 09/19/22 08/24/23 Rx Verio test strips) metformin 500 mg tablet,extended 1,000 mg PO QAM 01/25/23 08/24/23 History release 24 hr escitalopram oxalate 20 mg tablet 20 mg PO DAILY #90 tabs 02/12/23 08/24/23 Rx mecobalamin (vitamin B12) 500 mcg 500 mcg PO DAILY 04/01/23 08/24/23 History chewable tablet melatonin 3 mg capsule 3 mg PO HS PRN Sleep 04/01/23 08/24/23 History amlodipine 5 mg tablet 5 mg PO DAILY #90 tabs 04/08/23 08/24/23 Rx losartan 50 mg tablet 50 mg PO BID #180 tabs 04/08/23 08/24/23 Rx aspirin 81 mg tablet,delayed 81 mg PO .EVERY OTHER DAY 04/24/23 08/24/23 History release (Adult Low Dose Aspirin) pantoprazole 40 mg tablet,delayed 40 mg PO DAILY PRN Gastric Reflux 04/24/23 08/24/23 History release sodium chloride 1,000 mg soluble 1,000 mg PO TID 90 days #270 tabs 06/06/23 08/24/23 Rx tablet atorvastatin 80 mg tablet 80 mg PO QAM #90 tabs 06/10/23 08/24/23 Rx blood-glucose meter,continuous #1 ea 06/20/23 08/24/23 Rx (Dexcom G7 Light Bulb Replacer) blood-glucose sensor (Dexcom G7 #9 ea 06/20/23 08/24/23 Rx Sensor device) pen needle, diabetic 31 gauge x #50 ea 06/20/23 08/24/23 Rx 3/16" (BD Ultra-Fine Mini Pen Needle) meclizine 25 mg tablet 25 mg PO Q8H PRN dizziness #60 tabs 08/19/23 08/24/23 Rx insulin glargine U-300 conc 300 10 - 15 unit subcut PM 08/24/23 08/24/23 History unit/mL (1.5 mL) subcutaneous pen (T[employer]alex[employer] SoloStar U-300 Insulin) amlodipine 5 mg tablet (Norvasc) 7.5 mg (1.5 x 5 mg) PO DAILY #45 08/29/23 Rx tabs prednisone 20 mg tablet 40 mg (2 x 20 mg) PO QAM 4 days #8 08/29/23 Rx tabs Hospital Stay Data Consultations 08/24/23 17:15 ED Decision to Admit Stat 08/25/23 10:29 Consult Neurology Routine Diagnostic Imagining Performed 08/24/23 15:02 CT head/brain wo con Stat 08/24/23 21:14 CT cervical spine wo con Urgent 08/26/23 11:23 CT angio head w con Urgent CTA neck with con [CT angio neck with con] Urgent ECHO Pending Results Patient Have Any Pending Studies at Discharge: No Discharge Instructions Given to Patient (Per Discharging Provider) You were admitted with confusion related to meclizine and this resolved with stopping that medication. Your dizziness is likely from an inner ear infection/inflammation from your recent cold virus 2 weeks ago. This is being treated with steroids (prednisone) and you will need vestibular rehabilitation/exercises. Please follow up with your Neurosurgeon within the next 2 weeks and he is likely to be arranging a repeat brain MRI for you at [place]. You were found to have moderate-severe aortic stenosis (a calcified heart valve) on your echocardiogram and this will need to be followed over time by your Flat Screen Worker. You also need to schedule a follow up with your Oncologist regarding your carcinoid tumor if you haven't already. Your blood pressures were elevated and therefore your amlodipine dose was increased to 7.5mg daily. This may need further adjustment if your blood pressures continue to be elevated. Total Time Total Time Spent Total Time Spent (In Minutes): 35 min Coding Level of Care Code 42624 INP/OBS DISCH >30 MIN Diagnoses Dizziness R42 Acute encephalopathy G93.40 Benign hypertension I10 History of SIADH Z86.39 Hyperlipidemia E78.5 Ischemic cerebrovascular accident (CVA) I63.9 DM (diabetes mellitus), type 2 E11.9 Nodular thyroid disease E04.1 Neuroendocrine carcinoma metastatic to liver C7A.8; C7B.8 Carotid stenosis, bilateral I65.23 Aortic stenosis I35.0
[2023-08-29 11:37] VITALS: BP 137/72; PULSE 58
--- OUTSIDE RECORDS SUMMARY | 2023-08-30 10:59 | External Medical Summary | Continuity of Care Document ---
Author Name Unknown Organization [place] [address] [address]CRUZ [address] [place] [address] [place] [id number] Care Team Providers Care Banbury Machine Operator Name Role Phone Clary Yost Primary Care Physician [phone] Encounter [facility] FINNBR [id number] Date(s): 06/12/23 - 06/12/23 [place] [address] [address] OLE[address] 1200 [facility] Neurosurgery [address], [address], [address] [place] [address] [phone] Encounter Diagnosis Ventriculo-peritoneal shunt status(Discharge Diagnosis) - 06/12/23 Discharge Disposition: Home or Self Care Attending Physician: MD De La Cruz Scott D Referring Physician: HAMMAD Yost Candace Allergies, Adverse Reactions, Alerts Substance Reaction Severity Status lisinopril cough Active Assessment and Plan Extracted from: Title:TeleHealth Visit Note Author:MD Jono, Deacon march D Date:06/12/23 S/p VPS after ICH/IVH -Will order CT head at [facility] to eval for over drainage/SDH Immunizations Not Given Vaccine Date Status Refusal Reason influenza virus vaccine, inactivated 01/07/22 Not Given Parent Or Guardian Refuses influenza virus vaccine, inactivated 09/06/14 Not Given Patient Refuses pneumococcal 23-valent vaccine 09/06/14 Not Given Patient Refuses Medications atorvastatin 80 mg oral tablet Start: 03/01/23 7:49:00 EDT, 1 tab, PO, qhs Start Date: 03/01/23 Status: Ordered CeleBREX 100 mg oral capsule Start: 04/10/23 10:21:00 EDT, 1 cap, PO, Daily Start Date: 04/10/23 Status: Ordered HumuLIN Regular Vial 100 units/mL injectable solution Start: 03/12/23 15:41:00 EDT, 20 unit =, subQ, qhs Start Date: 03/12/23 Status: Ordered Lexapro 20 mg oral tablet Start: 04/10/23 10:20:00 EDT Start Date: 04/10/23 Status: Ordered losartan 50 mg oral tablet Start: 03/12/23 15:43:00 EDT, 1 tab, PO, bid Start Date: 03/12/23 Status: Ordered Melatonin Start: 04/03/23 15:51:00 EDT Start Date: 04/03/23 Status: Ordered metFORMIN Start: 04/03/23 15:53:00 EDT Start Date: 04/03/23 Status: Ordered Multiple Vitamins oral capsule Start: 07/10/17 9:00:00, 1 cap, PO, Daily Start Date: 07/10/17 Status: Ordered Norvasc 5 mg oral tablet Start: 03/12/23 15:41:00 EDT, 1 tab, PO, Daily Start Date: 03/12/23 Status: Ordered Protonix Start: 04/03/23 15:52:00 EDT Start Date: 04/03/23 Status: Ordered Remeron Start: 04/03/23 15:51:00 EDT Start Date: 04/03/23 Status: Ordered sodium chloride 1000 mg oral tablet Start: 03/12/23 15:43:00 EDT, 2 tab, PO, tid Start Date: 03/12/23 Status: Ordered Vitamin B12 Start: 04/03/23 15:53:00 EDT Start Date: 04/03/23 Status: Ordered Vitamin D3 5000 intl units (125 mcg) oral capsule Start: 12/02/21 11:32:00 EST, 1 cap, PO, Daily Start Date: 12/02/21 Status: Ordered Problem List Condition Confirmation Course Effective Dates Status H ealth Status Informant Aneurysm, ascending aorta Confirmed Active Stroke Confirmed Active Diabetes Confirmed Active Acute subdural hematoma Confirmed Active Hypertension Confirmed Active Intraparenchymal hematoma of brain Confirmed Active Heme positive stool Confirmed Active Skin lesion Confirmed Active Odynophagia Confirmed Active Tobacco user Confirmed Active Diagnosis Diagnosis Type Effective Dates Health Status Cl inical Service Informant Ventriculo-perit marino shunt status Discharge Diagnosis 06/12/23 Procedures Procedure Date Related Diagnosis Body Site Status CT of abdomen and pelvis 1 11/21/[address] of abdomen and pelvis 2 01/21/[address] of abdomen and pelvis 3 01/04/22 Completed Shave biopsy and cauterization of skin 11/14/21 Completed Mohs micrographic surgery 4 08/14/17 Completed Curettage and cauterization of skin lesion 5 07/10/[address] angiography 6 09/04/14 Complete d Arthroscopy of knee 1971 Compl eted 11) 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 Slight increase in size of a lobulated3.1 cm right lower lobe mesenteric mass. 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 2) No acute process within the abdomen or pelvis. 3) Colonic diverticulosis. No evidence for acute diverticulitis. 4) Portion of the sigmoid colon within a left inguinal hernia. No bowel obstruction. 21) no acute process within the abdomen or pelvis on unenhanced exam 2) Redemonstration of a 3 cm lobulated right lower quadrant mesenteric mass. 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 Multiple hepatic lesions are better depicted on prior contrast enhanced CT and are suspicious for hepatic carcinoid metastases. 3) Portion of the sigmoid colon within a left inguinal hernia. No bowel obstruction. 4) Sigmoid diverticulosis. No evidence for acute diverticulitis. 3There is a soft tissue mass in the right lower quadrant with surrounding vascularity compatible with carcinoid tumor. 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 4left orthodoxy 5left temporal hairline 6CT angiography of chest--left lobe thyroid enlarged and heterogenous, 3 mm nodule RLL, ascending aorta dilated, possible dissection mid desc thoracic aorta, recommendation for thyroid u/s done and then for RLL lung nodule reevaluate in 6 months. Social History Social History Type Response Smoking Status Never smoked cigaret viviana Sex Male Implantable Device List Procedure Provider Procedure Date Device Type Site Unknown Unknown 03/07/23 Unknown Unknown Device Identifier Serial Number Lot or Batch Number Manufacturing Date Expiration Date Distinct Identification Code MRI Safety Implantable Status Assigning Authority Unknown Unknown [id number] Unknown Unknown Unknown Unknown Active Unk nown Unknown Unknown [id number] Unknown 03/07/27 Unknown Unknown Active Unk nown Unknown Unknown [id number] Unknown 11/20/23 Unknown Unknown Active Unk nown Procedure Provider Procedure Date Device Type Site Unknown Unknown 01/09/22 Unknown Unknown Device Identifier Serial Number Lot or Batch Number Manufacturing Date Expiration Date Distinct Identification Code MRI Safety Implantable Status Assigning Authority Unknown Unknown [id number] Unknown 06/20/24 Unknown Unknown Active Unk nown Unknown Unknown n/a Unknown Unknown Unknown Unknown Active Unkn own Unknown Unknown n/a Unknown Unknown Unknown Unknown Active Unkn own Unknown Unknown n/a Unknown Unknown Unknown Unknown Active Unkn own Neurosurgery Outpt Note * MD Jono, Emanuel Wadsworth: PERFORM Event Display: Neurosurgery Outpt Note Authored Date: TeleHealth Visit Note I have confirmed the patients name and date of . The patient has consented to this service,and I have advised the patient that this is a billable visit for which they may be subject to a copay. [ _x ] The patient has initiated this visit after he/she was informed of the availability of telehealth for this medically necessary visit. [ _ ] The provider initiated this visit after explaining the need for this visit to the patient, who has consented to this virtual visit. I am located at my: [ _x ] Office [ _ ] Home [ _ ] Other: _ The patient is located at: [ _x ] Home [ _ ] Other: _ This visit was conducted via live audio/video technology: [ _x ] [facility] [ _ ] Zoom This visit was conducted via [ _ ] Telephone, and was not related to a visit or procedure that occurred within the past 7 days. Telephone Only Visit: Reason for audio only visit was [ _ ] no internet connection available [ _ ] Other: _. Total time spent communicating with the patient: 10_ minutes Chief Complaint Follow up History of Present Illness Patient complains of daily headaches on the L, worse with up and better with laying down. Has tried nasocort without relief. Always gets better with tylenol. Otherwise doing well, ambulating and mentating at baseline Physical Exam A and O x 3, speech fluent Assessment/Plan S/p VPS after ICH/IVH -Will order CT head at [facility] to eval for over drainage/SDH Attestation I spent 20 minutes today in face to face and non face to face visits for this patient. Problem List/Past Medical History Ongoing Acute subdural hematoma Aneurysm, ascending aorta Diabetes Heme positive stool Hypertension Intraparenchymal hematoma of brain Odynophagia Skin lesion Stroke Tobacco user Procedure/Surgical History CT of abdomen and pelvis (11/21/2022)CT of abdomen and pelvis (01/21/2022)CT of abdomen and pelvis (01/04/2022)Shave biopsy and cauterization of skin (11/14/2021)Mohs micrographic surgery (08/14/2017)Curettage and cauterization of skin lesion (07/10/2017)CT angiography (09/04/2014)Arthroscopy of knee (1970) Medications amLODIPine(Norvasc 5 mg oral tablet), 5 mg= 1 tab, PO, Daily atorvastatin(atorvastatin 80 mg oral tablet), 80 mg= 1 tab, PO, qhs celecoxib(CeleBREX 100 mg oral capsule), 100 mg= 1 cap, PO, Daily cholecalciferol(Vitamin D3 5000 intl units (125 mcg) oral capsule), 125 mcg= 1 cap, PO, Daily cyanocobalamin(Vitamin B12) escitalopram(Lexapro 20 mg oral tablet) insulin regular(HumuLIN Regular Vial 100 units/mL injectable solution), 20 unit, subQ, qhs losartan(losartan 50 mg oral tablet), 50 mg= 1 tab, PO, bid melatonin(Melatonin) metFORMIN mirtazapine(Remeron) multivitamin(Multiple Vitamins oral capsule), 1 cap, PO, Daily pantoprazole(Protonix) sodium chloride(sodium chloride 1000 mg oral tablet), 2 g= 2 tab, PO, tid Allergies lisinoprilcough Social History Smoking Status Never smoked cigarettes Alcohol - Low Risk Use:Current Frequency:1-2 times per month Employment/School - Not employed or in school Substance Abuse - Denies Substance Abuse Tobacco - High Risk Family History Diabetes...: Father. Heart disease: Mother, Father and Sister. Type II diabetes mellitus: Father. Health Status Family Member(s) Immunizations Vaccine Date Status influenza virus vaccine, inactivated - Not Given Comments : Parent Or Guardian Refuses influenza virus vaccine, inactivated - Not Given Comments : Patient Refuses pneumococcal 23-valent vaccine - Not Given Comments : Patient Refuses Recommendations Health Maintenance Pending(in the next year) OverDue Diabetic Eye Exam due12/01/22and every 1year Body Mass Index due03/09/23and every 1year Adult Influenza Vaccine due04/20/23and every 1year Due Adult COVID-19 Vaccination due06/12/23Unknown Frequency Adult Tdap/Td Vaccine due06/12/23Unknown Frequency Hepatitis C Screening due06/12/23One-time only Medicare Annual Wellness Visit due06/12/23and every 1year Pneumococcal Vaccine Older Adults due06/12/23One-time only Shingles Vaccine due06/12/23One-time only Due In Future Diabetes Management A1c not due until02/29/24and every 1year Satisfied(in the past 1 year) Satisfied Body Mass Index on02/28/23.Satisfied by LAYLA Vann Jenny Diabetes Management A1c on02/28/23.Satisfied by Contributor_system, [email or web address] Diabetes Nephropathy Management on03/06/23.Satisfied by Contributor_system, [email or web address] Electronic Signature on File Electronically Reviewed/Signed by: Emanuel De La Cruz MD Author Signature Dt/Tm:06/12/2023 11:32 AM Department of Neurosurgery SDS Patient Care team information Care Team Personnel Name: BIANCA Prado Ashley Position: Physician Mixing And Molding Machine Operator - Neurosurgery Member Role: Lifetime Relationship Address: Address: [address] [place] [address] [place] Name: Sheryl Dunham Position: HIS Supervisor_P Member Role: HIS Lifetime Name: HAMMAD Yost Candace Position: Referring Member Role: Primary Care Provider Address: Address: [address] [place] [address] [place] Name: BIANCA Chen Lynn Position: Physician Mixing And Molding Machine Operator Exempt - Vasc Surg Member Role: Lifetime Relationship Address: Address: [address] [place] [address] [place] Name: Samm George Kyle Position: Pharmacist Member Role: Pharmacy - Lifetime Address: Address: [address] [place] [address] Care Team Related Persons Name: ANAT VARELA Address: home [address] [place], [place] [id number] Name: JAMES VARELA
--- OUTSIDE RECORDS SUMMARY | 2023-08-30 10:59 | External Medical Summary | Continuity of Care Document ---
Author Name Unknown Organization [place] [address] [address]ESIKA DELACRUZ [address] [place] [address] [place] [id number] Care Team Providers Care Community Services Manager Name Role Phone Clary Yost Primary Care Physician [phone] Encounter [facility] FINNBR [id number] Date(s): 08/14/23 - 08/14/[address] OLEARY 1200 [facility] Neurosurgery [address] [place] [address] [phone] Encounter Diagnosis Intraparenchymal hematoma of brain(Discharge Diagnosis) - 08/14/23 Discharge Disposition: Home or Self Care Attending Physician: MD De La Cruz Scott D Referring Physician: HAMMAD Yost Candace Allergies, Adverse Reactions, Alerts Substance Reaction Severity Status lisinopril cough Active Assessment and Plan Extracted from: Title:TeleHealth Visit Note Author:MD Jono, Deacon march D Date:08/14/23 Intraparenchymal hematoma of brain I let the patient and his knowthat I felt he did not need to see me unless there was some change in symptoms. They are very pleased with her care Immunizations Not Given Vaccine Date Status Refusal [...] Diagnosis Diagnosis Type Effective Dates Health Status Clinical Service Informant Intraparenchymal hematoma of brain Discharge Diagnosis 08/14/23 Procedures Procedure Date Related Diagnosis Body Site [...] represent foci of metastatic carcinoid disease. 4left catholic 5left temporal hairline 6CT angiography of chest--left [...] Safety Implantable Status Assigning Authority Unknown Unknown [id number] Unknown Unknown Unknown Unknown Active Unk nown Unknown Unknown [id number] Unknown 03/07/27 Unknown Unknown Active Unk nown Unknown Unknown [id number] Unknown 11/20/23 Unknown Unknown Active Unk nown Procedure Provider Procedure Date Device Type Site Unknown Unknown 01/09/22 Unknown Unknown Device Identifier Serial Number Lot or Batch Number Manufacturing Date Expiration Date Distinct Identification Code MRI Safety Implantable Status Assigning Authority Unknown Unknown [id number] Unknown 06/20/24 Unknown Unknown Active Unk nown Unknown Unknown n/a Unknown Unknown Unknown Unknown Active Unkn own Unknown Unknown n/a Unknown Unknown Unknown Unknown Active Unkn own Unknown Unknown n/a Unknown Unknown Unknown Unknown Active Unkn own Neurosurgery Outpt Note * MD Jono, Emanuel D: PERFORM Event Display: Neurosurgery Outpt Note Authored Date: [id number] TeleHealth Visit Note I have confirmed the [...] _ The patient is located at: [ _ x] Home [ _ ] Other: _ This visit was conducted via live audio/video technology: [ _ ] [facility] [ _ ] Zoom This visit was conducted via [ _x ] Telephone, and was not related to a visit or procedure that occurred within the past 7 days. Telephone Only Visit: Reason for audio only visit was [ _ ] no internet connection available [ _ ] Other: _patient pref. Total time spent communicating with the patient: 10_ minutes Chief Complaint Intraparenchymal hemorrhage, intraventricular hemorrhage,ventriculoperitoneal shunt History of Present Illness This is a 78-year-old gentleman who presented withbasal ganglia hemorrhagewith significant intraventricular component. He did develop hydrocephalusand had a significant improvement of symptoms with lumbar puncture and therefore he had a ventriculoperitoneal shunt. The patient is on the phone visitwith his wifeand they reports that he is doing rather well although he does have occasional headaches. He had some hearing loss in his right ear but he got some drops for wax and this seems to have resolved. Physical Exam On the phone the patient is awake, alert, and oriented. Radiology: The patient had a CT scanwhich was sent to us for review. I reviewed the images myself and I believe that it shows complete resolution ofleft basal ganglia and intraventricular hemorrhagewith no change in bilateral basal ganglia calcifications. There is a well-placed shuntand there is no sign ofhygroma or over drainage. Assessment/Plan Intraparenchymal hematoma of brain I let the patient and his knowthat I felt he did not need to see me unless there was some change in symptoms. They are very pleased with her care Attestation I spent 20 minutes today in [id number] and xth-[id number] activities for this visit Problem List/Past Medical History Ongoing Acute subdural [...] the next year) OverDue Diabetic Eye Exam due12/02/22and every 366day Body Mass Index due03/09/23and every 1year Adult Influenza Vaccine due04/20/23and every 1year Due Adult COVID-19 Vaccination due08/14/23Unknown Frequency Adult Tdap/Td Vaccine due08/14/23Unknown Frequency Hepatitis C Screening due08/14/23One-time only Medicare Annual Wellness Visit due08/14/23and every 1year Pneumococcal Vaccine Older Adults due08/14/23One-time only Shingles Vaccine due08/14/23One-time only Due In Future Diabetes Management A1c not due until02/29/24and every 1year Satisfied(in the past 1 year) Satisfied Body Mass Index on02/28/23.Satisfied by LAYLA Vann, [place] Diabetes Management A1c on02/28/23.Satisfied by Contributor_system, [employer] Diabetes Nephropathy Management on03/06/23.Satisfied by Contributor_system, [email or web address] Electronic Signature on File Electronically Reviewed/Signed by: Emanuel De La Cruz MD Author Signature Dt/Tm:08/14/2023 01:00 PM Department of Neurosurgery SDS Patient Care team information Care Team Personnel Name: BIANCA Prado Ashley Position: Physician Snap Shearer - Neurosurgery Member Role: Lifetime Relationship Address: Address: [address] [address] [place] Name: Sheryl Dunham Position: HIS Supervisor_P Member Role: HIS Lifetime Name: HAMMAD Yost Candace Position: Referring Member Role: Primary Care Provider Address: Address: [address] [place] [address] [place] Name: BIANCA Chen Lynn Position: Physician Snap Shearer Exempt - Vasc Surg Member Role: Lifetime Relationship Address: Address: [address] [place] [address] [place] Name: Samm George Kyle Position: Pharmacist Member Role: Pharmacy - Lifetime Address: Address: [address] [place], [place] [address] Care Team Related Persons Name: ANAT VARELA Address: home [address] [facility] [place] [phone] Name: JAMES VARELA
== END 2023-08-29 12:23 | DRG 149 ==
LOC: ED 14:40 → 3N 14:40 → SUATTDRO 18:18 → 3N 20:25
DX: E11.65 Type 2 diabetes mellitus with hyperglycemia; Z79.4 Long term (current) use of insulin; R44.3 Hallucinations, unspecified; B34.9 Viral infection, unspecified; I65.23 Occlusion and stenosis of bilateral carotid arteries; Z98.2 Presence of cerebrospinal fluid drainage device; Z88.8 Allergy status to other drugs, medicaments and biological substances; C78.7 Secondary malignant neoplasm of liver and intrahepatic bile duct; K21.9 Gastro-esophageal reflux disease without esophagitis; C7B.8 Other secondary neuroendocrine tumors; Y92.009 Unspecified place in unspecified non-institutional (private) residence as the place of occurrence of the external cause; E78.5 Hyperlipidemia, unspecified; R27.0 Ataxia, unspecified; G60.9 Hereditary and idiopathic neuropathy, unspecified; G47.30 Sleep apnea, unspecified; R29.6 Repeated falls; E04.1 Nontoxic single thyroid nodule; Z86.16 Personal history of COVID-19; R53.1 Weakness; I35.0 Nonrheumatic aortic (valve) stenosis; Z87.891 Personal history of nicotine dependence; T45.0X5A Adverse effect of antiallergic and antiemetic drugs, initial encounter; Z86.73 Personal history of transient ischemic attack (TIA), and cerebral infarction without residual deficits; G92.8 Other toxic encephalopathy; I10 Essential (primary) hypertension; H83.09 Labyrinthitis, unspecified ear

== ENCOUNTER 2024-02-26 17:28 | Inpatient (IN) ==
--- NOTE | 2024-02-26 17:33 | ED Triage Note ---
Date of Service February 26, 2024 Provider in Triage Author: Ngoc Rios History of Present Illness This patient was briefly evaluated while in triage. An abbreviated physical exam was performed. 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 Swelling and bulging around the shunt. Physical Exam Initial orders for labs and / or imaging were placed and patient was placed in the waiting area until a bed is available. Please see further documentation for the full ED course.
[2024-02-26 18:24] LABS: Basophils # (auto) 0.07 K/uL (0.00-0.20); Basophils % (auto) 0.9 %; Eosinophils % (auto) 2.5 %; Hemoglobin 12.9 g/dl (14.0-18.0); Immature Granulocytes # (auto) 0.05 K/uL (0.01-0.20); Immature Granulocytes % (auto) 0.6 %; Lymphocytes # (auto) 1.65 K/uL (1.20-3.40); Lymphocytes % (auto) 20.5 %; Mean Corpuscular Hemoglobin 28.4 pg (25.0-34.0); Mean Corpuscular Hgb Conc 33.1 g/dL (32.0-36.0); Mean Corpuscular Volume 85.9 fL (80.0-100.0); Monocytes # (auto) 0.65 K/uL (0.11-0.59); Monocytes % (auto) 8.1 %; Neutrophils # (auto) 5.43 K/uL (1.40-6.50); Neutrophils % (auto) 67.4 %; Platelet Count 254 K/uL (130-400); RDW Coefficient of Variation 14.4 % (11.5-14.5); RDW Standard Deviation 44.6 fL (36.4-46.3); Red Blood Count 4.54 M/uL (4.70-6.10); White Blood Count 8.05 K/ul (4.8-10.8)
[2024-02-26 18:39] LABS: Alanine Aminotransferase 16 U/L (7-52); Albumin Globulin Ratio 1.2 (0.9-2); Albumin Level 3.5 gm/dl (3.4-5.0); Alkaline Phosphatase 119 U/L (34-104); Anion Gap 8 (3-11); Aspartate Aminotransferase 13 U/L (13-39); BUN Creatinine Ratio 21.1 (10-20); Bilirubin,Total 1.2 mg/dl (0.2-1.0); Blood Urea Nitrogen 12 mg/dl (6-23); Calcium 9.1 mg/dl (8.6-10.3); Carbon Dioxide 24 mmol/L (21-32); Chloride 104 mmol/L (98-107); Est GFR (Non-African American) 98.4 ml/min; Glucose 242 mg/dl (70-99(Fasting)); Potassium 3.8 mmol/L (3.5-5.1); Sodium 136 mmol/L (136-145); Total Protein 6.5 gm/dl (6.0-8.3)
--- NOTE | 2024-02-26 18:44 | CT Scan Report ---
HEAD CT NONCONTRAST CT DOSE: 703.85 mGy.cm HISTORY: confusion TECHNIQUE: Multiaxial CT images of the head were performed without the use of intravenous contrast. A utomated exposure control was utilized for this study. A dose lowering technique was utilized adheri ng to the principles of ALARA. Comparison: Head CT 08/24/2023. Findings: The paranasal sinuses and mastoid air cells are clear. The calvarium and skull base are int act. There is no mass, hematoma, midline shift, acute infarct. White matter hypodensity is nonspecifi c but suggestive of microvascular ischemic change. The ventricles and sulci demonstrate mild age-rela chinmay involutional changes. The ventricles are stable in size. There is a left frontal approach ventric ulostomy catheter terminating in the right lateral ventricle. This remains unchanged. Basal ganglia a nd cerebellar calcifications are again noted. There is an old right parietal craniotomy site. Motion artifact results in suboptimal evaluation. Impression: 1. Motion artifact. No definite acute intracranial abnormality. 2. Stable position of the left frontal approach ventriculostomy catheter. ACT 112: Negative or not required by law. Electronically signed by: Rei Woodruff M.D. 02/26/2024 6:41 PM
[2024-02-26 18:45] LABS: Troponin I High Sensitivity 10.5 pg/ml (0-20)
--- NOTE | 2024-02-26 19:01 | XRay Report ---
XR skull <4V, XR chest 2V PA/lateral, XR cervical spine 2 or 3V, XR abdomen min 2V CLINICAL HISTORY: Visualize Shunt COMPARISON STUDY: Shunt series 08/26/2023. FINDINGS: There is a left frontal approach ventriculostomy catheter which is unchanged in position. T he visualized shunt tubing appears intact. The tip terminates within the left lower quadrant. Cardiom egaly with mild congestive change. Patchy left basilar densities and a trace left pleural effusion. R ightward deviation of the trachea again noted. IMPRESSION: 1. Left frontal approach ventriculostomy catheter is unchanged in position. The shunt tubing appears intact with the tip terminating in the left lower quadrant. 2. Cardiomegaly with mild congestive change. 3. Patchy left basilar densities and a trace left pleural effusion. ACT 112: Negative or not required by law. Electronically signed by: Rei Woodruff M.D. 02/26/2024 7:00 PM
--- NOTE | 2024-02-26 19:05 | Emergency Department Note ---
Impression & Plan Pneumonia, Intracranial shunt, Gait disturbance, Ambulatory dysfunction ED Provider Note NAME: PERRY VARELA AGE: 78 SEX: M : 1945 ARRIVES VIA: Walk-In INFORMANT: Patient ED PROVIDER(S): Joe Woods DO CHIEF COMPLAINT: Trouble walking, short of breath HPI: Patient is a 78-year-old male with a past medical history of carotid stenosis, idiopathic polyneuropathy neuropathy, dizziness, intracranial shunt, intraparenchymal hemorrhage, seizure-like activity who presents the ER with daughter and present at bedside. They have noticed that today he has been dizzy/unsteady on his feet. He notes that it is worse when he moves his head. He has been having trouble walking and cannot do it on his own today. notes that has been getting more short of breath over the past week as well. He does have a cough but she does not know if this is significantly changed from his baseline. denies any belly pain, nausea, vomiting, or diarrhea. No dysuria, urgency, or frequency. Denies any headache. ADDITIONAL HISTORY OBTAINED: Per HPI Chronic Medical/Social Conditions Affecting Care: Per HPI PAST MEDICAL HISTORY:See Below PAST SURGICAL HISTORY:See Below FAMILY HISTORY:See Below SOCIAL HISTORY:See Below HOME MEDICATIONS:See Below ALLERGIES:See Below VITALS:See Below PHYSICAL EXAMINATION: GENERAL: Sitting up in bed, alert, well appearing, well nourished, no distress, non-toxic EYE EXAM: normal conjunctiva. PERRL and EOM's grossly intact. HEAD: Shunt located on left side of head OROPHARYNX: no exudate, no erythema, lips, buccal mucosa, and tongue normal and mucous membranes are moist NECK: supple, no nuchal rigidity, no adenopathy, non-tender LUNGS: Clear to auscultation. Normal chest wall mechanics HEART: no murmurs, S1 normal and S2 normal ABDOMEN: abdomen soft, non-tender, normo-active bowel sounds, no masses, no rebound or guarding. BACK: Back is symmetrical on inspection and there is no deformity, no midline tenderness, no CVA tenderness. SKIN: no rashes and no bruising UPPER EXTREMITIES: upper extremities are grossly normal. LOWER EXTREMITIES: No pitting edema. NEURO EXAM: Oriented to person, place and year, cranial nerves II-XII intact, normal speech, no weakness of arms, no weakness of legs. No drift. Finger to nose intact. Gross sensation intact. MEDICAL DECISION MAKING: Patient is a 78-year-old male who presents ER for above-stated complaint. He denies all complaints at this time. He is adamant that he has no headache. IV was established blood work was obtained. Neurologically intact. Labs show no significant leukocytosis or anemia. BMP was unremarkable. T. bili slightly up at 1.2. LFTs and troponin were negative. UA was clean. Chest x-ray shows pneumonia/infiltrate. Shunt series was unremarkable. CT of the head showed no significant change per radiology. Patient was given IV Rocephin and azithromycin. He was completely neurologically intact oriented to person place or time and denies any headache. Based on this I favor that the shunt is likely not causing his symptoms. I discussed case with the hospitalist for further evaluation management treatment. Consults/Care Managements Discussions: Per [facility] Triage Nursing notes reviewed. Limited review of prior medical records performed Vital Signs: reviewed and remarkable for HTN Differential diagnosis: Infection, dehydration, metabolic abnormality, hypo/hyperglycemia, electrolyte disturbance, anemia, hypoxia, cardiac sources, intracerebral event, toxicologic, neurologic, as well as other pathologies. ER treatment provided: See below Diagnostics interpreted by me include EKG and cardiac monitoring as listed below: -Cardiac Monitoring: An order was placed for continuous cardiac monitoring. The monitor shows a rate of 70 with sinus rhythm. -ECG: Sinus rhythm rate of 79 Normal axis No PVCs QTc 472 -Laboratory studies:Interpreted by me as stated above in MDM and shown below. 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 no treatment per "it's not affecting his liver function so we are leaving it alone." Liver lesion Mesenteric mass Carotid stenosis neck CTA 08/2023 [place] History of CVA (cerebrovascular accident) 2020. denies residual. DM type 2 (diabetes mellitus, type 2) Anxiety and depression Aortic stenosis mod-severe, not a surgical candidate Hypertension Subdural hematoma hx Aortic aneurysm [place] Cardiology monitoring Macular degeneration Mild sleep apnea Cervicalgia Cervical facet joint syndrome Loss of protective sensation of skin of foot Hyperlipidemia Surgical History Hx of left cataract extraction History of liver biopsy History of hernia repair History of brain shunt Hx of colonoscopy H/O brain surgery decompressional subdural hematoma 12/2021 H/O knee surgery Family History Father , age 67 of heart issues Coronary heart disease Diabetes Myocardial infarction Mother , age 53 of heart issues Myocardial infarction Denies family history of Ovarian cancer Prostate cancer Breast cancer Colorectal cancer Cancer Social History Smoking Status: Former smoker Tobacco Type: Cigars Second Hand Exposure: No; Do You Dip or Chew Tobacco: No; Hx Alcohol Use: No Hx Substance Use: No Preferred Language: Frisian Communication Ability: Effective Visual Impairment: Limited Hearing Ability: Hard of Hearing Program Director Group Work Required: No Beliefs That Will Affect Care: None marital status: Current Living Situation: Spouse Current Living Situation Comment: spouse is pt's caregiver current occupational status: retired 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 How many Children do You have: 2 Other Information That Helps Us Care for You: No Feels Safe at Home: Yes Safety Concerns: Feels Safe At This Time Childhood Exposure to Second-Hand Smoke: No Diet: regular caffeine: Yes (coffee) during the past year weight has: decreased > 10 lbs Dental Care, Regularly: Yes Physical Activity Frequency: 3-4 Times per Week Seatbelt Use: always Sunscreen Use: No Do you think of yourself as: straight/heterosexual Gender Identity: Male Assistive Devices: Cane, Glasses, Walker and Wheelchair Allergies Allergies Allergy/AdvReac Type Severity Reaction Status Date / Time meclizine Allergy "goofy" Verified 02/26/24 21:13 lisinopril AdvReac Intermediate COUGH Verified 02/26/24 21:13 acesulfame AdvReac Diarrhea Verified 02/26/24 21:13 sucralose AdvReac Diarrhea Verified 02/26/24 21:13 [From Splenda (sucralose)] Home Meds Home Medications Medication Instructions Recorded Confirmed cholecalciferol (vitamin D3) 125 125 mcg PO QAM 06/06/21 02/26/24 mcg (5,000 unit) capsule lutegold 1 tab PO HS macular degeneration 03/20/22 02/26/24 mecobalamin (vitamin B12) 500 mcg 500 mcg PO QAM 04/01/23 02/26/24 chewable tablet melatonin 3 mg capsule 3 mg PO HS PRN Sleep 04/01/23 02/26/24 aspirin 81 mg tablet,delayed 81 mg PO .Q3-4 DAYS 04/24/23 02/26/24 release (Adult Low Dose Aspirin) pantoprazole 40 mg tablet,delayed 40 mg PO DAILY PRN Gastric Reflux 04/24/23 02/26/24 release potassium chloride 10 mEq oral 10 meq PO QAM 08/30/23 02/26/24 packet triamcinolone acetonide 55 mcg 1 spray intranasal DAILY PRN 09/27/23 02/26/24 nasal spray aerosol (Nasacort) Congestion sodium chloride 1,000 mg soluble 1,000 mg PO BID 10/02/23 02/26/24 tablet amlodipine 5 mg tablet (Norvasc) 5 mg PO .AFTERNOON 12/26/23 02/26/24 amlodipine 2.5 mg tablet 2.5 mg PO .AFTERNOON 02/26/24 02/26/24 Previous Rx's Medication Instructions Recorded losartan 50 mg tablet 50 mg PO BID #180 tabs 04/08/23 atorvastatin 80 mg tablet 80 mg PO QAM #90 tabs 06/10/23 blood-glucose meter,continuous #1 ea 06/20/23 (Dexcom G7 English Composition Instructor) blood-glucose sensor (Dexcom G7 #9 ea 06/20/23 Sensor device) pen needle, diabetic 31 gauge x #50 ea 06/20/23 3/16" (BD Ultra-Fine Mini Pen Needle) blood sugar diagnostic (OneTouch #300 ea 09/27/23 Verio test strips) metformin 500 mg tablet,extended 500 mg PO BID #180 tabs 10/15/23 release 24 hr dutasteride 0.5 mg capsule 0.5 mg PO DAILY #90 caps 01/02/24 insulin glargine 100 unit/mL (3 16 unit (0.16 mL) subcut QPM #15 mL 01/09/24 mL) subcutaneous pen (Lantus Solostar U-100 Insulin) escitalopram oxalate 20 mg tablet 20 mg PO 1500 #90 tabs 01/10/24 Results & Data (ED) Vital Signs Vital Signs - 24 hr 02/26/24 17:32 02/26/24 19:30 02/26/24 19:32 Temperature 36.9 C Temperature Source Oral Pulse Rate 85 73 79 Pulse Rate from SpO2 Sensor 74 Respiratory Rate 20 16 Respiratory Effort / Characteristics Non-Labored Spontaneous Respiratory Depth Normal Blood Pressure 146/60 H 138/52 L Blood Pressure Mean 88 80 Pulse Oximetry 97 94 Oxygen Delivery Method Room Air Sepsis Recent Fever Within 48 Hours No Sepsis New/Unexplained Change in Mental Status No Sepsis Action Taken by Nursing No Action Required 02/26/24 19:33 02/26/24 19:36 Temperature Temperature Source Pulse Rate Pulse Rate from SpO2 Sensor Respiratory Rate Respiratory Effort / Characteristics Respiratory Depth Blood Pressure Blood Pressure Mean Pulse Oximetry 93 Oxygen Delivery Method Room Air Room Air Sepsis Recent Fever Within 48 Hours Sepsis New/Unexplained Change in Mental Status Sepsis Action Taken by Nursing Laboratory Data 02/26/24 17:59 02/26/24 17:59 Lab Results 02/26/24 02/26/24 Range/Units 17:59 19:36 WBC 8.05 (4.8-10.8) K/ul RBC 4.54 L (4.70-6.10) M/uL Hgb 12.9 L (14.0-18.0) g/dl Hct 39.0 L (42.0-52.0) % MCV 85.9 (80.0-100.0) fL MCH 28.4 (25.0-34.0) pg MCHC 33.1 (32.0-36.0) g/dL RDW Std Deviation 44.6 (36.4-46.3) fL RDW Coeff of Taylor 14.4 (11.5-14.5) % Plt Count 254 (130-400) K/uL MPV 11.0 (9.4-12.4) fL Immature Gran % (Auto) 0.6 % Neut % (Auto) 67.4 % Lymph % (Auto) 20.5 % Baker % (Auto) 8.1 % Eos % (Auto) 2.5 % Baso % (Auto) 0.9 % Neut # (Auto) 5.43 (1.40-6.50) K/uL Lymph # (Auto) 1.65 (1.20-3.40) K/uL Baker # (Auto) 0.65 H (0.11-0.59) K/uL Eos # (Auto) 0.20 (0.00-0.50) K/uL Baso # (Auto) 0.07 (0.00-0.20) K/uL Immature Gran # (Auto) 0.05 (0.01-0.20) K/uL Sodium 136 (136-145) mmol/L Potassium 3.8 (3.5-5.1) mmol/L Chloride 104 (98-107) mmol/L Carbon Dioxide 24 (21-32) mmol/L Anion Gap 8 (3-11) BUN 12 (6-23) mg/dl Creatinine 0.57 L (0.6-1.4) mg/dl Est Cr Clr Drug Dosing Not Reportable Est GFR ( Amer) 114.0 ml/min Est GFR (Non-Af Amer) 98.4 ml/min BUN/Creatinine Ratio 21.1 H (10-20) Glucose 242 H (70-99(Fasting)) mg/dl Calcium 9.1 (8.6-10.3) mg/dl Phosphorus 3.7 (2.5-4.9) mg/dl Magnesium 1.7 (1.7-2.4) mg/dl Total Bilirubin 1.2 H (0.2-1.0) mg/dl AST 13 (13-39) U/L ALT 16 (7-52) U/L Alkaline Phosphatase 119 H (34-104) U/L Troponin I High Sens 10.5 (0-20) pg/ml Total Protein 6.5 (6.0-8.3) gm/dl Albumin 3.5 (3.4-5.0) gm/dl Globulin 3.0 (2.5-4.0) gm/dl Albumin/Globulin Ratio 1.2 (0.9-2) Urine Color Dark Yellow Urine Appearance Clear (Clear) Urine pH 5.5 (4.5-7.5) Ur Specific Martin 1.028 (1.000-1.030) Urine Protein Trace H (Negative) Urine Glucose (UA) 3+ H (Negative) Urine Ketones Trace H (Negative) Urine Blood Negative (Negative) Urine Nitrite Negative (Negative) Urine Bilirubin 1+ H (Negative) Urine Urobilinogen Negative (Negative) Ur Leukocyte Esterase Negative (Negative) Urine WBC (Auto) 0-5 (0-5) /hpf Urine RBC (Auto) 0-2 (0-2) /hpf U Hyaline Cast (Auto) 0-2 (0-2) /lpf U Epithel Cells (Auto) 0-2 (0-2) /hpf Urine Bacteria (Auto) None Seen (None Seen) Urine Mucus Present A (None Prsent) Administered Medications Discontinued Medications Sodium Chloride (Nss) 500 mls @ 999 mls/hr IV .Q31M ONE Stop: 02/26/24 19:33 Last Infusion: 02/26/24 21:54 Dose: Infused Documented By: Admin: 02/26/24 21:12 Dose: 999 mls/hr Documented By: LITA Ceftriaxone Sodium (Rocephin) 2,000 mg in 50 mls @ 100 mls/hr IV NOW STA Stop: 02/26/24 19:34 Last Infusion: 02/26/24 21:53 Dose: Infused Documented By: Admin: 02/26/24 21:11 Dose: 100 mls/hr Documented By: LITA Azithromycin 500 mg/ Dextrose 255 mls @ 127.5 mls/hr IV NOW STA Stop: 02/26/24 21:04 Last Infusion: 02/27/24 00:39 Dose: Infused Documented By: Admin: 02/26/24 21:58 Dose: 127.5 mls/hr Documented By: DEMETRIUS Imaging Data Radiologist's Impression: Head CT 02/26/24 17:[address] DOSE: 703.85 mGy.cm HISTORY: confusion TECHNIQUE: Multiaxial CT images of the head were performed without the use of intravenous contrast. Automated exposure control was utilized for this study. A dose lowering technique was utilized adhering to the principles of ALARA. Comparison: Head CT 08/24/2023. Findings: The paranasal sinuses and mastoid air cells are clear. The calvarium and skull base are intact. There is no mass, hematoma, midline shift, acute infarct. White matter hypodensity is nonspecific but suggestive of microvascular ischemic change. The ventricles and sulci demonstrate mild age-related involutional changes. The ventricles are stable in size. There is a left frontal approach ventriculostomy catheter terminating in the right lateral ventricle. This remains unchanged. Basal ganglia and cerebellar calcifications are again noted. There is an old right parietal craniotomy site. Motion artifact results in suboptimal evaluation. Impression: 1. Motion artifact. No definite acute intracranial abnormality. 2. Stable position of the left frontal approach ventriculostomy catheter. ACT 112: Negative or not required by law. Electronically signed by: Rei Woodruff M.D. 02/26/2024 6:41 PM Abdomen X-Ray 02/26/24 17:35 XR skull <4V, XR chest 2V PA/lateral, XR cervical spine 2 or 3V, XR abdomen min 2V CLINICAL HISTORY: Visualize Shunt COMPARISON STUDY: Shunt series 08/26/2023. FINDINGS: There is a left frontal approach ventriculostomy catheter which is unchanged in position. The visualized shunt tubing appears intact. The tip terminates within the left lower quadrant. Cardiomegaly with mild congestive change. Patchy left basilar densities and a trace left pleural effusion. Rightward deviation of the trachea again noted. IMPRESSION: 1. Left frontal approach ventriculostomy catheter is unchanged in position. The shunt tubing appears intact with the tip terminating in the left lower quadrant. 2. Cardiomegaly with mild congestive change. 3. Patchy left basilar densities and a trace left pleural effusion. ACT 112: Negative or not required by law. Electronically signed by: Rei Woodruff M.D. 02/26/2024 7:00 PM Cervical Spine X-Ray 02/26/24 17:35 XR skull <4V, XR chest 2V PA/lateral, XR cervical spine 2 or 3V, XR abdomen min 2V CLINICAL HISTORY: Visualize Shunt COMPARISON STUDY: Shunt series 08/26/2023. FINDINGS: There is a left frontal approach ventriculostomy catheter which is unchanged in position. The visualized shunt tubing appears intact. The tip terminates within the left lower quadrant. Cardiomegaly with mild congestive change. Patchy left basilar densities and a trace left pleural effusion. Rightward deviation of the trachea again noted. IMPRESSION: 1. Left frontal approach ventriculostomy catheter is unchanged in position. The shunt tubing appears intact with the tip terminating in the left lower quadrant. 2. Cardiomegaly with mild congestive change. 3. Patchy left basilar densities and a trace left pleural effusion. ACT 112: Negative or not required by law. Electronically signed by: Rei Woodruff M.D. 02/26/2024 7:00 PM Chest X-Ray 02/26/24 17:35 XR skull <4V, XR chest 2V PA/lateral, XR cervical spine 2 or 3V, XR abdomen min 2V CLINICAL HISTORY: Visualize Shunt COMPARISON STUDY: Shunt series 08/26/2023. FINDINGS: There is a left frontal approach ventriculostomy catheter which is unchanged in position. The visualized shunt tubing appears intact. The tip terminates within the left lower quadrant. Cardiomegaly with mild congestive change. Patchy left basilar densities and a trace left pleural effusion. Rightward deviation of the trachea again noted. IMPRESSION: 1. Left frontal approach ventriculostomy catheter is unchanged in position. The shunt tubing appears intact with the tip terminating in the left lower quadrant. 2. Cardiomegaly with mild congestive change. 3. Patchy left basilar densities and a trace left pleural effusion. ACT 112: Negative or not required by law. Electronically signed by: Rei Woodruff M.D. 02/26/2024 7:00 PM Skull X-Ray 02/26/24 17:35 XR skull <4V, XR chest 2V PA/lateral, XR cervical spine 2 or 3V, XR abdomen min 2V CLINICAL HISTORY: Visualize Shunt COMPARISON STUDY: Shunt series 08/26/2023. FINDINGS: There is a left frontal approach ventriculostomy catheter which is unchanged in position. The visualized shunt tubing appears intact. The tip terminates within the left lower quadrant. Cardiomegaly with mild congestive change. Patchy left basilar densities and a trace left pleural effusion. Rightward deviation of the trachea again noted. IMPRESSION: 1. Left frontal approach ventriculostomy catheter is unchanged in position. The shunt tubing appears intact with the tip terminating in the left lower quadrant. 2. Cardiomegaly with mild congestive change. 3. Patchy left basilar densities and a trace left pleural effusion. ACT 112: Negative or not required by law. Electronically signed by: Rei Woodruff M.D. 02/26/2024 7:00 PM Discharge Plan Visit Data Chief Complaint: Confusion Stated Complaint: BRAIN SHUNT, SWELLING, DIZZINESS, CONFUSION ED Provider: Joe Woods Discharge Problem: Pneumonia, Intracranial shunt, Gait disturbance, Ambulatory dysfunction Discharge Problem: Pneumonia Qualifiers: Pneumonia type: due to unspecified organism Laterality: unspecified laterality Lung location: unspecified part of lung Qualified Code(s): J18.9 - Pneumonia, unspecified organism
--- NOTE | 2024-02-26 19:41 | History & Physical Report ---
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 Patient's symptoms seem to be vertigo. Admit to medical with telemetry - check orthostatic vital signs - meclizine 12.5 mg p.o. 3 times daily as needed. Of note, patient has an allergy listed to meclizine. States that it made him "goofy". Will use sparingly. Suspect this may be secondary to anticholinergic effects? - delirium prevention protocols with frequent orientation, ambulation with assistance as needed and maintenance of sleep-wake cycles were able - PT/OT evaluations appreciated (2) Generalized weakness: Plan: Etiology unclear. Possible PNA vs CHF vs intraabdominal process with mild elevation of AP and Tbili. Patient overall appears to be well hydrated and well nourished. Electrolytes are WNL. Shunt series performed confirms proper position of HOT [employer] INSTALLER [employer] REPAIRER shunt, CT Head WNL. -Check TSH -PT/OT evaluation -Repeat LFTs in AM to assess Tbili (1.2) and AP (119) - if increasing on AM labs would pursue additional imaging (3) Pneumonia: Plan: Patchy left basilar densities and a trace left pleural effusion possible PNA? More highly suspect congestive changes - patient with moderate-severe aortic stenosis could possibly be contributing to CHF -Check BNP and Procalcitonin -Check 2D echo -Daily weights and I/O monitoring -Will administer small dose of Lasix 10mg IV and monitor response -Continue empiric coverage for possible PNA - Ceftriaxone and Azithromycin (4) DM (diabetes mellitus), type 2: Plan: Patient with elevated blood sugar of 242. Last PppB5M=8.5 on 06/04/24 -Check HgbA1C with AM labs -Lantus 16u qPM -ISS -Hold Metformin -CC diet Plan Hypertension: Blood pressure stable -Continue Amlodipine -Continue Losartan -Monitor Hyperlipidemia: Chronic. Stable -Continue Atorvastatin GERD: Chronic. Stable -Continue Protonix SIADH: Chronic. Stable. Na low normal at 136 -Monitor daily Na -Hold Salt tablets for now History of Present Illness Chief Complaint: Gait instability, weakness, confusion Primary Care Provider: HAMMAD Foster Rahauser is a pleasant 78-year-old male with history of neuroendocrine tumor, prior hemorrhagic stroke with HOT AIR F[employer]NACE INSTALLER AND REPAIRER shunt in place, diabetes, hypertension, moderate to severe aortic stenosis and hyperlipidemia presenting from home with his family with complaints of 2 days of generalized weakness, dizziness and gait instability. Patient reports that he becomes intermittently dizzy with some room spinning. this is worse with changing positions and moving his head. Today he was having a difficult time walking due to dizziness and generalized weakness. His daughter is at bedside and reports that he has been slightly more confused as well. Also with dry cough and some worsening dyspnea on exertion for the last week. No reports of fevers, chills, sweats or rigors. No reports of chest pain, palpitations, abdominal pain, nausea, vomiting. Patient has chronic, intermittent diarrhea which is stable and unchanged. He has chronic left lower extremity edema which is stable and unchanged. No additional complaints at this time in the ER patient is afebrile, mildly hypertensive otherwise hemodynamically stable. Requires some assistance to stand. ER course: Ceftriaxone 2 g IV Azithromycin 500 mg IV Normal saline 500 mL IV Allergies Allergy/AdvReac Type Severity Reaction Status Date / Time meclizine Allergy "goofy" Verified 02/26/24 21:13 lisinopril AdvReac Intermediate COUGH Verified 02/26/24 21:13 acesulfame AdvReac Diarrhea Verified 02/26/24 21:13 sucralose AdvReac Diarrhea Verified 02/26/24 21:13 [From Splenda (sucralose)] Home Medications Medication Instructions Recorded Confirmed Type cholecalciferol (vitamin D3) 125 125 mcg PO QAM 06/06/21 02/26/24 History mcg (5,000 unit) capsule lutegold 1 tab PO HS macular degeneration 03/20/22 02/26/24 History mecobalamin (vitamin B12) 500 mcg 500 mcg PO QAM 04/01/23 02/26/24 History chewable tablet melatonin 3 mg capsule 3 mg PO HS PRN Sleep 04/01/23 02/26/24 History losartan 50 mg tablet 50 mg PO BID #180 tabs 04/08/23 02/26/24 Rx aspirin 81 mg tablet,delayed 81 mg PO .Q3-4 DAYS 04/24/23 02/26/24 History release (Adult Low Dose Aspirin) pantoprazole 40 mg tablet,delayed 40 mg PO DAILY PRN Gastric Reflux 04/24/23 02/26/24 History release atorvastatin 80 mg tablet 80 mg PO QAM #90 tabs 06/10/23 02/26/24 Rx blood-glucose meter,continuous #1 ea 06/20/23 01/15/24 Rx (Dexcom G7 Rent Collector) blood-glucose sensor (Dexcom G7 #9 ea 06/20/23 01/15/24 Rx Sensor device) pen needle, diabetic 31 gauge x #50 ea 06/20/23 01/15/24 Rx 3/16" (BD Ultra-Fine Mini Pen Needle) potassium chloride 10 mEq oral 10 meq PO QAM 08/30/23 02/26/24 History packet blood sugar diagnostic (OneTouch #300 ea 09/27/23 01/15/24 Rx Verio test strips) triamcinolone acetonide 55 mcg 1 spray intranasal DAILY PRN 09/27/23 02/26/24 History nasal spray aerosol (Nasacort) Congestion sodium chloride 1,000 mg soluble 1,000 mg PO BID 10/02/23 02/26/24 History tablet metformin 500 mg tablet,extended 500 mg PO BID #180 tabs 10/15/23 02/26/24 Rx release 24 hr amlodipine 5 mg tablet (Norvasc) 5 mg PO .AFTERNOON 12/26/23 02/26/24 History dutasteride 0.5 mg capsule 0.5 mg PO DAILY #90 caps 01/02/24 02/26/24 Rx insulin glargine 100 unit/mL (3 16 unit (0.16 mL) subcut QPM #15 mL 01/09/24 02/26/24 Rx mL) subcutaneous pen (Lantus Solostar U-100 Insulin) escitalopram oxalate 20 mg tablet 20 mg PO 1500 #90 tabs 01/10/24 02/26/24 Rx amlodipine 2.5 mg tablet 2.5 mg PO .AFTERNOON 02/26/24 02/26/24 History Past Med/Surg History Medical History Left inguinal hernia Osteoarthritis History of SIADH 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 no treatment per "it's not affecting his liver function so we are leaving it alone." Liver lesion Mesenteric mass Carotid stenosis neck CTA 08/2023 [place] History of CVA (cerebrovascular accident) 2020. denies residual. DM type 2 (diabetes mellitus, type 2) Anxiety and depression Aortic stenosis mod-severe, not a surgical candidate Hypertension Subdural hematoma hx Aortic aneurysm [place] Cardiology monitoring Macular degeneration Mild sleep apnea Cervicalgia Cervical facet joint syndrome Loss of protective sensation of skin of foot Hyperlipidemia Surgical History Hx of left cataract extraction History of liver biopsy History of hernia repair History of brain shunt Hx of colonoscopy H/O brain surgery decompressional subdural hematoma 12/2021 H/O knee surgery Family History Father , age 67 of heart issues Coronary heart disease Diabetes Myocardial infarction Mother , age 53 of heart issues Myocardial infarction Denies family history of Ovarian cancer Prostate cancer Breast cancer Colorectal cancer Cancer Social History Smoking Status: Never smoker Tobacco Type: Cigars Second Hand Exposure: No; Do You Dip or Chew Tobacco: No; Hx Alcohol Use: No Hx Substance Use: No Preferred Language: Bangladeshi Communication Ability: Effective Visual Impairment: Limited Hearing Ability: Hard of Hearing Ab Initio Etl Developer Required: No Beliefs That Will Affect Care: None marital status: Current Living Situation: Spouse Current Living Situation Comment: spouse is pt's caregiver current occupational status: retired 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 How many Children do You have: 2 Feels Safe at Home: Yes Childhood Exposure to Second-Hand Smoke: No Diet: regular caffeine: Yes (coffee) during the past year weight has: decreased > 10 lbs Dental Care, Regularly: Yes Physical Activity Frequency: 3-4 Times per Week Seatbelt Use: always Sunscreen Use: No Do you think of yourself as: straight/heterosexual Gender Identity: Male Assistive Devices: Cane, Glasses, Walker and Wheelchair Review of Systems Review of Systems: All systems reviewed & are unremarkable except as noted in HPI & below Physical Exam Physical Exam: General: Frail, elderly male patient resting comfortably, NAD, non-toxic in appearance, oriented to person and place. Able to answer questions and follow commands. Skin: warm, dry, intact, no rashes or lesions HEENT: NC/AT, PERRL, EOMI, anicteric sclera, conjunctiva without injection, external ear normal to inspection and nontender, nares patent, moist mucus membranes, Poor dentition, no oropharyngeal lesions, neck supple, trachea midline, no LAD, no thyromegaly, no JVD Heart: +S1/S2, regular, 4/6 systolic ejection murmur at right second intercostal space with radiation across the precordium and bilateral carotids Lungs: equal air entry bilaterally, mild crackles in bilateral bases, no rhonchi or wheezes Abd: +BS, soft, NT/ND, no masses/organomegaly/ascites Ext: warm, 2+ pulses in UE/LE bilaterally, no clubbing/cyanosis, 1+ pitting edema of left lower extremity Neuro: nonfocal, patient AA&O, speech intact, no facial droop, moving all extremities on command with equal strength, some generalized weakness, requires 2 person assist to stand Results & Data Results & Data Vital Signs (Past 12 Hours) Vital Signs Temp Pulse Resp BP Pulse Ox O2 Del Method 02/26/24 19:36 93 Room Air 02/26/24 19:33 Room Air 02/26/24 19:32 79 02/26/24 19:30 73 16 138/52 L 94 02/26/24 17:32 36.9 C 85 20 146/60 H 97 Room Air Laboratory Results Laboratory Results WBC 8.05 K/ul (4.8-10.8) 02/26/24 17:59 RBC 4.54 M/uL (4.70-6.10) L 02/26/24 17:59 Hgb 12.9 g/dl (14.0-18.0) L 02/26/24 17:59 Hct 39.0 % (42.0-52.0) L 02/26/24 17:59 MCV 85.9 fL (80.0-100.0) 02/26/24 17:59 MCH 28.4 pg (25.0-34.0) 02/26/24 17:59 MCHC 33.1 g/dL (32.0-36.0) 02/26/24 17:59 RDW Std Deviation 44.6 fL (36.4-46.3) 02/26/24 17:59 RDW Coeff of [place] 14.4 % (11.5-14.5) 02/26/24 17:59 Plt Count 254 K/uL (130-400) 02/26/24 17:59 MPV 11.0 fL (9.4-12.4) 02/26/24 17:59 Immature Gran % (Auto) 0.6 % 02/26/24 17:59 Neut % (Auto) 67.4 % 02/26/24 17:59 Lymph % (Auto) 20.5 % 02/26/24 17:59 [place] % (Auto) 8.1 % 02/26/24 17:59 Eos % (Auto) 2.5 % 02/26/24 17:59 Baso % (Auto) 0.9 % 02/26/24 17:59 Neut # (Auto) 5.43 K/uL (1.40-6.50) 02/26/24 17:59 Lymph # (Auto) 1.65 K/uL (1.20-3.40) 02/26/24 17:59 [place] # (Auto) 0.65 K/uL (0.11-0.59) H 02/26/24 17:59 Eos # (Auto) 0.20 K/uL (0.00-0.50) 02/26/24 17:59 Baso # (Auto) 0.07 K/uL (0.00-0.20) 02/26/24 17:59 Immature Gran # (Auto) 0.05 K/uL (0.01-0.20) 02/26/24 17:59 Sodium 136 mmol/L (136-145) 02/26/24 17:59 Potassium 3.8 mmol/L (3.5-5.1) 02/26/24 17:59 Chloride 104 mmol/L (98-107) 02/26/24 17:59 Carbon Dioxide 24 mmol/L (21-32) 02/26/24 17:59 Anion Gap 8 (3-11) 02/26/24 17:59 BUN 12 mg/dl (6-23) 02/26/24 17:59 Creatinine 0.57 mg/dl (0.6-1.4) L 02/26/24 17:59 Est Cr Clr Drug Dosing Not Reportable 02/26/24 17:59 Est GFR ( Amer) 114.0 ml/min 02/26/24 17:59 Est GFR (Non-Af Amer) 98.4 ml/min 02/26/24 17:59 BUN/Creatinine Ratio 21.1 (10-20) H 02/26/24 17:59 Glucose 242 mg/dl (70-99(Fasting)) H 02/26/24 17:59 Calcium 9.1 mg/dl (8.6-10.3) 02/26/24 17:59 Total Bilirubin 1.2 mg/dl (0.2-1.0) H 02/26/24 17:59 AST 13 U/L (13-39) 02/26/24 17:59 ALT 16 U/L (7-52) 02/26/24 17:59 Alkaline Phosphatase 119 U/L (34-104) H 02/26/24 17:59 Troponin I High Sens 10.5 pg/ml (0-20) 02/26/24 17:59 Total Protein 6.5 gm/dl (6.0-8.3) 02/26/24 17:59 Albumin 3.5 gm/dl (3.4-5.0) 02/26/24 17:59 Globulin 3.0 gm/dl (2.5-4.0) 02/26/24 17:59 Albumin/Globulin Ratio 1.2 (0.9-2) 02/26/24 17:59 Urine Color Dark Yellow 02/26/24 19:36 Urine Appearance Clear (Clear) 02/26/24 19:36 Urine pH 5.5 (4.5-7.5) 02/26/24 19:36 Ur Specific [place] 1.028 (1.000-1.030) 02/26/24 19:36 Urine Protein Trace (Negative) H 02/26/24 19:36 Urine Glucose (UA) 3+ (Negative) H 02/26/24 19:36 Urine Ketones Trace (Negative) H 02/26/24 19:36 Urine Blood Negative (Negative) 02/26/24 19:36 Urine Nitrite Negative (Negative) 02/26/24 19:36 Urine Bilirubin 1+ (Negative) H 02/26/24 19:36 Urine Urobilinogen Negative (Negative) 02/26/24 19:36 Ur Leukocyte Esterase Negative (Negative) 02/26/24 19:36 Urine WBC (Auto) 0-5 /hpf (0-5) 02/26/24 19:36 Urine RBC (Auto) 0-2 /hpf (0-2) 02/26/24 19:36 U Hyaline Cast (Auto) 0-2 /lpf (0-2) 02/26/24 19:36 U Epithel Cells (Auto) 0-2 /hpf (0-2) 02/26/24 19:36 Urine Bacteria (Auto) None Seen (None Seen) 02/26/24 19:36 Urine Mucus Present (None Prsent) A 02/26/24 19:[address] 02/26/24 17:[address] DOSE: 703.85 mGy.cm HISTORY: confusion TECHNIQUE: Multiaxial CT images of the head were performed without the use of intravenous contrast. Automated exposure control was utilized for this study. A dose lowering technique was utilized adhering to the principles of ALARA. Comparison: Head CT 08/24/2023. Findings: The paranasal sinuses and mastoid air cells are clear. The calvarium and skull base are intact. There is no mass, hematoma, midline shift, acute infarct. White matter hypodensity is nonspecific but suggestive of microvascular ischemic change. The ventricles and sulci demonstrate mild age-related involutional changes. The ventricles are stable in size. There is a left frontal approach ventriculostomy catheter terminating in the right lateral ventricle. This remains unchanged. Basal ganglia and cerebellar calcifications are again noted. There is an old right parietal craniotomy site. Motion artifact results in suboptimal evaluation. Impression: 1. Motion artifact. No definite acute intracranial abnormality. 2. Stable position of the left frontal approach ventriculostomy catheter. ACT 112: Negative or not required by law. Electronically signed by: Rei Woodruff M.D. 02/26/2024 6:41 PM Abdomen X-Ray 02/26/24 17:35 XR skull <4V, XR chest 2V PA/lateral, XR cervical spine 2 or 3V, XR abdomen min 2V CLINICAL HISTORY: Visualize Shunt COMPARISON STUDY: Shunt series 08/26/2023. FINDINGS: There is a left frontal approach ventriculostomy catheter which is unchanged in position. The visualized shunt tubing appears intact. The tip terminates within the left lower quadrant. Cardiomegaly with mild congestive change. Patchy left basilar densities and a trace left pleural effusion. Rightward deviation of the trachea again noted. IMPRESSION: 1. Left frontal approach ventriculostomy catheter is unchanged in position. The shunt tubing appears intact with the tip terminating in the left lower quadrant. 2. Cardiomegaly with mild congestive change. 3. Patchy left basilar densities and a trace left pleural effusion. ACT 112: Negative or not required by law. Electronically signed by: Rei Woodruff M.D. 02/26/2024 7:00 PM Cervical Spine X-Ray 02/26/24 17:35 XR skull <4V, XR chest 2V PA/lateral, XR cervical spine 2 or 3V, XR abdomen min 2V CLINICAL HISTORY: Visualize Shunt COMPARISON STUDY: Shunt series 08/26/2023. FINDINGS: There is a left frontal approach ventriculostomy catheter which is unchanged in position. The visualized shunt tubing appears intact. The tip terminates within the left lower quadrant. Cardiomegaly with mild congestive change. Patchy left basilar densities and a trace left pleural effusion. Rightward deviation of the trachea again noted. IMPRESSION: 1. Left frontal approach ventriculostomy catheter is unchanged in position. The shunt tubing appears intact with the tip terminating in the left lower quadrant. 2. Cardiomegaly with mild congestive change. 3. Patchy left basilar densities and a trace left pleural effusion. ACT 112: Negative or not required by law. Electronically signed by: Rei Woodruff M.D. 02/26/2024 7:00 PM Chest X-Ray 02/26/24 17:35 XR skull <4V, XR chest 2V PA/lateral, XR cervical spine 2 or 3V, XR abdomen min 2V CLINICAL HISTORY: Visualize Shunt COMPARISON STUDY: Shunt series 08/26/2023. FINDINGS: There is a left frontal approach ventriculostomy catheter which is unchanged in position. The visualized shunt tubing appears intact. The tip terminates within the left lower quadrant. Cardiomegaly with mild congestive change. Patchy left basilar densities and a trace left pleural effusion. Rightward deviation of the trachea again noted. IMPRESSION: 1. Left frontal approach ventriculostomy catheter is unchanged in position. The shunt tubing appears intact with the tip terminating in the left lower quadrant. 2. Cardiomegaly with mild congestive change. 3. Patchy left basilar densities and a trace left pleural effusion. ACT 112: Negative or not required by law. Electronically signed by: Rei Woodruff M.D. 02/26/2024 7:00 PM Skull X-Ray 02/26/24 17:35 XR skull <4V, XR chest 2V PA/lateral, XR cervical spine 2 or 3V, XR abdomen min 2V CLINICAL HISTORY: Visualize Shunt COMPARISON STUDY: Shunt series 08/26/2023. FINDINGS: There is a left frontal approach ventriculostomy catheter which is unchanged in position. The visualized shunt tubing appears intact. The tip terminates within the left lower quadrant. Cardiomegaly with mild congestive change. Patchy left basilar densities and a trace left pleural effusion. Rightward deviation of the trachea again noted. IMPRESSION: 1. Left frontal approach ventriculostomy catheter is unchanged in position. The shunt tubing appears intact with the tip terminating in the left lower quadrant. 2. Cardiomegaly with mild congestive change. 3. Patchy left basilar densities and a trace left pleural effusion. ACT 112: Negative or not required by law. Electronically signed by: Rei Woodruff M.D. 02/26/2024 7:00 PM ECG Additional Comments: EKG per my interpretation with normal sinus rhythm at 79 bpm, [place] = 126, QRS = 98, QTc = 472, no acute ischemic changes, poor R wave progression in anterior leads PG Care Time/CCT Total # of Minutes Spent Total Time Spent with Patient: Total time spent is greater than 50% in coordination of care (as documented) at patient's floor/unit and/or counseling patient: Coding Level of Care Code 30084 INT INP/OBS CARE 2/55MIN Diagnoses Dizziness R42 Generalized weakness R53.1 Pneumonia J18.9 Type 2 diabetes mellitus with other specified complication, with long-term current use of insulin E11.69; Z79.4 Diabetes mellitus complication status: with other specified complication Diabetes mellitus snf insulin use: with buttermaker use (4) DM (diabetes mellitus), type 2 Diabetes mellitus complication status: with other specified complication Diabetes mellitus snf insulin use: with buttermaker use Qualified Code(s): E11.69 - Type 2 diabetes mellitus with other specified complication; Z79.4 - USP (current) use of insulin
[2024-02-26 19:58] LABS: Appearance Urine Clear (Clear); Bacteria Urine Automated None Seen (None Seen); Bilirubin Urine 1+ (Negative); Blood Urine Negative (Negative); Cast Urine Automated 0-2 /lpf (0-2); Color Urine Dark Yellow; Epithelial Cell Urine Auto 0-2 /hpf (0-2); Glucose Urine UA 3+ (Negative); Ketones Urine Trace (Negative); Leukocyte Esterase Urine Negative (Negative); Mucus Urine Present (None Prsent); Nitrite Urine Negative (Negative); Protein Urine Trace (Negative); RBC Urine Automated 0-2 /hpf (0-2); Specific Gravity Urine 1.028 (1.000-1.030); Urobilinogen Urine Negative (Negative); WBC Urine Automated 0-5 /hpf (0-5); pH Urine 5.5 (4.5-7.5)
[2024-02-26] MEDS: cefTRIAXone SODIUM 2,000 MG/50 ML BAG IV STA (21:11)
[2024-02-26] MEDS: SODIUM CHLORIDE 0.9% 500 ML IV ONE (21:12)
[2024-02-26] MEDS: AZITHROMYCIN 500 MG in DEXTROSE 5% 250 ML IV STA (21:58)
[2024-02-27] MEDS ORDERED: GLUCOSE 40% GEL 15 GM TUBE PO PRN
[2024-02-27] MEDS ORDERED: GLUCOSE 10 TAB/TUBE PO PRN
[2024-02-27] MEDS ORDERED: MECLIZINE 12.5 MG TAB PO PRN
[2024-02-27] MEDS ORDERED: PANTOprazole 40 MG TAB PO PRN
[2024-02-27] MEDS ORDERED: ONDANSETRON INJ 2 MG/ML 2 ML VIAL IV PRN
[2024-02-27] MEDS ORDERED: DEXTROSE 50% 50 ML SYRINGE IV PRN
[2024-02-27] MEDS ORDERED: CARBOHYDRATES FOR HYPOGLYCEMIA PO PRN
[2024-02-27] MEDS ORDERED: GLUCAGON FOR INJ 1 MG VIAL SQ PRN
[2024-02-27] MEDS ORDERED: MELATONIN 3 MG TAB PO PRN (00:21)
[2024-02-27 00:39] LABS: Magnesium 1.7 mg/dl (1.7-2.4); Phosphorus 3.7 mg/dl (2.5-4.9)
[2024-02-27] MEDS: FUROSEMIDE INJ 20 MG/2 ML VIAL IV ONE (01:07)
[2024-02-27] MEDS: INSULIN ASPART PER UNIT CHARGE SC SCH (01:13)
[2024-02-27] MEDS: LANTUS PER UNIT CHARGE SQ SCH (01:14)
[2024-02-27 06:56] LABS: Hematocrit (blood only) 37.1 % (42.0-52.0); Hemoglobin 12.6 g/dl (14.0-18.0); Mean Corpuscular Hemoglobin 29.2 pg (25.0-34.0); Mean Corpuscular Volume 85.9 fL (80.0-100.0); Platelet Count 234 K/uL (130-400); RDW Standard Deviation 43.5 fL (36.4-46.3); Red Blood Count 4.32 M/uL (4.70-6.10); White Blood Count 8.62 K/ul (4.8-10.8)
--- NOTE | 2024-02-27 07:26 | Hospitalist Progress Note ---
Date of Service February 27, 2024 Assessment & Plan (1) Dizziness: (2) Generalized weakness: (3) Pneumonia: (4) DM (diabetes mellitus), type 2: Plan 78-year-old male with history of neuroendocrine tumor, moderate to severe aortic stenosis, hypertension, diabetes and prior intraventricular hemorrhage status post PASSENGER VESSEL CHEF shunt placement in February 2023 presenting from home with 2 days of dizziness/vertiginous symptoms and generalized weakness. Shortness of breath/CHF - Worsening SOB in the last week and generalized weakness, +1 leg edema in the setting of a patient with severe aortic stenosis contributing to CHF - CXR: left pleural effusion, more suggestive on congestive changes - BNP: 1000s - ECho done today, pending results - Will discontinue IV antibiotics (no leukocytosis, no cough, normal procalcitonin) - Daily weights, I/Os - Lasix 10 mg x1 - Will continue with Lasix 20 mg once daily Dizziness/ BPPV - resolved - Patient's symptoms seem to be vertigo on admission - check orthostatic vital signs - meclizine 12.5 mg p.o. 3 times daily as needed - delirium prevention protocols with frequent orientation, ambulation with assistance as needed and maintenance of sleep-wake cycles were able - PT/OT evaluations appreciated Generalized weakness: MAy be secondary to CHF Patient overall appears to be well hydrated and well nourished. Electrolytes are WNL. Shunt series performed confirms proper position of PASSENGER VESSEL CHEF shunt, CT Head WNL. -TSH normal -PT/OT evaluation DM (diabetes mellitus), type 2: Patient with elevated blood sugar of 242. Last [id number]=9.5 on 06/04/24 -Check HgbA1C with AM labs -Lantus 16u qPM -ISS -Hold Metformin -CC diet Hypertension: Blood pressure stable -Continue Amlodipine -Continue Losartan -Monitor Hyperlipidemia: Chronic. Stable -Continue Atorvastatin GERD: Chronic. Stable -Continue Protonix SIADH: Chronic. Stable. Na low normal at 136 -Monitor daily Na -Hold Salt tablets for now DVT prophylaxis: Lovenox 40 sq daily Diet: Low sodium / DM2 Med surge/ Telemetry Admission and Anticipated Discharge Date Admission Date: February 26, 2024 Supervising Physician Co-Signing Physician Notes I personally examined the patient and verified all galvez points of history and exam, discussed case, and agree with decision making with Dr Josef Killian No shortness of breath whenever I see him. Appears to be quite easily confused HPI and review of systems with questionable veracity. Vitals noted, in general he is lying in bed appearing fatigued but no distress. When he pulls down the covers so that I can listen to his heart and lungs he has several crumbled up paper towels held to his chest. Cardio is distant. Lungs diminished at the bases with faint rales just above that otherwise clear. Neuro without focal deficits. Dyspnea/hypoxiawith further review does not appear to be pneumonia at all. Probably is all CHF relatedgently diurese continue to follow closely. Repeat echocardiogram. Confusion likely represents delirium/metabolic encephalopathy although gaining collateral of his baseline from his family will certainly be helpful in this regard. PT/OT eval and treat, likely to need SNF or rehab on discharge. DVT prophylaxisLovenox Subjective Patient was seen this morning and again in the afternoon. Not oriented to time or placed only to person. Refers some SOB on rest and ambulation. No chest pain, nausea, palpitations, chills, fever, cough. Review of Systems Constitutional: as per Subjective / HPI Physical Exam Constitutional: WD/WN, vitals as above Respiratory: normal respiratory effort; no respiratory distress and no labored breathing Auscultation: + diminished lung sounds (bases) and + crackles (bilateral) Cardiovascular: Rate/Rhythm: regular rate and regular rhythm Heart Sounds: + murmur (crescendo ) Gastrointestinal (Abdomen): normal bowel sounds, soft, nontender, no hepatosplenomegaly Skin: no rashes, warm and dry Results & Data Results & Data Vital Signs (Past 12 Hours) Vital Signs Temp Pulse Pulse Resp BP BP Pulse Ox 02/27/24 03:44 36.4 C L 76 20 118/58 L 92 02/27/24 01:51 77 02/26/24 22:39 36.6 C 77 20 129/67 96 02/26/24 19:36 93 02/26/24 19:33 02/26/24 19:32 79 02/26/24 19:30 73 16 138/52 L 94 O2 Del Method 02/27/24 03:44 Room Air 02/27/24 01:51 02/26/24 22:39 Room Air 02/26/24 19:36 Room Air 02/26/24 19:33 Room Air 02/26/24 19:32 02/26/24 19:30 Resident Activity Tracking Resident Involvement: Resident Care Provided Care Provided: Adult Hospital Medicine (3) Pneumonia Laterality: unspecified laterality Lung location: unspecified part of lung Pneumonia type: due to unspecified organism Qualified Code(s): J18.9 - Pneumonia, unspecified organism (4) DM (diabetes mellitus), type 2 Diabetes mellitus complication status: with other specified complication Diabetes mellitus manager nicu insulin use: with residential use Qualified Code(s): E11.69 - Type 2 diabetes mellitus with other specified complication; 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
[2024-02-27 07:30] LABS: Albumin Level 3.3 gm/dl (3.4-5.0); BUN Creatinine Ratio 16.3 (10-20); Bilirubin Direct 0.2 mg/dl (0-0.2); Calcium 8.5 mg/dl (8.6-10.3); Creatinine Clr Calc Pharmacy 128.5 ml/min; Est GFR (African American) 121.3 ml/min; Est GFR (Non-African American) 104.7 ml/min; Potassium 3.2 mmol/L (3.5-5.1); Total Protein 5.7 gm/dl (6.0-8.3)
[2024-02-27 07:45] LABS: Thyroid Stimulating Hormone 2.373 uIu/ml (0.300-4.500)
[2024-02-27 08:14] LABS: Estimated Average Glucose 163 mg/dl; Hemoglobin A1C 7.3 % (4.5-5.6)
[2024-02-27] MEDS: POTASSIUM CHLORIDE CRTAB 20 MEQ TABCR PO STA (09:16)
[2024-02-27] MEDS: FINASTERIDE 5 MG TAB PO SCH (11:16)
[2024-02-27] MEDS: LOSARTAN POTASSIUM 50 MG TAB PO SCH (11:16)
[2024-02-27] MEDS: ATORVASTATIN 40 MG TAB PO SCH (11:17)
[2024-02-27] MEDS: AZITHROMYCIN 500 MG in DEXTROSE 5% 250 ML IV SCH (11:19)
--- NOTE | 2024-02-27 16:13 | XCELERA ---
[id number] [id number]
[2024-02-27] MEDS: FUROSEMIDE 40 MG/4 ML VIAL IV ONE (17:27)
[2024-02-27] MEDS: ENOXAPARIN INJ 40 MG/0.4 ML SYR SQ SCH (18:33)
[2024-02-27] MEDS: amLODIPine BESYLATE 5 MG TAB PO SCH ×2 (18:34→18:36)
[2024-02-27] MEDS: ESCITALOPRAM OXALATE 20 MG TAB PO SCH (18:36)
--- NOTE | 2024-02-27 19:06 | Billing Data ---
Date of Service February 27, 2024 Coding Level of Care Code 42203 SUB INP/OBS CARE
[2024-02-27] MEDS ORDERED: cefTRIAXone SODIUM 1,000 MG/50 ML BAG IV SCH (21:00)
[2024-02-28 06:28] LABS: Basophils # (auto) 0.08 K/uL (0.00-0.20); Basophils % (auto) 0.9 %; Eosinophils # (auto) 0.34 K/uL (0.00-0.50); Eosinophils % (auto) 3.9 %; Hematocrit (blood only) 39.2 % (42.0-52.0); Hemoglobin 13.4 g/dl (14.0-18.0); Immature Granulocytes # (auto) 0.04 K/uL (0.01-0.20); Immature Granulocytes % (auto) 0.5 %; Lymphocytes # (auto) 2.12 K/uL (1.20-3.40); Lymphocytes % (auto) 24.1 %; Mean Corpuscular Hemoglobin 29.5 pg (25.0-34.0); Mean Corpuscular Hgb Conc 34.2 g/dL (32.0-36.0); Mean Corpuscular Volume 86.2 fL (80.0-100.0); Mean Platelet Volume 10.9 fL (9.4-12.4); Monocytes # (auto) 0.72 K/uL (0.11-0.59); Monocytes % (auto) 8.2 %; Neutrophils # (auto) 5.49 K/uL (1.40-6.50); Neutrophils % (auto) 62.4 %; Platelet Count 251 K/uL (130-400); RDW Coefficient of Variation 14.4 % (11.5-14.5); RDW Standard Deviation 45.2 fL (36.4-46.3); Red Blood Count 4.55 M/uL (4.70-6.10); White Blood Count 8.79 K/ul (4.8-10.8)
--- NOTE | 2024-02-28 06:48 | Hospitalist Progress Note ---
Date of Service February 28, 2024 Assessment & Plan (1) Dizziness: (2) Generalized weakness: (3) Pneumonia: (4) DM (diabetes mellitus), type 2: Plan 78-year-old male with history of neuroendocrine tumor, moderate to severe aortic stenosis, hypertension, diabetes and prior intraventricular hemorrhage status post CLINICAL PROGRAM MANAGER shunt placement in February 2023 presenting from home with 2 days of dizziness/vertiginous symptoms and generalized weakness. Shortness of breath/CHF Severe aortic stenosis - Worsening SOB in the last week and generalized weakness, +1 leg edema in the setting of a patient with severe aortic stenosis contributing to CHF - CXR: left pleural effusion, more suggestive on congestive changes - BNP: 1000s - Echo: EF 55-60%. Severe left atrial dilation, Severe aortic stenosis with possible aortic regurgitation. Severe pulmonary hypertension - Will discontinue IV antibiotics (no leukocytosis, no cough, normal procalcitonin, no URI) - Daily weights, I/Os - Lasix 20 mg x2 - Cardiology consult for tomorrow am - Amlodipine switched to Coreg 6.25 mg BID - Continue Losartan Delirium/ Acute metabolic encephalopathy delirium prevention protocols with frequent orientation, ambulation with assistance as needed and maintenance of sleep-wake cycles were able Secondary to CHF decompensation Continue to monitor Dizziness/ BPPV - resolved - Patient's symptoms seem to be vertigo on admission - meclizine 12.5 mg p.o. 3 times daily as needed - PT/OT evaluations appreciated Generalized weakness: May be secondary to CHF Patient overall appears to be well hydrated and well nourished. Electrolytes are WNL. Shunt series performed confirms proper position of CLINICAL PROGRAM MANAGER shunt, CT Head WNL. -TSH normal -PT/OT evaluation DM (diabetes mellitus), type 2: Patient with elevated blood sugar of 242. Last [id number]=2.5 on 06/04/24 -Check HgbA1C with AM labs -Lantus 16u qPM -ISS -Hold Metformin -CC diet Hypertension: Blood pressure stable -Continue Amlodipine -Continue Losartan -Monitor Hyperlipidemia: Chronic. Stable -Continue Atorvastatin GERD: Chronic. Stable -Continue Protonix SIADH: Chronic. Stable. Na low normal at 136 -Monitor daily Na -Hold Salt tablets for now DVT prophylaxis: Lovenox 40 sq daily Diet: Low sodium / DM2 Med surge/ Telemetry Admission and Anticipated Discharge Date Admission Date: February 26, 2024 Supervising Physician Co-Signing Physician Notes I personally examined the patient and verified all galvez points of history and exam, discussed case, and agree with decision making with Dr Josef Killian No shortness of breath whenever I see him. Appears to be quite easily confused HPI and review of systems with questionable veracity. Vitals noted, in general he is lying in bed appearing fatigued but no distress. breathing unlabored no accessory muscles good effort skin no rashes no pallor or icterus neuro no focal deficits. Dyspnea/hypoxiawith further review does not appear to be pneumonia at all. Probably is all CHF relatedgently diurese continue to follow closely. 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 on afterload reduction w losartan, will trial coreg instead of amlodipine. Confusion likely represents delirium/metabolic encephalopathy although gaining collateral of his baseline from his family will certainly be helpful in this regard. PT/OT eval and treat, likely to need SNF or rehab on discharge. DVT prophylaxisLovenox Subjective Patient was seen this morning found resting comfortable. Only oriented to person. Dyspnea at rest seem to had improved. Denied any SOB, palpitations, nausea, chills, chest pain, cough or any other symptoms. Review of Systems Review of Systems: as per HPI Physical Exam Constitutional: WD/WN, vitals as above Respiratory: normal respiratory effort; no respiratory distress and no labored breathing Auscultation: + diminished lung sounds (bases) Diminished breath sound, scant bilateral rhonchi Cardiovascular: Rate/Rhythm: regular rate and regular rhythm Heart Sounds: + murmur (crescendo ) Gastrointestinal (Abdomen): normal bowel sounds, soft, nontender, no hepatosplenomegaly Skin: no rashes, warm and dry Results & Data Results & Data Vital Signs (Past 12 Hours) Vital Signs Temp Pulse Pulse Resp BP Pulse Ox O2 Del Method 02/28/24 03:37 77 16 128/65 93 Room Air 02/27/24 23:55 78 02/27/24 22:09 36.6 C 66 18 126/65 93 Room Air 02/27/24 19:11 36.3 C L 75 18 123/69 95 Room Air Resident Activity Tracking Resident Involvement: Resident Care Provided Care Provided: Adult Hospital Medicine (3) Pneumonia Laterality: unspecified laterality Lung location: unspecified part of lung Pneumonia type: due to unspecified organism Qualified Code(s): J18.9 - Pneumonia, unspecified organism (4) DM (diabetes mellitus), type 2 Diabetes mellitus complication status: with other specified complication 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
[2024-02-28 06:53] LABS: Albumin Globulin Ratio 1.2 (0.9-2); Albumin Level 3.4 gm/dl (3.4-5.0); BUN Creatinine Ratio 15.6 (10-20); Bilirubin,Total 0.9 mg/dl (0.2-1.0); Calcium 9.3 mg/dl (8.6-10.3); Creatinine Clr Calc Pharmacy 95.9 ml/min; Est GFR (African American) 108.7 ml/min; Est GFR (Non-African American) 93.8 ml/min; Globulin 2.8 gm/dl (2.5-4.0); Potassium 3.4 mmol/L (3.5-5.1); Total Protein 6.2 gm/dl (6.0-8.3)
[2024-02-28] MEDS: POTASSIUM CHLORIDE CRTAB 20 MEQ TABCR PO STA (08:37)
[2024-02-28] MEDS: carvediloL 6.25 MG TAB PO SCH (12:48)
--- NOTE | 2024-02-28 18:20 | Billing Data ---
Date of Service February 28, 2024 Coding Level of Care Code 41404 SUB INP/OBS CARE MIN
--- NOTE | 2024-02-28 18:21 | Billing Data ---
Date of Service February 28, 2024 Coding Level of Care Code 87838 SUB INP/OBS CARE MIN
[2024-02-29 05:25] LABS: Basophils # (auto) 0.06 K/uL (0.00-0.20); Basophils % (auto) 0.6 %; Eosinophils # (auto) 0.12 K/uL (0.00-0.50); Eosinophils % (auto) 1.1 %; Hematocrit (blood only) 37.1 % (42.0-52.0); Hemoglobin 12.5 g/dl (14.0-18.0); Immature Granulocytes # (auto) 0.06 K/uL (0.01-0.20); Immature Granulocytes % (auto) 0.6 %; Lymphocytes # (auto) 1.73 K/uL (1.20-3.40); Lymphocytes % (auto) 16.5 %; Mean Corpuscular Hemoglobin 29.1 pg (25.0-34.0); Mean Corpuscular Hgb Conc 33.7 g/dL (32.0-36.0); Mean Corpuscular Volume 86.3 fL (80.0-100.0); Monocytes # (auto) 0.76 K/uL (0.11-0.59); Monocytes % (auto) 7.3 %; Neutrophils # (auto) 7.75 K/uL (1.40-6.50); Neutrophils % (auto) 73.9 %; Platelet Count 251 K/uL (130-400); RDW Coefficient of Variation 14.3 % (11.5-14.5); RDW Standard Deviation 44.5 fL (36.4-46.3); White Blood Count 10.48 K/ul (4.8-10.8)
[2024-02-29 05:41] LABS: BUN Creatinine Ratio 26.8 (10-20); Calcium 9.1 mg/dl (8.6-10.3); Creatinine Clr Calc Pharmacy 109.6 ml/min; Est GFR (African American) 114.8 ml/min; Est GFR (Non-African American) 99.1 ml/min; Potassium 3.9 mmol/L (3.5-5.1)
--- NOTE | 2024-02-29 05:51 | Electrocardiogram Report ---
Test Reason : Blood Pressure : / mmHG Vent. Rate : 079 BPM Atrial Rate : 079 BPM P-R Int : 126 ms QRS Dur : 098 ms QT Int : 412 ms P-R-T Axes : 068 041 071 degrees QTc Int : 472 ms Normal sinus rhythm Possible Anterior infarct , age undetermined Nonspecific ST abnormality Abnormal ECG When compared with ECG of 24-AUG-2023 15:28, Right bundle branch block is no longer Present Borderline criteria for Anterior infarct are now Present Confirmed by Cristi Fragoso ([id number]) on 02/29/2024 5:50:59 AM Referred By: REFERRED SELF Confirmed By:Cristi Fragoso
[2024-02-29] MEDS: ACETAMINOPHEN 325 MG TAB PO PRN (08:48)
--- NOTE | 2024-02-29 10:12 | Hospitalist Progress Note ---
Date of Service February 29, 2024 Assessment & Plan (1) Dizziness: (2) Generalized weakness: (3) Pneumonia: (4) DM (diabetes mellitus), type 2: Plan 78-year-old male with history of neuroendocrine tumor, moderate to severe aortic stenosis, hypertension, diabetes and prior intraventricular hemorrhage status post ASSISTANT COOK shunt placement in February 2023 presenting from home with 2 days of dizziness/vertiginous symptoms and generalized weakness. Shortness of breath/CHF Severe aortic stenosis - Worsening SOB in the last week and generalized weakness, +1 leg edema in the setting of a patient with severe aortic stenosis contributing to CHF - CXR: left pleural effusion, more suggestive on congestive changes - BNP: 1000s - Echo: EF 55-60%. Severe left atrial dilation, Severe aortic stenosis with possible aortic regurgitation. Severe pulmonary hypertension - Will discontinue IV antibiotics (no leukocytosis, no cough, normal procalcitonin, no URI) - Daily weights, I/Os - Lasix 20 mg x2 - Cardiology consulted, apprec recommendations - Amlodipine switched to Coreg 6.25 mg BID - Continue Losartan Delirium/ Acute metabolic encephalopathy delirium prevention protocols with frequent orientation, ambulation with assistance as needed and maintenance of sleep-wake cycles were able Secondary to CHF decompensation Continue to monitor Dizziness/ BPPV - resolved - Patient's symptoms seem to be vertigo on admission - meclizine 12.5 mg p.o. 3 times daily as needed - PT/OT evaluations appreciated Generalized weakness: May be secondary to CHF Patient overall appears to be well hydrated and well nourished. Electrolytes are WNL. Shunt series performed confirms proper position of ASSISTANT COOK shunt, CT Head WNL. -TSH normal -PT/OT evaluation DM (diabetes mellitus), type 2: Patient with elevated blood sugar of 242. Last [id number]=9.5 on 06/04/24 -Check HgbA1C with AM labs -Lantus 16u qPM -ISS -Hold Metformin -CC diet Hypertension: Blood pressure stable -Continue Amlodipine -Continue Losartan -Monitor Hyperlipidemia: Chronic. Stable -Continue Atorvastatin GERD: Chronic. Stable -Continue Protonix SIADH: Chronic. Stable. Na low normal at 136 -Monitor daily Na -Hold Salt tablets for now DVT prophylaxis: Lovenox 40 sq daily Diet: Low sodium / DM2 Med surge/ Telemetry Admission and Anticipated Discharge Date Admission Date: February 26, 2024 Supervising Physician Co-Signing Physician Notes I personally examined the patient and verified all galvez points of history and exam, discussed case, and agree with decision making with Dr Josef Killian sleeping, comfortable, no complaints. Vitals noted, in general he is lying in bed Resting comfortably and in no distress. breathing unlabored no accessory muscles good effort skin no rashes no pallor or icterus neuro no focal deficits. Dyspnea/hypoxiawith further review does not appear to be pneumonia at all. Probably was all CHF relatedgently diurese continue to follow closely. 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 on afterload reduction w losartan, giving a trial of coreg instead of amlodipine. Confusion likely represents delirium/metabolic encephalopathy. PT/OT eval and treat, likely to need SNF or rehab on discharge. DVT prophylaxisLovenox Subjective Patient seem this morning. He was found asleep. He responded to stimulus. Oriented to placed and person only. Denied any SOB, palpitation, chest pain , dizziness, lightheadedness or any other symptoms. Cardiology consulted. Review of Systems Review of Systems: as per HPI Physical Exam Constitutional: WD/WN, vitals as above Respiratory: normal respiratory effort; no respiratory distress and no labored breathing Auscultation: + diminished lung sounds (bases) and + crackles ( bilateral) Cardiovascular: RRR, no murmur, no edema Rate/Rhythm: regular rate and regular rhythm Heart Sounds: + murmur (crescendo ) Gastrointestinal (Abdomen): normal bowel sounds, soft, nontender, no hepatosplenomegaly Skin: no rashes, warm and dry Results & Data Results & Data Vital Signs (Past 12 Hours) Vital Signs Temp Pulse Pulse Resp BP BP Pulse Ox 02/29/24 08:00 02/29/24 07:36 36.9 C 85 18 147/62 H 96 02/29/24 06:51 81 02/29/24 03:13 36.4 C L 02/29/24 02:40 67 18 120/70 99 02/28/24 22:41 36.3 C L 72 16 115/59 L 91 O2 Del Method 02/29/24 08:00 Room Air 02/29/24 07:36 Room Air 02/29/24 06:51 02/29/24 03:13 02/29/24 02:40 Room Air 02/28/24 22:41 Room Air Resident Activity Tracking Resident Involvement: Resident Care Provided Care Provided: Adult Hospital Medicine (3) Pneumonia Laterality: unspecified laterality Lung location: unspecified part of lung Pneumonia type: due to unspecified organism Qualified Code(s): J18.9 - Pneu monia, unspecified organism (4) DM (diabetes mellitus), type 2 Diabetes mellitus complication status: with other specified complication Diabetes mellitus snf insulin use: with snf use Qualified Code(s): E11.69 - Type 2 diabetes mellitus with other specified complication; Z79.4 - snf (current) use of insulin
--- NOTE | 2024-02-29 12:28 | Cardiology Consultation ---
Date of Consultation February 29, 2024 Assessment & Plan (1) Aortic stenosis: (2) Aortic aneurysm: Plan 1. Aortic stenosis: He is known to have severe aortic stenosis. Some element of aortic regurgitation as well. Overall LV systolic function preserved. It is possible he had some element of mild pulmonary edema at the time of admission, the but this does not appear to be present currently. Unclear if he is actually having symptoms from aortic stenosis. He has chronic dizziness which is unchanged. In the past this was not felt to be related to his valvular heart disease. He did not endorse symptoms of chest pain. While he would seem to be a reasonable candidate for a percutaneous valve replacement, he has several additional comorbidities which are active and being addressed. I do not believe he requires any additional inpatient evaluation at this point, but I will discuss further studies with the patient's and we can pursue an evaluation for valve replacement in the outpatient setting. 2. Mitral regurgitation: Mild. I do not believe this precludes replacement of the aortic valve percutaneously. 3. Coronary calcification: Not known to have severe coronary disease, but certainly calcifications on his prior studies. Before any valve replacement can be entertained evaluation of his coronary disease will be necessary. Again, this can be arranged as an outpatient. 4. Carcinoid: He is known to have carcinoid disease which can affect the heart. However, this usually results in right-sided valve abnormalities. Pulmonic and tricuspid valve not appear to be significantly affected. I do not believe that his current aortic valvular disease is related. 5. Aortic aneurysm: Thoracic aortic aneurysm noted on prior CT scan. Very mild dilation. This will need to be reassessed prior to any additional intervention. History of Present Illness Reason for Consultation: Aortic stenosis Requesting Physician: Brandi Attending Physician: Joe Paz DO History of Present Illness The patient is a 78-year-old gentleman with a history of a thoracic aortic aneurysm and aortic stenosis who was admitted to the hospital for symptoms of dizziness, weakness and gait instability. The patient has suffered a cerebrovascular accident and a more recent intracranial hemorrhage requiring placement of a ventriculoperitoneal shunt. His ambulation has been limited since his event and resultant right-sided hemiparesis. According to his family members he had slowly been improving with respect to activity and ambulation. A chest x-ray obtained the time admission suggested an element of mild pulmonary vascular congestion. Repeat echocardiogram performed during this admission also confirmed severe aortic stenosis. Based on these findings the requested an evaluation by Cardiology for aortic stenosis. At the time of my interview the patient was able to answer questions appropriately. He did not report symptoms of shortness of breath. No current dyspnea. No orthopnea. He has not reported symptoms of chest pain. When asked how he was feeling he replied not good. This apparently refers to some abdominal complaints and mild discomfort at the border of the right lower ribcage. He reports being able to ambulate short distances to the bathroom. He did not report dizziness or lightheadedness. He feels that his main disability continues to be weakness. ADDENDUM I had an opportunity to speak directly with the patient's who provided some additional history. It seems that there main concern when bringing him to the hospital was progressive dyspnea. Apparently he had been improving strength roth, but more recently has been having difficulty performing activities due to shortness of breath. Allergies Allergy/AdvReac Type Severity Reaction Status Date / Time meclizine Allergy "goofy" Verified 02/26/24 21:13 lisinopril AdvReac Intermediate COUGH Verified 02/26/24 21:13 acesulfame AdvReac Diarrhea Verified 02/26/24 21:13 aspartame AdvReac Diarrhea Verified 02/28/24 11:13 sucralose AdvReac Diarrhea Verified 02/26/24 21:13 [From Splenda (sucralose)] Home Medications Medication Instructions Recorded Confirmed Type cholecalciferol (vitamin D3) 125 125 mcg PO QAM 06/06/21 02/26/24 History mcg (5,000 unit) capsule lutegold 1 tab PO HS macular degeneration 03/20/22 02/26/24 History mecobalamin (vitamin B12) 500 mcg 500 mcg PO QAM 04/01/23 02/26/24 History chewable tablet melatonin 3 mg capsule 3 mg PO HS PRN Sleep 04/01/23 02/26/24 History losartan 50 mg tablet 50 mg PO BID #180 tabs 04/08/23 02/26/24 Rx aspirin 81 mg tablet,delayed 81 mg PO .Q3-4 DAYS 04/24/23 02/26/24 History release (Adult Low Dose Aspirin) pantoprazole 40 mg tablet,delayed 40 mg PO DAILY PRN Gastric Reflux 04/24/23 02/26/24 History release atorvastatin 80 mg tablet 80 mg PO QAM #90 tabs 06/10/23 02/26/24 Rx blood-glucose meter,continuous #1 ea 06/20/23 01/15/24 Rx (Dexcom G7 Human Resource Analyst) blood-glucose sensor (Dexcom G7 #9 ea 06/20/23 01/15/24 Rx Sensor device) pen needle, diabetic 31 gauge x #50 ea 06/20/23 01/15/24 Rx 3/16" (BD Ultra-Fine Mini Pen Needle) potassium chloride 10 mEq oral 10 meq PO QAM 08/30/23 02/26/24 History packet blood sugar diagnostic (OneTouch #300 ea 09/27/23 01/15/24 Rx Verio test strips) triamcinolone acetonide 55 mcg 1 spray intranasal DAILY PRN 09/27/23 02/26/24 History nasal spray aerosol (Nasacort) Congestion sodium chloride 1,000 mg soluble 1,000 mg PO BID 10/02/23 02/26/24 History tablet metformin 500 mg tablet,extended 500 mg PO BID #180 tabs 10/15/23 02/26/24 Rx release 24 hr amlodipine 5 mg tablet (Norvasc) 5 mg PO .AFTERNOON 12/26/23 02/26/24 History dutasteride 0.5 mg capsule 0.5 mg PO DAILY #90 caps 01/02/24 02/26/24 Rx insulin glargine 100 unit/mL (3 16 unit (0.16 mL) subcut QPM #15 mL 01/09/24 02/26/24 Rx mL) subcutaneous pen (Lantus Solostar U-100 Insulin) escitalopram oxalate 20 mg tablet 20 mg PO 1500 #90 tabs 01/10/24 02/26/24 Rx amlodipine 2.5 mg tablet 2.5 mg PO .AFTERNOON 02/26/24 02/26/24 History Patient History Medical History Left inguinal hernia Osteoarthritis History of SIADH 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 no treatment per "it's not affecting his liver function so we are leaving it alone." Liver lesion Mesenteric mass Carotid stenosis neck CTA 08/2023 [place] History of CVA (cerebrovascular accident) 2020. denies residual. DM type 2 (diabetes mellitus, type 2) Anxiety and depression Aortic stenosis mod-severe, not a surgical candidate Hypertension Subdural hematoma hx Aortic aneurysm [place] Cardiology monitoring Macular degeneration Mild sleep apnea Cervicalgia Cervical facet joint syndrome Loss of protective sensation of skin of foot Hyperlipidemia Surgical History Hx of left cataract extraction History of liver biopsy History of hernia repair History of brain shunt Hx of colonoscopy H/O brain surgery decompressional subdural hematoma 12/2021 H/O knee surgery Family History Father , age 67 of heart issues Coronary heart disease Diabetes Myocardial infarction Mother , age 53 of heart issues Myocardial infarction Denies family history of Ovarian cancer Prostate cancer Breast cancer Colorectal cancer Cancer Social History Smoking Status: Former smoker Tobacco Type: Cigars Second Hand Exposure: No; Do You Dip or Chew Tobacco: No; Hx Alcohol Use: No Hx Substance Use: No Preferred Language: Cymraes Communication Ability: Effective Visual Impairment: Limited Hearing Ability: Hard of Hearing Special Education Resource Room Teacher Required: No Beliefs That Will Affect Care: None marital status: Current Living Situation: Spouse Current Living Situation Comment: spouse is pt's caregiver current occupational status: retired 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 Some element of anorexia. Physical Exam Physical Exam: The patient is alert and oriented. Mood and affect appeared normal. He seem to answer all questions appropriately. HEENT: Pupils are equal and reactive to light and accommodation. Extraocular movements are intact. The sclerae are anicteric. Neuro: Cranial nerves intact Lungs: Clear to auscultation bilaterally. He has good air movement without use of accessory muscles. No rales wheezes or rhonchi. Cardiac: Heart demonstrates a regular rate and rhythm. Normal S1 and S2. Relatively low pitched crescendo systolic murmur. Pulses: The patient has palpable radial pulses bilaterally that are equal in intensity Extremities: There was no evidence of hypoperfusion. There is no cyanosis or clubbing. There is no edema. Skin: I did not appreciate any rashes on examination today. Results & Data Vital Signs (Past 12 Hours) Vital Signs Temp Pulse Pulse Resp BP BP Pulse Ox 02/29/24 11:25 36.7 C 78 18 123/68 91 02/29/24 08:00 02/29/24 07:36 36.9 C 85 18 147/62 H 96 02/29/24 06:51 81 02/29/24 03:13 36.4 C L 02/29/24 02:40 67 18 120/70 99 O2 Del Method 02/29/24 11:25 Room Air 02/29/24 08:00 Room Air 02/29/24 07:36 Room Air 02/29/24 06:51 02/29/24 03:13 02/29/24 02:40 Room Air Laboratory Results Abnormal Lab Results 02/28/24 02/28/24 02/29/24 17:13 20:38 04:55 WBC 10.48 RBC 4.30 L Hgb 12.5 L Hct 37.1 L MCV 86.3 MCH 29.1 MCHC 33.7 RDW Std Deviation 44.5 RDW Coeff of Taylor 14.3 Plt Count 251 MPV 11.0 Immature Gran % (Auto) 0.6 Neut % (Auto) 73.9 Lymph % (Auto) 16.5 [place] % (Auto) 7.3 Eos % (Auto) 1.1 Baso % (Auto) 0.6 Neut # (Auto) 7.75 H Lymph # (Auto) 1.73 [place] # (Auto) 0.76 H Eos # (Auto) 0.12 Baso # (Auto) 0.06 Immature Gran # (Auto) 0.06 Sodium 137 Potassium 3.9 Chloride 104 Carbon Dioxide 25 Anion Gap 8 BUN 15 Creatinine 0.56 L Est Cr Clr Drug Dosing 109.6 Est GFR ( Amer) 114.8 Est GFR (Non-Af Amer) 99.1 BUN/Creatinine Ratio 26.8 H Glucose 84 POC Glucose 124 H 136 H Calcium 9.1 02/29/24 02/29/24 08:10 12:03 WBC RBC Hgb Hct MCV MCH MCHC RDW Std Deviation RDW Coeff of Taylor Plt Count MPV Immature Gran % (Auto) Neut % (Auto) Lymph % (Auto) [place] % (Auto) Eos % (Auto) Baso % (Auto) Neut # (Auto) Lymph # (Auto) [place] # (Auto) Eos # (Auto) Baso # (Auto) Immature Gran # (Auto) Sodium Potassium Chloride Carbon Dioxide Anion Gap BUN Creatinine Est Cr Clr Drug Dosing Est GFR ( Amer) Est GFR (Non-Af Amer) BUN/Creatinine Ratio Glucose POC Glucose 92 127 H Calcium Diagnostic Findings Echocardiogram performed 02/27/2024: Normal LV systolic function with ejection fraction of 55-60%. Mild LVH. Severe left atrial dilation. Severe aortic stenosis with possible severe aortic regurgitation. Mild mitral regurgitation. Severe pulmonary hypertension with estimated pressures of 61 mm of mercury. PG Care Time/CCT Total # of Minutes Spent Total Time Spent with Patient: Total time spent is greater than 50% in coordination of care (as documented) at patient's floor/unit and/or counseling patient: Coding Level of Care Code 90102 INT INP/OBS CARE 375MIN Diagnoses Aortic stenosis I35.0 Aortic aneurysm I71.9
--- NOTE | 2024-02-29 13:22 | Billing Data ---
Date of Service February 29, 2024 Coding Level of Care Code 14071 SUB INP/OBS CARE
[2024-03-01 06:57] LABS: Basophils # (auto) 0.05 K/uL (0.00-0.20); Basophils % (auto) 0.4 %; Eosinophils # (auto) 0.06 K/uL (0.00-0.50); Eosinophils % (auto) 0.5 %; Hematocrit (blood only) 38.7 % (42.0-52.0); Hemoglobin 13.1 g/dl (14.0-18.0); Immature Granulocytes # (auto) 0.08 K/uL (0.01-0.20); Immature Granulocytes % (auto) 0.6 %; Lymphocytes # (auto) 1.42 K/uL (1.20-3.40); Lymphocytes % (auto) 10.7 %; Mean Corpuscular Hemoglobin 29.3 pg (25.0-34.0); Mean Corpuscular Hgb Conc 33.9 g/dL (32.0-36.0); Mean Corpuscular Volume 86.6 fL (80.0-100.0); Mean Platelet Volume 11.2 fL (9.4-12.4); Monocytes # (auto) 1.34 K/uL (0.11-0.59); Monocytes % (auto) 10.1 %; Neutrophils % (auto) 77.7 %; Platelet Count 272 K/uL (130-400); RDW Coefficient of Variation 14.4 % (11.5-14.5); RDW Standard Deviation 45.3 fL (36.4-46.3); Red Blood Count 4.47 M/uL (4.70-6.10); White Blood Count 13.25 K/ul (4.8-10.8)
--- NOTE | 2024-03-01 07:13 | Hospitalist Progress Note ---
Date of Service March 01, 2024 Assessment & Plan (1) Dizziness: (2) Generalized weakness: (3) Pneumonia: (4) DM (diabetes mellitus), type 2: Plan 78-year-old male with history of neuroendocrine tumor, moderate to severe aortic stenosis, hypertension, diabetes and prior intraventricular hemorrhage status post DEVELOPMENT ENG shunt placement in February 2023 presenting from home with 2 days of dizziness/vertiginous symptoms, generalized weakness and increase SOB Shortness of breath/CHF Severe aortic stenosis - Worsening SOB in the last week and generalized weakness, +1 leg edema in the setting of a patient with severe aortic stenosis contributing to CHF - CXR: left pleural effusion, more suggestive on congestive changes - BNP: 1000s - Echo: EF 55-60%. Severe left atrial dilation, Severe aortic stenosis with possible aortic regurgitation. Severe pulmonary hypertension - Will discontinue IV antibiotics (no leukocytosis, no cough, normal procalcitonin, no URI) - Daily weights, I/Os - Lasix 20 mg x2 - Cardiology consulted, apprec recommendations - outpatient testing for possible TAVR - Coreg 6.25 mg BID - Continue Losartan - CT chest ordered for today - NPO at midnight for cath cardiac catheterization. Generalized weakness: May be secondary to CHF Patient overall appears to be well hydrated and well nourished. Electrolytes are WNL. Shunt series performed confirms proper position of DEVELOPMENT ENG shunt, CT Head WNL. -TSH normal -PT/OT evaluation - SNF/Inpatient rehab Delirium/ Acute metabolic encephalopathy delirium prevention protocols with frequent orientation, ambulation with assistance as needed and maintenance of sleep-wake cycles were able Secondary to CHF decompensation Continue to monitor Dizziness/ BPPV - resolved - Patient's symptoms seem to be vertigo on admission - PT/OT evaluations appreciated DM (diabetes mellitus), type 2: Patient with elevated blood sugar of 242. Last [id number]=9.5 on 06/04/24 -Check HgbA1C with AM labs -Lantus 16u qPM -ISS -Hold Metformin -CC diet Hypertension: Blood pressure stable -Continue Amlodipine -Continue Losartan -Monitor Hyperlipidemia: Chronic. Stable -Continue Atorvastatin GERD: Chronic. Stable -Continue Protonix SIADH: Chronic. Stable. Na low normal at 136 -Monitor daily Na -Hold Salt tablets for now DVT prophylaxis: Lovenox 40 sq daily Diet: Low sodium / DM2 Med surge/ Telemetry Admission and Anticipated Discharge Date Admission Date: February 26, 2024 Supervising Physician Co-Signing Physician Notes I personally examined the patient and verified all galvez points of history and exam, discussed case, and agree with decision making with Dr Josef Killian sleeping, was awake earlier, but does not arouse for meat the same time does not at all appear to be in distress, just fatigued. Vitals noted, in general he is lying in bed Resting comfortably and in no distress. breathing unlabored no accessory muscles good effort Lungs clear without rales rhonchi or wheezes. Heart diminished no rubs murmurs or gallops noted to me.skin no rashes no pallor or icterus neuro no focal deficits. Dyspnea/hypoxiawith further review does not appear to be pneumonia at all. Probably was all CHF relatedgently diurese continue to follow closely. Repeat echocardiogram shows worsening - Cardiology completing workup in regards to possible TAVR. on afterload reduction w losartan, giving a trial of coreg instead of amlodipine. Confusion likely represents delirium/metabolic encephalopathy. PT/OT eval and treat, likely to need SNF or rehab on discharge. very mild leukocytosis - nonspecific. no clear signs of infection. serial exams, continue to monitor DVT prophylaxisLovenox Subjective Patient evaluated this morning found in NAD. Oriented to person, place, no situation. Denied any chest pain, SOB, palpitations, or any other symptoms. As per Cardiology will proceed with evaluation for TAVR with CT and cardiac catheterization. Review of Systems Review of Systems: as per hpi Physical Exam Constitutional: WD/WN, vitals as above Respiratory: normal respiratory effort, lungs clear to auscultation normal respiratory effort; no respiratory distress and no labored breathing Auscultation: + diminished lung sounds (bases) and + crackles (bilateral) Cardiovascular: RRR, no murmur, no edema Rate/Rhythm: regular rate and regular rhythm Heart Sounds: + murmur (crescendo ) Gastrointestinal (Abdomen): normal bowel sounds, soft, nontender, no hepatosplenomegaly Skin: no rashes, warm and dry Results & Data Results & Data Vital Signs (Past 12 Hours) Vital Signs Temp Pulse Pulse Resp BP Pulse Ox O2 Del Method 03/01/24 02:41 36.5 C 79 16 112/60 93 Room Air 02/29/24 23:00 79 02/29/24 22:25 36.9 C 75 16 107/57 L 92 Room Air 02/29/24 20:00 Room Air 02/29/24 19:40 36.9 C 73 18 102/53 L 94 Room Air Resident Activity Tracking Resident Involvement: Resident Care Provided Care Provided: Adult Hospital Medicine (3) Pneumonia Laterality: unspecified laterality Lung location: unspecified part of lung Pneumonia type: due to unspecified organism Qualified Code(s): J18.9 - Pneumonia, unspecified organism (4) DM (diabetes mellitus), type 2 Diabetes mellitus complication status: with other specified complication Diabetes mellitus terminal supervisor insulin use: with alf use Qualified Code(s): E11.69 - Type 2 diabetes mellitus with other specified complication; Z79.4 - prison (current) use of insulin
[2024-03-01 07:18] LABS: Creatinine Clr Calc Pharmacy 90.2 ml/min; Est GFR (Non-African American) 91.5 ml/min
--- NOTE | 2024-03-01 11:10 | Cardiology Progress Note ---
Date of Service March 01, 2024 Assessment & Plan (1) Aortic stenosis: (2) Aortic aneurysm: Plan 1. Aortic stenosis: I had a discussion with his yesterday and she indicated that he was having significant breathing difficulty at home. This would suggest an element of symptomatic aortic stenosis. We agreed to proceed with more formal evaluation to include CT scan of the chest and cardiac catheterization. After these results are obtained we can entertain the possibility of an evaluation for TAVR. He has some significant additional comorbidities which make him a less than ideal candidate for any intervention. 2. Mitral regurgitation: Mild. I do not believe this precludes replacement of the aortic valve percutaneously. 3. Coronary calcification: Not known to have severe coronary disease, but certainly calcifications on his prior studies. 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 5. Aortic aneurysm: Thoracic aortic aneurysm noted on prior CT scan. Will rep eat CT scan today. Admission and Anticipated Discharge Date Admission Date: February 26, 2024 Subjective This morning the patient claimed he feeling well. In fact, he stated I could be feeling better. He denies breathing trouble. He states he still feels somewhat weak however. Minimal ambulation. Good appetite. Review of Systems Review of Systems: Per HPI Physical Exam Physical Exam: The patient is alert and oriented. Mood and affect appeared normal. He seem to answer all questions appropriately. HEENT: Pupils are equal and reactive to light and accommodation. Extraocular movements are intact. The sclerae are anicteric. Neuro: Cranial nerves intact Lungs: Clear to auscultation bilaterally. He has good air movement without use of accessory muscles. No rales wheezes or rhonchi. Cardiac: Heart demonstrates a regular rate and rhythm. Normal S1 and S2. Relatively low pitched crescendo systolic murmur. Pulses: The patient has palpable radial pulses bilaterally that are equal in intensity Extremities: There was no evidence of hypoperfusion. There is no cyanosis or clubbing. There is no edema. Skin: I did not appreciate any rashes on examination today. Results & Data Vital Signs (Past 12 Hours) Vital Signs Temp Pulse Pulse Resp BP BP Pulse Ox 03/01/24 07:39 82 03/01/24 07:23 37.3 C 86 18 121/49 L 92 03/01/24 02:41 36.5 C 79 16 112/60 93 O2 Del Method 03/01/24 07:39 03/01/24 07:23 Room Air 03/01/24 02:41 Room Air Laboratory Results Abnormal Lab Results 02/29/24 02/29/24 02/29/24 12:03 16:30 20:47 WBC RBC Hgb Hct MCV MCH MCHC RDW Std Deviation RDW Coeff of Taylor Plt Count MPV Immature Gran % (Auto) Neut % (Auto) Lymph % (Auto) Andrew % (Auto) Eos % (Auto) Baso % (Auto) Neut # (Auto) Lymph # (Auto) Andrew # (Auto) Eos # (Auto) Baso # (Auto) Immature Gran # (Auto) Creatinine Est Cr Clr Drug Dosing Est GFR ( Amer) Est GFR (Non-Af Amer) POC Glucose 127 H 197 H 240 H 03/01/24 03/01/24 03/01/24 06:24 08:19 08:20 WBC 13.25 H RBC 4.47 L Hgb 13.1 L Hct 38.7 L MCV 86.6 MCH 29.3 MCHC 33.9 RDW Std Deviation 45.3 RDW Coeff of Taylor 14.4 Plt Count 272 MPV 11.2 Immature Gran % (Auto) 0.6 Neut % (Auto) 77.7 Lymph % (Auto) 10.7 Andrew % (Auto) 10.1 Eos % (Auto) 0.5 Baso % (Auto) 0.4 Neut # (Auto) 10.30 H Lymph # (Auto) 1.42 Andrew # (Auto) 1.34 H Eos # (Auto) 0.06 Baso # (Auto) 0.05 Immature Gran # (Auto) 0.08 Creatinine 0.68 Est Cr Clr Drug Dosing 90.2 Est GFR ( Amer) 106.0 Est GFR (Non-Af Amer) 91.5 POC Glucose 66 L* 74 PG Care Time/CCT Total # of Minutes Spent Total Time Spent with Patient: Total time spent is greater than 50% in coordination of care (as documented) at patient's floor/unit and/or counseling patient: Coding Level of Care Code 62729 SUB INP/OBS CARE 2/35MIN Diagnoses Aortic stenosis I35.0 Aortic aneurysm I71.9
[2024-03-01] MEDS: OPTIRAY 320 100ml IV ONE (11:30)
--- NOTE | 2024-03-01 12:53 | Billing Data ---
Date of Service March 01, 2024 Coding Level of Care Code 31991 SUB INP/OBS CARE
--- NOTE | 2024-03-01 17:34 | CT Scan Report ---
CT chest diagnostic w con CLINICAL HISTORY: thoracic aortic aneurysm, carcinoid TECHNIQUE: Multidetector row helical CT of the chest was performed with intravenous contrast. Coronal and sagittal reformations were obtained. Automated dose lowering techniques and/or adjustment accord ing to patient size were utilized for this exam. CT DOSE: 549.22 mGy.cm Comparison: Comparison is made to CT chest 12/21/2022 FINDINGS: Lungs and pleura: Moderate bilateral pleural effusions and atelectasis are seen. Additional nodules a re seen. Heart and pericardium: Cardiomegaly is seen with biatrial enlargement. Aortic valvular prosthesis is seen. Vessels: Severe atherosclerotic changes in the aorta and coronary arteries. Descending aorta measures 40 mm, unchanged. Mediastinum and jorge: Unremarkable. Chest wall and lower neck: Large left thyroid nodule noted. There is a 12 x 16 mm nodule in the left axilla. Abdomen: Unremarkable. Bones: Degenerative changes in the thoracic spine. IMPRESSION: 1. Moderate bilateral pleural effusions with underlying atelectasis. No suspicious pulmonary nodules . 2. Left axillary soft tissue nodule, stable from prior. 3. Stable minimal descending thoracic aortic aneurysm. 4. Stable left thyroid nodule. 5. Additional findings as above. ACT 112: Negative or not required by law. Electronically signed by: Que Soto M.D. 03/01/2024 5:31 PM
[2024-03-02] MEDS: SODIUM CHLORIDE 0.9% 500 ML IV SCH (04:54)
[2024-03-02 06:23] LABS: Basophils # (auto) 0.05 K/uL (0.00-0.20); Basophils % (auto) 0.4 %; Eosinophils # (auto) 0.05 K/uL (0.00-0.50); Eosinophils % (auto) 0.4 %; Hematocrit (blood only) 33.8 % (42.0-52.0); Hemoglobin 11.3 g/dl (14.0-18.0); Immature Granulocytes # (auto) 0.06 K/uL (0.01-0.20); Immature Granulocytes % (auto) 0.5 %; Lymphocytes # (auto) 1.56 K/uL (1.20-3.40); Lymphocytes % (auto) 13.1 %; Mean Corpuscular Hemoglobin 29.1 pg (25.0-34.0); Mean Corpuscular Hgb Conc 33.4 g/dL (32.0-36.0); Mean Corpuscular Volume 87.1 fL (80.0-100.0); Mean Platelet Volume 11.2 fL (9.4-12.4); Monocytes # (auto) 1.51 K/uL (0.11-0.59); Monocytes % (auto) 12.7 %; Neutrophils # (auto) 8.66 K/uL (1.40-6.50); Neutrophils % (auto) 72.9 %; Platelet Count 230 K/uL (130-400); RDW Coefficient of Variation 14.2 % (11.5-14.5); RDW Standard Deviation 45.2 fL (36.4-46.3); Red Blood Count 3.88 M/uL (4.70-6.10); White Blood Count 11.89 K/ul (4.8-10.8)
--- NOTE | 2024-03-02 06:58 | Hospitalist Progress Note ---
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 Severe left atrial dilation, Severe aortic stenosis with possible aortic regurgitation. Severe pulmonary hypertension - Daily weights, I/Os - Lasix 20 mg QAM - Cardiology consulted, appreciate recommendations - cardiac cath without severe coronary disease that would necessarily preclude percutaneous valve replacement, recommend further outpatient evaluation for TAVR consideration - Coreg 6.25 mg BID - Continue Losartan Generalized weakness: May be secondary to CHF Patient overall appears to be well hydrated and well nourished. Electrolytes are WNL. Shunt series performed confirms proper position of GAMING FLOOR SUPERVISOR shunt, CT Head WNL. -TSH normal -PT/OT evaluation - SNF/Inpatient rehab Delirium/ Acute metabolic encephalopathy delirium prevention protocols with frequent orientation, ambulation with assistance as needed and maintenance of sleep-wake cycles were able Secondary to CHF decompensation Continue to monitor Dizziness/ BPPV - resolved - Patient's symptoms seem to be vertigo on admission - PT/OT evaluations appreciated DM (diabetes mellitus), type 2: Patient with elevated blood sugar of 242. Last [id number]=8.5 on 06/04/24 -Lantus 16u qPM -ISS -Hold Metformin -CC diet Hypertension: Blood pressure stable -Continue Amlodipine -Continue Losartan Hyperlipidemia: Chronic. Stable -Continue Atorvastatin GERD: Chronic. Stable -Continue Protonix SIADH: Chronic. Stable. -Monitor daily Na -Hold Salt tablets for now DVT prophylaxis: Lovenox 40 sq daily Diet: Low sodium / DM2 PCU/ Telemetry Admission and Anticipated Discharge Date Admission Date: February 26, 2024 Supervising Physician Co-Signing Physician Notes I personally examined the patient and verified galvez points of history and exam, discussed case, and agree with decision making and plan documented by Dr. Fuentes. Patient evaluated with at bedside following catheterization, he remained sedated from anesthesia and was sleeping comfortably. Cardiology completing preliminary evaluation for consideration of TAVR for severe aortic stenosis. Subjective Patient evaluated this morning found in NAD. Oriented to person, place but not time or situation. Endorses mild headache but denies dizziness, chest pain, SOB. Patient will be going for cardiac cath this AM. Review of Systems Review of Systems: as per HPI Physical Exam Physical Exam: General: Alert and oriented. No acute distress Cardiac: Regular rate and rhythm, +systolic ejection murmur Respiratory: Lungs clear to auscultation bilaterally, No increased work of b reathing Abdominal: Soft, non-tender, non-distended. Bowel sounds present. Extremities: Minimal lower extremity edema Results & Data Results & Data Vital Signs (Past 12 Hours) Vital Signs Temp Pulse Pulse Resp BP Pulse Ox O2 Del Method 03/02/24 03:25 36.6 C 77 18 124/61 95 Room Air 03/01/24 22:57 36.5 C 76 16 118/64 95 Room Air 03/01/24 21:58 82 03/01/24 20:30 Room Air 03/01/24 19:57 36.5 C 74 16 101/63 94 Room Air Resident Activity Tracking Resident Involvement: Resident Care Provided Care Provided: Adult Hospital Medicine (3) Pneumonia Laterality: unspecified laterality Lung location: unspecified part of lung Pneumonia type: due to unspecified organism Qualified Code(s): J18.9 - Pneumonia, unspecified organism (4) DM (diabetes mellitus), type 2 Diabetes mellitus complication status: with other specified complication Diabetes mellitus senior living insulin use: with senior living use Qualified Code(s): E11.69 - Type 2 diabetes mellitus with other specified complication; Z79.4 - intermediate (current) use of insulin
[2024-03-02 07:12] LABS: Creatinine Clr Calc Pharmacy 81.1 ml/min; Est GFR (African American) 101.8 ml/min; Est GFR (Non-African American) 87.9 ml/min; Potassium 3.8 mmol/L (3.5-5.1)
--- NOTE | 2024-03-02 10:45 | Pre Anesthesia Assessment ---
Date of Service March 02, 2024 Pre Sedation Assessment Vital Signs Temp Pulse Pulse Resp BP BP Pulse Ox 03/02/24 09:52 36.7 C 77 14 106/49 L 97 03/02/24 09:44 74 03/02/24 07:49 03/02/24 07:33 36.6 C 70 20 129/70 92 03/02/24 03:25 36.6 C 77 18 124/61 95 03/01/24 22:57 36.5 C 76 16 118/64 95 03/01/24 21:58 82 03/01/24 20:30 03/01/24 19:57 36.5 C 74 16 101/63 94 03/01/24 15:23 36.6 C 85 16 119/70 93 03/01/24 15:06 75 03/01/24 12:11 03/01/24 11:13 37.1 C 74 18 109/64 95 O2 Del Method 03/02/24 09:52 Room Air 03/02/24 09:44 03/02/24 07:49 Room Air 03/02/24 07:33 Room Air 03/02/24 03:25 Room Air 03/01/24 22:57 Room Air 03/01/24 21:58 03/01/24 20:30 Room Air 03/01/24 19:57 Room Air 03/01/24 15:23 Room Air 03/01/24 15:06 03/01/24 12:11 Room Air 03/01/24 11:13 Room Air Cardiovascular + regular rate Respiratory + respiratory effort normal Pre-Sedation Airway Assessment Smoking Status: Former smoker Hx Sleep Apnea: No Hx Difficult Intubation: No Short, Thick Neck: No Thyromental Distance: > or= 3.5 Finger Breadths Oral Cavity: + Dental Abnormalities Mallampati Class: III ASA: ASA3 NPO Status Date of Last Intake of Fluids: 03/02/24 Time of Last Intake of Fluids: 07:30 Date of Last Intake of Solid Food: 03/02/24 Time of Last Intake of Solid Foods: 07:30 Procedure Planning Contraindications for Sedation: none Current Medications Reviewed: Yes Notes The planned sedation has been discussed with the patient. Informed Consent was obtained. I have identified the patient, determined the appropriateness of sedation and have assessed the patient immediately prior to the procedure. All medicine(s) and interventions are by my order.
[2024-03-02] MEDS: OPTIRAY 350 ONE (11:25)
[2024-03-02] MEDS: NITROGLYCERIN/D5W 100MCG/ML 20ML SYR ONE (11:25)
--- NOTE | 2024-03-02 11:28 | Cardiac Catheterization ---
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 Cardiac Status Clinical evaluation leading to the procedure CAD Presenation: Sx unlikely to be ischemic Diagnostic Physicians Name: Lee Tao MD Closure Device Recommendations: Medical Therapy and/or Counseling and Valve Replacement Cardiac Cath Procedure Full Procedure Date March 02, 2024 Pre-Procedure Diagnosis Pre-Procedure Diagnosis: Valvular Disease AUC Score AUC Score: 7 Post-Procedure Diagnosis Post-Procedure Diagnosis: Moderate CAD Procedure(s) Performed Procedure(s) Performed: Coronary Angiography Mlt Lee Tao MD Bar Pointer(s) none Estimated Blood Loss Estimated Blood Loss: 5cc Medication(s) Medication(s): Lidocaine 1% and Nitroglycerin Summary of Findings Procedure performed: Selective coronary angiography Staff obstetrical anesthesiologist: Lee Tao MD Indication: Patient is a 70-year-old gentleman with a history of severe aortic stenosis and dyspnea on exertion. Coronary angiography was required to risk stratify for possible TAVR Procedure in detail: The patient was informed of the risks benefits and alternatives to the intended procedure, he understood such and wished to proceed. He was taken to the cardiac catheterization suite in a fasting state. Conscious sedation was administered per protocol and the patient was monitored electrocardiographically throughout today's procedure. The right wrist area was prepped and draped in usual sterile fashion. This area was anesthetized using subcutaneous administration of a lidocaine solution. The right radial artery was then accessed using Seldinger technique, and a arterial sheath was placed at this site over a guidewire. The sheath was used to facilitate passage of the cardiac catheter for coronary angiography and left heart catheterization. Coronary angiogram was then obtained in multiple orthogonal views prior to removal of the catheter. At the conclusion of the procedure the sheath was removed and hemostasis was achieved at the access site using manual pressure. The patient tolerated procedure well, there were no immediate complications. Equipment used: 5 [place] tiger 4 Findings: Coronary angiography Left main: Left main was normal in size and caliber. There was some tapering in the distal portion estimated at 40%. It bifurcated normally into the left anterior descending left circumflex artery Left anterior descending: Left anterior descending was a medium caliber vessel which reached the apex. There are luminal regularities throughout its course but no discrete stenoses. It produced a large 1st diagonal branch in 2 diminutive additional diagonal branches. There was some disease in the 1st diag onal branch after its bifurcation. Left circumflex: Left circumflex was a nondominant vessel. There is a 50% stenosis in its proximal portion an additional 40% lesion prior to the takeoff of the 1st OM branch. There was a 50% lesion in the proximal obtuse marginal as well. Right coronary: The right coronary was a dominant vessel. It was heavily calcified. There were luminal irregularities throughout its course but no discrete stenosis. It produced a large PDA and PLB branch Impression: Heavily calcified coronary vessels Moderate obstructive disease primarily involving the left circumflex, and a branch of the 1st diagonal Right dominant coronary system Hemodynamics Rest Ao:: 109/44 mm of mercury Final Ao: 97/45 mm of mercury LV: n/a Recommendations Recommendations: Medical Therapy and/or Counseling and Valve Replacement Specimens Specimens: None Radiation Exposure (mGy) 685 Contrast (mls) 40 Procedural Complication(s) None Disposition PCU I attest to the content of the Intraoperative Record and any orders documented therein. Any exceptions are noted below. [facility] Card Cath Procedure Codes Cardiac Catheterization Procedure 1: Cardiovascular Cath Procedures: 41552 Coronaries PG Care Time/CCT Total # of Minutes Spent Total Time Spent with Patient: Total time spent is greater than 50% in coordination of care (as documented) at patient's floor/unit and/or counseling patient:
[2024-03-02] MEDS: HEPARIN (PORCINE) 1000 UNIT/ML 10 ML (CATH LAB USE ONLY) ONE (12:37)
[2024-03-02] MEDS: fentaNYL citrate PF 100 MCG/2 ML VIAL ONE (12:37)
[2024-03-02] MEDS: MIDAZOLAM HCL 1 MG/ML 2ML VIAL ONE (12:38)
[2024-03-02] MEDS: IODIXANOL (VISIPAQUE) 320 MG/ML 100ML IV ONE (12:38)
[2024-03-02] MEDS: niCARdipine HCL INJ 2.5 MG/ML 10 ML AMP ONE (12:38)
--- NOTE | 2024-03-02 16:32 | Cardiology Progress Note ---
Date of Service March 02, 2024 Assessment & Plan (1) Aortic stenosis: (2) Aortic aneurysm: Plan 1. Aortic stenosis: Severe. His preliminary evaluation has been completed. No severe coronary disease to preclude a percutaneous replacement. However, he has multiple other comorbidities it is unclear this will improve his functional status. It seems reasonable to refer him for evaluation which can be done on an outpatient basis provided his functional status improves. 2. Mitral regurgitation: Mild. I do not believe this precludes replacement of the aortic valve percutaneously. 3. Coronary calcification: Extensive coronary calcification. No severe obstructive coronary disease. He can continue high-dose atorvastatin and aspirin. 4. Carcinoid: He is known to have carcinoid disease which can affect the heart. However, this usually results in right-sided valve abnormalities. Pulmonic and tricuspid valve not appear to be significantly affected. I do not believe that his current aortic valvular disease is related. 5. 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 6. Pleural effusions: He has fairly sizable pleural effusions on his CT scan. This is not appear to compromise his breathing but would suggest that has an element of hypovolemia. Unfortunately, there is no record of any urinary output. I think we should try a dose of diuretic tomorrow morning and monitor his response. Admission and Anticipated Discharge Date Admission Date: February 26, 2024 Subjective This afternoon the patient claimed he feeling well. He not report any significant breathing difficulty. No pain at the right radial access site. No chest pain. Minimal ambulation according to nursing staff as the patient slept most of the day. Physical Exam Physical Exam: The patient is alert and oriented. Mood and affect appeared normal. He seem to answer all questions appropriately. HEENT: Pupils are equal and reactive to light and accommodation. Extraocular movements are intact. The sclerae are anicteric. Neuro: Cranial nerves intact Lungs: Clear to auscultation bilaterally. He has good air movement without use of accessory muscles. No rales wheezes or rhonchi. Cardiac: Heart demonstrates a regular rate and rhythm. Normal S1 and S2. Relatively low pitched crescendo systolic murmur. Pulses: The patient has palpable radial pulses bilaterally that are equal in intensity. No hematoma the right radial access site. Good perfusion of the right hand. Extremities: There was no evidence of hypoperfusion. There is no cyanosis or clubbing. There is no edema. Skin: I did not appreciate any rashes on examination today. Results & Data Vital Signs (Past 12 Hours) Vital Signs Temp Pulse Pulse Resp BP BP BP 03/02/24 16:02 77 18 133/62 03/02/24 14:00 76 16 03/02/24 14:00 103/58 L 03/02/24 13:45 79 23 03/02/24 13:30 73 25 H 03/02/24 13:30 115/56 L 03/02/24 13:17 127/61 03/02/24 13:17 74 16 03/02/24 13:15 75 19 03/02/24 13:00 71 25 H 03/02/24 13:00 121/49 L 03/02/24 12:45 124/55 L 03/02/24 12:45 72 20 03/02/24 12:30 74 20 03/02/24 12:30 126/59 L 03/02/24 12:15 73 22 03/02/24 12:15 123/54 L 03/02/24 12:10 72 19 03/02/24 12:05 36.5 C 71 16 120/57 L 03/02/24 11:36 36.7 C 78 14 112/55 L 03/02/24 11:35 75 14 112/55 L 03/02/24 09:52 36.7 C 77 14 106/49 L 03/02/24 09:44 74 03/02/24 07:49 03/02/24 07:33 36.6 C 70 20 129/70 Pulse Ox O2 Del Method O2 Flow Rate 03/02/24 16:02 96 Nasal Cannula 03/02/24 14:00 95 Nasal Cannula 2 03/02/24 14:00 03/02/24 13:45 99 Nasal Cannula 2 03/02/24 13:30 03/02/24 13:30 03/02/24 13:17 03/02/24 13:17 97 03/02/24 13:15 97 Nasal Cannula 2 03/02/24 13:00 92 03/02/24 13:00 03/02/24 12:45 03/02/24 12:45 87 L 03/02/24 12:30 98 Nasal Cannula 2 03/02/24 12:30 03/02/24 12:15 97 Nasal Cannula 2 03/02/24 12:15 03/02/24 12:10 97 03/02/24 12:05 97 Room Air 03/02/24 11:36 91 Room Air 03/02/24 11:35 97 Room Air 03/02/24 09:52 97 Room Air 03/02/24 09:44 03/02/24 07:49 Room Air 03/02/24 07:33 92 Room Air Laboratory Results Abnormal Lab Results 03/01/24 03/02/24 03/02/24 20:35 05:33 06:59 WBC 11.89 H RBC 3.88 L Hgb 11.3 L Hct 33.8 L MCV 87.1 MCH 29.1 MCHC 33.4 RDW Std Deviation 45.2 RDW Coeff of Taylor 14.2 Plt Count 230 MPV 11.2 Immature Gran % (Auto) 0.5 Neut % (Auto) 72.9 Lymph % (Auto) 13.1 [place] % (Auto) 12.7 Eos % (Auto) 0.4 Baso % (Auto) 0.4 Neut # (Auto) 8.66 H Lymph # (Auto) 1.56 [place]man # (Auto) 1.51 H Eos # (Auto) 0.05 Baso # (Auto) 0.05 Immature Gran # (Auto) 0.06 Sodium 136 Potassium 3.8 Chloride 104 Carbon Dioxide 26 Anion Gap 6 BUN 18 Creatinine 0.75 Est Cr Clr Drug Dosing 81.1 Est GFR ( Amer) 101.8 Est GFR (Non-Af Amer) 87.9 BUN/Creatinine Ratio 24.0 H Glucose 167 H POC Glucose 215 H 166 H Calcium 9.0 03/02/24 03/02/24 12:39 16:00 WBC RBC Hgb Hct MCV MCH MCHC RDW Std Deviation RDW Coeff of Taylor Plt Count MPV Immature Gran % (Auto) Neut % (Auto) Lymph % (Auto) [place] % (Auto) Eos % (Auto) Baso % (Auto) Neut # (Auto) Lymph # (Auto) [place] # (Auto) Eos # (Auto) Baso # (Auto) Immature Gran # (Auto) Sodium Potassium Chloride Carbon Dioxide Anion Gap BUN Creatinine Est Cr Clr Drug Dosing Est GFR ( Amer) Est GFR (Non-Af Amer) BUN/Creatinine Ratio Glucose POC Glucose 159 H 211 H Calcium Diagnostic Findings Chest CT performed last evening revealed a stable thoracic aortic aneurysm measuring 4 cm. Extensive coronary calcification. Bilateral pleural effusions. PG Care Time/CCT Total # of Minutes Spent Total Time Spent with Patient: Total time spent is greater than 50% in coordination of care (as documented) at patient's floor/unit and/or counseling patient: Coding Level of Care Code 51381 SUB INP/OBS CARE 2/35MIN Diagnoses Aortic stenosis I35.0 Aortic aneurysm I71.9
[2024-03-03 07:38] LABS: Hematocrit (blood only) 34.9 % (42.0-52.0); Hemoglobin 11.8 g/dl (14.0-18.0); Mean Corpuscular Hemoglobin 29.2 pg (25.0-34.0); Mean Corpuscular Hgb Conc 33.8 g/dL (32.0-36.0); Mean Corpuscular Volume 86.4 fL (80.0-100.0); Mean Platelet Volume 11.2 fL (9.4-12.4); Platelet Count 219 K/uL (130-400); RDW Coefficient of Variation 14.3 % (11.5-14.5); RDW Standard Deviation 45.5 fL (36.4-46.3); Red Blood Count 4.04 M/uL (4.70-6.10); White Blood Count 11.53 K/ul (4.8-10.8)
[2024-03-03] MEDS: FUROSEMIDE INJ 20 MG/2 ML VIAL IV SCH (08:14)
--- NOTE | 2024-03-03 10:01 | Hospitalist Progress Note ---
Date of Service March 03, 2024 Assessment & Plan (1) Dizziness: (2) Generalized weakness: (3) Pneumonia: (4) DM (diabetes mellitus), type 2: Plan 78-year-old male with history of neuroendocrine tumor, moderate to severe aortic stenosis, hypertension, diabetes and prior intraventricular hemorrhage status post NEWS WRITER shunt placement in February 2023 presenting from home with 2 days of dizziness/vertiginous symptoms, generalized weakness and increase SOB Shortness of breath/CHF Severe aortic stenosis - Worsening SOB in the last week and generalized weakness, +1 leg edema in the setting of a patient with severe aortic stenosis contributing to CHF - CXR: left pleural effusion, more suggestive on congestive changes - BNP: 1000s - Echo: EF 55-60%. Severe left atrial dilation, Severe aortic stenosis with possible aortic regurgitation. Severe pulmonary hypertension - Daily weights, I/Os - Lasix 20 mg QAM - Cardiology consulted, appreciate recommendations - cardiac cath without severe coronary disease that would necessarily preclude percutaneous valve replacement, recommend further outpatient evaluation for TAVR consideration - Coreg 6.25 mg BID - Continue Losartan Generalized weakness: May be secondary to CHF Electrolytes are WNL. Shunt series performed confirms proper position of NEWS WRITER shunt, CT Head WNL. -TSH normal -PT/OT evaluation - SNF/Inpatient rehab vs in home PT. After lengthy discussion with family, they are amenable to further evaluation for potential TAVR in the outpatient setting. wanting patient to return home with in home PT services through [facility]. CM following, will continue to discuss options with family as SNF/rehab may be a better option given patient's current needs. Delirium/ Acute metabolic encephalopathy delirium prevention protocols with frequent orientation, ambulation with assistance as needed and maintenance of sleep-wake cycles were able Continue to monitor Dizziness/ BPPV - resolved - Patient's symptoms seem to be vertigo on admission - PT/OT evaluations appreciated DM (diabetes mellitus), type 2: Patient with elevated blood sugar of 242. Last [id number]=8.5 on 06/04/24 -Lantus 16u qPM -ISS -Hold Metformin -CC diet Hypertension: Blood pressure stable -Continue Amlodipine -Continue Losartan Hyperlipidemia: Chronic. Stable -Continue Atorvastatin GERD: Chronic. Stable -Continue Protonix SIADH: Chronic. Stable. -Monitor daily Na -Hold Salt tablets for now DVT prophylaxis: Lovenox 40 sq daily Diet: Low sodium / DM2 PCU/ Telemetry Admission and Anticipated Discharge Date Admission Date: February 26, 2024 Supervising Physician Co-Signing Physician Notes I personally examined the patient and verified galvez points of history and exam, discussed case, and agree with decision making and plan documented by Dr. Fuentes. Patient unable to engage with physical therapy today due to lethary. On exam he is resting quietly in bed, was not present, patient responded to verbal stimuli however did not open his eyes, commenting that he was tired. Lungs clear bilaterally to anterior auscultation however patient not breathing deeply on my exam, heart regular rate and rhythm, systolic murmur present, no abdominal tenderness.Cardiology with concern of baseline functional status prior to placement of TAVR. This has been discussed with patient's . She is unsure about rehab, not clear if patient will be able to engage in acute rehab, states she can care for patient at home and obtain home PT. Will see how patient's mentation improves tomorrow and hope that he can participate with physical therapy to determine next steps. Continue IV furosemide 20 mg daily. Vital signs been stable. Subjective Patient evaluated this morning found in NAD. Oriented to person, place but not time or situation. Denies current dizziness, chest pain, SOB. Discussed with patient's family, they understand the need for rehab/PT services but expresses desire to avoid placement. Instead would like to work with [facility] for in home services. Review of Systems Review of Systems: as per HPI Physical Exam Physical Exam: General: Alert and oriented. No acute distress Cardiac: Regular rate and rhythm, +systolic ejection murmur Respiratory: Lungs clear to auscultation bilaterally, No increased work of breathing Abdominal: Soft, non-tender, non-distended. Bowel sounds present. Extremities: Minimal lower extremity edema Results & Data Results & Data Vital Signs (Past 12 Hours) Vital Signs Temp Pulse Resp BP BP Pulse Ox O2 Del Method 03/03/24 07:36 89 18 128/64 92 Room Air 03/03/24 03:47 36.8 C 82 18 128/47 L 92 Room Air 03/02/24 22:37 37.1 C 78 18 108/55 L 96 Room Air Resident Activity Tracking Resident Involvement: Resident Care Provided Care Provided: Adult Hospital Medicine (3) Pneumonia Laterality: unspecified laterality Lung location: unspecified part of lung Pneumonia type: due to unspecified organism Qualified Code(s): J18.9 - Pneumonia, unspecified organism (4) DM (diabetes mellitus), type 2 Diabetes mellitus complication status: with other specified complication Diabetes mellitus assisted insulin use: with assisted use Qualified Code(s): E11.69 - Type 2 diabetes mellitus with other specified complication; Z79.4 - buttermaker (current) use of insulin
--- NOTE | 2024-03-03 10:10 | Cardiology Progress Note ---
Date of Service March 03, 2024 Assessment & Plan (1) Aortic stenosis: (2) Aortic aneurysm: Plan 1. Aortic stenosis: Severe. His preliminary evaluation has been completed. No severe coronary disease to preclude a percutaneous replacement. However, he has multiple other comorbidities it is unclear this will improve his functional status. It seems reasonable to refer him for evaluation which can be done on an outpatient basis provided his functional status improves. 2. Mitral regurgitation: Mild. I do not believe this precludes replacement of the aortic valve percutaneously. 3. Coronary calcification: Extensive coronary calcification. No severe obstructive coronary disease. He can continue high-dose atorvastatin and aspirin. 4. Carcinoid: He is known to have carcinoid disease which can affect the heart. However, this usually results in right-sided valve abnormalities. Pulmonic and tricuspid valve not appear to be significantly affected. I do not believe that his current aortic valvular disease is related. 5. 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 6. Pleural effusions: Furosemide started today. Will monitor his hemodynamic response. Difficult to know if he has affecting a good diuresis as it has been hard to obtain accurate urine output. We'll continue to see how he response to diuresis. However, I think his main limitation currently is poor functional status. I do not think this is exclusively related to his cardiac disease. He continues to have some cognitive deficits, sleeps a lot and appears to be poorly mobile. I think we will need to see some improvement in these areas before he can be considered for any valve intervention. Admission and Anticipated Discharge Date Admission Date: February 26, 2024 Subjective This morning the patient was concerned about diarrhea. He also reports some abdominal cramping. He did not report any breathing difficulty. No chest pain. No pain in the right hand or at the right wrist access site. Physical Exam Physical Exam: The patient is alert and oriented. Mood and affect appeared normal. He seem to answer all questions appropriately. HEENT: Pupils are equal and reactive to light and accommodation. Extraocular movements are intact. The sclerae are anicteric. Neuro: Cranial nerves intact Lungs: Clear to auscultation bilaterally. He has good air movement without use of accessory muscles. No rales wheezes or rhonchi. Cardiac: Heart demonstrates a regular rate and rhythm. Normal S1 and S2. Relatively low pitched crescendo systolic murmur. Pulses: Diminished right radial pulse. No hematoma the right radial access site. Good perfusion of the right hand. Extremities: There was no evidence of hypoperfusion. There is no cyanosis or clubbing. There is no edema. Skin: I did not appreciate any rashes on examination today. Results & Data Vital Signs (Past 12 Hours) Vital Signs Temp Pulse Resp BP BP Pulse Ox O2 Del Method 03/03/24 07:36 89 18 128/64 92 Room Air 03/03/24 03:47 36.8 C 82 18 128/47 L 92 Room Air 03/02/24 22:37 37.1 C 78 18 108/55 L 96 Room Air Laboratory Results Abnormal Lab Results 03/02/24 03/02/24 03/02/24 12:39 16:00 20:12 WBC RBC Hgb Hct MCV MCH MCHC RDW Std Deviation RDW Coeff of Taylor Plt Count MPV POC Glucose 159 H 211 H 193 H 03/03/24 03/03/24 07:00 07:12 WBC 11.53 H RBC 4.04 L Hgb 11.8 L Hct 34.9 L MCV 86.4 MCH 29.2 MCHC 33.8 RDW Std Deviation 45.5 RDW Coeff of Taylor 14.3 Plt Count 219 MPV 11.2 POC Glucose 97 PG Care Time/CCT Total # of Minutes Spent Total Time Spent with Patient: Total time spent is greater than 50% in coordination of care (as documented) at patient's floor/unit and/or counseling patient: Coding Level of Care Code 72428 SUB INP/OBS CARE 2/35MIN Diagnoses Aortic stenosis I35.0 Aortic aneurysm I71.9
[2024-03-04 06:56] LABS: Hematocrit (blood only) 34.4 % (42.0-52.0); Hemoglobin 11.5 g/dl (14.0-18.0); Mean Corpuscular Hemoglobin 28.9 pg (25.0-34.0); Mean Corpuscular Hgb Conc 33.4 g/dL (32.0-36.0); Mean Corpuscular Volume 86.4 fL (80.0-100.0); Platelet Count 253 K/uL (130-400); RDW Coefficient of Variation 14.2 % (11.5-14.5); RDW Standard Deviation 44.8 fL (36.4-46.3); Red Blood Count 3.98 M/uL (4.70-6.10); White Blood Count 10.74 K/ul (4.8-10.8)
[2024-03-04 07:16] LABS: Albumin Globulin Ratio 1.1 (0.9-2); Albumin Level 3.1 gm/dl (3.4-5.0); BUN Creatinine Ratio 33.9 (10-20); Calcium 8.8 mg/dl (8.6-10.3); Est GFR (African American) 114.8 ml/min; Est GFR (Non-African American) 99.1 ml/min; Globulin 2.9 gm/dl (2.5-4.0); Potassium 3.7 mmol/L (3.5-5.1)
--- NOTE | 2024-03-04 13:19 | Hospitalist Progress Note ---
Date of Service March 04, 2024 Assessment & Plan (1) Dizziness: (2) Generalized weakness: (3) Pneumonia: (4) DM (diabetes mellitus), type 2: Plan 78-year-old male with history of neuroendocrine tumor, moderate to severe aortic stenosis, hypertension, diabetes and prior intraventricular hemorrhage status post PET STYLIST shunt placement in February 2023 presenting from home with 2 days of dizziness/vertiginous symptoms, generalized weakness and increase SOB Shortness of breath/CHF Severe aortic stenosis - Worsening SOB and generalized weakness, +1 leg edema in the setting of a patient with severe aortic stenosis/congestive changes - CXR: left pleural effusion, more suggestive on congestive changes - Echo: EF 55-60%. Severe left atrial dilation, Severe aortic stenosis with possible aortic regurgitation. Severe pulmonary hypertension - Daily weights, I/Os - Continue Lasix 20 mg QAM, Continue Coreg 6.25 mg BID, Continue Losartan - Cardiology consulted, appreciate recommendations - cardiac cath without severe coronary disease that would necessarily preclude percutaneous valve replacement, recommend further outpatient evaluation for TAVR consideration Generalized weakness: May be secondary to CHF/severe aortic stenosis but more likely related to deconditioning Electrolytes are WNL. Shunt series performed, confirmed proper position of PET STYLIST shunt, CT Head WNL. -TSH normal -PT/OT evaluation - recommending inpatient rehab - recommendation communicated to family, who are amenable, CM following, placement pending Delirium/ Acute metabolic encephalopathy Delirium prevention protocols with frequent orientation, ambulation with assistance as needed and maintenance of sleep-wake cycle Continue to monitor Dizziness/ BPPV - resolved - Patient's symptoms seem to be vertigo on admission - PT/OT evaluations appreciated DM (diabetes mellitus), type 2: [id number]=0.5 on 06/04/24 -Lantus 16u qPM -ISS -Hold Metformin -CC diet Hypertension: Blood pressure stable -Continue Amlodipine -Continue Losartan Hyperlipidemia: Chronic. Stable -Continue Atorvastatin GERD: Chronic. Stable -Continue Protonix SIADH: Chronic. Stable. -Monitor daily Na -Hold Salt tablets for now DVT prophylaxis: Lovenox 40 sq daily Diet: Low sodium / DM2 PCU/ Telemetry Admission and Anticipated Discharge Date Admission Date: February 26, 2024 Supervising Physician Co-Signing Physician Notes I personally examined the patient and verified galvez points of history and exam, discussed case, and agree with decision making and plan documented by Dr. Fuentes. Patient engaged with physical therapy today. Patient was tired following PT session. Lungs clear bilaterally to anterior auscultation, heart regular rate and rhythm, systolic murmur present, no abdominal tenderness. Discussed physical therapy recommendations for acute rehab with patient's Martha. She and the family have discussed and they are supportive of this for James. We reviewed that the acute rehab would be important to address his deconditioning and encourage strength and improved functional status. At that point patient would be a better candidate for TAVR. is understanding of this and will report back to case management if she would like to proceed with rehabilitation placement. Subjective Patient evaluated this morning found in NAD. Oriented to person, place but not time or situation. Denies current dizziness, chest pain, SOB. No major changes, awaiting PT evaluation before determining disp plan. Review of Systems Review of Systems: as per HPI Physical Exam Physical Exam: General: Alert and oriented. No acute distress Cardiac: Regular rate and rhythm, +systolic ejection murmur Respiratory: Lungs clear to auscultation bilaterally, No increased work of breathing Abdominal: Soft, non-tender, non-distended. Bowel sounds present. Extremities: Minimal lower extremity edema Results & Data Results & Data Vital Signs (Past 12 Hours) Vital Signs Temp Pulse Resp BP Pulse Ox O2 Del Method 03/04/24 10:50 36.6 C 69 17 116/45 L 98 Room Air 03/04/24 07:22 36.6 C 80 19 135/71 91 Room Air 03/04/24 02:36 36.6 C 78 18 134/58 L 93 Room Air Resident Activity Tracking Resident Involvement: Resident Care Provided Care Provided: Adult Hospital Medicine (3) Pneumonia Laterality: unspecified laterality Lung location: unspecified part of lung Pneumonia type: due to unspecified organism Qualified Code(s): J18.9 - Pneumonia, unspecified organism (4) DM (diabetes mellitus), type 2 Diabetes mellitus complication status: with other specified complication Diabetes mellitus detonator assembler insulin use: with senior living use Qualified Code(s): E11.69 - Type 2 diabetes mellitus with other specified complication; Z79.4 - appraisal specialist (current) use of insulin
[2024-03-05 09:30] LABS: Basophils # (auto) 0.05 K/uL (0.00-0.20); Basophils % (auto) 0.6 %; Eosinophils # (auto) 0.09 K/uL (0.00-0.50); Eosinophils % (auto) 1.1 %; Hematocrit (blood only) 35.5 % (42.0-52.0); Hemoglobin 11.9 g/dl (14.0-18.0); Immature Granulocytes # (auto) 0.04 K/uL (0.01-0.20); Immature Granulocytes % (auto) 0.5 %; Lymphocytes % (auto) 14.6 %; Mean Corpuscular Hemoglobin 28.9 pg (25.0-34.0); Mean Corpuscular Hgb Conc 33.5 g/dL (32.0-36.0); Mean Corpuscular Volume 86.2 fL (80.0-100.0); Mean Platelet Volume 10.9 fL (9.4-12.4); Monocytes # (auto) 0.76 K/uL (0.11-0.59); Monocytes % (auto) 9.2 %; Platelet Count 273 K/uL (130-400); RDW Coefficient of Variation 14.2 % (11.5-14.5); RDW Standard Deviation 45.1 fL (36.4-46.3); Red Blood Count 4.12 M/uL (4.70-6.10); White Blood Count 8.24 K/ul (4.8-10.8)
[2024-03-05 09:44] LABS: BUN Creatinine Ratio 31.7 (10-20); Bilirubin,Total 0.8 mg/dl (0.2-1.0); Calcium 8.7 mg/dl (8.6-10.3); Creatinine Clr Calc Pharmacy 96.9 ml/min; Est GFR (African American) 109.4 ml/min; Est GFR (Non-African American) 94.4 ml/min; Magnesium 1.9 mg/dl (1.7-2.4); Phosphorus 3.1 mg/dl (2.5-4.9); Potassium 3.6 mmol/L (3.5-5.1)
--- NOTE | 2024-03-05 10:18 | Hospitalist Progress Note ---
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 Severe left atrial dilation, Severe aortic stenosis with possible aortic regurgitation. Severe pulmonary hypertension - Daily weights, I/Os - Continue Lasix 20 mg QAM, Continue Coreg 6.25 mg BID, Continue Losartan - Cardiology consulted, appreciate recommendations - cardiac cath without severe coronary disease that would necessarily preclude percutaneous valve replacement, recommend further outpatient evaluation for TAVR consideration Generalized weakness: May be secondary to CHF/severe aortic stenosis but more likely related to deconditioning Electrolytes are WNL. Shunt series performed, confirmed proper position of HUMAN RESOURCES SERVICES SPECIALIST shunt, CT Head WNL. -TSH normal -PT/OT evaluation - recommending inpatient rehab - recommendation communicated to family, who are amenable, CM following, [facility] placement pending Delirium/ Acute metabolic encephalopathy Delirium prevention protocols with frequent orientation, ambulation with assistance as needed and maintenance of sleep-wake cycle Continue to monitor Dizziness/ BPPV - resolved - Patient's symptoms seem to be vertigo on admission - PT/OT evaluations appreciated DM (diabetes mellitus), type 2: [id number]=4.5 on 06/04/24 -Lantus 16u qPM -ISS -Hold Metformin -CC diet Hypertension: Blood pressure stable -Continue Amlodipine -Continue Losartan Hyperlipidemia: Chronic. Stable -Continue Atorvastatin GERD: Chronic. Stable -Continue Protonix SIADH: Chronic. Stable. -Monitor daily Na -Hold Salt tablets for now DVT prophylaxis: Lovenox 40 sq daily Diet: Low sodium / DM2 PCU/ Telemetry Admission and Anticipated Discharge Date Admission Date: February 26, 2024 Supervising Physician Co-Signing Physician Notes I personally examined the patient and verified galvez points of history and exam, discussed case, and agree with decision making and plan documented by Dr. Fuentes. Initially on exam, patient was not responsive to verbal stimuli and would not wake up. Discussed this with nursing team who also struggled to wake patient up. When I returned to the room, patient then opened his eyes and had a full conversation. Patient was pleasant on exam, lungs clear bilaterally to anterior auscultation, heart regular rate and rhythm, systolic murmur present, no abdominal tenderness. We reviewed recommendations to go to rehabilitation for increased functional capacity prior to TAVR. Patient is on board and would like to proceed with [facility] if possible. When asked if he believes he will be able to participate in rehabilitation he agreed. Case management assisting with discharge coordination. Subjective Patient examined at bedside this morning, found to be somnolent and difficult to arouse but was responsive to pain and would intermittently open eyes to stimulation. POC glucose WNL, labs checked, WNL. Unable to obtain meaningful history or ROS today. Review of Systems Review of Systems: as per HPI Physical Exam Physical Exam: General: Somnolent, resting comfortably Cardiac: Regular rate and rhythm, +systolic ejection murmur Respiratory: Lungs clear to auscultation bilaterally, No increased work of breathing Abdominal: Soft, non-tender, non-distended. Bowel sounds present. Extremities: No lower extremity edema Results & Data Results & Data Vital Signs (Past 12 Hours) Vital Signs Temp Pulse Pulse Resp BP Pulse Ox O2 Del Method 03/05/24 08:52 85 03/05/24 08:00 36.5 C 69 20 105/69 99 Room Air 03/05/24 03:18 36.4 C L 76 18 126/56 L 94 Room Air 03/04/24 23:39 36.6 C 74 18 105/50 L 93 Room Air 03/04/24 23:00 79 Resident Activity Tracking Resident Involvement: Resident Care Provided Care Provided: Adult Hospital Medicine (3) Pneumonia Laterality: unspecified laterality Lung location: unspecified part of lung Pneumonia type: due to unspecified organism Qualified Code(s): J18.9 - Pneumonia, unspecified organism (4) DM (diabetes mellitus), type 2 Diabetes mellitus complication status: with other specified complication Diabetes mellitus long term acute care registered nurse insulin use: with residential use Qualified Code(s): E11.69 - Type 2 diabetes mellitus with other specified complication; Z79.4 - detention (current) use of insulin
--- NOTE | 2024-03-06 10:01 | Discharge Summary ---
Date of Service March 06, 2024 Admission HPI Per Admitting Provider Chris Lynn is a pleasant 78-year-old male with history of neuroendocrine tumor, prior hemorrhagic stroke with QUALITY ASSURANCE ENGINEER shunt in place, diabetes, hypertension, moderate to severe aortic stenosis and hyperlipidemia presenting from home with his family with complaints of 2 days of generalized weakness, dizziness and gait instability. Patient reports that he becomes intermittently dizzy with some room spinning. this is worse with changing positions and moving his head. Today he was having a difficult time walking due to dizziness and generalized weakness. His daughter is at bedside and reports that he has been slightly more confused as well. Also with dry cough and some worsening dyspnea on exertion for the last week. No reports of fevers, chills, sweats or rigors. No reports of chest pain, palpitations, abdominal pain, nausea, vomiting. Patient has chronic, intermittent diarrhea which is stable and unchanged. He has chronic left lower extremity edema which is stable and unchanged. No additional complaints at this time in the ER patient is afebrile, mildly hypertensive otherwise hemodynamically stable. Requires some assistance to stand. ER course: Ceftriaxone 2 g IV Azithromycin 500 mg IV Normal saline 500 mL IV Admission Exam Per Admitting Provider General: Frail, elderly male patient resting comfortably, NAD, non-toxic in appearance, oriented to person and place. Able to answer questions and follow commands. Skin: warm, dry, intact, no rashes or lesions HEENT: NC/AT, PERRL, EOMI, anicteric sclera, conjunctiva without injection, external ear normal to inspection and nontender, nares patent, moist mucus membranes, Poor dentition, no oropharyngeal lesions, neck supple, trachea midline, no LAD, no thyromegaly, no JVD Heart: +S1/S2, regular, 4/6 systolic ejection murmur at right second intercostal space with radiation across the precordium and bilateral carotids Lungs: equal air entry bilaterally, mild crackles in bilateral bases, no rhonchi or wheezes Abd: +BS, soft, NT/ND, no masses/organomegaly/ascites Ext: warm, 2+ pulses in UE/LE bilaterally, no clubbing/cyanosis, 1+ pitting edema of left lower extremity Neuro: nonfocal, patient AA&O, speech intact, no facial droop, moving all extremities on command with equal strength, some generalized weakness, requires 2 person assist to stand Principal Diagnosis Generalized weakness, deconditioning Discharge Exam General: Somnolent, resting comfortably Cardiac: Regular rate and rhythm, +systolic ejection murmur Respiratory: Lungs clear to auscultation bilaterally, No increased work of breathing Abdominal: Soft, non-tender, non-distended. Bowel sounds present. Extremities: No lower extremity edema Discharge Data Allergies Allergy/AdvReac Type Severity Reaction Status Date / Time meclizine Allergy "goofy" Verified 02/26/24 21:13 lisinopril AdvReac Intermediate COUGH Verified 02/26/24 21:13 acesulfame AdvReac Diarrhea Verified 02/26/24 21:13 aspartame AdvReac Diarrhea Verified 02/28/24 11:13 sucralose AdvReac Diarrhea Verified 02/26/24 21:13 [From Splenda (sucralose)] Consultations 02/26/24 19:18 ED Decision to Admit Stat 02/28/24 18:20 Consult Cardiology Routine Procedures Performed Operation Date: 03/02/24 09:00 Actual Procedures p Cath, Coronaries ONLY (no LV) - Lee Tao MD s Cineradiography w/Routine Exam - Lee Tao MD Ordered Studies 02/26/24 17:34 CT head/brain wo con Stat 03/01/24 11:10 CT chest diagnostic w con Routine 03/02/24 07:42 CL Cath Imgs for PACS use only Routine Hospital Course (1) Dizziness: (2) Generalized weakness: (3) Pneumonia: (4) DM (diabetes mellitus), type 2: (5) Ambulatory dysfunction: (6) Aortic stenosis: Plan 78-year-old male with history of neuroendocrine tumor, moderate to severe aortic stenosis, hypertension, diabetes and prior intraventricular hemorrhage status post QUALITY ASSURANCE ENGINEER shunt placement in February 2023 presenting from home with 2 days of dizziness/vertiginous symptoms, generalized weakness and increase SOB Generalized weakness, Deconditioning: May be secondary to CHF/severe aortic stenosis but more likely related to deconditioning Shunt series performed, confirmed proper position of QUALITY ASSURANCE ENGINEER shunt, CT Head WNL. PT/OT evaluation - recommended inpatient rehab, patient discharged to [facility] for rehab Shortness of breath/CHF Severe aortic stenosis - CXR: left pleural effusion, more suggestive of congestive changes - Echo: EF 55-60%. Severe left atrial dilation, Severe aortic stenosis with possible aortic regurgitation. Severe pulmonary hypertension - Continue Lasix 20 mg QAM, Continue Coreg 6.25 mg BID, Continue Losartan - Cardiology consulted - cardiac cath without severe coronary disease that would necessarily preclude percutaneous valve replacement, recommended further outpatient evaluation for TAVR consideration. If patient makes progress following rehab, may potentially be a candidate for TAVR - Referral placed to Dr. Andrews in outpatient cardiology as family wanting another opinion about TAVR. Dizziness/ BPPV - resolved DM (diabetes mellitus), type 2: [id number]=0.5 on 06/04/24 Resume home antihyperglycemic regimen Hypertension: Chronic, stable: -Continue Amlodipine -Continue Losartan Hyperlipidemia: Chronic, Stable -Continue Atorvastatin GERD: Chronic. Stable -Continue Protonix Total Time Total Time Spent Total Time Spent (In Minutes): see attending attestation Discharge Plan Discharge Items Patient Disposition: Transfer Inpatient Rehab Fac Reason For Visit: WEAKNESS, DIZZINESS, POSSIBLE PNEUMONIA Discharge Diagnosis: Generalized weakness, severe aortic stenosis Activity: As commented below Activity Comment: activity progression as directed by PT/OT Non-emergency contact: Primary Care Provider and Workflow Developer Call non-emergency contact if: you have any medication questions and your symptoms worsen Follow-up/Referrals: Clary Yost CRNP [Primary Care Provider] - Diet: Heart Healthy Addtl Attending Provider Instructions: You were admitted to the hospital for declining ambulatory function and shortness of breath. You were evaluated by cardiology and, as discussed, valve replacement is being deferred at this time. We will place a referral for outpatient cardiology so that you can get another opinion after rehab. A discharge summary will be sent to your primary care physician to ensure continuity of care. Please bring this discharge summary with you to your next office appointment so that your provider can review it at that time. Medications: Your medication list has been reviewed and reconciled upon discharge to ensure accuracy and continuity of care. An updated list of all your medications is included with your hospital discharge paperwork. Please review this list closely and make note of any changes to your medications. New medications: Carvedilol 6.25mg - please take 1 tablet twice daily Furosemide 20mg - please take 1 tablet once daily Follow up appointments: - Make a follow up appointment with your PCP within the next week. It is very important that you follow up with them shortly after discharge from the hospital. - Keep all of your follow up appointments as already scheduled. If you cannot make an appointment, notify your provider. CONTACT YOUR PRIMARY CARE PROVIDER if you experience any of the following: - Difficulty following your treatment plan - Difficulty taking any of your medications CALL 911 OR GO TO THE EMERGENCY DEPARTMENT if you experience any of the following: - Sudden, severe abdominal pain or nausea/vomiting - Severe chest pain or chest pain that radiates to your jaw or arm - Sudden, severe shortness of breath or difficulty breathing Addtl Web Marketing Strategist Provider Instructions: DIABETES RECOMMENDATIONS: 1.) Use fasting blood sugar levels to guide Toujeo dosing. 2.) Because Toujeo is a long-acting insulin, you want to look at blood sugar levels over the past 4-5 days to guide Toujeo dosing. Pending Studies at Discharge: No Stand-Alone Forms: My [facility] Skilled Items Patient informed of condition?: Yes DNR: No Discharge Level of Care: Acute rehab Communicable Disease: No Discharge Prognosis: Stable Lines: None Urinary Catheter: No Medications and DC Order Prescriptions: New carvedilol 6.25 mg Tablet 6.25 mg PO BIDM Qty: 60 0RF furosemide 20 mg tablet 20 mg PO QAM Qty: 30 0RF Continued losartan 50 mg tablet 50 mg PO BID Qty: 180 3RF atorvastatin 80 mg tablet 80 mg PO QAM Qty: 90 3RF potassium chloride 10 mEq packet 10 meq PO QAM metformin 500 mg tablet extended release 24 hr 500 mg PO BID Qty: 180 3RF amlodipine [Norvasc] 5 mg tablet 5 mg PO .AFTERNOON Rx Instructions: TAKE WITH 2.5 MG insulin glargine [Lantus Solostar U-100 Insulin] 100 unit/mL (3 mL) insulin pen 16 unit subcut QPM Qty: 15 3RF Rx Instructions: Dose can change do to BSG escitalopram oxalate 20 mg tablet 20 mg PO 1500 Qty: 90 3RF Rx Instructions: pt aware dose change aspirin [Adult Low Dose Aspirin] 81 mg tablet,delayed release (DR/EC) 81 mg PO .Q3-4 DAYS Rx Instructions: Takes sporadically triamcinolone acetonide [Nasacort] 55 mcg aerosol,spray 1 spray intranasal DAILY PRN (Reason: Congestion) Rx Instructions: administer into each nostril (DME) OneTouch Verio test strips Strip See Rx Instructions .ROUTE .MEDSUPPLY Qty: 300 3RF Rx Instructions: test TID melatonin 3 mg capsule 3 mg PO HS PRN (Reason: Sleep) mecobalamin (vitamin B12) 500 mcg tablet,chewable 500 mcg PO QAM dutasteride 0.5 mg capsule 0.5 mg PO DAILY Qty: 90 3RF cholecalciferol (vitamin D3) 125 mcg (5,000 unit) capsule 125 mcg PO QAM lutegold 1 tab PO HS (DME) pen needle, diabetic [BD Ultra-Fine Mini Pen Needle] 31 gauge x 3/16" needle See Rx Instructions .Route Qty: 50 6RF Rx Instructions: Daily with insulin injections (DME) Dexcom G7 Research Consultant Misc See Rx Instructions .Route Qty: 1 3RF Rx Instructions: As directed change every 90 days (DME) Dexcom G7 Sensor Device See Rx Instructions .Route Qty: 9 3RF Rx Instructions: change sensor every 10 days pantoprazole 40 mg tablet,delayed release (DR/EC) 40 mg PO DAILY PRN (Reason: Gastric Reflux) Rx Instructions: 40 mg orally as needed; sodium chloride 1,000 mg tablet,soluble 1,000 mg PO BID amlodipine 2.5 mg tablet 2.5 mg PO .AFTERNOON Rx Instructions: take with the 5 mg Discharge Orders: Discharge Order (Routine); Ordered 03/06/24 Ordered By: Tomasz Poole/Other Patient Handouts: High Blood Sugar (Hyperglycemia), Managing Type 2 Diabetes Admission Data Admit Date/Time: 02/26/24 19:49 Attending Provider: Lee Foy Admit Provider: Юлия Olmstead Primary Care Provider: Clary Yost Other Providers: Юлия Olmstead; Lee Tao; [facility] Other Interventions: Discharge Summary Assessment (RN) Last Done: 03/06/24 13:33 Supervising Physician Co-Signing Physician Notes Attending attestation Pt seen and examined in concert with Dr. Fuentes. In agreement with the documented findings as noted in the resident documentation with any exceptions or additions as noted here. Resting comfortably in bed without complaint with symptomatic return to baseline. On examination, S1/S2 nl RRR 3/6 STEVE. CTAB. Abd NT/ND BS+ve Generalized weakness/deconditioning - engaged w/ rehab process, encourage active recovery Severe aortic stenosis with diastolic heart failure present on admission - cardiology consult - rec'd outpatient evaluation for TAVR, continue furosemide, carvedilol, losartan Else see resident documentation as noted. Total attending physician time spent with this patient's care on the day of discharge: 35 minutes. Resident Activity Tracking Resident Involvement: Resident Care Provided Care Provided: Adult Hospital Medicine
[2024-03-06 11:57] VITALS: PULSE 77; RESP 16; TEMP 98.2; O2SAT 94
[2024-03-06 13:36] VITALS: BP 128/64
== END 2024-03-06 15:03 | DRG 286 ==
LOC: SUATTDRO → ED 17:28 → 2W 19:49 → SUATTDRO 19:49 → 2W 20:15 → 2E 03-02 10:44
PROC: CLB.CCO (2024-03-02 09:00)
DX: E22.2 Syndrome of inappropriate secretion of antidiuretic hormone; J18.9 Pneumonia, unspecified organism; Z79.84 Long term (current) use of oral hypoglycemic drugs; Z83.3 Family history of diabetes mellitus; R26.89 Other abnormalities of gait and mobility; Z87.891 Personal history of nicotine dependence; I25.10 Atherosclerotic heart disease of native coronary artery without angina pectoris; I35.0 Nonrheumatic aortic (valve) stenosis; C7A.8 Other malignant neuroendocrine tumors; G60.9 Hereditary and idiopathic neuropathy, unspecified; R53.1 Weakness; Z98.2 Presence of cerebrospinal fluid drainage device; R09.02 Hypoxemia; Z86.73 Personal history of transient ischemic attack (TIA), and cerebral infarction without residual deficits; J90 Pleural effusion, not elsewhere classified; I27.20 Pulmonary hypertension, unspecified; R42 Dizziness and giddiness; G93.41 Metabolic encephalopathy; K21.9 Gastro-esophageal reflux disease without esophagitis; Z79.4 Long term (current) use of insulin; I71.20 Thoracic aortic aneurysm, without rupture, unspecified; E11.9 Type 2 diabetes mellitus without complications; I11.0 Hypertensive heart disease with heart failure; I50.31 Acute diastolic (congestive) heart failure

== ENCOUNTER 2024-03-24 15:23 | Inpatient (IN) ==
--- NOTE | 2024-03-24 16:02 | Emergency Department Note ---
Impression & Plan Acute diverticulitis, Intracranial shunt, Aortic stenosis, Hypotension, CHF (congestive heart failure) ED Provider Note NAME: PERRY VARELA AGE: 79 SEX: M : 1945 ARRIVES VIA: Ambulance INFORMANT: Patient, , triage note ED PROVIDER(S): Sumanth Lugo MD CHIEF COMPLAINT: Weakness, fatigue, decreased p.o. intake MEDICAL DECISION MAKING: Patient presents due to concern for weakness fatigue and decreased p.o. intake with associated hypotension. Patient was to be hydrated but cautiously given the patient's history of aortic stenosis and aortic insufficiency. Blood work shows a white count of 12.58. The patient was ordered empiric antibiotics Zosyn as the patient did have abdominal pain. Patient hemoglobin of 10.8 which is relatively chronic and stable and the patient has run in the . Platelet count is normal. Sodium 133. The patient's creatinine is normal. Initial calcium of 8.4. Patient's troponin is negative. Urinalysis does not show evidence of obvious infection bio fire negative. The patient's CT of the head shows new area which favors subacute to chronic left ER NURSE territory infarct. Cannot exclude small area of hemorrhage. SURFBOARD DESIGNER shunt is appropriate. Chest x-ray does show pleural effusions with dependent consolidation and pulmonary edema. CT abdomen pelvis shows interval progression of metastatic disease within the liver and central mesentery with small mount of ascites moderate right and small left pleural effusion. Patient may have associated pneumonia. Possible thickening of the sigmoid colon cannot rule out colitis or acute diverticulitis but the patient had already received empiric antibiotics. I did speak with the on-call hospitalist after speaking with the and updated her of the findings. They are comfortable with plan of care and patient was admitted by Dr. Cuellar. Discussion w/ other healthcare providers: Dr. Cuellar inpatient medicine service Prior /Outside records reviewed: I reviewed a primary care visit from yesterday. Patient was admitted from February 25 to March 06 with generalized weakness and deconditioning. Patient does have a history of CHF with severe aortic stenosis patient also does have a SURFBOARD DESIGNER shunt noted to be normal at that time. Patient's aortic stenosis but is not a surgical candidate for TAVR. I did review a discharge summary from Dr. Fuentes patient with known history of neuroendocrine tumor hemorrhagic stroke with SURFBOARD DESIGNER shunt in place diabetes hypertension severe aortic stenosis and hyperlipidemia. Patient did have an echo completed with an EF 55 to 60% severe left atrial dilation severe aortic stenosis with possible aortic regurgitation with severe pulmonary hypertension. Patient did have a cardiac cath Differential diagnosis: Infection, dehydration, metabolic abnormality, hypo/hyperglycemia, electrolyte imbalance, anemia, UTI, pneumonia, thyroid dysfunction among others were considered. Diagnostics, as interpreted by me: ECG: Normal sinus rhythm, rate of 72, normal intervals, normal axis no ST elevations. Cardiac monitoring: An order was placed for continuous cardiac monitoring. The monitor shows a rate of 75 with sinus rhythm. Patient was placed on pulse oximetry Medical decision rules: None Imaging studies: I informally interpreted the patient's chest x-ray with right-sided pleural effusion and possible right-sided pneumonia CT abdomen pelvis with formal report to follow. HPI: Patient presents due to concern for worsening weakness fatigue decreased p.o. intake. Most of the history is provided by the at bedside. She states that she the patient did have a 1 to 2-week confinement here in the hospital and subsequent 1 to 2-week confinement at rehab and was discharged last . The patient reportedly was doing quite well walking in the gym had adequate strength requiring wheelchair Saturday and has had progressive worsening weakness decreased p.o. intake over the last several days. She does not report any confusion. No head strike or LOC. The patient does have a prior history of a SURFBOARD DESIGNER shunt status post fall. She does state that sometimes his sodium may be low. She also states that there may have been concern that he had been on too much blood pressure medication. No reported nausea or vomiting but the patient has had some diarrhea and did receive a dose of Imodium. Patient currently denies any head or neck pain but does complain of some mild sore throat. He does have some intermittent shortness of breath with increased work of breathing episodes. Nursing reports the patient was 84% on room air. PAST MEDICAL HISTORY: See Below PAST SURGICAL HISTORY: See Below SOCIAL HISTORY: See Below HOME MEDICATIONS: See Below ALLERGIES: See Below VITALS: See Below PHYSICAL EXAMINATION: GENERAL: Ill in appearance, nasal cannula in place EYE EXAM: Normal conjunctiva. PERRL, no anisocoria and EOM's grossly intact w/o pain. OROPHARYNX: Moist mucus membranes, grossly normal dentition. NECK: Trachea midline, no stridor. Supple, no nuchal rigidity, no adenopathy, non-tender. No signs of meningismus. FROM of the neck with good chin to chest and neck extension. LUNGS: Decreased breath sound right base normal chest wall mechanics. HEART: NSR, systolic ejection murmur. ABDOMEN: Abdomen soft, epigastric and mid abdominal pain, no masses, no rebound or guarding. BACK: No CVA TTP. SKIN: No rashes and no bruising. UPPER EXTREMITIES: Upper extremities are grossly normal. LOWER EXTREMITIES: Grossly normal, 1+ symmetric lower extremity edema without calf pain or erythema NEURO EXAM: GCS of 14 opens eyes to voice and answers questions appropriately, cranial nerves II-XII grossly intact, normal speech, moves all 4 extremities. Past Med/Surg History Problem List (Updated 03/25/24 @ 00:42 by Sumanth Lugo MD) CHF (congestive heart failure) (Acute) Abnormal head CT History of CVA (cerebrovascular accident) 2020. denies residual. Acute diverticulitis (Acute) Hypotension (Acute) Ambulatory dysfunction (Acute) Pneumonia (Acute) Nausea, vomiting and diarrhea Carotid stenosis, bilateral Idiopathic polyneuropathy Gait disturbance (Acute) Intracranial shunt (Acute) Dizziness (Acute) Generalized weakness (Acute) Bruising Cognitive changes History of SIADH History of craniotomy History of subdural hematoma Hyponatremia Weakness (Acute) Neuroendocrine carcinoma metastatic to liver Seizure-like activity BPH associated with nocturia History of back problems Arthritis GERD (gastroesophageal reflux disease) Hyperlipidemia Abdominal mass, RLQ (right lower quadrant) (Acute) Mesenteric mass neuroendocrine tumor Urge incontinence of urine Anxiety and depression Ischemic cerebrovascular accident (CVA) 02/08, continues with poor balance, dysarthria, facial droop Chronic fatigue Carotid artery stenosis Nodular thyroid disease BPH (benign prostatic hyperplasia) Pulmonary nodule seen on imaging study (Acute) Vitamin D deficiency (Acute) Diabetic peripheral neuropathy (Acute) Erectile dysfunction of organic origin Benign hypertension DM (diabetes mellitus), type 2 Aortic stenosis (Acute) severe, not a surgical candidate Loss of protective sensation of skin of foot Cervical facet joint syndrome Cervicalgia Mild sleep apnea (Acute) Macular degeneration (Acute) Aortic aneurysm (Acute) [place] [facility] monitoring Medical History Left inguinal hernia Osteoarthritis History of SIADH 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 no treatment per "it's not affecting his liver function so we are leaving it alone." Liver lesion Mesenteric mass Carotid stenosis neck CTA 08/2023 [place] DM type 2 (diabetes mellitus, type 2) Anxiety and depression Hypertension Subdural hematoma hx Hyperlipidemia Surgical History Hx of left cataract extraction History of liver biopsy History of hernia repair History of brain shunt Hx of colonoscopy H/O brain surgery decompressional subdural hematoma 12/2021 H/O knee surgery Family History Father , age 67 of heart issues Coronary heart disease Diabetes Myocardial infarction Mother , age 53 of heart issues Myocardial infarction Denies family history of Ovarian cancer Prostate cancer Breast cancer Colorectal cancer Cancer Social History Smoking Status: Former smoker Tobacco Type: Cigars Second Hand Exposure: No; Do You Dip or Chew Tobacco: No; Hx Alcohol Use: No Hx Substance Use: No Preferred Language: Danish Communication Ability: Effective Visual Impairment: Limited Hearing Ability: Hard of Hearing Measurement And Verification Engineer Required: No Beliefs That Will Affect Care: None marital status: Current Living Situation: Spouse Current Living Situation Comment: spouse is pt's caregiver current occupational status: retired 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 How many Children do You have: 2 Other Information That Helps Us Care for You: No Feels Safe at Home: Yes Safety Concerns: Feels Safe At This Time Childhood Exposure to Second-Hand Smoke: No Diet: regular caffeine: Yes (coffee) during the past year weight has: decreased > 10 lbs Dental Care, Regularly: Yes Physical Activity Frequency: 3-4 Times per Week Seatbelt Use: always Sunscreen Use: No Do you think of yourself as: straight/heterosexual Gender Identity: Male Assistive Devices: Cane, Glasses, Walker and Wheelchair Allergies Allergies Allergy/AdvReac Type Severity Reaction Status Date / Time acesulfame AdvReac Intermediate Diarrhea Verified 03/24/24 18:05 aspartame AdvReac Intermediate Diarrhea Verified 03/24/24 18:05 lisinopril AdvReac Intermediate COUGH Verified 03/24/24 18:05 meclizine AdvReac Intermediate "goofy" Verified 03/24/24 18:05 sucralose AdvReac Intermediate Diarrhea Verified 03/24/24 18:05 [From Splenda (sucralose)] Home Meds Home Medications Medication Instructions Recorded Confirmed cholecalciferol (vitamin D3) 125 125 mcg PO QAM 06/06/21 03/24/24 mcg (5,000 unit) capsule lutegold 1 tab PO HS macular degeneration 03/20/22 03/24/24 mecobalamin (vitamin B12) 500 mcg 500 mcg PO QAM 04/01/23 03/24/24 chewable tablet melatonin 3 mg capsule 3 mg PO HS PRN Sleep 04/01/23 03/24/24 pantoprazole 40 mg tablet,delayed 40 mg PO DAILY PRN Gastric Reflux 04/24/23 03/24/24 release potassium chloride 10 mEq oral 10 meq PO QAM 08/30/23 03/24/24 packet triamcinolone acetonide 55 mcg 1 spray intranasal DAILY PRN 09/27/23 03/24/24 nasal spray aerosol (Nasacort) Congestion sodium chloride 1,000 mg soluble 1,000 mg PO BID 10/02/23 03/24/24 tablet aspirin 81 mg tablet,delayed 81 mg PO Q OTHER DAY 03/20/24 03/24/24 release (Adult Low Dose Aspirin) carboxymethylcellulose sodium 1 % 1 drp OPB QID 03/24/24 03/24/24 eye liquid gel drops carvedilol 6.25 mg tablet 3.125 mg PO BID 03/24/24 03/24/24 escitalopram oxalate 20 mg tablet 20 mg PO QAM 03/24/24 03/24/24 insulin glargine 100 unit/mL (3 0 unit subcut HS 03/24/24 03/24/24 mL) subcutaneous pen (Lantus Solostar U-100 Insulin) Previous Rx's Medication Instructions Recorded losartan 50 mg tablet 50 mg PO BID #180 tabs 04/08/23 atorvastatin 80 mg tablet 80 mg PO QAM #90 tabs 06/10/23 blood-glucose meter,continuous #1 ea 06/20/23 ([employer] Accountant) blood-glucose sensor (Dexcom G7 #9 ea 06/20/23 Sensor device) pen needle, diabetic 31 gauge x #50 ea 06/20/23 3/16" (BD Ultra-Fine Mini Pen Needle) blood sugar diagnostic (OneTouch #300 ea 09/27/23 Verio test strips) metformin 500 mg tablet,extended 500 mg PO BID #180 tabs 10/15/23 release 24 hr dutasteride 0.5 mg capsule 0.5 mg PO DAILY #90 caps 01/02/24 carvedilol 6.25 mg tablet 6.25 mg PO BIDM #60 tabs 03/06/24 furosemide 20 mg tablet 20 mg PO QAM #30 tabs 03/06/24 Results & Data (ED) Vital Signs Vital Signs - 24 hr 03/24/24 15:42 03/24/24 15:42 03/24/24 15:51 Temperature 36.3 C L Temperature Source Oral Pulse Rate 71 72 Pulse Rate [Apical] Pulse Rate from SpO2 Sensor 72 Pulse Rhythm [Apical] Respiratory Rate 20 13 Respiratory Depth Shallow Blood Pressure 78/46 L Blood Pressure [Left Arm] Blood Pressure Mean 56 Blood Pressure Mean [Left Arm] Pulse Oximetry 97 88 L Oxygen Delivery Method Nasal Cannula Room Air Oxygen Flow Rate Sepsis Recent Fever Within 48 Hours No Sepsis New/Unexplained Change in Mental Status Yes Sepsis Action Taken by Nursing Physician Notified 03/24/24 15:54 03/24/24 16:00 03/24/24 16:00 Temperature Temperature Source Pulse Rate 72 71 Pulse Rate [Apical] Pulse Rate from SpO2 Sensor 71 Pulse Rhythm [Apical] Respiratory Rate 21 Respiratory Depth Blood Pressure 98/52 L Blood Pressure [Left Arm] Blood Pressure Mean 62 Blood Pressure Mean [Left Arm] Pulse Oximetry 96 Oxygen Delivery Method Oxygen Flow Rate Sepsis Recent Fever Within 48 Hours Sepsis New/Unexplained Change in Mental Status Sepsis Action Taken by Nursing 03/24/24 16:02 03/24/24 16:21 03/24/24 16:24 Temperature Temperature Source Pulse Rate 72 75 Pulse Rate [Apical] 72 Pulse Rate from SpO2 Sensor 72 75 Pulse Rhythm [Apical] Respiratory Rate 28 H 14 30 H Respiratory Depth Shallow Blood Pressure Blood Pressure [Left Arm] 98/52 L Blood Pressure Mean Blood Pressure Mean [Left Arm] 67 Pulse Oximetry 98 97 100 Oxygen Delivery Method Nasal Cannula Oxygen Flow Rate 2 Sepsis Recent Fever Within 48 Hours Sepsis New/Unexplained Change in Mental Status Sepsis Action Taken by Nursing 03/24/24 16:27 03/24/24 17:16 03/24/24 17:31 Temperature Temperature Source Pulse Rate 58 L Pulse Rate [Apical] Pulse Rate from SpO2 Sensor Pulse Rhythm [Apical] Regular Respiratory Rate 26 H 18 Respiratory Depth Shallow Blood Pressure 105/50 L Blood Pressure [Left Arm] 105/50 L Blood Pressure Mean 94 Blood Pressure Mean [Left Arm] 68 Pulse Oximetry 97 100 Oxygen Delivery Method Nasal Cannula Nasal Cannula Oxygen Flow Rate 2 2 Sepsis Recent Fever Within 48 Hours Sepsis New/Unexplained Change in Mental Status Sepsis Action Taken by Nursing 03/24/24 17:31 03/24/24 17:39 03/24/24 17:51 Temperature Temperature Source Pulse Rate 73 72 Pulse Rate [Apical] Pulse Rate from SpO2 Sensor 72 Pulse Rhythm [Apical] Respiratory Rate 6 L 23 Respiratory Depth Blood Pressure 108/44 L Blood Pressure [Left Arm] Blood Pressure Mean 80 Blood Pressure Mean [Left Arm] Pulse Oximetry 98 Oxygen Delivery Method Oxygen Flow Rate Sepsis Recent Fever Within 48 Hours Sepsis New/Unexplained Change in Mental Status Sepsis Action Taken by Nursing 03/24/24 18:01 03/24/24 18:03 03/24/24 18:09 Temperature Temperature Source Pulse Rate 74 73 Pulse Rate [Apical] Pulse Rate from SpO2 Sensor 73 Pulse Rhythm [Apical] Respiratory Rate 10 L 12 Respiratory Depth Blood Pressure 110/53 L Blood Pressure [Left Arm] Blood Pressure Mean 77 Blood Pressure Mean [Left Arm] Pulse Oximetry 100 Oxygen Delivery Method Oxygen Flow Rate Sepsis Recent Fever Within 48 Hours Sepsis New/Unexplained Change in Mental Status Sepsis Action Taken by Nursing 03/24/24 18:15 03/24/24 18:30 03/24/24 18:57 Temperature Temperature Source Pulse Rate 74 74 Pulse Rate [Apical] Pulse Rate from SpO2 Sensor 74 Pulse Rhythm [Apical] Respiratory Rate 13 7 L Respiratory Depth Blood Pressure 112/51 L Blood Pressure [Left Arm] Blood Pressure Mean 68 Blood Pressure Mean [Left Arm] Pulse Oximetry 100 Oxygen Delivery Method Oxygen Flow Rate Sepsis Recent Fever Within 48 Hours Sepsis New/Unexplained Change in Mental Status Sepsis Action Taken by Nursing 03/24/24 19:00 03/24/24 19:16 03/24/24 19:24 Temperature Temperature Source Pulse Rate 75 Pulse Rate [Apical] Pulse Rate from SpO2 Sensor 75 Pulse Rhythm [Apical] Respiratory Rate 9 L Respiratory Depth Blood Pressure 129/57 L 117/53 L Blood Pressure [Left Arm] Blood Pressure Mean 95 70 Blood Pressure Mean [Left Arm] Pulse Oximetry 98 Oxygen Delivery Method Oxygen Flow Rate Sepsis Recent Fever Within 48 Hours Sepsis New/Unexplained Change in Mental Status Sepsis Action Taken by Nursing 03/24/24 19:27 03/24/24 19:30 03/24/24 19:45 Temperature Temperature Source Pulse Rate 74 75 Pulse Rate [Apical] Pulse Rate from SpO2 Sensor 74 Pulse Rhythm [Apical] Respiratory Rate 16 Respiratory Depth Blood Pressure 106/78 Blood Pressure [Left Arm] Blood Pressure Mean 86 Blood Pressure Mean [Left Arm] Pulse Oximetry 96 Oxygen Delivery Method Oxygen Flow Rate Sepsis Recent Fever Within 48 Hours Sepsis New/Unexplained Change in Mental Status Sepsis Action Taken by Nursing 03/24/24 19:45 Temperature Temperature Source Pulse Rate 75 Pulse Rate [Apical] Pulse Rate from SpO2 Sensor 73 Pulse Rhythm [Apical] Respiratory Rate 27 H Respiratory Depth Blood Pressure Blood Pressure [Left Arm] Blood Pressure Mean Blood Pressure Mean [Left Arm] Pulse Oximetry 100 Oxygen Delivery Method Oxygen Flow Rate Sepsis Recent Fever Within 48 Hours Sepsis New/Unexplained Change in Mental Status Sepsis Action Taken by Assisted Medications Current Medication List: was personally reviewed by me Laboratory Data Attestation: I reviewed the patient's lab results. 03/24/24 15:41 03/24/24 17:48 Lab Results 03/24/24 03/24/24 03/24/24 Range/Units 15:41 16:01 16:23 WBC 12.58 H (4.8-10.8) K/ul RBC 3.89 L (4.70-6.10) M/uL Hgb 10.8 L (14.0-18.0) g/dl Hct 33.4 L (42.0-52.0) % MCV 85.9 (80.0-100.0) fL MCH 27.8 (25.0-34.0) pg MCHC 32.3 (32.0-36.0) g/dL RDW Std Deviation 47.6 H (36.4-46.3) fL RDW Coeff of Taylor 15.3 H (11.5-14.5) % Plt Count 351 (130-400) K/uL MPV 11.6 (9.4-12.4) fL Immature Gran % (Auto) 0.6 % Neut % (Auto) 77.7 % Lymph % (Auto) 15.6 % Graves % (Auto) 5.2 % Eos % (Auto) 0.5 % Baso % (Auto) 0.4 % Neut # (Auto) 9.77 H (1.40-6.50) K/uL Lymph # (Auto) 1.96 (1.20-3.40) K/uL Graves # (Auto) 0.66 H (0.11-0.59) K/uL Eos # (Auto) 0.06 (0.00-0.50) K/uL Baso # (Auto) 0.05 (0.00-0.20) K/uL Immature Gran # (Auto) 0.08 (0.01-0.20) K/uL Absolute Nucleated RBC 0.02 (0.00-0.12) K/uL Nucleated RBC % (auto) 0.2 % PT 12.7 H (9.0-12.0) Seconds INR 1.2 H (0.9-1.1) APTT 27 (21-31) Seconds PTT Ratio 1.0 Sodium 134 L (136-145) mmol/L Potassium 4.9 (3.5-5.1) mmol/L Chloride 104 (98-107) mmol/L Carbon Dioxide 23 (21-32) mmol/L Anion Gap 7 (3-11) BUN 31 H (6-23) mg/dl Creatinine 1.10 (0.6-1.4) mg/dl Est Cr Clr Drug Dosing 61.4 ml/min Est GFR ( Amer) 73.6 ml/min Est GFR (Non-Af Amer) 63.5 ml/min BUN/Creatinine Ratio 28.2 H (10-20) Glucose 191 H (70-99(Fasting)) mg/dl POC Glucose 187 H (70-99) mg/dl Lactate (0.4-2.0) mmol/L Calcium 8.4 L (8.6-10.3) mg/dl Magnesium (1.7-2.4) mg/dl Total Bilirubin 0.8 (0.2-1.0) mg/dl Direct Bilirubin (0-0.2) mg/dl AST 37 (13-39) U/L ALT 46 (7-52) U/L Alkaline Phosphatase 170 H (34-104) U/L Troponin I High Sens (0-20) pg/ml B-Natriuretic Peptide (0-100) pg/ml Total Protein 6.1 (6.0-8.3) gm/dl Albumin 2.8 L (3.4-5.0) gm/dl Globulin 3.3 (2.5-4.0) gm/dl Albumin/Globulin Ratio 0.8 L (0.9-2) Procalcitonin 0.05 (0-0.5) ng/ml Urine Color Dark Yellow Urine Appearance Cloudy A (Clear) Urine pH 5.0 (4.5-7.5) Ur Specific [place] 1.017 (1.000-1.030) Urine Protein 1+ H (Negative) Urine Glucose (UA) Negative (Negative) Urine Ketones Negative (Negative) Urine Blood Negative (Negative) Urine Nitrite Negative (Negative) Urine Bilirubin Negative (Negative) Urine Urobilinogen Negative (Negative) Ur Leukocyte Esterase Negative (Negative) Urine WBC (Auto) 0-5 (0-5) /hpf Urine RBC (Auto) 0-2 (0-2) /hpf U Hyaline Cast (Auto) >20 H (0-2) /lpf U Epithel Cells (Auto) 6-10 H (0-2) /hpf Urine Bacteria (Auto) None Seen (None Seen) Granular Casts Present A (None Prsent) /lpf Nasal Screen MRSA (PCR) (Negative) 03/24/24 03/24/24 03/24/24 Range/Units 16:28 17:48 19:26 WBC (4.8-10.8) K/ul RBC (4.70-6.10) M/uL Hgb (14.0-18.0) g/dl Hct (42.0-52.0) % MCV (80.0-100.0) fL MCH (25.0-34.0) pg MCHC (32.0-36.0) g/dL RDW Std Deviation (36.4-46.3) fL RDW Coeff of Taylor (11.5-14.5) % Plt Count (130-400) K/uL MPV (9.4-12.4) fL Immature Gran % (Auto) % Neut % (Auto) % Lymph % (Auto) % Graves % (Auto) % Eos % (Auto) % Baso % (Auto) % Neut # (Auto) (1.40-6.50) K/uL Lymph # (Auto) (1.20-3.40) K/uL Graves # (Auto) (0.11-0.59) K/uL Eos # (Auto) (0.00-0.50) K/uL Baso # (Auto) (0.00-0.20) K/uL Immature Gran # (Auto) (0.01-0.20) K/uL Absolute Nucleated RBC (0.00-0.12) K/uL Nucleated RBC % (auto) % PT (9.0-12.0) Seconds INR (0.9-1.1) APTT (21-31) Seconds PTT Ratio Sodium 133 L (136-145) mmol/L Potassium 5.1 (3.5-5.1) mmol/L Chloride 106 (98-107) mmol/L Carbon Dioxide 20 L (21-32) mmol/L Anion Gap 7 (3-11) BUN 31 H (6-23) mg/dl Creatinine 0.99 (0.6-1.4) mg/dl Est Cr Clr Drug Dosing 68.2 ml/min Est GFR ( Amer) 83.6 ml/min Est GFR (Non-Af Amer) 72.1 ml/min BUN/Creatinine Ratio 31.3 H (10-20) Glucose 181 H (70-99(Fasting)) mg/dl POC Glucose (70-99) mg/dl Lactate 2.4 H* (0.4-2.0) mmol/L Calcium 7.8 L (8.6-10.3) mg/dl Magnesium 1.7 (1.7-2.4) mg/dl Total Bilirubin 0.7 (0.2-1.0) mg/dl Direct Bilirubin 0.2 (0-0.2) mg/dl AST 43 H (13-39) U/L ALT 43 (7-52) U/L Alkaline Phosphatase 155 H (34-104) U/L Troponin I High Sens 10.0 (0-20) pg/ml B-Natriuretic Peptide 1818 H (0-100) pg/ml Total Protein 5.7 L (6.0-8.3) gm/dl Albumin 2.6 L (3.4-5.0) gm/dl Globulin (2.5-4.0) gm/dl Albumin/Globulin Ratio (0.9-2) Procalcitonin (0-0.5) ng/ml Urine Color Urine Appearance (Clear) Urine pH (4.5-7.5) Ur Specific [place] (1.000-1.030) Urine Protein (Negative) Urine Glucose (UA) (Negative) Urine Ketones (Negative) Urine Blood (Negative) Urine Nitrite (Negative) Urine Bilirubin (Negative) Urine Urobilinogen (Negative) Ur Leukocyte Esterase (Negative) Urine WBC (Auto) (0-5) /hpf Urine RBC (Auto) (0-2) /hpf U Hyaline Cast (Auto) (0-2) /lpf U Epithel Cells (Auto) (0-2) /hpf Urine Bacteria (Auto) (None Seen) Granular Casts (None Prsent) /lpf Nasal Screen MRSA (PCR) Negative (Negative) Administered Medications Piperacillin Sod/Tazobactam (Sod 4.5 gm/ Dextrose) 100 mls @ 25 mls/hr IV Q8H CYNTHIA; Protocol Stop: 04/03/24 22:59 Last Admin: 03/24/24 23:33 Dose: 25 mls/hr Documented By: TRISTIAN Magnesium Sulfate/Dextrose (Magnesium Sulfate / D5w) 1 gm in 100 mls @ 50 mls/hr IV ONE ONE Stop: 03/25/24 01:09 Last Admin: 03/24/24 23:33 Dose: 50 mls/hr Documented By: TRISTIAN Insulin Aspart (Insulin Aspart Per Unit Charge) 0 units SC ACHS [facility] Stop: 04/23/24 22:21 Last Admin: 03/24/24 23:34 Dose: 1 units Documented By: TRISTIAN Co-signed By: AM Insulin Glargine (Lantus Per Unit Charge) 6 units SQ QPM [facility] Stop: 04/23/24 22:21 Last Admin: 03/24/24 23:33 Dose: 6 units Documented By: TRISTIAN Co-signed By: AM Sodium Chloride (Sodium Chloride 1 Gm Tablet) 1 gm PO BID [facility]NTHIA Stop: 04/23/24 22:21 Last Admin: 03/24/24 23:47 Dose: Not Given Documented By: TRISTIAN Discontinued Medications Sodium Chloride (Nss) 1,000 mls @ 999 mls/hr IV .Q1H1M [facility] Stop: 03/24/24 17:15 Last Admin: 03/24/24 17:15 Dose: Not Given Documented By: RENA Piperacillin Sod/Tazobactam (Sod 4.5 gm/ Dextrose) 100 mls @ 200 mls/hr IV NOW ONE; Protocol Stop: 03/24/24 16:43 Last Infusion: 03/24/24 17:58 Dose: Infused Documented By: Admin: 03/24/24 17:12 Dose: 200 mls/hr Documented By: RENA Sodium Chloride (Nss) 500 mls @ 999 mls/hr IV .Q31M ONE Stop: 03/24/24 17:06 Last Infusion: 03/24/24 17:59 Dose: Infused Documented By: Admin: 03/24/24 17:14 Dose: 999 mls/hr Documented By: RENA Ioversol (Optiray 320 100ml) 93 ml IV ONCE ONE Stop: 03/24/24 16:57 Last Admin: 03/24/24 16:56 Dose: 93 ml Documented By: GORDON Imaging Data Radiologist's Impression: Abdomen/Pelvis CT 03/24/24 16:[address] WITH IV CONTRAST CT DOSE: HISTORY: epigastric and mid abdominal pain TECHNIQUE: Multiaxial CT images of the abdomen and pelvis were performed following the use of intravenous contrast. A dose lowering technique was utilized adhering to the principles of ALARA. COMPARISON STUDY: Chest CT 03/01/2024. Abdomen and pelvis CT 11/21/2022. FINDINGS: Moderate right and small left pleural effusions again noted. The heart is mildly enlarged. Bibasilar densities and groundglass airspace opacities. This could represent atelectasis or a pneumonia. No pneumoperitoneum. No pneumatosis. No acute fractures identified. Multiple hepatic metastases again noted with the largest within the right hepatic dome measuring 7.4 cm. This has increased in size in the interval. The gallbladder, spleen, adrenal glands, and pancreas are unremarkable. The kidneys enhance normally. No hydronephrosis. A left-sided shunt catheter terminates in the right lower quadrant. Moderate body wall edema is noted. A 4 cm central mesenteric mass has increased in size. This is consistent with the patient's known carcinoid metastasis. Small amount of ascites is noted. Heavily calcified plaque within the proximal celiac and superior mesenteric arteries. There is also calcified plaque within the aorta and iliac arteries without a dissection. No retroperitoneal or pelvic lymphadenopathy. The bladder is decompressed by a Machado catheter. No evidence for bowel obstruction. Normal appendix. Small fat-containing bilateral inguinal hernias again noted. There is mild presacral edema. Questionable thickening within the proximal sigmoid colon. This could be due to underdistention. A low- grade colitis or acute diverticulitis is considered less likely but not entirely excluded. Clinical correlation recommended. IMPRESSION: 1. Interval progression of the metastatic disease within the liver and central mesentery. 2. Small amount of ascites. 3. Moderate right and small left pleural effusions. 4. Bibasilar densities and groundglass airspace opacities. This could represent atelectasis or pneumonia. 5. No evidence for abdominal structures. 6. Questionable thickening within the proximal sigmoid colon. This could be due to underdistention. A low-grade colitis or acute diverticulitis is considered less likely but not entirely excluded. Clinical correlation recommended. ACT 112: Negative or not required by law. Electronically signed by: Rei Woodruff M.D. 03/24/2024 5:49 PM Chest X-Ray 03/24/24 16:14 SINGLE VIEW CHEST CLINICAL HISTORY: Sepsis FINDINGS: An AP, portable, upright chest radiograph is compared to study dated 02/26/2024 and correlated with chest CT dated 03/01/2024. A shunt catheter traverses the left chest wall. The heart is enlarged and noted atherosclerotic calcification of the thoracic aorta. There is pulmonary vascular congestion with evidence of interstitial edema. There are layering pleural effusions with dependent consolidation. No pneumothorax is seen. The skeletal structures are osteopenic. The bony thorax is grossly intact. IMPRESSION: 1. Cardiomegaly with evidence of congestive failure and pulmonary edema. 2. Layering pleural effusions with dependent consolidation. ACT 112: Negative or not required by law. Electronically signed by: Rasta Cordova M.D. 03/24/2024 4:[address] 03/24/24 16:[address] DOSE: 1981.29 mGy.cm HISTORY: VPshunt, decreased alertness TECHNIQUE: Multiaxial CT images of the head were performed without the use of intravenous contrast. Automated exposure control was utilized for this study. A dose lowering technique was utilized adhering to the principles of ALARA. Comparison: Head CT 02/26/2024. Findings: The paranasal sinuses and mastoid air cells are clear. Left-sided magdi holes and a prior right parietal craniotomy again noted. There is a left frontal approach ventriculostomy catheter which terminates within the right lateral ventricle. This remains unchanged in position. Mild atrophy and microvascular ischemic changes are again noted. There is no mass or midline shift. Basal ganglia and cerebellar calcifications, unchanged. The ventricles are stable in size. There is a new focal area of heterogeneity within the left medial occipital lobe best seen on image 17. 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 However, small foci of petechial hemorrhage at the infarct is not excluded. Impression: 1. 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 However, small foci of petechial hemorrhage at the infarct is not excluded. Therefore, [address] follow-up recommended to ensure stability. 2. The left frontal approach ventriculostomy catheter is unchanged in position. The ventricles remain stable in size ACT 112: Negative or not required by law. Electronically signed by: Rei Woodruff M.D. 03/24/2024 5:35 PM Discharge Plan Visit Data Chief Complaint: Hypotension Stated Complaint: WEAKNESS, HYPOTENSION, CONFUSION ED Provider: Sumanth Lugo Discharge Problem: Acute diverticulitis, Intracranial shunt, Aortic stenosis, Hypotension, CHF (congestive heart failure) Patient Disposition: Admitted As Inpatient Discharge Instructions Interventions: ED Discharge Assessment Last Done: 03/24/24 22:22 Discharge Problem: Aortic stenosis Qualifiers: Cardiac valve disease etiology: etiology unspecified Qualified Code(s): I35.0 - Nonrheumatic aortic (valve) stenosis Hypotension Qualifiers: Hypotension type: hypotension due to hypovolemia Qualified Code(s): E86.1 - Hypovolemia CHF (congestive heart failure) Qualifiers: Heart failure type: unspecified Heart failure chronicity: unspecified Qualified Code(s): I50.9 - Heart failure, unspecified
[2024-03-24 16:14] LABS: Basophils # (auto) 0.05 K/uL (0.00-0.20); Basophils % (auto) 0.4 %; Eosinophils # (auto) 0.06 K/uL (0.00-0.50); Eosinophils % (auto) 0.5 %; Hematocrit (blood only) 33.4 % (42.0-52.0); Hemoglobin 10.8 g/dl (14.0-18.0); Immature Granulocytes # (auto) 0.08 K/uL (0.01-0.20); Immature Granulocytes % (auto) 0.6 %; Lymphocytes # (auto) 1.96 K/uL (1.20-3.40); Lymphocytes % (auto) 15.6 %; Mean Corpuscular Hemoglobin 27.8 pg (25.0-34.0); Mean Corpuscular Hgb Conc 32.3 g/dL (32.0-36.0); Mean Corpuscular Volume 85.9 fL (80.0-100.0); Mean Platelet Volume 11.6 fL (9.4-12.4); Monocytes # (auto) 0.66 K/uL (0.11-0.59); Monocytes % (auto) 5.2 %; Neutrophils # (auto) 9.77 K/uL (1.40-6.50); Neutrophils % (auto) 77.7 %; Nucleated RBC # (auto) 0.02 K/uL (0.00-0.12); Nucleated RBC % (auto) 0.2 %; Platelet Count 351 K/uL (130-400); RDW Coefficient of Variation 15.3 % (11.5-14.5); RDW Standard Deviation 47.6 fL (36.4-46.3); Red Blood Count 3.89 M/uL (4.70-6.10); White Blood Count 12.58 K/ul (4.8-10.8)
[2024-03-24 16:32] LABS: Albumin Globulin Ratio 0.8 (0.9-2); Albumin Level 2.8 gm/dl (3.4-5.0); BUN Creatinine Ratio 28.2 (10-20); Bilirubin,Total 0.8 mg/dl (0.2-1.0); Calcium 8.4 mg/dl (8.6-10.3); Creatinine Clr Calc Pharmacy 61.4 ml/min; Est GFR (African American) 73.6 ml/min; Est GFR (Non-African American) 63.5 ml/min; Globulin 3.3 gm/dl (2.5-4.0); Potassium 4.9 mmol/L (3.5-5.1); Total Protein 6.1 gm/dl (6.0-8.3)
[2024-03-24 16:44] LABS: INR 1.2 (0.9-1.1); Partial Thromboplastin Time 27 Seconds (21-31); Prothrombin Time 12.7 Seconds (9.0-12.0)
--- NOTE | 2024-03-24 16:48 | XRay Report ---
SINGLE VIEW CHEST CLINICAL HISTORY: Sepsis FINDINGS: An AP, portable, upright chest radiograph is compared to study dated 02/26/2024 and correlate d with chest CT dated 03/01/2024. A shunt catheter traverses the left chest wall. The heart is enlarge d and noted atherosclerotic calcification of the thoracic aorta. There is pulmonary vascular congesti on with evidence of interstitial edema. There are layering pleural effusions with dependent consolida tion. No pneumothorax is seen. The skeletal structures are osteopenic. The bony thorax is grossly int act. IMPRESSION: 1. Cardiomegaly with evidence of congestive failure and pulmonary edema. 2. Layering pleural effusions with dependent consolidation. ACT 112: Negative or not required by law. Electronically signed by: Rasta Cordova M.D. 03/24/2024 4:46 PM
[2024-03-24 16:53] LABS: Appearance Urine Cloudy (Clear); Bacteria Urine Automated None Seen (None Seen); Bilirubin Urine Negative (Negative); Blood Urine Negative (Negative); Cast Urine Automated >20 /lpf (0-2); Color Urine Dark Yellow; Glucose Urine UA Negative (Negative); Granular Casts Urine Present /lpf (None Prsent); Ketones Urine Negative (Negative); Leukocyte Esterase Urine Negative (Negative); Nitrite Urine Negative (Negative); Protein Urine 1+ (Negative); RBC Urine Automated 0-2 /hpf (0-2); Specific Gravity Urine 1.017 (1.000-1.030); Urobilinogen Urine Negative (Negative); WBC Urine Automated 0-5 /hpf (0-5)
[2024-03-24] MEDS: OPTIRAY 320 100ml IV ONE (16:56)
[2024-03-24] MEDS: PIPERACILLIN/TAZOBACTAM 4.5 GM in DEXTROSE 5% MINI-B 100 ML IV ONE (17:12)
[2024-03-24] MEDS: SODIUM CHLORIDE 0.9% 500 ML IV ONE (17:14)
[2024-03-24] MEDS: SODIUM CHLORIDE 0.9% 1,000 ML IV SCH (17:15)
[2024-03-24 17:37] LABS: Adenovirus PCR Not Detected (NotDetected); Bordetella parapertussis PCR Not Detected (NotDetected); Bordetella pertussis PCR Not Detected (NotDetected); Chlamydia pneumoniae PCR Not Detected (NotDetected); Coronavirus 229E PCR Not Detected (NotDetected); Coronavirus CoV-2 (COVID19)PCR Not Detected (NotDetected); Coronavirus HKU1 PCR Not Detected (NotDetected); Coronavirus NL63 PCR Not Detected (NotDetected); Coronavirus OC43PCR Not Detected (NotDetected); Human Metapneumovirus PCR Not Detected (NotDetected); Influenza A PCR Not Detected (NotDetected); Influenza B PCR Not Detected (NotDetected); Mycoplasma pneumoniae PCR Not Detected (NotDetected); Parainfluenza Virus 1 PCR Not Detected (NotDetected); Parainfluenza Virus 2 PCR Not Detected (NotDetected); Parainfluenza Virus 3 PCR Not Detected (NotDetected); Parainfluenza Virus 4 PCR Not Detected (NotDetected); Respiratory Syncytial VirusPCR Not Detected (NotDetected); Rhinovirus/Enterovirus PCR Not Detected (NotDetected)
--- NOTE | 2024-03-24 17:37 | CT Scan Report ---
HEAD CT NONCONTRAST CT DOSE: 1981.29 mGy.cm HISTORY: VPshunt, decreased alertness TECHNIQUE: Multiaxial CT images of the head were performed without the use of intravenous contrast. A utomated exposure control was utilized for this study. A dose lowering technique was utilized adheri ng to the principles of ALARA. Comparison: Head CT 02/26/2024. Findings: The paranasal sinuses and mastoid air cells are clear. Left-sided magdi holes and a prior ri t parietal craniotomy again noted. There is a left frontal approach ventriculostomy catheter which terminates within the right lateral ventricle. This remains unchanged in position. Mild atrophy and m icrovascular ischemic changes are again noted. There is no mass or midline shift. Basal ganglia and c erebellar calcifications, unchanged. The ventricles are stable in size. There is a new focal area of heterogeneity within the left medial occipital lobe best seen on image 17. This favors a subacute to chronic left [employer] territory infarct with areas of cortical laminar necrosis. However, small foci of pe techial hemorrhage at the infarct is not excluded. Impression: 1. There is a new focal area of heterogeneity within the left medial occipital lobe which favors a dominguez bacute to chronic left [employer] territory infarct with areas of cortical laminar necrosis. However, small foci of petechial hemorrhage at the infarct is not excluded. Therefore, 12 [address] follow- up recommended to ensure stability. 2. The left frontal approach ventriculostomy catheter is unchanged in position. The ventricles remain stable in size ACT 112: Negative or not required by law. Electronically signed by: Rei Woodruff M.D. 03/24/2024 5:35 PM
--- NOTE | 2024-03-24 17:51 | CT Scan Report ---
ABDOMEN AND PELVIS CT WITH IV CONTRAST CT DOSE: HISTORY: epigastric and mid abdominal pain TECHNIQUE: Multiaxial CT images of the abdomen and pelvis were performed following the use of intrave nous contrast. A dose lowering technique was utilized adhering to the principles of ALARA. COMPARISON STUDY: Chest CT 03/01/2024. Abdomen and pelvis CT 11/21/2022. FINDINGS: Moderate right and small left pleural effusions again noted. The heart is mildly enlarged. Bibasilar densities and groundglass airspace opacities. This could represent atelectasis or a pneumon ia. No pneumoperitoneum. No pneumatosis. No acute fractures identified. Multiple hepatic metastases a gain noted with the largest within the right hepatic dome measuring 7.4 cm. This has increased in siz e in the interval. The gallbladder, spleen, adrenal glands, and pancreas are unremarkable. The kidney s enhance normally. No hydronephrosis. A left-sided shunt catheter terminates in the right lower quad rant. Moderate body wall edema is noted. A 4 cm central mesenteric mass has increased in size. This i s consistent with the patient's known carcinoid metastasis. Small amount of ascites is noted. Heavily calcified plaque within the proximal celiac and superior mesenteric arteries. There is also calcifie d plaque within the aorta and iliac arteries without a dissection. No retroperitoneal or pelvic lymph adenopathy. The bladder is decompressed by a Machado catheter. No evidence for bowel obstruction. Devi l appendix. Small fat-containing bilateral inguinal hernias again noted. There is mild presacral ten a. Questionable thickening within the proximal sigmoid colon. This could be due to underdistention. A low-grade colitis or acute diverticulitis is considered less likely but not entirely excluded. Clini kristi correlation recommended. IMPRESSION: 1. Interval progression of the metastatic disease within the liver and central mesentery. 2. Small amount of ascites. 3. Moderate right and small left pleural effusions. 4. Bibasilar densities and groundglass airspace opacities. This could represent atelectasis or pneumo qiana. 5. No evidence for abdominal structures. 6. Questionable thickening within the proximal sigmoid colon. This could be due to underdistention. A low-grade colitis or acute diverticulitis is considered less likely but not entirely excluded. Clini kristi correlation recommended. ACT 112: Negative or not required by law. Electronically signed by: Rei Woodruff M.D. 03/24/2024 5:49 PM
[2024-03-24 18:34] LABS: Albumin Level 2.6 gm/dl (3.4-5.0); BUN Creatinine Ratio 31.3 (10-20); Bilirubin,Total 0.7 mg/dl (0.2-1.0); Calcium 7.8 mg/dl (8.6-10.3); Creatinine Clr Calc Pharmacy 68.2 ml/min; Est GFR (African American) 83.6 ml/min; Est GFR (Non-African American) 72.1 ml/min; Magnesium 1.7 mg/dl (1.7-2.4); Potassium 5.1 mmol/L (3.5-5.1); Total Protein 5.7 gm/dl (6.0-8.3)
--- NOTE | 2024-03-24 19:01 | History & Physical Report ---
Date of Service March 24, 2024 Assessment & Plan (1) Acute diverticulitis: Plan: Diarrhea x 4 days Leukocytosis of 12.58 on arrival A/P CT revealed low-grade colitis or acute diverticulitis No prior history of diverticulitis Zosyn 4.5 g IV q8h Follow blood cultures Would normally keep n.p.o. except for medications, given hypotension will trial clear liquid diet Hold off on further IVF resuscitation A.m. CBC, BMP, mag (2) Hypotension: Plan: BP 78/46 on arrival Patient received NSS 1500 mL IV in the ED and improved Caution fluid overload given severe aortic stenosis and CHF Hold all antihypertensive medications and diuresis for now (3) Neuroendocrine carcinoma metastatic to liver: Plan: Continue GOC discussions Palliative care consult Oncology consult (4) DM (diabetes mellitus), type 2: Plan: Last A1c at 7.3% on 02/27/2024 Glucose 191 on admission Hold metformin Dose reduce Lantus; SSI Clear liquid diet BSG ACHS Adjust regimen as needed Pharmacy glycemic consult (5) Abnormal head CT: Plan: Patient endorses some confusion Head CT on arrival revealed subacute to chronic left ELECTRIC SHIPYARD OPERATOR territory infarct as well as small foci of petechial hemorrhages Clinically, both patient and deny slurred speech, facial droop, or new unilateral deficits Hold chemical DVT PPx for now Repeat head CT ordered for 0800 on 03/25 to ensure stability (6) CHF (congestive heart failure): Plan: Last echo revealed LVEF at 55 to 60% with severe left atrial dilation and severe aortic stenosis with possible aortic regurgitation Daily weights Strict I&Os Hold Lasix for now (as above) (7) Aortic stenosis: Plan: Cardiology consulted for TAVR eval Per review of prior cardiology notes, unclear if this will improve his functional status given multiple other comorbidities (8) Generalized weakness: Plan: PT/OT evaluations appreciated (9) History of CVA (cerebrovascular accident): (10) History of subdural hematoma: (11) History of craniotomy: (12) History of SIADH: Plan Disposition: Admit to PCU telemetry Full code While patient does exhibit diverticulitis, will place on clear liquid diet the setting of hypotension VTE PPx: Will hold chemical DVT PPx for [address] History of Present Illness Chief Complaint: Hypotension, confusion, and weakness Primary Care Provider: HAMMAD Foster is a 79-year-old male with PMH of neuroendocrine carcinoma metastatic to liver, SIADH, craniotomy, subdural hematoma, intracranial shunt, carotid stenosis bilaterally, T2DM, severe aortic stenosis, BPH, and CVA. He presented for weakness, confusion, and hypotension on 03/24. This has been a gradual decline since he was discharged from rehab on 03/19. Patient's (Martha) is at the bedside and provides additional history. She reports that he was walking fine with a walker from Saturday to Saturday, but then began to decline on Saturday. Eventually he became so weak that he was unable to eat, sit up, or stand up. He has had diarrhea x 4 days; no blood in stool. No prior episodes of diverticulitis. No sick contacts. He also endorses SOB that can occur both at rest and with exertion; worse when laying flat. Patient took some of his regular morning medications today (losartan, Coreg, metformin, and sodium tablets). He usually takes his insulin at night. Recent change in medication includes removing Norvasc due to low BP. Patient is not on supplemental oxygen at home. He is a former smoker, but quit 40 years ago. No recent alcohol use. Oriented to name and , but not location or month. Patient is hypotensive at 105/50 at time of admission; mildly bradycardic at 58 bpm and mildly hypothermic at 36.3 C. ED Course: NSS 1500 mL IV Zosyn 4.5 g IV ROS: Patient endorses generalized weakness, body aches, ambulatory dysfunction, intermittent dizziness (like the room is spinning), lightheadedness, SOB both at rest and with exertion, orthopnea, dry cough, chest palpitations daily (unsure how long it lasts for), and diarrhea x 4 episodes yesterday. Patient denies fever, chills, night-sweats, shoulder pain, HUGO, slurred speech, facial droop, unilateral deficits, chest pain, abdominal pain, N/V/D, blood in the urine/stool, or numbness/tingling in the arms or legs. Allergies Allergy/AdvReac Type Severity Reaction Status Date / Time acesulfame AdvReac Intermediate Diarrhea Verified 03/24/24 18:05 aspartame AdvReac Intermediate Diarrhea Verified 03/24/24 18:05 lisinopril AdvReac Intermediate COUGH Verified 03/24/24 18:05 meclizine AdvReac Intermediate "goofy" Verified 03/24/24 18:05 sucralose AdvReac Intermediate Diarrhea Verified 03/24/24 18:05 [From Splenda (sucralose)] Home Medications Medication Instructions Recorded Confirmed Type melatonin 3 mg capsule 3 mg PO HS PRN Sleep 04/01/23 03/24/24 History pantoprazole 40 mg tablet,delayed 40 mg PO DAILY PRN Gastric Reflux 04/24/23 03/24/24 History release triamcinolone acetonide 55 mcg 1 spray intranasal DAILY PRN 09/27/23 03/24/24 History nasal spray aerosol (Nasacort) Congestion dutasteride 0.5 mg capsule 0.5 mg PO DAILY #90 caps 01/02/24 03/24/24 Rx carboxymethylcellulose sodium 1 % 1 drp OPB QID 03/24/24 03/24/24 History eye liquid gel drops escitalopram oxalate 20 mg tablet 20 mg PO QAM 03/24/24 03/24/24 History acetaminophen 325 mg tablet 650 mg (2 x 325 mg) PO Q4H PRN #0 04/02/24 Rx tabs lorazepam 1 mg tablet 1 mg sublingual Q6H PRN anxiety, 04/02/24 Rx agitation, nausea #20 tabs morphine concentrate 100 mg/5 mL 10 mg (0.5 mL) buccal Q4H PRN pain 04/02/24 Rx (20 mg/mL) oral solution or shortness of breath #30 mL ondansetron 4 mg disintegrating 4 mg PO Q6H PRN nausea and 04/02/24 Rx tablet vomiting #20 tabs Past Med/Surg History Problem List (Updated 04/06/24 @ 00:07 by Background Daemon) Chronic heart failure with preserved ejection fraction (HFpEF) Acute metabolic encephalopathy Cerebrovascular accident (CVA) with intracranial hemorrhage Aortic regurgitation CAD (coronary artery disease) Discussion about advance care planning held with family member Cardiac cachexia Anorexia Palliative care by specialist Dyspnea and respiratory abnormalities Hemorrhagic stroke CHF (congestive heart failure) (Acute) Abnormal head CT History of CVA (cerebrovascular accident) 2020. denies residual. Acute diverticulitis (Acute) Hypotension (Acute) Ambulatory dysfunction (Acute) Pneumonia (Acute) Nausea, vomiting and diarrhea Carotid stenosis, bilateral Idiopathic polyneuropathy Gait disturbance (Acute) Intracranial shunt (Acute) Dizziness (Acute) Generalized weakness (Acute) Bruising Cognitive changes History of SIADH History of craniotomy History of subdural hematoma Hyponatremia Weakness (Acute) Neuroendocrine carcinoma metastatic to liver Seizure-like activity BPH associated with nocturia History of back problems Arthritis GERD (gastroesophageal reflux disease) Hyperlipidemia Abdominal mass, RLQ (right lower quadrant) (Acute) Mesenteric mass neuroendocrine tumor Urge incontinence of urine Anxiety and depression Ischemic cerebrovascular accident (CVA) 02/08, continues with poor balance, dysarthria, facial droop Chronic fatigue Carotid artery stenosis Nodular thyroid disease BPH (benign prostatic hyperplasia) Pulmonary nodule seen on imaging study (Acute) Vitamin D deficiency (Acute) Diabetic peripheral neuropathy (Acute) Erectile dysfunction of organic origin Benign hypertension DM (diabetes mellitus), type 2 Aortic stenosis (Acute) severe, not a surgical candidate Loss of protective sensation of skin of foot Cervical facet joint syndrome Cervicalgia Mild sleep apnea (Acute) Macular degeneration (Acute) Aortic aneurysm (Acute) [place] [facility] monitoring Medical History Left inguinal hernia Osteoarthritis History of SIADH 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 no treatment per "it's not affecting his liver function so we are leaving it alone." Liver lesion Mesenteric mass Carotid stenosis neck CTA 08/2023 [place] DM type 2 (diabetes mellitus, type 2) Anxiety and depression Hypertension Subdural hematoma hx Hyperlipidemia Surgical History Hx of left cataract extraction History of liver biopsy History of hernia repair History of brain shunt Hx of colonoscopy H/O brain surgery decompressional subdural hematoma 12/2021 H/O knee surgery Family History Father , age 67 of heart issues Coronary heart disease Diabetes Myocardial infarction Mother , age 53 of heart issues Myocardial infarction Denies family history of Ovarian cancer Prostate cancer Breast cancer Colorectal cancer Cancer Social History Smoking Status: Former smoker Tobacco Type: Cigars Second Hand Exposure: No; Do You Dip or Chew Tobacco: No; Hx Alcohol Use: No Hx Substance Use: No Preferred Language: Latvian Communication Ability: Effective Visual Impairment: Limited Hearing Ability: Hard of Hearing Herbicide Service Sales Representative Required: No Beliefs That Will Affect Care: None marital status: Current Living Situation: Spouse Current Living Situation Comment: spouse is pt's caregiver current occupational status: retired 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 How many Children do You have: 2 Feels Safe at Home: Yes Childhood Exposure to Second-Hand Smoke: No Diet: regular caffeine: Yes (coffee) during the past year weight has: decreased > 10 lbs Dental Care, Regularly: Yes Physical Activity Frequency: 3-4 Times per Week Seatbelt Use: always Sunscreen Use: No Do you think of yourself as: straight/heterosexual Gender Identity: Male Assistive Devices: Bedside Commode, Cane, Walker, Wheelchair and Other Review of Systems Review of Systems: See HPI above Physical Exam Physical Exam: General: no acute distress; lethargic; non-toxic appearing; well-nourished; cooperative; SpO2 100% on 2L NC HEENT: normocephalic, atraumatic; no scleral icterus; PERRLA w/ EOMs intact; moist mucus membrane; vision and hearing grossly intact Neck: supple; no lymphadenopathy; trachea midline Skin: Mild jaundice of the skin; warm, dry without signs of tenting; no cyanosis; no rashes, bruising, lesions, or erythema noted CV: chest wall NTP; RRR; S1/S2 normal; 4/6 systolic ejection murmur auscultated at the second ICS MCL with radiation to the carotids; pulses intact and symmetric at radial, DP, and PT Lungs: no acute respiratory distress; symmetrical chest wall expansion; clear breath sounds across all lung layton w/o adventitious sounds; no wheezing ABD: Soft, NTP; BS present; no rebound/guarding; mild distention secondary to possible ascites MSK: no tics or fasciculations; no edema noted in the LEs b/l, nonerythematous; 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 driver 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; patient demonstrates ability to wiggle toes bilaterally Neuro: Oriented to name/, not month/location; flat mood and affect; fluent speech; no facial droop; no focal deficits; sensation grossly intact in the LEs b/l Results & Data Results & Data Vital Signs (Past 12 Hours) Vital Signs Temp Pulse Pulse Resp BP BP Pulse Ox 03/24/24 17:31 18 105/50 L 100 03/24/24 17:16 105/50 L 03/24/24 16:27 58 L 26 H 97 03/24/24 16:24 75 30 H 100 03/24/24 16:21 72 14 97 03/24/24 16:02 72 28 H 98/52 L 98 03/24/24 16:00 71 21 96 03/24/24 16:00 98/52 L 03/24/24 15:54 72 03/24/24 15:51 03/24/24 15:42 72 13 88 L 03/24/24 15:42 36.3 C L 71 20 78/46 L 97 O2 Del Method O2 Flow Rate 03/24/24 17:31 Nasal Cannula 2 03/24/24 17:16 03/24/24 16:27 Nasal Cannula 2 03/24/24 16:24 03/24/24 16:21 03/24/24 16:02 Nasal Cannula 2 03/24/24 16:00 03/24/24 16:00 03/24/24 15:54 03/24/24 15:51 Room Air 03/24/24 15:42 03/24/24 15:42 Nasal Cannula Laboratory Results Abnormal lab results 03/24/24 03/24/24 03/24/24 Range/Units 15:41 16:01 16:23 WBC 12.58 H (4.8-10.8) K/ul RBC 3.89 L (4.70-6.10) M/uL Hgb 10.8 L (14.0-18.0) g/dl Hct 33.4 L (42.0-52.0) % RDW Std Deviation 47.6 H (36.4-46.3) fL RDW Coeff of Taylor 15.3 H (11.5-14.5) % Neut # (Auto) 9.77 H (1.40-6.50) K/uL Kaufman # (Auto) 0.66 H (0.11-0.59) K/uL PT 12.7 H (9.0-12.0) Seconds INR 1.2 H (0.9-1.1) Sodium 134 L (136-145) mmol/L Carbon Dioxide (21-32) mmol/L BUN 31 H (6-23) mg/dl BUN/Creatinine Ratio 28.2 H (10-20) Glucose 191 H (70-99(Fasting)) mg/dl POC Glucose 187 H (70-99) mg/dl Lactate (0.4-2.0) mmol/L Calcium 8.4 L (8.6-10.3) mg/dl AST (13-39) U/L Alkaline Phosphatase 170 H (34-104) U/L Total Protein (6.0-8.3) gm/dl Albumin 2.8 L (3.4-5.0) gm/dl Albumin/Globulin Ratio 0.8 L (0.9-2) Urine Appearance Cloudy A (Clear) Urine Protein 1+ H (Negative) U Hyaline Cast (Auto) >20 H (0-2) /lpf U Epithel Cells (Auto) 6-10 H (0-2) /hpf Granular Casts Present A (None Prsent) /lpf 03/24/24 Range/Units 17:48 WBC (4.8-10.8) K/ul RBC (4.70-6.10) M/uL Hgb (14.0-18.0) g/dl Hct (42.0-52.0) % RDW Std Deviation (36.4-46.3) fL RDW Coeff of Taylor (11.5-14.5) % Neut # (Auto) (1.40-6.50) K/uL Kaufman # (Auto) (0.11-0.59) K/uL PT (9.0-12.0) Seconds INR (0.9-1.1) Sodium 133 L (136-145) mmol/L Carbon Dioxide 20 L (21-32) mmol/L BUN 31 H (6-23) mg/dl BUN/Creatinine Ratio 31.3 H (10-20) Glucose 181 H (70-99(Fasting)) mg/dl POC Glucose (70-99) mg/dl Lactate 2.4 H* (0.4-2.0) mmol/L Calcium 7.8 L (8.6-10.3) mg/dl AST 43 H (13-39) U/L Alkaline Phosphatase 155 H (34-104) U/L Total Protein 5.7 L (6.0-8.3) gm/dl Albumin 2.6 L (3.4-5.0) gm/dl Albumin/Globulin Ratio (0.9-2) Urine Appearance (Clear) Urine Protein (Negative) U Hyaline Cast (Auto) (0-2) /lpf U Epithel Cells (Auto) (0-2) /hpf Granular Casts (None Prsent) /lpf Diagnostic Findings Abdomen/Pelvis CT 03/24/24 16:[address] WITH IV CONTRAST CT DOSE: HISTORY: epigastric and mid abdominal pain TECHNIQUE: Multiaxial CT images of the abdomen and pelvis were performed following the use of intravenous contrast. A dose lowering technique was utilized adhering to the principles of ALARA. COMPARISON STUDY: Chest CT 03/01/2024. Abdomen and pelvis CT 11/21/2022. FINDINGS: Moderate right and small left pleural effusions again noted. The heart is mildly enlarged. Bibasilar densities and groundglass airspace opacities. This could represent atelectasis or a pneumonia. No pneumoperitoneum. No pneumatosis. No acute fractures identified. Multiple hepatic metastases again noted with the largest within the right hepatic dome measuring 7.4 cm. This has increased in size in the interval. The gallbladder, spleen, adrenal glands, and pancreas are unremarkable. The kidneys enhance normally. No hydronephrosis. A left-sided shunt catheter terminates in the right lower quadrant. Moderate body wall edema is noted. A 4 cm central mesenteric mass has increased in size. This is consistent with the patient's known carcinoid metastasis. Small amount of asc ites is noted. Heavily calcified plaque within the proximal celiac and superior mesenteric arteries. There is also calcified plaque within the aorta and iliac arteries without a dissection. No retroperitoneal or pelvic lymphadenopathy. The bladder is decompressed by a Machado catheter. No evidence for bowel obstruction. Normal appendix. Small fat-containing bilateral inguinal hernias again noted. Th ere is mild presacral edema. Questionable thickening within the proximal sigmoid colon. This could be due to underdistention. A low-grade colitis or acute diverticulitis is considered less likely but not entirely excluded. Clinical correlation recommended. IMPRESSION: 1. Interval progression of the metastatic disease within the liver and central mesentery. 2. Small amount of ascites. 3. Moderate right and small left pleural effusions. 4. Bibasilar densities and groundglass airspace opacities. This could represent atelectasis or pneumonia. 5. No evidence for abdominal structures. 6. Questionable thickening within the proximal sigmoid colon. This could be due to underdistention. A low-grade colitis or acute diverticulitis is considered less likely but not entirely excluded. Clinical correlation recommended. ACT 112: Negative or not required by law. Electronically signed by: Rei Woodruff M.D. 03/24/2024 5:49 PM Chest X-Ray 03/24/24 16:14 SINGLE VIEW CHEST CLINICAL HISTORY: Sepsis FINDINGS: An AP, portable, upright chest radiograph is compared to study dated 02/26/2024 and correlated with chest CT dated 03/01/2024. A shunt catheter tr averses the left chest wall. The heart is enlarged and noted atherosclerotic calcification of the thoracic aorta. There is pulmonary vascular congestion with evidence of interstitial edema. There are layering pleural effusions with dependent consolidation. No pneumothorax is seen. The skeletal structures are osteopenic. The bony thorax is grossly intact. IMPRESSION: 1. Cardiomegaly with evidence of congestive failure and pulmonary edema. 2. Layering pleural effusions with dependent consolidation. ACT 112: Negative or not required by law. Electronically signed by: Rasta Cordova M.D. 03/24/2024 4:[address] 03/24/24 16:[address] DOSE: 1981.29 mGy.cm HISTORY: VPshunt, decreased alertness TECHNIQUE: Multiaxial CT images of the head were performed without the use of intravenous contrast. Automated exposure control was utilized for this study. A dose lowering technique was utilized adhering to the principles of ALARA. Comparison: Head CT 02/26/2024. Findings: The paranasal sinuses and mastoid air cells are clear. Left-sided magdi holes and a prior right parietal craniotomy again noted. There is a left frontal approach ventriculostomy catheter which terminates within the right lateral ventricle. This remains unchanged in position. Mild atrophy and microvascular ischemic changes are again noted. There is no mass or midline shift. Basal ganglia and cerebellar calcifications, unchanged. The ventricles are stable in size. There is a new focal area of heterogeneity within the left medial occipital lobe best seen on image 17. This favors a subacute to chronic left ELECTRIC SHIPYARD OPERATOR territory infarct with areas of cortical laminar necrosis. However, small foci of petechial hemorrhage at the infarct is not excluded. Impression: 1. There is a new focal area of heterogeneity within the left medial occipital lobe which favors a subacute to chronic left ELECTRIC SHIPYARD OPERATOR territory infarct with areas of cortical laminar necrosis. However, small foci of petechial hemorrhage at the infarct is not excluded. Therefore, [address] follow-up recommended to ensure stability. 2. The left frontal approach ventriculostomy catheter is unchanged in position. The ventricles remain stable in size ACT 112: Negative or not required by law. Electronically signed by: Rei Woodruff M.D. 03/24/2024 5:35 PM ECG Additional Comments: ECG revealed NSR at 72 bpm; QTc 466 Code Status & VTE Plan Code Status Full code (discussed in-depth with patient and at bedside) VTE Prophylaxis Plan VTE Prophylaxis will be ordered: Yes Supervising Physician Co-Signing Physician Notes I personally saw and examined the patient. I independently reviewed the labs, EKG, imaging, problem list, medication list, past medical history and family history. I verified all galvez points and agree with Rei Robins PA-C with the following exceptions and/or additions: 79 year old male presents to the ER with weakness, confusion, shortness of breath and confusion. Significant decline since Saturday with diarrhea. Improved following IV fluids given in the ER. O/E Alert to self only, PERRL, EOMI, equal strength in b/l upper and lower extremities, no facial droop, poorly following commands, HS RRR, systolic/diastolic murmur, Chest bibasal reduced breath sounds, Abdo SNT A/P Multiple medical issues including possible diverticulitis, progressive metastatic carcinoid disease, worsening pleural effusion, hypotension, abnormal CT head (subacute CVA) - discussed with daughter over the phone who is a nurse and requested palliative care consult which appears reasonable. Discussed code status however and his wishes for him to be full resuscitation at this t yudith. IV Zosyn, clear liquid, would avoid further IV fluids as likely to make his respiratory status worse. Hold all anti-hypertensives. Hold antiplatelets and anticoagulation pending repeat CT head. PG Care Time/CCT Total # of Minutes Spent Total Time Spent with Patient: Total time spent is greater than 50% in coordination of care (as documented) at patient's floor/unit and/or counseling patient: C[place] [address] INT INP/OBS CARE 3/75MIN Patient Type Established Medical Decision Making High Complexity Diagnoses Acute diverticulitis K57.92 Hypotension I95.9 Neuroendocrine carcinoma metastatic to liver C7A.8; C7B.8 Type 2 diabetes mellitus with other specified complication, with long-term current use of insulin E11.69; Z79.4 Diabetes mellitus complication status: with other specified complication Diabetes mellitus skilled nursing insulin use: with watermelon inspector use Abnormal head CT R93.0 CHF (congestive heart failure) I50.9 Aortic stenosis I35.0 Generalized weakness R53.1 History of CVA (cerebrovascular accident) Z86.73 History of subdural hematoma Z86.79 History of craniotomy Z98.890 History of SIADH Z86.39 (4) DM (diabetes mellitus), type 2 Diabetes mellitus complication status: with other specified complication Diabetes mellitus skilled nursing insulin use: with skilled nursing use Qualified Code(s): E11.69 - Type 2 diabetes mellitus with other specified complication; Z79.4 - MCFP (current) use of insulin
[2024-03-24 19:04] LABS: Bilirubin Direct 0.2 mg/dl (0-0.2)
[2024-03-24] MEDS ORDERED: PHARMACY GLYCEMIC MGMT CONSULT PRN (22:22)
[2024-03-24] MEDS ORDERED: MELATONIN 3 MG TAB PO PRN (22:22)
[2024-03-24] MEDS ORDERED: GLUCOSE 40% GEL 15 GM TUBE PO PRN (22:22)
[2024-03-24] MEDS ORDERED: ONDANSETRON INJ 2 MG/ML 2 ML VIAL IV PRN (22:22)
[2024-03-24] MEDS ORDERED: PANTOprazole 40 MG TAB PO PRN (22:22)
[2024-03-24] MEDS ORDERED: GLUCAGON FOR INJ 1 MG VIAL SQ PRN (22:22)
[2024-03-24] MEDS ORDERED: CARBOHYDRATES FOR HYPOGLYCEMIA PO PRN (22:22)
[2024-03-24] MEDS ORDERED: GLUCOSE 10 TAB/TUBE PO PRN (22:22)
[2024-03-24] MEDS ORDERED: FLUTICASONE PROPIONATE NA SPR 16 GM BTL PRN (22:42)
[2024-03-24] MEDS: LANTUS PER UNIT CHARGE SQ SCH (23:33)
[2024-03-24] MEDS: SODIUM CHLORIDE 1 GM TABLET PO SCH (23:33)
[2024-03-24] MEDS: MAGNESIUM SULFATE / D5W 1 GM/100 ML BAG IV ONE (23:33)
[2024-03-24] MEDS: PIPERACILLIN/TAZOBACTAM 4.5 GM in DEXTROSE 5% MINI-B 100 ML IV SCH (23:33)
[2024-03-24] MEDS: INSULIN ASPART PER UNIT CHARGE SC SCH (23:34)
[2024-03-25 08:21] LABS: Basophils # (auto) 0.07 K/uL (0.00-0.20); Basophils % (auto) 0.5 %; Eosinophils # (auto) 0.09 K/uL (0.00-0.50); Eosinophils % (auto) 0.6 %; Hematocrit (blood only) 31.6 % (42.0-52.0); Hemoglobin 10.4 g/dl (14.0-18.0); Immature Granulocytes % (auto) 0.7 %; Lymphocytes # (auto) 1.71 K/uL (1.20-3.40); Lymphocytes % (auto) 12.1 %; Mean Corpuscular Hemoglobin 27.6 pg (25.0-34.0); Mean Corpuscular Hgb Conc 32.9 g/dL (32.0-36.0); Mean Corpuscular Volume 83.8 fL (80.0-100.0); Mean Platelet Volume 11.4 fL (9.4-12.4); Monocytes # (auto) 0.82 K/uL (0.11-0.59); Monocytes % (auto) 5.8 %; Neutrophils # (auto) 11.38 K/uL (1.40-6.50); Neutrophils % (auto) 80.3 %; Nucleated RBC # (auto) 0.02 K/uL (0.00-0.12); Nucleated RBC % (auto) 0.1 %; Platelet Count 342 K/uL (130-400); RDW Coefficient of Variation 15.4 % (11.5-14.5); RDW Standard Deviation 46.5 fL (36.4-46.3); Red Blood Count 3.77 M/uL (4.70-6.10); White Blood Count 14.17 K/ul (4.8-10.8)
--- NOTE | 2024-03-25 08:30 | CT Scan Report ---
HEAD CT NONCONTRAST CT DOSE: 625.8 mGy.cm HISTORY: 12-24h follow-up head CT to ensure stability TECHNIQUE: Multiaxial CT images of the head were performed without the use of intravenous contrast. A utomated exposure control was utilized for this study. A dose lowering technique was utilized adheri ng to the principles of ALARA. Comparison: Head CT 03/24/2024. Findings: The paranasal sinuses and mastoid air cells are clear. No calvarial fractures. Prior right parietal craniotomy again noted. A left frontal approach ventriculostomy catheter terminates in the r ight lateral ventricle. This remains unchanged. Mild motion artifact. Atrophy and microvascular ische zach changes are again noted. Bilateral basal ganglia and cerebellar hemisphere calcifications remain unchanged. Old lacunar infarct again noted within the right periventricular white matter. There is in terval progression of the small amount of intraparenchymal hemorrhage associated with the left WEB PRESS OPERATOR HELPER OFFSET te rritory infarct involving the medial aspect of the left occipital lobe. This favors a subacute left P CA territory infarct with hemorrhagic transformation. Impression: 1. There is interval progression of the small amount of intraparenchymal hemorrhage associated with t he left WEB PRESS OPERATOR HELPER OFFSET territory infarct involving the medial aspect of the left occipital lobe. This favors a s ubacute left WEB PRESS OPERATOR HELPER OFFSET territory infarct with hemorrhagic transformation. 2. This report was called/faxed to the covering physician following dictation. ACT 112: Negative or not required by law. Electronically signed by: Rei Woodruff M.D. 03/25/2024 8:29 AM
[2024-03-25] MEDS: ASPIRIN 81 MG ECTAB PO SCH (08:32)
[2024-03-25] MEDS: ESCITALOPRAM OXALATE 20 MG TAB PO SCH (08:33)
[2024-03-25] MEDS: ATORVASTATIN 40 MG TAB PO SCH (08:33)
[2024-03-25 08:56] LABS: Albumin Level 2.5 gm/dl (3.4-5.0); Bilirubin,Total 0.8 mg/dl (0.2-1.0); Calcium 8.1 mg/dl (8.6-10.3); Magnesium 1.9 mg/dl (1.7-2.4); Potassium 4.5 mmol/L (3.5-5.1)
[2024-03-25 09:02] LABS: Albumin Globulin Ratio 0.8 (0.9-2); Creatinine Clr Calc Pharmacy 60.8 ml/min; Est GFR (African American) 76.1 ml/min; Est GFR (Non-African American) 65.7 ml/min; Globulin 3.1 gm/dl (2.5-4.0); Total Protein 5.6 gm/dl (6.0-8.3)
--- NOTE | 2024-03-25 10:07 | Neurology Consultation ---
Date of Consultation March 25, 2024 Assessment & Plan (1) Hemorrhagic stroke: History of Present Illness Attending Physician: Deander Maynard MD History of Present Illness Pt this morning alert and follows simple command. soft spoken and appears to be fatigue and tire. Repeat CT head showing slight increase in the hemorrhage component of his left occipital stroke. He has ongoing several medical issues and appears to be pulmonary infection and diverticulitis. pt also with hypotension and dehydration. chart reviewed. admission HPI: don is a 79-year-old male with PMH of neuroendocrine carcinoma metastatic to liver, SIADH, craniotomy, subdural hematoma, intracranial shunt, carotid stenosis bilaterally, T2DM, severe aortic stenosis, BPH, and CVA. He presented for weakness, confusion, and hypotension on 03/24. This has been a gradual decline since he was discharged from rehab on 03/19. Patient's (Martha) is at the bedside and provides additional history. She reports that he was walking fine with a walker from Saturday to Saturday, but then began to decline on Saturday. Eventually he became so weak that he was unable to eat, sit up, or stand up. He has had diarrhea x 4 days; no blood in stool. No prior episodes of diverticulitis. No sick contacts. He also endorses SOB that can occur both at rest and with exertion; worse when laying flat. Patient took some of his regular morning medications today (losartan, Coreg, metformin, and sodium tablets). He usually takes his insulin at night. Recent change in medication includes removing Norvasc due to low BP. Patient is not on supplemental oxygen at home. He is a former smoker, but quit 40 years ago. No recent alcohol use. Oriented to name and , but not location or month. Patient is hypotensive at 105/50 at time of admission; mildly bradycardic at 58 bpm and mildly hypothermic at 36.3 C. ED Course: NSS 1500 mL IV Zosyn 4.5 g IV Allergies Allergy/AdvReac Type Severity Reaction Status Date / Time acesulfame AdvReac Intermediate Diarrhea Verified 03/24/24 18:05 aspartame AdvReac Intermediate Diarrhea Verified 03/24/24 18:05 lisinopril AdvReac Intermediate COUGH Verified 03/24/24 18:05 meclizine AdvReac Intermediate "goofy" Verified 03/24/24 18:05 sucralose AdvReac Intermediate Diarrhea Verified 03/24/24 18:05 [From Splenda (sucralose)] Home Medications Medication Instructions Recorded Confirmed Type cholecalciferol (vitamin D3) 125 125 mcg PO QAM 06/06/21 03/24/24 History mcg (5,000 unit) capsule lutegold 1 tab PO HS macular degeneration 03/20/22 03/24/24 History mecobalamin (vitamin B12) 500 mcg 500 mcg PO QAM 04/01/23 03/24/24 History chewable tablet melatonin 3 mg capsule 3 mg PO HS PRN Sleep 04/01/23 03/24/24 History losartan 50 mg tablet 50 mg PO BID #180 tabs 04/08/23 03/24/24 Rx pantoprazole 40 mg tablet,delayed 40 mg PO DAILY PRN Gastric Reflux 04/24/23 03/24/24 History release atorvastatin 80 mg tablet 80 mg PO QAM #90 tabs 06/10/23 03/24/24 Rx blood-glucose meter,continuous #1 ea 06/20/23 03/20/24 Rx (Dexcom G7 [place]) blood-glucose sensor (Dexcom G7 #9 ea 06/20/23 03/20/24 Rx Sensor device) pen needle, diabetic 31 gauge x #50 ea 06/20/23 03/20/24 Rx 3/16" (BD Ultra-Fine Mini Pen Needle) potassium chloride 10 mEq oral 10 meq PO QAM 08/30/23 03/24/24 History packet blood sugar diagnostic (OneTouch #300 ea 09/27/23 03/20/24 Rx Verio test strips) triamcinolone acetonide 55 mcg 1 spray intranasal DAILY PRN 09/27/23 03/24/24 History nasal spray aerosol (Nasacort) Congestion sodium chloride 1,000 mg soluble 1,000 mg PO BID 10/02/23 03/24/24 History tablet metformin 500 mg tablet,extended 500 mg PO BID #180 tabs 10/15/23 03/24/24 Rx release 24 hr dutasteride 0.5 mg capsule 0.5 mg PO DAILY #90 caps 01/02/24 03/24/24 Rx carvedilol 6.25 mg tablet 6.25 mg PO BIDM #60 tabs 03/06/24 03/24/24 Rx furosemide 20 mg tablet 20 mg PO QAM #30 tabs 03/06/24 03/24/24 Rx aspirin 81 mg tablet,delayed 81 mg PO Q OTHER DAY 03/20/24 03/24/24 History release (Adult Low Dose Aspirin) carboxymethylcellulose sodium 1 % 1 drp OPB QID 03/24/24 03/24/24 History eye liquid gel drops carvedilol 6.25 mg tablet 3.125 mg PO BID 03/24/24 03/24/24 History escitalopram oxalate 20 mg tablet 20 mg PO QAM 03/24/24 03/24/24 History insulin glargine 100 unit/mL (3 0 unit subcut HS 03/24/24 03/24/24 History mL) subcutaneous pen (Lantus Solostar U-100 Insulin) Patient History Medical History Left inguinal hernia Osteoarthritis History of SIADH 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 no treatment per "it's not affecting his liver function so we are leaving it alone." Liver lesion Mesenteric mass Carotid stenosis neck CTA 08/2023 [place] DM type 2 (diabetes mellitus, type 2) Anxiety and depression Hypertension Subdural hematoma hx Hyperlipidemia Surgical History Hx of left cataract extraction History of liver biopsy History of hernia repair History of brain shunt Hx of colonoscopy H/O brain surgery decompressional subdural hematoma 12/2021 H/O knee surgery Family History Father , age 67 of heart issues Coronary heart disease Diabetes Myocardial infarction Mother , age 53 of heart issues Myocardial infarction Denies family history of Ovarian cancer Prostate cancer Breast cancer Colorectal cancer Cancer Social History Smoking Status: Former smoker Tobacco Type: Cigars Second Hand Exposure: No; Do You Dip or Chew Tobacco: No; Hx Alcohol Use: No Hx Substance Use: No Preferred Language: Turkish Communication Ability: Effective Visual Impairment: Limited Hearing Ability: Hard of Hearing Felled Seam Operator Chainstitch Required: No Beliefs That Will Affect Care: None marital status: Current Living Situation: Spouse Current Living Situation Comment: spouse is pt's caregiver current occupational status: retired 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 How many Children do You have: 2 Other Information That Helps Us Care for You: No Feels Safe at Home: Yes Safety Concerns: Feels Safe At This Time Childhood Exposure to Second-Hand Smoke: No Diet: regular caffeine: Yes (coffee) during the past year weight has: decreased > 10 lbs Dental Care, Regularly: Yes Physical Activity Frequency: 3-4 Times per Week Seatbelt Use: always Sunscreen Use: No Do you think of yourself as: straight/heterosexual Gender Identity: Male Assistive Devices: Cane, Glasses, Walker and Wheelchair Review of Systems Review of Systems: All systems reviewed & are unremarkable except as noted in HPI & below and All systems reviewed & are unremarkable except as noted in Subjective Constitutional: as per Subjective / HPI Eyes: as per Subjective / HPI Ear, Nose, Mouth, Throat: as per Subjective / HPI Respiratory: as per Subjective / HPI Cardiovascular: as per Subjective / HPI Gastrointestinal: as per Subjective / HPI Musculoskeletal: as per Subjective / HPI Integumentary: as per Subjective / HPI Neurologic: as per Subjective / HPI Psychiatric: as per Subjective / HPI Endocrine: as per Subjective / HPI Hematologic / Lymphatic: as per Subjective / HPI Allergy / Immunological: as per Subjective / HPI Exam (Neuro) Physical Exam: HEENT: normocephalic Neuro: Mental: Alert, knew his name. not sure of location or year. follows simple commands. minimal speaking, , no apraxia, no L/R confusion, no neglect CN: PERRL, Full EOM, symmetric face, intact sensation t/o face, midline T/U/P Motor: No abnormal movements, normal tone and bulk, 4/5 t/o bilaterally Sens: intact to touch b/l grossly Coord: intact grossly upper limbs. DTR: 1+ sym b/l gait: deferred. Impression:79 yo male with subacute appearing left occipital ischemic stroke with hemorrhagic conversion in setting of dehydration/hypoperfusion/sepsis and complex medical conditions. He is known to neurology as Dr. najera has seen him in the past. Recommendations: 1. Standard stroke work up as planned 2. Hold all antiplatelet and anticoagula tions: For Patients who needs antiplatelet therapy, may consider restarting low dose ASA 81mg in about 7-10 days only if pt is stable and repeat imaging is reassuring. For patients who needs anticoagulation therapy, need to wait minimum 4 weeks prior to restarting therapy and only if patient is clinically stable and follow up imaging is reassuring. 3. Images: repeat non-con CT head in 24 hrs or sooner if any acute decline in neurological status. TTE with bubble. 4. Strict BP control: for pt with SBP in 150-200, keep SBP goal range below 140. For pt with SBP above 210, keep SBP range 140-160. Avoid hypotension. *Close monitoring for increase ICP and electrolyte imbalance, especially hyponatremia. 5. If noted for large intracranial vesse l stenosis, slow reduction of BP and allowing permissive HTN next 5-7 days. 6. Long-term SBP goal less than 130. 7. Plenty of hydration including IV flui d if possible (use isotonic solution) next 1-2 days. Avoid hypovolemia and hypotension. 8. Initiate DVT prevention therapy: pneu matic compression. Do not use Lovenox or anticoagulation meds until further notice. 9. Avoid hypoglycemia, serum glucose goa l during hospitalization: 140-180. 10. Long-term HgA1c goal less than 7. 11. Statin use: if pt was never on stati n, do not start statin now, wait until pt is being discharged and start statin on discharge day. Long-term LDL goal of less than 70. If pt was on statin as outpt, ok to continue statin during inpatient. *Avoid using gastric acid suppression meds (i.e. PPI, histamine-2 antagonists) as they are associated with increased risk of hospital-acquired pneumonia. 12. Head of bed up 30 degrees if possibl e. 13.telemetry monitoring until pt stable. 14. Telemetry monitoring. Consider local intermodal truck driver cardiac monitoring, i.e. MCOT (mobile cardiac outpatient telemetry) or ICM (insertable ekg monitor, e.g. LINQ), if never had correction cardiac monitoring done previously. And if found to have atrial flutter or fibrillation, should consider anticoagulation therapy if no contraindication. 15. Fall precaution and aspiration preca ution. Seizure precaution. Avoid agitation, may consider mild sedation as needed. 16. Consult physical and occupational th erapy evaluation. 17. consult neurosurgery as needed, if p t's overall condition declines or increase in hemorrhage, likely need to be transferred to [facility]. Chart reviewed I have spent more than 50% educating patient about potential diagnosis and neurological evaluation and coordinating care with patient's treatment team. Total time spent (including chart review and coordination of care): 60 min (this includes chart review). Results & Data Vital Signs (Past 12 Hours) Vital Signs Temp Pulse Pulse Resp BP BP Pulse Ox 03/25/24 08:00 70 03/25/24 07:08 36.7 C 71 18 100/53 L 91 03/25/24 02:51 36.4 C L 77 18 105/66 100 03/24/24 23:00 03/24/24 23:00 36.4 C L 75 18 91/52 L 100 03/24/24 22:22 70 03/24/24 22:22 36.4 C L 75 18 91/52 L 100 03/24/24 22:22 Pulse Ox O2 Del Method O2 Del Method O2 Flow Rate O2 Flow Rate 03/25/24 08:00 03/25/24 07:08 Room Air 03/25/24 02:51 Room Air 03/24/24 23:00 Nasal Cannula 2 03/24/24 23:00 Room Air 03/24/24 22:22 03/24/24 22:22 Nasal Cannula 2 03/24/24 22:22 100 Nasal Cannula 2 PG Care Time/CCT Total # of Minutes Spent Total Time Spent with Patient: Total time spent is greater than 50% in coordination of care (as documented) at patient's floor/unit and/or counseling patient: Coding Level of Care Code 05873 IN/OBS CONSULT LVL 4,60M Diagnoses Hemorrhagic stroke I61.9
--- NOTE | 2024-03-25 10:23 | Pharmacy Report ---
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 Will scale back basal today. PLAN FOR INPATIENT GLYCEMIC CONTROL: * Hold outpatient oral diabetes medications * Basal insulin * Lantus 0-5 units SC HS (See EHR for details) * Bolus insulin * NovoLog per scale ACHS or Q6hrs while NPO * Goal Range: Low 110 mg/dL - High 140 mg/dL * Correction Factor: 45 mg/dL/unit * Nutritional / Prandial insulin per carb ratio of 1 unit per 15 grams CHO consumed
--- NOTE | 2024-03-25 13:11 | Cardiology Consultation ---
Date of Consultation March 25, 2024 Assessment & Plan (1) Aortic stenosis: (2) CAD (coronary artery disease): (3) Hemorrhagic stroke: (4) Hypertension: (5) Aortic regurgitation: (6) Neuroendocrine carcinoma metastatic to liver: Plan ASSESSMENT/PLAN: 1. Aortic stenosis with regurgitation: Specifically requested if he is a TAVR candidate. In general however it is an absolute contraindication to proceed with transcatheter aortic valve replacement if estimated life expectancy is less than 1 year due to noncardiac issues. Certainly in the midst of subacute stroke with acute hemorrhagic transformation, he would not be a candidate at this present time. According to palliative consultation with all of his comorbidities, his anticipated survival is less than 6 months. Ultimately, if he improves over time and life expectancy is felt to be acceptable, the decision needs to be made by a tertiary care center that performs the procedure to see if he has suitable anatomy, and then take into account his other comorbidities. 2. CAD: Reported as nonobstructive. No reported angina. Supportive care and risk factor modification if still choosing to receive aggressive management, such as high intensity statin therapy, aspirin therapy when safe from a neurologic standpoint (please see neurology recommendations in regard to antiplatelet therapy). 3. Hypertension: Neurology has given recommendations for blood pressure management in the setting of stroke with hemorrhagic conversion. 4. Disposition: There is no acute cardiac issue at the moment. Ongoing treatment for his stroke with hemorrhagic conversion as per neurology. Palliative conversations have begun with another meeting tomorrow. Prognosis is poor. TAVR is not advised currently with his noncardiac comorbidities. If he makes a recovery and family chooses to pursue, he would need to be seen at a tertiary care center for interdisciplinary review, but if life expectancy is felt to be less than 12 months, that is a contraindication to undergo the procedure as it would not offer any significant long-term benefit while exposing him to risk of the procedure. Please call with any other questions or concerns. Can follow-up with his primary inspector insulation, Dr. Tao. Patient care was communicated with palliative care earlier today. Highly complex medical issues. Thank you for allowing me to participate in the care of your patient. Please call for any other questions or concerns. Sincerely, Raúl Fragoso M.D. History of Present Illness Reason for Consultation: "CHF with severe ; TAVR eval" Requesting Physician: Rei Robins PA-C Attending Physician: Deandre Maynard MD History of Present Illness Mr. Lynn is a pleasant 79-year-old gentleman with a history significant for severe aortic stenosis, nonobstructive CAD, dyslipidemia, type 2 diabetes, hypertension, neuroendocrine carcinoma with metastases to the liver, dilated thoracic aorta, stroke and hemorrhagic stroke. His primary inspector insulation is Dr. Tao. He was recently hospitalized and discharged on 03/06/2024 where he was treated for generalized weakness and deconditioning. During that stay, he underwent cardiac catheterization by Dr. Tao in anticipation of possible aortic valve replacement in the form of TAVR. According to EMR, echo and cath images were sent to [facility] for consideration of TAVR. He apparently has an appointment with Dr. Frederick of cardiology on 04/14/2024. He was admitted again on 03/24/2024 after presenting with hypotension, confusion, and weakness. His systolic blood pressure was reported in the 70s on arrival and he received IV fluids. There was concern for acute diverticulitis given diarrhea for 4 days according to records. He underwent CT imaging of the head on 03/24/2024 which reported a new focal area within the left medial occipital lobe favoring a subacute to chronic left [place] [place] territory infarct with areas of cortical laminar necrosis. There were possible small foci of petechial hemorrhage for which repeat imaging was recommended. He underwent repeat head CT on 03/25/2024 which reported interval progression of small amount of intraparenchymal hemorrhage associated with left [place] [place] territory infarct involving the medial aspect of the left occipital lobe.. Radiology reports that this favors a subacute left [place] [place] [employer] territory infarct with hemorrhagic transformation. He was seen by neurology today for which holding of all antiplatelet therapies was recommended. He was also seen by palliative care He was seen personally earlier today in the afternoon. He denies chest pain or shortness of breath. He had a headache and right arm pain. He chose not to verbalize many responses but rather shook his head. He did acknowledge meeting me when I first walked in and he said replied thank you later during the visit when he was wished a good day. Other than that, he did not participate verbally. Review of systems: As above and otherwise not obtainable. Family history: Noncontributory. Social history: Non-smoker according to records. . He was unaccompanied in his hospital room. Allergies Allergy/AdvReac Type Severity Reaction Status Date / Time acesulfame AdvReac Intermediate Diarrhea Verified 03/24/24 18:05 aspartame AdvReac Intermediate Diarrhea Verified 03/24/24 18:05 lisinopril AdvReac Intermediate COUGH Verified 03/24/24 18:05 meclizine AdvReac Intermediate "goofy" Verified 03/24/24 18:05 sucralose AdvReac Intermediate Diarrhea Verified 03/24/24 18:05 [From Splenda (sucralose)] Home Medications Medication Instructions Recorded Confirmed Type cholecalciferol (vitamin D3) 125 125 mcg PO QAM 06/06/21 03/24/24 History mcg (5,000 unit) capsule lutegold 1 tab PO HS macular degeneration 03/20/22 03/24/24 History mecobalamin (vitamin B12) 500 mcg 500 mcg PO QAM 04/01/23 03/24/24 History chewable tablet melatonin 3 mg capsule 3 mg PO HS PRN Sleep 04/01/23 03/24/24 History losartan 50 mg tablet 50 mg PO BID #180 tabs 04/08/23 03/24/24 Rx pantoprazole 40 mg tablet,delayed 40 mg PO DAILY PRN Gastric Reflux 04/24/23 03/24/24 History release atorvastatin 80 mg tablet 80 mg PO QAM #90 tabs 06/10/23 03/24/24 Rx blood-glucose meter,continuous #1 ea 06/20/23 03/20/24 Rx (Dexcom G7 Hand Sizer) blood-glucose sensor (Dexcom G7 #9 ea 06/20/23 03/20/24 Rx Sensor device) pen needle, diabetic 31 gauge x #50 ea 06/20/23 03/20/24 Rx 3/16" (BD Ultra-Fine Mini Pen Needle) potassium chloride 10 mEq oral 10 meq PO QAM 08/30/23 03/24/24 History packet blood sugar diagnostic (OneTouch #300 ea 09/27/23 03/20/24 Rx Verio test strips) triamcinolone acetonide 55 mcg 1 spray intranasal DAILY PRN 09/27/23 03/24/24 History nasal spray aerosol (Nasacort) Congestion sodium chloride 1,000 mg soluble 1,000 mg PO BID 10/02/23 03/24/24 History tablet metformin 500 mg tablet,extended 500 mg PO BID #180 tabs 10/15/23 03/24/24 Rx release 24 hr dutasteride 0.5 mg capsule 0.5 mg PO DAILY #90 caps 01/02/24 03/24/24 Rx carvedilol 6.25 mg tablet 6.25 mg PO BIDM #60 tabs 03/06/24 03/24/24 Rx furosemide 20 mg tablet 20 mg PO QAM #30 tabs 03/06/24 03/24/24 Rx aspirin 81 mg tablet,delayed 81 mg PO Q OTHER DAY 03/20/24 03/24/24 History release (Adult Low Dose Aspirin) carboxymethylcellulose sodium 1 % 1 drp OPB QID 03/24/24 03/24/24 History eye liquid gel drops carvedilol 6.25 mg tablet 3.125 mg PO BID 03/24/24 03/24/24 History escitalopram oxalate 20 mg tablet 20 mg PO QAM 03/24/24 03/24/24 History insulin glargine 100 unit/mL (3 0 unit subcut HS 03/24/24 03/24/24 History mL) subcutaneous pen (Lantus Solostar U-100 Insulin) Patient History Medical History Left inguinal hernia Osteoarthritis History of SIADH 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 no treatment per "it's not affecting his liver function so we are leaving it alone." Liver lesion Mesenteric mass Carotid stenosis neck CTA 08/2023 [place] DM type 2 (diabetes mellitus, type 2) Anxiety and depression Hypertension Subdural hematoma hx Hyperlipidemia Surgical History Hx of left cataract extraction History of liver biopsy History of hernia repair History of brain shunt Hx of colonoscopy H/O brain surgery decompressional subdural hematoma 12/2021 H/O knee surgery Family History Father , age 67 of heart issues Coronary heart disease Diabetes Myocardial infarction Mother , age 53 of heart issues Myocardial infarction Denies family history of Ovarian cancer Prostate cancer Breast cancer Colorectal cancer Cancer Social History Smoking Status: Former smoker Tobacco Type: Cigars Second Hand Exposure: No; Do You Dip or Chew Tobacco: No; Hx Alcohol Use: No Hx Substance Use: No Preferred Language: Syrian Communication Ability: Effective Visual Impairment: Limited Hearing Ability: Hard of Hearing Reprographics Technician Required: No Beliefs That Will Affect Care: None marital status: Current Living Situation: Spouse Current Living Situation Comment: spouse is pt's caregiver current occupational status: retired 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 Alert. HEENT: Anicteric sclera. Neck: No JVD. Bilateral bruits vs radiation of cardiac murmur. Normal carotid upstrokes bilaterally. Cardiac: No ventricular heave. Regular. Normal S1-S2. 2/6 late peaking systolic ejection murmur heard best at right upper sternal border. Pulmonary: Clear to auscultation bilaterally without wheezes, rales, or rhonchi. Abdomen: Soft, nontender, nondistended, with normoactive bowel sounds. No bruits noted. Extremities: 2+ radial pulses bilaterally. 2+ posterior tibialis pulses bilaterally. Trace bilateral lower extremity edema. No cyanosis. Results & Data Vital Signs (Past 12 Hours) Vital Signs Temp Pulse Pulse Resp BP BP Pulse Ox 03/25/24 11:29 36.3 C L 76 19 98/60 L 99 03/25/24 09:00 03/25/24 08:00 70 03/25/24 07:08 36.7 C 71 18 100/53 L 91 03/25/24 02:51 36.4 C L 77 18 105/66 100 O2 Del Method O2 Flow Rate 03/25/24 11:29 Room Air 03/25/24 09:00 Nasal Cannula 2 03/25/24 08:00 03/25/24 07:08 Room Air 03/25/24 02:51 Room Air Laboratory Results Laboratory Results - last 24 hr 03/24/24 03/24/24 03/24/24 15:41 16:01 16:23 WBC 12.58 H RBC 3.89 L Hgb 10.8 L Hct 33.4 L MCV 85.9 MCH 27.8 MCHC 32.3 RDW Std Deviation 47.6 H RDW Coeff of Taylor 15.3 H Plt Count 351 MPV 11.6 Immature Gran % (Auto) 0.6 Neut % (Auto) 77.7 Lymph % (Auto) 15.6 [place] % (Auto) 5.2 Eos % (Auto) 0.5 Baso % (Auto) 0.4 Neut # (Auto) 9.77 H Lymph # (Auto) 1.96 [place] # (Auto) 0.66 H Eos # (Auto) 0.06 Baso # (Auto) 0.05 Immature Gran # (Auto) 0.08 Absolute Nucleated RBC 0.02 Nucleated RBC % (auto) 0.2 PT 12.7 H INR 1.2 H APTT 27 PTT Ratio 1.0 Sodium 134 L Potassium 4.9 Chloride 104 Carbon Dioxide 23 Anion Gap 7 BUN 31 H Creatinine 1.10 Est Cr Clr Drug Dosing 61.4 Est GFR ( Amer) 73.6 Est GFR (Non-Af Amer) 63.5 BUN/Creatinine Ratio 28.2 H Glucose 191 H POC Glucose 187 H Lactate Calcium 8.4 L Magnesium Total Bilirubin 0.8 Direct Bilirubin AST 37 ALT 46 Alkaline Phosphatase 170 H Troponin I High Sens B-Natriuretic Peptide Total Protein 6.1 Albumin 2.8 L Globulin 3.3 Albumin/Globulin Ratio 0.8 L Procalcitonin 0.05 Urine Color Dark Yellow Urine Appearance Cloudy A Urine pH 5.0 Ur Specific [place] 1.017 Urine Protein 1+ H Urine Glucose (UA) Negative Urine Ketones Negative Urine Blood Negative Urine Nitrite Negative Urine Bilirubin Negative Urine Urobilinogen Negative Ur Leukocyte Esterase Negative Urine WBC (Auto) 0-5 Urine RBC (Auto) 0-2 U Hyaline Cast (Auto) >20 H U Epithel Cells (Auto) 6-10 H Urine Bacteria (Auto) None Seen Granular Casts Present A Nasal Screen MRSA (PCR) Adenovirus (PCR) B. pertussis DNA (PCR) B.parapertussis DNA PCR C. pneumoniae DNA (PCR) Coronavirus OC43 (PCR) Coronavirus HKU1 (PCR) Coronavirus 229E (PCR) SARS-CoV-2 (PCR) Coronavirus NL63 (PCR) Human Metapneumovir PCR Influenza Type A (PCR) Influenza Type B (PCR) M. pneumoniae (PCR) Parainfluenza 1 (PCR) Parainfluenza 2 (PCR) Parainfluenza 3 (PCR) Parainfluenza 4 (PCR) RSV (PCR) Entero/Rhino (PCR) Group A Strep (PCR) 03/24/24 03/24/24 03/24/24 16:28 17:48 19:26 WBC RBC Hgb Hct MCV MCH MCHC RDW Std Deviation RDW Coeff of Taylor Plt Count MPV Immature Gran % (Auto) Neut % (Auto) Lymph % (Auto) [place] % (Auto) Eos % (Auto) Baso % (Auto) Neut # (Auto) Lymph # (Auto) [place] # (Auto) Eos # (Auto) Baso # (Auto) Immature Gran # (Auto) Absolute Nucleated RBC Nucleated RBC % (auto) PT INR APTT PTT Ratio Sodium 133 L Potassium 5.1 Chloride 106 Carbon Dioxide 20 L Anion Gap 7 BUN 31 H Creatinine 0.99 Est Cr Clr Drug Dosing 68.2 Est GFR ( Amer) 83.6 Est GFR (Non-Af Amer) 72.1 BUN/Creatinine Ratio 31.3 H Glucose 181 H POC Glucose Lactate 2.4 H* Calcium 7.8 L Magnesium 1.7 Total Bilirubin 0.7 Direct Bilirubin 0.2 AST 43 H ALT 43 Alkaline Phosphatase 155 H Troponin I High Sens 10.0 B-Natriuretic Peptide 1818 H Total Protein 5.7 L Albumin 2.6 L Globulin Albumin/Globulin Ratio Procalcitonin Urine Color Urine Appearance Urine pH Ur Specific [place] Urine Protein Urine Glucose (UA) Urine Ketones Urine Blood Urine Nitrite Urine Bilirubin Urine Urobilinogen Ur Leukocyte Esterase Urine WBC (Auto) Urine RBC (Auto) U Hyaline Cast (Auto) U Epithel Cells (Auto) Urine Bacteria (Auto) Granular Casts Nasal Screen MRSA (PCR) Negative Adenovirus (PCR) B. pertussis DNA (PCR) B.parapertussis DNA PCR C. pneumoniae DNA (PCR) Coronavirus OC43 (PCR) Coronavirus HKU1 (PCR) Coronavirus 229E (PCR) SARS-CoV-2 (PCR) Coronavirus NL63 (PCR) Human Metapneumovir PCR Influenza Type A (PCR) Influenza Type B (PCR) M. pneumoniae (PCR) Parainfluenza 1 (PCR) Parainfluenza 2 (PCR) Parainfluenza 3 (PCR) Parainfluenza 4 (PCR) RSV (PCR) Entero/Rhino (PCR) Group A Strep (PCR) 03/24/24 03/24/24 03/24/24 20:38 22:30 Unknown WBC RBC Hgb Hct MCV MCH MCHC RDW Std Deviation RDW Coeff of Taylor Plt Count MPV Immature Gran % (Auto) Neut % (Auto) Lymph % (Auto) [place] % (Auto) Eos % (Auto) Baso % (Auto) Neut # (Auto) Lymph # (Auto) [place] # (Auto) Eos # (Auto) Baso # (Auto) Immature Gran # (Auto) Absolute Nucleated RBC Nucleated RBC % (auto) PT INR APTT PTT Ratio Sodium Potassium Chloride Carbon Dioxide Anion Gap BUN Creatinine Est Cr Clr Drug Dosing Est GFR ( Amer) Est GFR (Non-Af Amer) BUN/Creatinine Ratio Glucose POC Glucose 163 H Lactate 1.9 Calcium Magnesium Total Bilirubin Direct Bilirubin AST ALT Alkaline Phosphatase Troponin I High Sens B-Natriuretic Peptide Total Protein Albumin Globulin Albumin/Globulin Ratio Procalcitonin Urine Color Urine Appearance Urine pH Ur Specific [place] Urine Protein Urine Glucose (UA) Urine Ketones Urine Blood Urine Nitrite Urine Bilirubin Urine Urobilinogen Ur Leukocyte Esterase Urine WBC (Auto) Urine RBC (Auto) U Hyaline Cast (Auto) U Epithel Cells (Auto) Urine Bacteria (Auto) Granular Casts Nasal Screen MRSA (PCR) Adenovirus (PCR) Not Detected B. pertussis DNA (PCR) Not Detected B.parapertussis DNA PCR Not Detected C. pneumoniae DNA (PCR) Not Detected Coronavirus OC43 (PCR) Not Detected Coronavirus HKU1 (PCR) Not Detected Coronavirus 229E (PCR) Not Detected SARS-CoV-2 (PCR) Not Detected Coronavirus NL63 (PCR) Not Detected Human Metapneumovir PCR Not Detected Influenza Type A (PCR) Not Detected Influenza Type B (PCR) Not Detected M. pneumoniae (PCR) Not Detected Parainfluenza 1 (PCR) Not Detected Parainfluenza 2 (PCR) Not Detected Parainfluenza 3 (PCR) Not Detected Parainfluenza 4 (PCR) Not Detected RSV (PCR) Not Detected Entero/Rhino (PCR) Not Detected Group A Strep (PCR) NOT DETECTED 03/25/24 03/25/24 03/25/24 06:57 07:32 12:18 WBC 14.17 H RBC 3.77 L Hgb 10.4 L Hct 31.6 L MCV 83.8 MCH 27.6 MCHC 32.9 RDW Std Deviation 46.5 H RDW Coeff of Taylor 15.4 H Plt Count 342 MPV 11.4 Immature Gran % (Auto) 0.7 Neut % (Auto) 80.3 Lymph % (Auto) 12.1 [place] % (Auto) 5.8 Eos % (Auto) 0.6 Baso % (Auto) 0.5 Neut # (Auto) 11.38 H Lymph # (Auto) 1.71 [place] # (Auto) 0.82 H Eos # (Auto) 0.09 Baso # (Auto) 0.07 Immature Gran # (Auto) 0.10 Absolute Nucleated RBC 0.02 Nucleated RBC % (auto) 0.1 PT INR APTT PTT Ratio Sodium 136 Potassium 4.5 Chloride 106 Carbon Dioxide 21 Anion Gap 9 BUN 31 H Creatinine 1.07 Est Cr Clr Drug Dosing 60.8 Est GFR ( Amer) 76.1 Est GFR (Non-Af Amer) 65.7 BUN/Creatinine Ratio 29.0 H Glucose 84 POC Glucose 91 80 Lactate Calcium 8.1 L Magnesium 1.9 Total Bilirubin 0.8 Direct Bilirubin AST 63 H ALT 68 H Alkaline Phosphatase 143 H Troponin I High Sens B-Natriuretic Peptide Total Protein 5.6 L Albumin 2.5 L Globulin 3.1 Albumin/Globulin Ratio 0.8 L Procalcitonin Urine Color Urine Appearance Urine pH Ur Specific [place] Urine Protein Urine Glucose (UA) Urine Ketones Urine Blood Urine Nitrite Urine Bilirubin Urine Urobilinogen Ur Leukocyte Esterase Urine WBC (Auto) Urine RBC (Auto) U Hyaline Cast (Auto) U Epithel Cells (Auto) Urine Bacteria (Auto) Granular Casts Nasal Screen MRSA (PCR) Adenovirus (PCR) B. pertussis DNA (PCR) B.parapertussis DNA PCR C. pneumoniae DNA (PCR) Coronavirus OC43 (PCR) Coronavirus HKU1 (PCR) Coronavirus 229E (PCR) SARS-CoV-2 (PCR) Coronavirus NL63 (PCR) Human Metapneumovir PCR Influenza Type A (PCR) Influenza Type B (PCR) M. pneumoniae (PCR) Parainfluenza 1 (PCR) Parainfluenza 2 (PCR) Parainfluenza 3 (PCR) Parainfluenza 4 (PCR) RSV (PCR) Entero/Rhino (PCR) Group A Strep (PCR) Diagnostic Findings History and physical report and prior cardiology inpatient records reviewed. Palliative care consultation and neurology consultation reports reviewed. ECG personally reviewed 03/24/2024: Sinus rhythm [address]/T wave abnormality. Possible septal infarct. Cardiac cath report reviewed from 03/02/2024: Distal left main 40%. Luminal irregularities within the LAD. Proximal circumflex 50% followed by 40%. OM proximal 50%. Dominant RCA with heavy calcifications and luminal irregularities. Echo 02/27/2024: LVEF 55 to 60%. Normal wall motion. Mild LVH. Severe left atrial dilation. Severe aortic stenosis with possible severe AI. Mild MR. RVSP 61. Telemetry personally reviewed: Sinus rhythm with nonsustained wide-complex tachycardia of approximately 12 beats near [address] of the head reports reviewed as noted above in HPI. CT abdomen/pelvis 03/24/2024: Interval progression of metastatic disease within the liver and central mesentery. Small amount of ascites. Moderate right and small left pleural effusions. Bibasilar densities and groundglass airspace opacities. Questionable thickening within the proximal sigmoid colon. Report as per radiology. Labs reviewed and notable for stable renal function, normal potassium, elevated transaminase levels, elevated BNP, normal high-sensitivity troponin, mild anemia, leukocytosis. Medications Administered Current Inpatient Medications Acetaminophen (Acetaminophen 325 Mg Tab) 650 mg PO Q4H PRN PRN Reason: Pain or Fever Stop: 04/23/24 22:21 Aspirin (Aspirin 81 Mg Ectab) 81 mg PO Q48H CYNTHIA Stop: 04/24/24 08:59 Last Admin: 03/25/24 08:32 Dose: Not Given Atorvastatin Calcium (Atorvastatin 40 Mg Tab) 80 mg PO QAM CYNTHIA Stop: 04/24/24 08:59 Last Admin: 03/25/24 08:33 Dose: Not Given Dextrose (Dextrose 50% 50 Ml Syringe) 25 - 50 ml IV UD PRN; Protocol PRN Reason: Hypoglycemia Protocol Stop: 04/23/24 22:21 Escitalopram Oxalate (Escitalopram Oxalate 20 Mg Tab) 20 mg PO QAM CYNTHIA Stop: 04/24/24 08:59 Last Admin: 03/25/24 08:33 Dose: Not Given Fluticasone Propionate (Fluticasone Propionate Na Spr 16 Gm Btl) 2 sprays NA DAILY PRN PRN Reason: Congestion Stop: 04/23/24 22:41 Glucagon (Glucagon For Inj 1 Mg Vial) 1 mg SQ UD PRN; Protocol PRN Reason: Hypoglycemia Protocol Stop: 04/23/24 22:21 Glucose (Glucose 40% Gel 15 Gm Tube) 15 - 30 gm PO UD PRN; Protocol PRN Reason: Hypoglycemia Protocol Stop: 04/23/24 22:21 Glucose (Glucose 10 Tab/Tube) 4 - 8 tab PO UD PRN; Protocol PRN Reason: Hypoglycemia Treatment Stop: 04/23/24 22:21 Piperacillin Sod/Tazobactam (Sod 4.5 gm/ Dextrose) 100 mls @ 25 mls/hr IV Q8H CYNTHIA; Protocol Stop: 04/03/24 22:59 Last Infusion: 03/25/24 11:33 Dose: Infused Insulin Aspart (Insulin Aspart Per Unit Charge) 0 units SC ACHS CYNTHIA Stop: 04/23/24 22:21 Last Admin: 03/25/24 12:44 Dose: Not Given Insulin Glargine (Lantus Per Unit Charge) 0 units SQ QPM CYNTHIA; Protocol Stop: 04/24/24 20:59 Melatonin (Melatonin 3 Mg Tab) 3 mg PO HS PRN PRN Reason: Sleep Stop: 04/23/24 22:21 Miscellaneous (Carbohydrates For Hypoglycemia ) 15 - 30 gm PO UD PRN PRN Reason: Hypoglycemia Protocol Stop: 04/23/24 22:21 Miscellaneous Information (Pharmacy Glycemic Mgmt Consult) 1 each N/A UD PRN PRN Reason: Consult Stop: 04/23/24 22:21 Ondansetron HCl (Ondansetron Inj 2 Mg/Ml 2 Ml Vial) 4 mg IV Q6H PRN PRN Reason: Nausea Stop: 04/23/24 22:21 Pantoprazole Sodium (Pantoprazole 40 Mg Tab) 40 mg PO DAILY PRN PRN Reason: Gastric Reflux Stop: 04/23/24 22:21 Sodium Chloride (Sodium Chloride 1 Gm Tablet) 1 gm PO BID CYNTHIA Stop: 04/23/24 22:21 Last Admin: 03/25/24 08:33 Dose: Not Given PG Care Time/CCT Total # of Minutes Spent Total Time Spent with Patient: Total time spent is greater than 50% in coordination of care (as documented) at patient's floor/unit and/or counseling patient: Coding Level of Care Code 23878 INT INP/OBS CARE 3/75MIN Diagnoses Aortic stenosis I35.0 Cardiac valve disease etiology: etiology unspecified CAD (coronary artery disease) I25.10 Hemorrhagic stroke I61.9 Hypertension I10 Aortic regurgitation I35.1 Neuroendocrine carcinoma metastatic to liver C7A.8; C7B.8 (1) Aortic stenosis Cardiac valve disease etiology: etiology unspecified Qualified Code(s): I35.0 - Nonrheumatic aortic (valve) stenosis
--- NOTE | 2024-03-25 16:09 | Palliative Care Consultation ---
Date of Consultation March 25, 2024 Assessment & Plan (1) Generalized weakness: (2) Dyspnea and respiratory abnormalities: (3) Cardiac cachexia: (4) Discussion about advance care planning held with family member: ACP discussion with dtr Franklin who is a retired nurse for 30min, telephonic She shares "he's no better than before he went to the rehab, it's done absolutely nothing for him. I think we're coming to the end of the line." She feels he is even worse since rehab, PS declining, nutrition is poor and he is now aspirating and SEM MANAGER made him NPO pending swallow study tomorrow. She is a former hospice nurse. She is well versed in advanced illness and end of life care. She shares her mother is struggling with denial and repeatedly states "just fix his heart and everything will get better" when asked how they as a family would define better Franklin replied "he is thinking clearly again, can walk, move around, take care of himself, think for himself and be back to where he was before this happened." We spoke about the many issues he has had since the past 1-2 years and how those are not entirely r eversible/curable. Franklin believes pt is nearing end of life but feels her mother does not believe this because she feels pt can have heart surgery. Franklin asked if his mitral valve could be fixed right now and I advised with his frail PS, I did not believe it would be safe but will also ask cardiology for their opinion. She feels he is hospice ready and I agreed, anticipated survival <6mo Franklin and I discussed code status. She agrees pt should be no code but /her mother has been resistant to any discussion about code changes bc she feels it would mean he won't be given other therapies. Franklin asked for a family meeting tomorrow with her mom and sister. Advised I am in a full day OP clinic but we agreed to a Zoom call late tomorrow afternoon which she accepted. (5) Anorexia: (6) Palliative care by specialist: Plan as above Thank you for allowing us to participate in the ongoing care of this patient. Please page with any additional concerns. 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 Additional issues with hypotension and dehydration. SEM MANAGER today - + aspiration, now NPO declining PS now PS 4 he is alert to self but slow to respond he cannot provide HPI hx SDH s/p crani with shunt dc to rehab for several weeks then dc home remained weak and frail throughout rehab per daughter, Franklin who is a retired nurse and helps provide care for pt has advanced mitral valve disease, not a surgical candidate Franklin states he was seen in [facility] but never started on cancer rx. 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 Presents with multiple liver lesions. A previous scan of for that diagnosis was made was felt to radiologically be consistent with a possible fernando carcinoid deposit near the ileocecal valve suggesting that the site of origin for this process may well have been in the distal ileum more proximal ascending colon. Dotatate scan reinforces that perspective though we are still without any definitive indication of the primary Spoke quite frankly with the patient who was accompanied by his , 1 daughter in person and his other daughter by speaker phone. We described that the options would be to do nothing more than simply observe and while he has long- term diarrhea, this sounds like it may be multifactorial and otherwise he does not have a classic carcinoid syndrome. I did express concern over the bulk of tumor in the liver, however, and that that might be problematic in time. We discussed that monotherapy with octreotide LAR offer some opportunity for cytoreduction is generally well-tolerated other than injection site reactions. We did indicate that there would be theoretic potential for liver directed therapy or for PRRT but these would require commuting to another institution for their performance and could have a higher level of potential morbidity risk. These certainly could be future options but he wants to understandably hold off on that for now Discussing in particular the options of further observation versus institution of the octreotide LAR he would like to cautiously trial the latter but I have emphasized that he will have a choice with each injection to consider suspending 2. Previous CVA with subsequent subdurals -see HPI for details. Unfortunately, his recent COVID19 infection has led to a bit of a neurological setback though he at least seems to be alert and interactive currently 3. Fatigue is multifactorial, reassessing his blood work and repeating thyroid and adrenal screens 4. Patient, his , and especially his nurse daughter certainly understand the need for "big picture" sense of appropriate parameters and boundaries of care. We will be approaching his treatment on a month by month basis for now with constant reassessment as to whether treatment is accomplishing any needed goals of stabilization PLAN: Plan to begin octreotide LAR 20 mg intramuscularly once monthly Would plan to reassess his disease after 3 to 4 months, sooner if there are obvious progressive I have discussed future potential for PRRT or liver directed therapy but are deferring that for now We will need to be ongoing and heart reassessment of appropriate parameters of care and overall quality of life issues Sg Nolen MD 01/09/23: DATE OF VISIT 01/09/2023 REASON FOR VISIT Metastatic well-differentiated carcinoid tumor, here for finalization of staging and initiation of treatment discussion HISTORY OF PRESENT ILLNESS As noted below, patient suffered a major traumatic episode in November 2021 with neurosurgical intervention and extended hospitalization. As he recovered from that, CT scan of the abdomen and pelvis done for follow-up from his trauma suggested a possible abdominal lesion 01/21/2022 CT abd/pelvis Lung bases are unremarkable. No pneumatosis, free air or portal venous gas is present. Multiple hepatic lesions are better depicted on recent contrast- enhanced CT of January 04, 2022. These measure up to approximately 2.7 cm. These are difficult to visualize on this unenhanced exam. There is no biliary or pancreatic ductal dilatation. Unenhanced images of the spleen, adrenal glands, kidneys and pancreas are unremarkable. There is no hydronephrosis. A portion of the sigmoid colon is located within a left inguinal hernia. There is no resultant bowel obstruction. Sigmoid diverticulosis is noted without evidence for acute diverticulitis. Note is made of a 3 cm irregular lobulated mass within the right lower quadrant mesentery. This has apparent desmoplastic reaction. 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 No suspicious osseous lesions are present. No acute fractures are identified within visualized skeletal structures. Multiple healing right- sided ribs are incidentally noted. Foci of infiltration and subcutaneous gas within the anterior abdominal wall are likely related to subcutaneous injections. IMPRESSION: 1. No acute process within the abdomen or pelvis on unenhanced exam. 2. Redemonstration of a 3 cm lobulated right lower quadrant mesenteric mass. 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 Multiple hepatic lesions are better depicted on prior contrast enhanced CT and are suspicious for hepatic carcinoid metastases. 3. Portion of the sigmoid colon within a left inguinal hernia. No bowel obstruction. 4. Sigmoid diverticulosis. No evidence for acute diverticulitis. At the time he was still caught up in recovery from the traumaso further work- up was deferred. As he stabilized coming into the beginning of this year, a follow-up study was obtained 11/21/2022 CT abd/pelvis Numerous (approximately 20) hypodense hepatic masses have moderately increased in size since prior CT. These are best depicted on contrast enhanced CT of January 04, 2022. Index right hepatic dome lesion measures 3.9 cm. It previously measured 2.7 cm. There is no biliary or pancreatic ductal dilatation. The spleen, adrenal glands, kidneys and pancreas are normal. There is no hydronephrosis. There is no evidence for a bowel obstruction. Wall thickening of the ascending colon is likely due to underdistention. A spiculated ileocolic lesion has minimally in size since prior exam. This now measures 3.1 x 2.4 cm. This favors a fernando metastasis. No additional fernando metastases are identified. A 1 cm left retroperitoneal nodule adjacent to left psoas muscle remains unchanged. Moderate amount stool within the colon is noted. A portion of the sigmoid colon is within a left inguinal hernia. This is unchanged. No resultant bowel obstruction. There are no suspicious osseous lesions. Moderate atheroscle rotic plaque is present. Caliber of the abdominal aorta is normal. There is no ascites. Colonic diverticulosis. No evidence for acute diverticulitis. IMPRESSION: 1. 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 Slight increase in size of a lobulated 3.1 cm right lower lobe mesenteric mass. 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 2. No acute process within the abdomen or pelvis. 3. Colonic diverticulosis. No evidence for acute diverticulitis. 4. Portion of the sigmoid colon within a left inguinal hernia. No bowel obstruction. Given the liver lesions biopsy was scheduled 12/26/2022Liver, mass, ultrasound-guided fineneedle aspiration:- Metastatic well-differentiated neuroendocrine tumor (carcinoid) Comment: Review of the clinical history shows a large abdominal mass most consistent with a carcinoid by imaging. Multiple hepatic metastases were seen which are morphologically and immunophenotypically consistent with a well- differentiated neuroendocrine tumor (carcinoid). Patient complains of some general weakness but this traces back to his original trauma and is actually improved just in the last couple months after his Keppra was discontinued though he remains far from his pretrauma baseline. While he has some exercise intolerance this is not specifically manifest with paroxysms of bronchospastic like breathing changes. He has no episodes of flushing. 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 Started with an January, right hemispheric ischemic stroke resulting in dysarthria, facial droop and impaired balance. Seemed to have reasonably good recovery from this. In early November 2021 he fell down the stairs in his home suffering serious trauma. His was in a separate room and it is not clear whether he simply tripped, had some sort of weak episode related to his previous CVA, or precisely what the circumstances were. He was transiently stabilized here and transferred to [facility] where he had a prolonged admission and recovery. This did include neurosurgical intervention with apparent bur holes to relieve RUBBER ROLLER GRINDER pressureand endovascular treatment of subdurals. He was discharged on prophylactic Keppra without an actual episode of seizures, having quite lethargic with very prolonged recovery even at home. The Keppra was discontinued recently and his is already noted some improvement Additional issues: 2 cm left axillary lobulated node seen on previous CT scans and apparently has been present since 2014 Apparent additional stable pulmonary nodule Large left thyroid mass felt to be more consistent with goiter History of ascending and descending aortic aneurysms followed expectantly by cardiology DM type II, hyperlipidemia, peripheral neuropathy, macular degeneration, SUSAN Patient is a never smoker, he does not drink alcohol he is closely supported by his who accompanies him to the office. Family history significant for myocardial infarction/CAD and diabetesbut no unusual pattern of cancer or blood disorders ASSESSMENT AND PLAN 1. 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 Presents with multiple liver lesions. A previous scan of for that diagnosis was made was felt to radiologically be consistent with a possible fernando carcinoid deposit near the ileocecal valve suggesting that the site of origin for this process may well have been in the distal ileum more proximal ascending colon. Patient is not having specific symptoms that seem referable to the carcinoid tumor. He certainly does not have flushing or bronchospastic paroxysms. While he has some loose stools from time to time,this does not seem to be at the level 1 might expect with florid carcinoid syndrome. We have discussed that this is not a "curative" setting. We reviewed that there can frequently be a response to long-acting octreotide but the indication for that would usually be symptomatology that needs to be relieved and is not clear that he has that We will do baseline assessments of 24-hour urine for HIAA and for free cortisol. Patient will be told to avoid avocados, bananas, cantaloupe, eggplant, pineapples, plums, tomatoes, hickory nuts/pecans, plan teens, weekly, dates, grapefruit, honeydew or walnuts for 48 hours before starting the urine collection We have obtained a baseline chromogranin A level which if markedly elevated could be useful for follow-up. We will schedule a dotatate scan as a baseline as well Spoke at length with the patient, his , and daughters indicating that this tends to be a relatively indolent process and we may not even choose to initiate treatment depending on the volume of disease we see on the pending studies. I have offered that we can get a second opinion in an institution that might be able to offer investigational treatments. We did discuss that there are other "standard" frontline treatment such as everolimus or temozolomide with or without capecitabine but while these are easier to administer, they may have greater toxicity. We discussed the evolving use of PRRT but noted that that is usually a second line salvage regimen. They may be able to find institution, however, that is using that in frontline therapy 2. Previous CVA with transient issues of balance, subsequent major trauma with fall down the steps and neurosurgical intervention required with bur holes for relief of sinus pressure and endovascular repair of SDHs. This seems to be the more relevant and immediate underpinning of his generalized fatigue. According to his , he is actually much improved since stopping the Keppra. 3. He does seem to be struggling a bit with optimally defining his parameters and philosophy of care. May be worthwhile for a formal palliative care consult to help him in moving forward with decision making 4. Fatigue is probably multifactorial. He had a prolonged hospitalization 1 year ago for trauma and the residual scarring as well as the significant deconditioning that occurred during that time have probably been difficult to overcome. Keppra was a specific issue and his already sees some improvement with its discontinuation. Screens for adrenal and thyroid function have been basically stable See other issues in HPI PLAN: Baseline serological evaluation with 24-hour urines for 5-HIAA and cortisol CT scan of the chest and dotatate scan to more precisely indicate the extent of disease Given the evolving picture from the January, scans suspect a potential primary GI lesion in the distal ileum/proximal ascending colon. Endoscopic studies might help us to better determine the site of origin but may not dramatically impact on overall care approach We have provisionally discussed possible treatment approaches, see also patient AVS. I also tried to make clear that there is some philosophical decisions and how to proceed and he may choose to be somewhat more conservative given the background context of the still residual impact of the major trauma he suffered last year. Palliative care consultation may be helpful Sg Nolen MD Allergies Allergy/AdvReac Type Severity Reaction Status Date / Time acesulfame AdvReac Intermediate Diarrhea Verified 03/24/24 18:05 aspartame AdvReac Intermediate Diarrhea Verified 03/24/24 18:05 lisinopril AdvReac Intermediate COUGH Verified 03/24/24 18:05 meclizine AdvReac Intermediate "goofy" Verified 03/24/24 18:05 sucralose AdvReac Intermediate Diarrhea Verified 03/24/24 18:05 [From Splenda (sucralose)] Home Medications Medication Instructions Recorded Confirmed Type cholecalciferol (vitamin D3) 125 125 mcg PO QAM 06/06/21 03/24/24 History mcg (5,000 unit) capsule lutegold 1 tab PO HS macular degeneration 03/20/22 03/24/24 History mecobalamin (vitamin B12) 500 mcg 500 mcg PO QAM 04/01/23 03/24/24 History chewable tablet melatonin 3 mg capsule 3 mg PO HS PRN Sleep 04/01/23 03/24/24 History losartan 50 mg tablet 50 mg PO BID #180 tabs 04/08/23 03/24/24 Rx pantoprazole 40 mg tablet,delayed 40 mg PO DAILY PRN Gastric Reflux 04/24/23 03/24/24 History release atorvastatin 80 mg tablet 80 mg PO QAM #90 tabs 06/10/23 03/24/24 Rx blood-glucose meter,continuous #1 ea 06/20/23 03/20/24 Rx (Dexcom G7 Fibrous Plasterer) blood-glucose sensor (Dexcom G7 #9 ea 06/20/23 03/20/24 Rx Sensor device) pen needle, diabetic 31 gauge x #50 ea 06/20/23 03/20/24 Rx 3/16" (BD Ultra-Fine Mini Pen Needle) potassium chloride 10 mEq oral 10 meq PO QAM 08/30/23 03/24/24 History packet blood sugar diagnostic (OneTouch #300 ea 09/27/23 03/20/24 Rx Verio test strips) triamcinolone acetonide 55 mcg 1 spray intranasal DAILY PRN 09/27/23 03/24/24 History nasal spray aerosol (Nasacort) Congestion sodium chloride 1,000 mg soluble 1,000 mg PO BID 10/02/23 03/24/24 History tablet metformin 500 mg tablet,extended 500 mg PO BID #180 tabs 10/15/23 03/24/24 Rx release 24 hr dutasteride 0.5 mg capsule 0.5 mg PO DAILY #90 caps 01/02/24 03/24/24 Rx carvedilol 6.25 mg tablet 6.25 mg PO BIDM #60 tabs 03/06/24 03/24/24 Rx furosemide 20 mg tablet 20 mg PO QAM #30 tabs 03/06/24 03/24/24 Rx aspirin 81 mg tablet,delayed 81 mg PO Q OTHER DAY 03/20/24 03/24/24 History release (Adult Low Dose Aspirin) carboxymethylcellulose sodium 1 % 1 drp OPB QID 03/24/24 03/24/24 History eye liquid gel drops carvedilol 6.25 mg tablet 3.125 mg PO BID 03/24/24 03/24/24 History escitalopram oxalate 20 mg tablet 20 mg PO QAM 03/24/24 03/24/24 History insulin glargine 100 unit/mL (3 0 unit subcut HS 03/24/24 03/24/24 History mL) subcutaneous pen (Lantus Solostar U-100 Insulin) Patient History Medical History Left inguinal hernia Osteoarthritis History of SIADH 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 no treatment per "it's not affecting his liver function so we are le aving it alone." Liver lesion Mesenteric mass Carotid stenosis neck CTA 08/2023 [place] DM type 2 (diabetes mellitus, type 2) Anxiety and depression Hypertension Subdural hematoma hx Hyperlipidemia Surgical History Hx of left cataract extraction History of liver biopsy History of hernia repair History of brain shunt Hx of colonoscopy H/O brain surgery decompressional subdural hematoma 12/2021 H/O knee surgery Family History Father , age 67 of heart issues Coronary heart disease Diabetes Myocardial infarction Mother , age 53 of heart issues Myocardial infarction Denies family history of Ovarian cancer Prostate cancer Breast cancer Colorectal cancer Cancer Social History Smoking Status: Former smoker Tobacco Type: Cigars Second Hand Exposure: No; Do You Dip or Chew Tobacco: No; Hx Alcohol Use: No Hx Substance Use: No Preferred Language: Argentine Communication Ability: Effective Visual Impairment: Limited Hearing Ability: Hard of Hearing Piston Maker Required: No Beliefs That Will Affect Care: None marital status: Current Living Situation: Spouse Current Living Situation Comment: spouse is pt's caregiver current occupational status: retired 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 How many Children do You have: 2 Other Information That Helps Us Care for You: No Feels Safe at Home: Yes Safety Concerns: Feels Safe At This Time Childhood Exposure to Second-Hand Smoke: No Diet: regular caffeine: Yes (coffee) during the past year weight has: decreased > 10 lbs Dental Care, Regularly: Yes Physical Activity Frequency: 3-4 Times per Week Seatbelt Use: always Sunscreen Use: No Do you think of yourself as: straight/heterosexual Gender Identity: Male Assistive Devices: Cane, Glasses, Walker and Wheelchair Review of Systems Review of Systems: Unobtainable due to cognitive status Physical Exam Physical Exam: Frail , elderly male; PS 4 confused but aler to self slow to respond, +delay bitemp wasting gen weakness mild inc resp effort, fe rales, diminished breath sounds CV irreg, IV/ murmur radiating to carotids seen during his PT eval, could not transition from seated to standing with walk er and PT, therapist max assisted with all of the lift from sit to stand and pt could not maintain position, asked to lie down abd soft, NTP, BS+ gen weakness alert to self confused otherwise pale, cool skin Results & Data Vital Signs (Past 12 Hours) Vital Signs Temp Pulse Pulse Resp BP Pulse Ox O2 Del Method 03/25/24 15:52 79 03/25/24 15:21 36.4 C L 72 19 97/57 L 99 Room Air 03/25/24 11:29 36.3 C L 76 19 98/60 L 99 Room Air 03/25/24 09:00 Nasal Cannula 03/25/24 08:00 70 03/25/24 07:08 36.7 C 71 18 100/53 L 91 Room Air O2 Flow Rate 03/25/24 15:52 03/25/24 15:21 03/25/24 11:29 03/25/24 09:00 2 03/25/24 08:00 03/25/24 07:08 Laboratory Results 03/25/24 03/25/24 03/25/24 Range/Units 12:18 07:32 06:57 WBC 14.17 H (4.8-10.8) K/ul RBC 3.77 L (4.70-6.10) M/uL Hgb 10.4 L (14.0-18.0) g/dl Hct 31.6 L (42.0-52.0) % MCV 83.8 (80.0-100.0) fL MCH 27.6 (25.0-34.0) pg MCHC 32.9 (32.0-36.0) g/dL RDW Std Deviation 46.5 H (36.4-46.3) fL RDW Coeff of Taylor 15.4 H (11.5-14.5) % Plt Count 342 (130-400) K/uL MPV 11.4 (9.4-12.4) fL Immature Gran % (Auto) 0.7 % Neut % (Auto) 80.3 % Lymph % (Auto) 12.1 % [place] % (Auto) 5.8 % Eos % (Auto) 0.6 % Baso % (Auto) 0.5 % Neut # (Auto) 11.38 H (1.40-6.50) K/uL Lymph # (Auto) 1.71 (1.20-3.40) K/uL [place] # (Auto) 0.82 H (0.11-0.59) K/uL Eos # (Auto) 0.09 (0.00-0.50) K/uL Baso # (Auto) 0.07 (0.00-0.20) K/uL Immature Gran # (Auto) 0.10 (0.01-0.20) K/uL Absolute Nucleated RBC 0.02 (0.00-0.12) K/uL Nucleated RBC % (auto) 0.1 % PT (9.0-12.0) Seconds INR (0.9-1.1) APTT (21-31) Seconds PTT Ratio Sodium 136 (136-145) mmol/L Potassium 4.5 (3.5-5.1) mmol/L Chloride 106 (98-107) mmol/L Carbon Dioxide 21 (21-32) mmol/L Anion Gap 9 (3-11) BUN 31 H (6-23) mg/dl Creatinine 1.07 (0.6-1.4) mg/dl Est Cr Clr Drug Dosing 60.8 ml/min Est GFR ( Amer) 76.1 ml/min Est GFR (Non-Af Amer) 65.7 ml/min BUN/Creatinine Ratio 29.0 H (10-20) Glucose 84 (70-99(Fasting)) mg/dl POC Glucose 80 91 (70-99) mg/dl Lactate (0.4-2.0) mmol/L Calcium 8.1 L (8.6-10.3) mg/dl Magnesium 1.9 (1.7-2.4) mg/dl Total Bilirubin 0.8 (0.2-1.0) mg/dl Direct Bilirubin (0-0.2) mg/dl AST 63 H (13-39) U/L ALT 68 H (7-52) U/L Alkaline Phosphatase 143 H (34-104) U/L Troponin I High Sens (0-20) pg/ml B-Natriuretic Peptide (0-100) pg/ml Total Protein 5.6 L (6.0-8.3) gm/dl Albumin 2.5 L (3.4-5.0) gm/dl Globulin 3.1 (2.5-4.0) gm/dl Albumin/Globulin Ratio 0.8 L (0.9-2) Procalcitonin (0-0.5) ng/ml Urine Color Urine Appearance (Clear) Urine pH (4.5-7.5) Ur Specific Gerber (1.000-1.030) Urine Protein (Negative) Urine Glucose (UA) (Negative) Urine Ketones (Negative) Urine Blood (Negative) Urine Nitrite (Negative) Urine Bilirubin (Negative) Urine Urobilinogen (Negative) Ur Leukocyte Esterase (Negative) Urine WBC (Auto) (0-5) /hpf Urine RBC (Auto) (0-2) /hpf U Hyaline Cast (Auto) (0-2) /lpf U Epithel Cells (Auto) (0-2) /hpf Urine Bacteria (Auto) (None Seen) Granular Casts (None Prsent) /lpf Nasal Screen MRSA (PCR) (Negative) Adenovirus (PCR) (NotDetected) B. pertussis DNA (PCR) (NotDetected) B.parapertussis DNA PCR (NotDetected) C. pneumoniae DNA (PCR) (NotDetected) Coronavirus OC43 (PCR) (NotDetected) Coronavirus HKU1 (PCR) (NotDetected) Coronavirus 229E (PCR) (NotDetected) SARS-CoV-2 (PCR) (NotDetected) Coronavirus NL63 (PCR) (NotDetected) Human Metapneumovir PCR (NotDetected) Influenza Type A (PCR) (NotDetected) Influenza Type B (PCR) (NotDetected) M. pneumoniae (PCR) (NotDetected) Parainfluenza 1 (PCR) (NotDetected) Parainfluenza 2 (PCR) (NotDetected) Parainfluenza 3 (PCR) (NotDetected) Parainfluenza 4 (PCR) (NotDetected) RSV (PCR) (NotDetected) Entero/Rhino (PCR) (NotDetected) Group A Strep (PCR) (NotDetected) 03/24/24 03/24/24 03/24/24 Range/Units Unknown 22:30 20:38 WBC (4.8-10.8) K/ul RBC (4.70-6.10) M/uL Hgb (14.0-18.0) g/dl Hct (42.0-52.0) % MCV (80.0-100.0) fL MCH (25.0-34.0) pg MCHC (32.0-36.0) g/dL RDW Std Deviation (36.4-46.3) fL RDW Coeff of Taylor (11.5-14.5) % Plt Count (130-400) K/uL MPV (9.4-12.4) fL Immature Gran % (Auto) % Neut % (Auto) % Lymph % (Auto) % [place] % (Auto) % Eos % (Auto) % Baso % (Auto) % Neut # (Auto) (1.40-6.50) K/uL Lymph # (Auto) (1.20-3.40) K/uL [place] # (Auto) (0.11-0.59) K/uL Eos # (Auto) (0.00-0.50) K/uL Baso # (Auto) (0.00-0.20) K/uL Immature Gran # (Auto) (0.01-0.20) K/uL Absolute Nucleated RBC (0.00-0.12) K/uL Nucleated RBC % (auto) % PT (9.0-12.0) Seconds INR (0.9-1.1) APTT (21-31) Seconds PTT Ratio Sodium (136-145) mmol/L Potassium (3.5-5.1) mmol/L Chloride (98-107) mmol/L Carbon Dioxide (21-32) mmol/L Anion Gap (3-11) BUN (6-23) mg/dl Creatinine (0.6-1.4) mg/dl Est Cr Clr Drug Dosing ml/min Est GFR ( Amer) ml/min Est GFR (Non-Af Amer) ml/min BUN/Creatinine Ratio (10-20) Glucose (70-99(Fasting)) mg/dl POC Glucose 163 H (70-99) mg/dl Lactate 1.9 (0.4-2.0) mmol/L Calcium (8.6-10.3) mg/dl Magnesium (1.7-2.4) mg/dl Total Bilirubin (0.2-1.0) mg/dl Direct Bilirubin (0-0.2) mg/dl AST (13-39) U/L ALT (7-52) U/L Alkaline Phosphatase (34-104) U/L Troponin I High Sens (0-20) pg/ml B-Natriuretic Peptide (0-100) pg/ml Total Protein (6.0-8.3) gm/dl Albumin (3.4-5.0) gm/dl Globulin (2.5-4.0) gm/dl Albumin/Globulin Ratio (0.9-2) Procalcitonin (0-0.5) ng/ml Urine Color Urine Appearance (Clear) Urine pH (4.5-7.5) Ur Specific Gerber (1.000-1.030) Urine Protein (Negative) Urine Glucose (UA) (Negative) Urine Ketones (Negative) Urine Blood (Negative) Urine Nitrite (Negative) Urine Bilirubin (Negative) Urine Urobilinogen (Negative) Ur Leukocyte Esterase (Negative) Urine WBC (Auto) (0-5) /hpf Urine RBC (Auto) (0-2) /hpf U Hyaline Cast (Auto) (0-2) /lpf U Epithel Cells (Auto) (0-2) /hpf Urine Bacteria (Auto) (None Seen) Granular Casts (None Prsent) /lpf Nasal Screen MRSA (PCR) (Negative) Adenovirus (PCR) Not Detected (NotDetected) B. pertussis DNA (PCR) Not Detected (NotDetected) B.parapertussis DNA PCR Not Detected (NotDetected) C. pneumoniae DNA (PCR) Not Detected (NotDetected) Coronavirus OC43 (PCR) Not Detected (NotDetected) Coronavirus HKU1 (PCR) Not Detected (NotDetected) Coronavirus 229E (PCR) Not Detected (NotDetected) SARS-CoV-2 (PCR) Not Detected (NotDetected) Coronavirus NL63 (PCR) Not Detected (NotDetected) Human Metapneumovir PCR Not Detected (NotDetected) Influenza Type A (PCR) Not Detected (NotDetected) Influenza Type B (PCR) Not Detected (NotDetected) M. pneumoniae (PCR) Not Detected (NotDetected) Parainfluenza 1 (PCR) Not Detected (NotDetected) Parainfluenza 2 (PCR) Not Detected (NotDetected) Parainfluenza 3 (PCR) Not Detected (NotDetected) Parainfluenza 4 (PCR) Not Detected (NotDetected) RSV (PCR) Not Detected (NotDetected) Entero/Rhino (PCR) Not Detected (NotDetected) Group A Strep (PCR) NOT DETECTED (NotDetected) 03/24/24 03/24/24 03/24/24 Range/Units 19:26 17:48 16:28 WBC (4.8-10.8) K/ul RBC (4.70-6.10) M/uL Hgb (14.0-18.0) g/dl Hct (42.0-52.0) % MCV (80.0-100.0) fL MCH (25.0-34.0) pg MCHC (32.0-36.0) g/dL RDW Std Deviation (36.4-46.3) fL RDW Coeff of Taylor (11.5-14.5) % Plt Count (130-400) K/uL MPV (9.4-12.4) fL Immature Gran % (Auto) % Neut % (Auto) % Lymph % (Auto) % [place] % (Auto) % Eos % (Auto) % Baso % (Auto) % Neut # (Auto) (1.40-6.50) K/uL Lymph # (Auto) (1.20-3.40) K/uL [place] # (Auto) (0.11-0.59) K/uL Eos # (Auto) (0.00-0.50) K/uL Baso # (Auto) (0.00-0.20) K/uL Immature Gran # (Auto) (0.01-0.20) K/uL Absolute Nucleated RBC (0.00-0.12) K/uL Nucleated RBC % (auto) % PT (9.0-12.0) Seconds INR (0.9-1.1) APTT (21-31) Seconds PTT Ratio Sodium 133 L (136-145) mmol/L Potassium 5.1 (3.5-5.1) mmol/L Chloride 106 (98-107) mmol/L Carbon Dioxide 20 L (21-32) mmol/L Anion Gap 7 (3-11) BUN 31 H (6-23) mg/dl Creatinine 0.99 (0.6-1.4) mg/dl Est Cr Clr Drug Dosing 68.2 ml/min Est GFR ( Amer) 83.6 ml/min Est GFR (Non-Af Amer) 72.1 ml/min BUN/Creatinine Ratio 31.3 H (10-20) Glucose 181 H (70-99(Fasting)) mg/dl POC Glucose (70-99) mg/dl Lactate 2.4 H* (0.4-2.0) mmol/L Calcium 7.8 L (8.6-10.3) mg/dl Magnesium 1.7 (1.7-2.4) mg/dl Total Bilirubin 0.7 (0.2-1.0) mg/dl Direct Bilirubin 0.2 (0-0.2) mg/dl AST 43 H (13-39) U/L ALT 43 (7-52) U/L Alkaline Phosphatase 155 H (34-104) U/L Troponin I High Sens 10.0 (0-20) pg/ml B-Natriuretic Peptide 1818 H (0-100) pg/ml Total Protein 5.7 L (6.0-8.3) gm/dl Albumin 2.6 L (3.4-5.0) gm/dl Globulin (2.5-4.0) gm/dl Albumin/Globulin Ratio (0.9-2) Procalcitonin (0-0.5) ng/ml Urine Color Urine Appearance (Clear) Urine pH (4.5-7.5) Ur Specific Gerber (1.000-1.030) Urine Protein (Negative) Urine Glucose (UA) (Negative) Urine Ketones (Negative) Urine Blood (Negative) Urine Nitrite (Negative) Urine Bilirubin (Negative) Urine Urobilinogen (Negative) Ur Leukocyte Esterase (Negative) Urine WBC (Auto) (0-5) /hpf Urine RBC (Auto) (0-2) /hpf U Hyaline Cast (Auto) (0-2) /lpf U Epithel Cells (Auto) (0-2) /hpf Urine Bacteria (Auto) (None Seen) Granular Casts (None Prsent) /lpf Nasal Screen MRSA (PCR) Negative (Negative) Adenovirus (PCR) (NotDetected) B. pertussis DNA (PCR) (NotDetected) B.parapertussis DNA PCR (NotDetected) C. pneumoniae DNA (PCR) (NotDetected) Coronavirus OC43 (PCR) (NotDetected) Coronavirus HKU1 (PCR) (NotDetected) Coronavirus 229E (PCR) (NotDetected) SARS-CoV-2 (PCR) (NotDetected) Coronavirus NL63 (PCR) (NotDetected) Human Metapneumovir PCR (NotDetected) Influenza Type A (PCR) (NotDetected) Influenza Type B (PCR) (NotDetected) M. pneumoniae (PCR) (NotDetected) Parainfluenza 1 (PCR) (NotDetected) Parainfluenza 2 (PCR) (NotDetected) Parainfluenza 3 (PCR) (NotDetected) Parainfluenza 4 (PCR) (NotDetected) RSV (PCR) (NotDetected) Entero/Rhino (PCR) (NotDetected) Group A Strep (PCR) (NotDetected) 03/24/24 03/24/24 03/24/24 Range/Units 16:23 16:01 15:41 WBC 12.58 H (4.8-10.8) K/ul RBC 3.89 L (4.70-6.10) M/uL Hgb 10.8 L (14.0-18.0) g/dl Hct 33.4 L (42.0-52.0) % MCV 85.9 (80.0-100.0) fL MCH 27.8 (25.0-34.0) pg MCHC 32.3 (32.0-36.0) g/dL RDW Std Deviation 47.6 H (36.4-46.3) fL RDW Coeff of Taylor 15.3 H (11.5-14.5) % Plt Count 351 (130-400) K/uL MPV 11.6 (9.4-12.4) fL Immature Gran % (Auto) 0.6 % Neut % (Auto) 77.7 % Lymph % (Auto) 15.6 % [place] % (Auto) 5.2 % Eos % (Auto) 0.5 % Baso % (Auto) 0.4 % Neut # (Auto) 9.77 H (1.40-6.50) K/uL Lymph # (Auto) 1.96 (1.20-3.40) K/uL [place] # (Auto) 0.66 H (0.11-0.59) K/uL Eos # (Auto) 0.06 (0.00-0.50) K/uL Baso # (Auto) 0.05 (0.00-0.20) K/uL Immature Gran # (Auto) 0.08 (0.01-0.20) K/uL Absolute Nucleated RBC 0.02 (0.00-0.12) K/uL Nucleated RBC % (auto) 0.2 % PT 12.7 H (9.0-12.0) Seconds INR 1.2 H (0.9-1.1) APTT 27 (21-31) Seconds PTT Ratio 1.0 Sodium 134 L (136-145) mmol/L Potassium 4.9 (3.5-5.1) mmol/L Chloride 104 (98-107) mmol/L Carbon Dioxide 23 (21-32) mmol/L Anion Gap 7 (3-11) BUN 31 H (6-23) mg/dl Creatinine 1.10 (0.6-1.4) mg/dl Est Cr Clr Drug Dosing 61.4 ml/min Est GFR ( Amer) 73.6 ml/min Est GFR (Non-Af Amer) 63.5 ml/min BUN/Creatinine Ratio 28.2 H (10-20) Glucose 191 H (70-99(Fasting)) mg/dl POC Glucose 187 H (70-99) mg/dl Lactate (0.4-2.0) mmol/L Calcium 8.4 L (8.6-10.3) mg/dl Magnesium (1.7-2.4) mg/dl Total Bilirubin 0.8 (0.2-1.0) mg/dl Direct Bilirubin (0-0.2) mg/dl AST 37 (13-39) U/L ALT 46 (7-52) U/L Alkaline Phosphatase 170 H (34-104) U/L Troponin I High Sens (0-20) pg/ml B-Natriuretic Peptide (0-100) pg/ml Total Protein 6.1 (6.0-8.3) gm/dl Albumin 2.8 L (3.4-5.0) gm/dl Globulin 3.3 (2.5-4.0) gm/dl Albumin/Globulin Ratio 0.8 L (0.9-2) Procalcitonin 0.05 (0-0.5) ng/ml Urine Color Dark Yellow Urine Appearance Cloudy A (Clear) Urine pH 5.0 (4.5-7.5) Ur Specific Gerber 1.017 (1.000-1.030) Urine Protein 1+ H (Negative) Urine Glucose (UA) Negative (Negative) Urine Ketones Negative (Negative) Urine Blood Negative (Negative) Urine Nitrite Negative (Negative) Urine Bilirubin Negative (Negative) Urine Urobilinogen Negative (Negative) Ur Leukocyte Esterase Negative (Negative) Urine WBC (Auto) 0-5 (0-5) /hpf Urine RBC (Auto) 0-2 (0-2) /hpf U Hyaline Cast (Auto) >20 H (0-2) /lpf U Epithel Cells (Auto) 6-10 H (0-2) /hpf Urine Bacteria (Auto) None Seen (None Seen) Granular Casts Present A (None Prsent) /lpf Nasal Screen MRSA (PCR) (Negative) Adenovirus (PCR) (NotDetected) B. pertussis DNA (PCR) (NotDetected) B.parapertussis DNA PCR (NotDetected) C. pneumoniae DNA (PCR) (NotDetected) Coronavirus OC43 (PCR) (NotDetected) Coronavirus HKU1 (PCR) (NotDetected) Coronavirus 229E (PCR) (NotDetected) SARS-CoV-2 (PCR) (NotDetected) Coronavirus NL63 (PCR) (NotDetected) Human Metapneumovir PCR (NotDetected) Influenza Type A (PCR) (NotDetected) Influenza Type B (PCR) (NotDetected) M. pneumoniae (PCR) (NotDetected) Parainfluenza 1 (PCR) (NotDetected) Parainfluenza 2 (PCR) (NotDetected) Parainfluenza 3 (PCR) (NotDetected) Parainfluenza 4 (PCR) (NotDetected) RSV (PCR) (NotDetected) Entero/Rhino (PCR) (NotDetected) Group A Strep (PCR) (NotDetected) Diagnostic Findings Abdomen/Pelvis CT 03/24/24 16:[address] WITH IV CONTRAST CT DOSE: HISTORY: epigastric and mid abdominal pain TECHNIQUE: Multiaxial CT images of the abdomen and pelvis were performed following the use of intravenous contrast. A dose lowering technique was utilized adhering to the principles of ALARA. COMPARISON STUDY: Chest CT 03/01/2024. Abdomen and pelvis CT 11/21/2022. FINDINGS: Moderate right and small left pleural effusions again noted. The heart is mildly enlarged. Bibasilar densities and groundglass airspace opacities. This could represent atelectasis or a pneumonia. No pneumoperitoneum. No pneumatosis. No acute fractures identified. Multiple hepatic metastases again noted with the largest within the right hepatic dome measuring 7.4 cm. This has increased in size in the interval. The gallbladder, spleen, adrenal glands, and pancreas are unremarkable. The kidneys enhance normally. No hydronephrosis. A left-sided shunt catheter terminates in the right lower quadrant. Moderate body wall edema is noted. A 4 cm central mesenteric mass has increased in size. This is consistent with the patient's known carcinoid metastasis. Small amount of ascites is noted. Heavily calcified plaque within the proximal celiac and superior mesenteric arteries. There is also calcified plaque within the aorta and iliac arteries without a dissection. No retroperitoneal or pelvic lymphadenopathy. The bladder is decompressed by a [place] catheter. No evidence for bowel obstruction. Normal appendix. Small fat-containing bilateral inguinal hernias again noted. There is mild presacral edema. Questionable thickening within the proximal sigmoid colon. This could be due to underdistention. A low- grade colitis or acute diverticulitis is considered less likely but not entirely excluded. Clinical correlation recommended. IMPRESSION: 1. Interval progression of the metastatic disease within the liver and central mesentery. 2. Small amount of ascites. 3. Moderate right and small left pleural effusions. 4. Bibasilar densities and groundglass airspace opacities. This could represent atelectasis or pneumonia. 5. No evidence for abdominal structures. 6. Questionable thickening within the proximal sigmoid colon. This could be due to underdistention. A low-grade colitis or acute diverticulitis is considered less likely but not entirely excluded. Clinical correlation recommended. ACT 112: Negative or not required by law. Electronically signed by: Rei Woodruff M.D. 03/24/2024 5:49 PM Chest X-Ray 03/24/24 16:14 SINGLE VIEW CHEST CLINICAL HISTORY: Sepsis FINDINGS: An AP, portable, upright chest radiograph is compared to study dated 02/26/2024 and correlated with chest CT dated 03/01/2024. A shunt catheter traverses the left chest wall. The heart is enlarged and noted atherosclerotic calcification of the thoracic aorta. There is pulmonary vascular congestion with evidence of interstitial edema. There are layering pleural effusions with dependent consolidation. No pneumothorax is seen. The skeletal structures are osteopenic. The bony thorax is grossly intact. IMPRESSION: 1. Cardiomegaly with evidence of congestive failure and pulmonary edema. 2. Layering pleural effusions with dependent consolidation. ACT 112: Negative or not required by law. Electronically signed by: Rasta Cordova M.D. 03/24/2024 4:[address] 03/24/24 16:[address] DOSE: 1981.29 mGy.cm HISTORY: VPshunt, decreased alertness TECHNIQUE: Multiaxial CT images of the head were performed without the use of intravenous contrast. Automated exposure control was utilized for this study. A dose lowering technique was utilized adhering to the principles of ALARA. Comparison: Head CT 02/26/2024. Findings: The paranasal sinuses and mastoid air cells are clear. Left-sided magdi holes and a prior right parietal craniotomy again noted. There is a left frontal approach ventriculostomy catheter which terminates within the right lateral ventricle. This remains unchanged in position. Mild atrophy and microvascular ischemic changes are again noted. There is no mass or midline shift. Basal ganglia and cerebellar calcifications, unchanged. The ventricles are stable in size. There is a new focal area of heterogeneity within the left medial occipit al lobe best seen on image 17. 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 However, small foci of petechial hemorrhage at the infarct is not excluded. Impression: 1. 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 However, small foci of petechial hemorrhage at the infarct is not excluded. Therefore, [address] to [address] follow-up recommended to ensure stability. 2. The left frontal approach ventriculostomy catheter is unchanged in position. The ventricles remain stable in size ACT 112: Negative or not required by law. Electronically signed by: Rei Woodruff M.D. 03/24/2024 5:[address] 03/25/24 08:[address] DOSE: 625.8 mGy.cm HISTORY: 12-24h follow-up head CT to ensure stability TECHNIQUE: Multiaxial CT images of the head were performed without the use of intravenous contrast. Automated exposure control was utilized for this study. A dose lowering technique was utilized adhering to the principles of ALARA. Comparison: Head CT 03/24/2024. Findings: The paranasal sinuses and mastoid air cells are clear. No calvarial fractures. Prior right parietal craniotomy again noted. A left frontal approach ventriculostomy catheter terminates in the right lateral ventricle. This remains unchanged. Mild motion artifact. Atrophy and microvascular ischemic changes are again noted. Bilateral basal ganglia and cerebellar hemisphere calcifications remain unchanged. Old lacunar infarct again noted within the right periventricular white matter. There is interval progression of the small amount of intraparenchymal hemorrhage associated with the left FILLING CARRIER territory infarct involving the medial aspect of the left occipital lobe. 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 Impression: 1. There is interval progression of the small amount of intraparenchymal hemorrhage associated with the left FILLING CARRIER territory infarct involving the medial aspect of the left occipital lobe. 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 2. This report was called/faxed to the covering physician following dictation. ACT 112: Negative or not required by law. Electronically signed by: Rei Woodruff M.D. 03/25/2024 8:29 AM PG Care Time/CCT Total # of Minutes Spent Total Time Spent with Patient: Total time spent is greater than 50% in coordination of care (as documented) at patient's floor/unit and/or counseling patient: I spent 90 minutes overall addressing this case: 15 min in medical data review/discussion with referring provider(s) and/or preparation for the visit 15 min in direct interaction with the patient/exam 30 min in Advance Care Planning/Goals of Care discussions as detailed above in note (must be >16min) 15 min in subsequent review and synthesis of assessment and plan 15 min communicating with other providers regarding the patient's case: Advanced Care Planning 66970 Advanced Care Planning 30 [place] [address] IN/OBS CONSULT LVL 4,60M (25 - SIGNIFICANT, SEPARATELY IDENTIFIABLE ) Patient Type New Medical Decision Making High Complexity Diagnoses Generalized weakness R53.1 Dyspnea and respiratory abnormalities R06.00; R06.89 Cardiac cachexia I51.9 Discussion about advance care planning held with family member Z71.0 Anorexia R63.0 Palliative care by specialist Z51.5 Additional Codes Advanced Care Planning - 34396 Advanced Care Planning 30 Min: 27615 Advanced Care Planning 30 Min ([id number])
[2024-03-25] MEDS: D5W AND NSS 1,000 ML IV SCH (17:42)
--- NOTE | 2024-03-25 20:32 | Hospitalist Progress Note ---
Date of Service March 25, 2024 Assessment & Plan (1) Cerebrovascular accident (CVA) with intracranial hemorrhage: Plan: L occipital lobe stroke with hemorrhagic transformation CTA head/neck in 2022 did NOT show disease of either DISTRIBUTION OPERATIONS SUPERVISOR thus, low-flow state/hypotension may have precipitated this stroke event (severe , hypotension, etc) can't rule out embolic stroke initially but less likely aspirin on hold due to ICH formal neuro consult requested and recs appreciated PT, OT, speech evals will repeat his CT head tomorrow am to reassess the ICH portion of the stroke consider MRI brain if BIOLOGY MANAGER shunt is MR-compatible (2) Acute metabolic encephalopathy: Plan: 2nd to #1 can't rule out other metabolic factors (?acute diverticulitis vs colitis) (3) Acute diverticulitis: Plan: possible by history had had diarrhea at home and also abdominal pain yesterday continues with mild leukocytosis CT abd/pelvis with ? low-grade colitis or acute diverticulitis of sigmoid colon Cont Zosyn 4.5 g IV q8h Follow blood cultures (4) Hypotension: Plan: BP 78/46 on arrival Patient received NSS 1500 mL IV in the ED with improvement in BPs BPs, however, remain low-normal -- systolics 95-100 Hold all antihypertensive medications and diuretics Placing on small amount of basal fluids due to hypoglycemia and low-normal BPs (5) Neuroendocrine carcinoma metastatic to liver: Plan: Palliative care consult completed and appreciated Oncology consult was requested by admitting team Although he has carcinoid to this date it has never been treated Octreotide in the future if he is able to get thru #1 and recover? Rx of liver mets? in the scope of the long list of problems he has the most pressing issues are that of his acute CVA, the severe/symptomatic , etc (6) DM (diabetes mellitus), type 2: Plan: Last A1c at 7.3% on 02/27/2024 Hold metformin HOLD lantus/novolog due to NPO status and low-normal glucose levels (7) CHF (congestive heart failure): Plan: Last echo revealed LVEF at 55 to 60% with severe left atrial dilation and severe aortic stenosis with possible aortic regurgitation Although cxr is being read as pulmonary edema he does not appear decompensated on physical exam this afternoon judicious use of IV fluids at this time holding coreg/diuretics due to low or low-normal BPs (8) Aortic stenosis: Plan: severe symptomatic (frequent dizziness at home, etc) appreciate cardiology eval overall treatment plan is murky due to #1 and what type of recovery he will have from #1 nothing acute to do for the at this time (9) Generalized weakness: Plan: PT/OT if and when able (10) History of CVA (cerebrovascular accident): Plan: right-sided periventricular stroke in 2020 (11) History of subdural hematoma: Plan: with craniotomy/evacuation of such - [facility] ultimately needed BIOLOGY MANAGER shunt placement (12) History of craniotomy: Plan: as above (13) History of SIADH: Plan: 2nd to prior SDH Na level is stable at this time BMP am Plan NPO - speech therapy attempted bedside eval today but too altered and ultimately needs video swallow extensive update given to pt's & 2 daughters next 2-3 days will tell us what type of recovery he will have from this stroke event for now we will continue routine care but goals of care discussions will also continue alongside such; Dr Mustafa's assistance appreciated Admission and Anticipated Discharge Date Admission Date: March 24, 2024 Subjective during rounds the patient was intermittently sleeping, would wake for a few seconds, occasionally speak a few words, then fall back asleep pt's and 2 daughters were present during the visit numerous questions asked by his family including the likelihood of recovering from this stroke event family reports that for about 6 weeks prior to this stroke he had been declining globally was hospitalized in early February for about 10 days, went to rehab, and then landed at home with his he was ambulating with walker upon return home from rehab family recalls that he was complaining that his vision "was off" in the latter portion of his rehab stay 1 of his daughters mentions that the majority of the time at home he was spending such in the chair, dozing off/on throughout the day, and when awake would watch TV otherwise no significant activity patient has his BIOLOGY MANAGER shunt placed at [facility] he has tolerated MRI in the past he is scheduled to see the [facility] clinic later this summer in [place] 1 of his daughters voiced confusion over his overall stability and prognosis she was very upset and tearful during the visit despite waking up at times the patient was unable to provide any meaningful history or ROS Review of Systems Review of Systems: Unobtainable due to cognitive status Physical Exam Physical Exam: gen - resting in bed, NAD, somnolent but with periods of waking up and saying a few words; seems to lean to the left head - shunt reservoir noted on vertex of skull eyes - PERRL mouth - MMM neck - mild JVD? heart - RRR, s1, s2 NOT heard, 3/6 holosystolic murmur - loudest RUSB, but heard at apex lungs - CTA b/l abd - soft NT ND BS+ ext - no edema, pulses 2+ b/l neuro - spontaneously moving his arms, L>R; otherwise unable to perform full neuro exam Results & Data Results & Data Vital Signs (Past 12 Hours) Vital Signs Temp Pulse Pulse Resp BP Pulse Ox O2 Del Method 03/25/24 19:30 36.5 C 81 18 94/59 L 100 Nasal Cannula 03/25/24 15:52 79 03/25/24 15:21 36.4 C L 72 19 97/57 L 99 Room Air 03/25/24 11:29 36.3 C L 76 19 98/60 L 99 Room Air 03/25/24 09:00 Nasal Cannula O2 Flow Rate 03/25/24 19:30 03/25/24 15:52 03/25/24 15:21 03/25/24 11:29 03/25/24 09:00 2 Laboratory Results Laboratory Results - last 24 hr 03/25/24 03/25/24 03/25/24 06:57 07:32 12:18 WBC 14.17 H RBC 3.77 L Hgb 10.4 L Hct 31.6 L MCV 83.8 MCH 27.6 MCHC 32.9 RDW Std Deviation 46.5 H RDW Coeff of Taylor 15.4 H Plt Count 342 MPV 11.4 Immature Gran % (Auto) 0.7 Neut % (Auto) 80.3 Lymph % (Auto) 12.1 [place] % (Auto) 5.8 Eos % (Auto) 0.6 Baso % (Auto) 0.5 Neut # (Auto) 11.38 H Lymph # (Auto) 1.71 [place] # (Auto) 0.82 H Eos # (Auto) 0.09 Baso # (Auto) 0.07 Immature Gran # (Auto) 0.10 Absolute Nucleated RBC 0.02 Nucleated RBC % (auto) 0.1 Sodium 136 Potassium 4.5 Chloride 106 Carbon Dioxide 21 Anion Gap 9 BUN 31 H Creatinine 1.07 Est Cr Clr Drug Dosing 60.8 Est GFR ( Amer) 76.1 Est GFR (Non-Af Amer) 65.7 BUN/Creatinine Ratio 29.0 H Glucose 84 POC Glucose 91 80 Calcium 8.1 L Magnesium 1.9 Total Bilirubin 0.8 AST 63 H ALT 68 H Alkaline Phosphatase 143 H Total Protein 5.6 L Albumin 2.5 L Globulin 3.1 Albumin/Globulin Ratio 0.8 L 03/25/24 03/25/24 03/26/24 17:19 23:50 00:22 WBC RBC Hgb Hct MCV MCH MCHC RDW Std Deviation RDW Coeff of Taylor Plt Count MPV Immature Gran % (Auto) Neut % (Auto) Lymph % (Auto) [place] % (Auto) Eos % (Auto) Baso % (Auto) Neut # (Auto) Lymph # (Auto) [place] # (Auto) Eos # (Auto) Baso # (Auto) Immature Gran # (Auto) Absolute Nucleated RBC Nucleated RBC % (auto) Sodium Potassium Chloride Carbon Dioxide Anion Gap BUN Creatinine Est Cr Clr Drug Dosing Est GFR ( Amer) Est GFR (Non-Af Amer) BUN/Creatinine Ratio Glucose POC Glucose 76 66 L* 147 H Calcium Magnesium Total Bilirubin AST ALT Alkaline Phosphatase Total Protein Albumin Globulin Albumin/Globulin Ratio Diagnostic Findings Head CT 03/25/24 08:[address] DOSE: 625.8 mGy.cm HISTORY: 12-24h follow-up head CT to ensure stability TECHNIQUE: Multiaxial CT images of the head were performed without the use of intravenous contrast. Automated exposure control was utilized for this study. A dose lowering technique was utilized adhering to the principles of ALARA. Comparison: Head CT 03/24/2024. Findings: The paranasal sinuses and mastoid air cells are clear. No calvarial fractures. Prior right parietal craniotomy again noted. A left frontal approach ventriculostomy catheter terminates in the right lateral ventricle. This remains unchanged. Mild motion artifact. Atrophy and microvascular ischemic changes are again noted. Bilateral basal ganglia and cerebellar hemisphere calcifications remain unchanged. Old lacunar infarct again noted within the right periventricular white matter. There is interval progression of the small amount of intraparenchymal hemorrhage associated with the left DISTRIBUTION OPERATIONS SUPERVISOR territory infarct involving the medial aspect of the left occipital lobe. This favors a subacute left DISTRIBUTION OPERATIONS SUPERVISOR territory infarct with hemorrhagic transformation. Impression: 1. There is interval progression of the small amount of intraparenchymal hemorrhage associated with the left DISTRIBUTION OPERATIONS SUPERVISOR territory infarct involving the medial aspect of the left occipital lobe. This favors a subacute left DISTRIBUTION OPERATIONS SUPERVISOR territory infarct with hemorrhagic transformation. 2. This report was called/faxed to the covering physician following dictation. ACT 112: Negative or not required by law. Electronically signed by: Rei Woodruff M.D. 03/25/2024 8:29 AM PG Care Time/CCT Total # of Minutes Spent Total Time Spent with Patient: Total time spent is greater than 50% in coordination of care (as documented) at patient's floor/unit and/or counseling patient: Coding Level of Care Code 74791 SUB INP/OBS CARE 3/50MIN Diagnoses Cerebrovascular accident (CVA) with intracranial hemorrhage I61.9 Acute metabolic encephalopathy G93.41 Acute diverticulitis K57.92 Hypotension E86.1 Hypotension type: hypotension due to hypovolemia Neuroendocrine carcinoma metastatic to liver C7A.8; C7B.8 Type 2 diabetes mellitus with other specified complication, with long-term current use of insulin E11.69; Z79.4 Diabetes mellitus complication status: with other specified complication Diabetes mellitus [facility] insulin use: with [facility] use CHF (congestive heart failure) I50.9 Heart failure chronicity: unspecified Heart failure type: unspecified Aortic stenosis I35.0 Cardiac valve disease etiology: etiology unspecified Generalized weakness R53.1 History of CVA (cerebrovascular accident) Z86.73 History of subdural hematoma Z86.79 History of craniotomy Z98.890 History of SIADH Z86.39 (4) Hypotension Hypotension type: hypotension due to hypovolemia Qualified Code(s): E86.1 - Hypovolemia (6) DM (diabetes mellitus), type 2 Diabetes mellitus complication status: with other specified complication Diabetes mellitus [facility] insulin use: with [facility] use Qualified Code(s): E11.69 - Type 2 diabetes mellitus with other specified complication; Z79.4 - tank terminal gauger (current) use of insulin (7) CHF (congestive heart failure) Heart failure chronicity: unspecified Heart failure type: unspecified Qualified Code(s): I50.9 - Heart failure, unspecified (8) Aortic stenosis Cardiac valve disease etiology: etiology unspecified Qualified Code(s): I35.0 - Nonrheumatic aortic (valve) stenosis
[2024-03-25] MEDS: LANTUS PER UNIT CHARGE SQ SCH (23:55)
[2024-03-25] MEDS: INSULIN ASPART PER UNIT CHARGE SC SCH (23:56)
[2024-03-25] MEDS: DEXTROSE 50% 50 ML SYRINGE IV PRN (23:59)
--- NOTE | 2024-03-26 07:34 | CT Scan Report ---
CT head/brain wo con CLINICAL HISTORY: 79 years-old Male with L PARKING METER MECHANIC territory CVA w/ hemorrhage; interval change. Acute s trokelike symptoms TECHNIQUE: Multiple axial CT images of the head were obtained without contrast. A dose lowering tech nique was utilized adhering to the principles of ALARA. CT DOSE: 625.8 mGy.cm COMPARISON: 03/25/2024, 03/24/2024 FINDINGS: Prior right parietal craniotomy again noted. A left frontal approach ventriculostomy catheter termina viviana in the right lateral ventricle. This remains unchanged. Mild motion artifact. Atrophy and microvascular ischemic changes are again noted. Bilateral basal ganglia and cerebellar he misphere calcifications remain unchanged. Old lacunar infarct again noted within the right periventri cular white matter. Stable size and appearance of the small amount of intraparenchymal hemorrhage ass ociated with the left PARKING METER MECHANIC territory infarct involving the medial aspect of the left occipital lobe me asuring up to approximately 2.6 cm on image 17 series 2. This favors a subacute left PARKING METER MECHANIC territory in farct with hemorrhagic transformation. The paranasal sinuses and mastoid air cells are clear. No calv arial fractures. IMPRESSION: 1. Stable exam from the 03/25/2024 study with persistent small amount of intraparenchymal hemorrhage as sociated with the subacute left PARKING METER MECHANIC territorial infarct within the left occipital lobe. 2. Stable chronic findings as above. ACT 112: Negative or not required by law. The above report was generated using voice recognition software. It may contain grammatical, syntax o r spelling errors. Electronically signed by: David Pinzon M.D. 03/26/2024 7:33 AM
[2024-03-26 07:48] LABS: Basophils # (auto) 0.05 K/uL (0.00-0.20); Basophils % (auto) 0.4 %; Eosinophils # (auto) 0.12 K/uL (0.00-0.50); Immature Granulocytes # (auto) 0.08 K/uL (0.01-0.20); Immature Granulocytes % (auto) 0.7 %; Lymphocytes # (auto) 1.74 K/uL (1.20-3.40); Mean Corpuscular Hemoglobin 27.2 pg (25.0-34.0); Mean Corpuscular Hgb Conc 32.4 g/dL (32.0-36.0); Mean Corpuscular Volume 84.2 fL (80.0-100.0); Mean Platelet Volume 11.3 fL (9.4-12.4); Neutrophils # (auto) 8.91 K/uL (1.40-6.50); Neutrophils % (auto) 76.9 %; Nucleated RBC # (auto) 0.02 K/uL (0.00-0.12); Nucleated RBC % (auto) 0.2 %; Platelet Count 335 K/uL (130-400); RDW Coefficient of Variation 15.4 % (11.5-14.5); RDW Standard Deviation 47.1 fL (36.4-46.3); Red Blood Count 4.04 M/uL (4.70-6.10)
[2024-03-26 08:18] LABS: Albumin Globulin Ratio 0.8 (0.9-2); Albumin Level 2.4 gm/dl (3.4-5.0); BUN Creatinine Ratio 27.1 (10-20); Bilirubin,Total 0.9 mg/dl (0.2-1.0); Calcium 7.8 mg/dl (8.6-10.3); Creatinine Clr Calc Pharmacy 60.8 ml/min; Est GFR (African American) 76.1 ml/min; Est GFR (Non-African American) 65.7 ml/min; Globulin 2.9 gm/dl (2.5-4.0); Potassium 3.9 mmol/L (3.5-5.1); Total Protein 5.3 gm/dl (6.0-8.3)
--- NOTE | 2024-03-26 08:55 | Neurology Progress Note ---
Date of Service March 26, 2024 Assessment & Plan (1) Cerebrovascular accident (CVA) with intracranial hemorrhage: Admission and Anticipated Discharge Date Admission Date: March 24, 2024 Subjective pt alert this morning. NAD. CT head stable. Results & Data Vital Signs (Past 12 Hours) Vital Signs Temp Pulse Pulse Resp BP Pulse Ox Pulse Ox 03/26/24 07:40 36.3 C L 69 19 94/48 L 100 03/26/24 02:36 36.6 C 65 18 101/55 L 100 03/25/24 22:35 36.4 C L 72 18 111/63 97 03/25/24 22:22 100 03/25/24 21:59 68 O2 Del Method O2 Del Method O2 Flow Rate O2 Flow Rate 03/26/24 07:40 Nasal Cannula 3 03/26/24 02:36 Nasal Cannula 03/25/24 22:35 Nasal Cannula 03/25/24 22:22 Nasal Cannula 2 03/25/24 21:59 Exam (Neuro) Physical Exam: Neuro: Mental: Alert, knew his name. not sure of location . he was able to tell me 2023. follows simple commands. minimal speaking, , no apraxia, no L/R confusion, no neglect CN: PERRL, Full EOM, symmetric face, intact sensation t/o face, midline T/U/P Motor: No abnormal movements, normal tone and bulk, 4/5 t/o bilaterally Coord: intact grossly upper limbs. gait: deferred. Impression:79 yo male with subacute appearing left occipital ischemic stroke with hemorrhagic conversion in setting of dehydration/hypoperfusion/sepsis and complex medical conditions. Repeat CT head stable bleed. clinically stable from neuro stand point. Recommendations: 1. Standard stroke care as now. 2. Hold all antiplatelet and anticoagula tions: For Patients who needs antiplatelet therapy, may consider restarting low dose ASA 81mg in about 7-10 days only if pt is stable and repeat imaging is reassuring. For patients who needs anticoagulation therapy, need to wait minimum 4 weeks prior to restarting therapy and only if patient is clinically stable and follow up imaging is reassuring. Repeat CT head if there is decline or change in neuro exam. otherwise, not likely need repeat CT head until a week later when considering to restart his ASA. palliative care is involved and discussing possible hospice care and DNR/DNI for pt. at this point, not much to offer, please call again if new question. Chart reviewed I have spent more than 50% educating patient about potential diagnosis and neurological evaluation and coordinating care with patient's treatment team. Total time spent (including chart review and coordination of care): 40 min (this includes chart review). PG Care Time/CCT Total # of Minutes Spent Total Time Spent with Patient: Total time spent is greater than 50% in coordination of care (as documented) at patient's floor/unit and/or counseling patient: Coding Level of Care Code 41510 SUB INP/OBS CARE 2/35MIN Diagnoses Cerebrovascular accident (CVA) with intracranial hemorrhage I61.9
--- NOTE | 2024-03-26 10:15 | Hospitalist Progress Note ---
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 thus, low-flow state/hypotension may have precipitated this stroke event (severe , hypotension, etc) can't rule out embolic stroke initially but less likely aspirin on hold due to ICH neurology assistance appreciated PT, OT, speech evals head CT yesterday and again this am WITHOUT any change in size of L occipital lobe stroke or area of hemorrhage no new areas of stroke seen either defer on MRI brain defer on CTAs head/neck - had them 09/12 - unlikely to have changed since that time defer on repeat echo - had such nearly 1 month ago (2) Acute metabolic encephalopathy: Plan: 2nd to #1 can't rule out other metabolic factors (?acute diverticulitis vs colitis) but less likely given the gravity of #1 (3) Acute diverticulitis: Plan: possible by history had had diarrhea at home and also abdominal pain day of admission continues with mild leukocytosis CT abd/pelvis with ? low-grade colitis or acute diverticulitis of sigmoid colon Cont Zosyn 4.5 g IV q8h Follow blood cultures (4) Hypotension: Plan: BP 78/46 on arrival Patient received NSS 1500 mL IV in the ED with improvement in BPs BPs, however, remain low-normal -- systolics 95-100 Hold all antihypertensive medications and diuretics Cont judicious low-grade IV fluids at 50cc/hr of isotonic fluids (5) Neuroendocrine carcinoma metastatic to liver: Plan: Palliative care consult completed and appreciated Oncology consult was requested by admitting team Although he has carcinoid to this date it has never been treated Octreotide in the future if he is able to get thru #1 and recover? Rx of liver mets? in the scope of the long list of problems he has the most pressing issues are that of his acute CVA, the severe/symptomatic , etc (6) DM (diabetes mellitus), type 2: Plan: Last A1c at 7.3% on 02/27/2024 Hold metformin HOLD lantus/novolog due to NPO status and low-normal glucose levels take the dextrose out of fluids since glucose levels have normalized and are now elevated (7) CHF (congestive heart failure): Plan: Last echo revealed LVEF at 55 to 60% with severe left atrial dilation and severe aortic stenosis with possible aortic regurgitation Although cxr is being read as pulmonary edema he does not appear decompensated on physical exam this afternoon judicious use of IV fluids at this time holding coreg/diuretics due to low or low-normal BPs (8) Aortic stenosis: Plan: severe s2 not heard on examination symptomatic (frequent dizziness at home, etc) from the appreciate cardiology eval overall treatment plan is murky due to #1 and what type of recovery he will have from #1 nothing acute to do for the at this time (9) Generalized weakness: Plan: PT/OT if he has any recovery from #1 (10) History of CVA (cerebrovascular accident): Plan: right-sided periventricular stroke in 2020 (11) History of subdural hematoma: Plan: with craniotomy/evacuation of such - [facility] ultimately needed COVERER shunt placement (12) History of craniotomy: Plan: as above (13) History of SIADH: Plan: 2nd to prior SDH Na level is stable at this time BMP am Plan dysphagia - silently aspirates all consistencies based on video swallow eval today discussed this with /daughters - either allow permissive aspiration OR strict NPO with NG tube placement family declines NG tube permissive aspiration moving forward extensive update given to pt's & 2 daughters by phone this pm next 2-3 days will tell us what type of recovery he will have from this stroke event for now we will continue routine care but goals of care discussions will also continue alongside such; Dr Mustafa's assistance greatly appreciated Admission and Anticipated Discharge Date Admission Date: March 24, 2024 Subjective tele - NSR overnight patient has been lethargic still much of the day at times will be awake and talk a little during my bedside visit he only woke up briefly - <20 seconds at most video swallow results reviewed Review of Systems Review of Systems: Unobtainable due to cognitive status Physical Exam Physical Exam: gen - NAD, still quite somnolent but briefly wakes up head - shunt reservoir noted on vertex of skull eyes - PERRL, with gaze preference to right mouth - MMM neck - no JVD heart - RRR, s1, s2 NOT heard, 3/6 holosystolic murmur - loudest RUSB lungs - CTA b/l abd - soft NT ND BS+ ext - no edema, pulses 2+ b/l neuro - strength 5/5 x 4 exts; no facial droop; unable to assess visual layton - too somnolent Results & Data Results & Data Vital Signs (Past 12 Hours) Vital Signs Temp Pulse Resp BP Pulse Ox Pulse Ox O2 Del Method 03/26/24 07:40 36.3 C L 69 19 94/48 L 100 Nasal Cannula 03/26/24 02:36 36.6 C 65 18 101/55 L 100 Nasal Cannula 03/25/24 22:35 36.4 C L 72 18 111/63 97 Nasal Cannula 03/25/24 22:22 100 O2 Del Method O2 Flow Rate O2 Flow Rate 03/26/24 07:40 3 03/26/24 02:36 03/25/24 22:35 03/25/24 22:22 Nasal Cannula 2 Laboratory Results Laboratory Results - last 24 hr 03/25/24 03/25/24 03/25/24 12:18 17:19 23:50 WBC RBC Hgb Hct MCV MCH MCHC RDW Std Deviation RDW Coeff of Taylor Plt Count MPV Immature Gran % (Auto) Neut % (Auto) Lymph % (Auto) Potter % (Auto) Eos % (Auto) Baso % (Auto) Neut # (Auto) Lymph # (Auto) Potter # (Auto) Eos # (Auto) Baso # (Auto) Immature Gran # (Auto) Absolute Nucleated RBC Nucleated RBC % (auto) Sodium Potassium Chloride Carbon Dioxide Anion Gap BUN Creatinine Est Cr Clr Drug Dosing Est GFR ( Amer) Est GFR (Non-Af Amer) BUN/Creatinine Ratio Glucose POC Glucose 80 76 66 L* Calcium Total Bilirubin AST ALT Alkaline Phosphatase Total Protein Albumin Globulin Albumin/Globulin Ratio 03/26/24 03/26/24 03/26/24 00:22 06:07 06:44 WBC 11.60 H RBC 4.04 L Hgb 11.0 L Hct 34.0 L MCV 84.2 MCH 27.2 MCHC 32.4 RDW Std Deviation 47.1 H RDW Coeff of Taylor 15.4 H Plt Count 335 MPV 11.3 Immature Gran % (Auto) 0.7 Neut % (Auto) 76.9 Lymph % (Auto) 15.0 Potter % (Auto) 6.0 Eos % (Auto) 1.0 Baso % (Auto) 0.4 Neut # (Auto) 8.91 H Lymph # (Auto) 1.74 Potter # (Auto) 0.70 H Eos # (Auto) 0.12 Baso # (Auto) 0.05 Immature Gran # (Auto) 0.08 Absolute Nucleated RBC 0.02 Nucleated RBC % (auto) 0.2 Sodium 139 Potassium 3.9 Chloride 108 H Carbon Dioxide 22 Anion Gap 9 BUN 29 H Creatinine 1.07 Est Cr Clr Drug Dosing 60.8 Est GFR ( Amer) 76.1 Est GFR (Non-Af Amer) 65.7 BUN/Creatinine Ratio 27.1 H Glucose 127 H POC Glucose 147 H 143 H Calcium 7.8 L Total Bilirubin 0.9 AST 41 H ALT 59 H Alkaline Phosphatase 127 H Total Protein 5.3 L Albumin 2.4 L Globulin 2.9 Albumin/Globulin Ratio 0.8 L PG Care Time/CCT Total # of Minutes Spent Total Time Spent with Patient: Total time spent is greater than 50% in coordination of care (as documented) at patient's floor/unit and/or counseling patient: Coding Level of Care Code 53970 SUB INP/OBS CARE 3/50MIN Diagnoses Cerebrovascular accident (CVA) with intracranial hemorrhage I61.9 Acute metabolic encephalopathy G93.41 Acute diverticulitis K57.92 Hypotension E86.1 Hypotension type: hypotension due to hypovolemia Neuroendocrine carcinoma metastatic to liver C7A.8; C7B.8 Type 2 diabetes mellitus with other specified complication, with long-term current use of insulin E11.69; Z79.4 Diabetes mellitus complication status: with other specified complication Diabetes mellitus assisted insulin use: with salvage determiner use CHF (congestive heart failure) I50.9 Heart failure chronicity: unspecified Heart failure type: unspecified Aortic stenosis I35.0 Cardiac valve disease etiology: etiology unspecified Generalized weakness R53.1 History of CVA (cerebrovascular accident) Z86.73 History of subdural hematoma Z86.79 History of craniotomy Z98.890 History of SIADH Z86.39 (4) Hypotension Hypotension type: hypotension due to hypovolemia Qualified Code(s): E86.1 - Hypovolemia (6) DM (diabetes mellitus), type 2 Diabetes mellitus complication status: with other specified complication Diabetes mellitus assisted insulin use: with assisted use Qualified Code(s): E11.69 - Type 2 diabetes mellitus with other specified complication; Z79.4 - buttermaker continuous churn (current) use of insulin (7) CHF (congestive heart failure) Heart failure chronicity: unspecified Heart failure type: unspecified Qualified Code(s): I50.9 - Heart failure, unspecified (8) Aortic stenosis Cardiac valve disease etiology: etiology unspecified Qualified Code(s): I35.0 - Nonrheumatic aortic (valve) stenosis
--- NOTE | 2024-03-26 12:48 | Fluoroscopy Report ---
FL video swallow CLINICAL HISTORY: 79 years-old Male with assess for aspiration. Dysphagia TECHNIQUE: Video fluoroscopic evaluation of swallowing was performed in the AP and lateral projection s by the speech pathology staff. The patient is fed varying consistencies of barium. FLUOROSCOPY TIME: 2.1 minutes. 9.25 mGy. 2,578 images were obtained. COMPARISON STUDY: None. FINDINGS: Silent aspiration with thin liquid barium and nectar consistencies. Laryngeal penetration a nd silent aspiration also noted with pudding consistency. Mild esophageal dysmotility. IMPRESSION: 1. No aspiration identified. 2. Please see the speech pathologist report for detailed findings and recommendations. ACT 112: Negative or not required by law. Electronically signed by: David Pinzon M.D. 03/26/2024 12:47 PM
--- NOTE | 2024-03-26 13:18 | Pharmacy Report ---
Pharmacy Glycemic Short Note 2 - Date of Service March 26, 2024 - Glycemic Short BSG Results (Last 24 hours): 03/25/24 03/25/24 03/26/24 17:19 23:50 00:22 Glucose POC Glucose 76 66 L* 147 H 03/26/24 03/26/24 03/26/24 06:07 06:44 12:10 Glucose 127 H POC Glucose 143 H 185 H OUTPATIENT ANTIDIABETIC REGIMEN: * Toujeo sliding scale based on blood sugar (10 units per day per last diabetes visit) * Metformin 500 mg PO BIDM HbA1c: 7.3% (02/27/24) ASSESSMENT: 03/26/24: * Blood sugars very tightly controlled yesterday while NPO (ranging 66-91 mg/dL) * Patient received 6 units of Lantus evening prior (03/24/24), but no bolus insulin given yesterday * D5/NSS initiated around dinnertime last evening and blood sugars have increased * Plan is to continue IV fluids while NPO * Given hypoglycemia, will keep loose Novolog parameters and hold basal again this evening 03/25/24: * RR is a 79 year old male admitted on 03/24/24 w/ acute diverticulitis and subacute left DIRECTOR ORACLE DATABASE 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 Will scale back basal today. PLAN FOR INPATIENT GLYCEMIC CONTROL: * Hold outpatient oral diabetes medications * Basal insulin * Hold in light of hypoglycemia yesterday (reassess in AM) * Bolus insulin * NovoLog per scale ACHS or Q6hrs while NPO * Goal Range: Low 110 mg/dL - High 140 mg/dL * Correction Factor: 45 mg/dL/unit * Nutritional / Prandial insulin per carb ratio of 1 unit per 15 grams CHO consumed
--- NOTE | 2024-03-26 15:27 | Oncology Consultation ---
Date of Consultation March 26, 2024 Assessment & Plan (1) Neuroendocrine carcinoma metastatic to liver: (2) Acute metabolic encephalopathy: (3) Cerebrovascular accident (CVA) with intracranial hemorrhage: Plan Patient has metastatic carcinoid which they are aware is a slow-growing mal ignancy. Options for treatment include observation, somatostatin analog therapy such as octreotide or lanreotide which are very effective in the setting of symptomatic carcinoid and are overall well-tolerated and fairly effective. Other options include liver directed therapies. At this time, patient and family would like to hold off on treatment given his overall clinical condition which is very reasonable in the setting of other more significant comorbidities. 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 CT abdomen and pelvis on 03/24/2024 revealed interval progression of metastatic disease within the liver and central mesentery, small ascites, moderate right and small left pleural effusions, questionable thickening within proximal sigmoid colon possibly due to low-grade colitis or acute diverticulitis. CT head obtained shortly after admission revealed increase in hemorrhagic component of left occipital stroke. Oncology was consulted due to history of metastatic carcinoid. Patient had been evaluated by my colleague Dr. Nolen about a year ago and plan was to start monthly octreotide. However, patient had multiple health issues and decided to hold off on starting treatment. Met with patient, his daughter and grandson at bedside. He appeared lethargic, was able to answer a few of my questions. Allergies Allergy/AdvReac Type Severity Reaction Status Date / Time acesulfame AdvReac Intermediate Diarrhea Verified 03/24/24 18:05 aspartame AdvReac Intermediate Diarrhea Verified 03/24/24 18:05 lisinopril AdvReac Intermediate COUGH Verified 03/24/24 18:05 meclizine AdvReac Intermediate "goofy" Verified 03/24/24 18:05 sucralose AdvReac Intermediate Diarrhea Verified 03/24/24 18:05 [From Splenda (sucralose)] Home Medications Medication Instructions Recorded Confirmed Type cholecalciferol (vitamin D3) 125 125 mcg PO QAM 06/06/21 03/24/24 History mcg (5,000 unit) capsule lutegold 1 tab PO HS macular degeneration 03/20/22 03/24/24 History mecobalamin (vitamin B12) 500 mcg 500 mcg PO QAM 04/01/23 03/24/24 History chewable tablet melatonin 3 mg capsule 3 mg PO HS PRN Sleep 04/01/23 03/24/24 History losartan 50 mg tablet 50 mg PO BID #180 tabs 04/08/23 03/24/24 Rx pantoprazole 40 mg tablet,delayed 40 mg PO DAILY PRN Gastric Reflux 04/24/23 03/24/24 History release atorvastatin 80 mg tablet 80 mg PO QAM #90 tabs 06/10/23 03/24/24 Rx blood-glucose meter,continuous #1 ea 06/20/23 03/20/24 Rx (Dexcom G7 Reimbursement Manager) blood-glucose sensor (Dexcom G7 #9 ea 06/20/23 03/20/24 Rx Sensor device) pen needle, diabetic 31 gauge x #50 ea 06/20/23 03/20/24 Rx 3/16" (BD Ultra-Fine Mini Pen Needle) potassium chloride 10 mEq oral 10 meq PO QAM 08/30/23 03/24/24 History packet blood sugar diagnostic (OneTouch #300 ea 09/27/23 03/20/24 Rx Verio test strips) triamcinolone acetonide 55 mcg 1 spray intranasal DAILY PRN 09/27/23 03/24/24 History nasal spray aerosol (Nasacort) Congestion sodium chloride 1,000 mg soluble 1,000 mg PO BID 10/02/23 03/24/24 History tablet metformin 500 mg tablet,extended 500 mg PO BID #180 tabs 10/15/23 03/24/24 Rx release 24 hr dutasteride 0.5 mg capsule 0.5 mg PO DAILY #90 caps 01/02/24 03/24/24 Rx carvedilol 6.25 mg tablet 6.25 mg PO BIDM #60 tabs 03/06/24 03/24/24 Rx furosemide 20 mg tablet 20 mg PO QAM #30 tabs 03/06/24 03/24/24 Rx aspirin 81 mg tablet,delayed 81 mg PO Q OTHER DAY 03/20/24 03/24/24 History release (Adult Low Dose Aspirin) carboxymethylcellulose sodium 1 % 1 drp OPB QID 03/24/24 03/24/24 History eye liquid gel drops carvedilol 6.25 mg tablet 3.125 mg PO BID 03/24/24 03/24/24 History escitalopram oxalate 20 mg tablet 20 mg PO QAM 03/24/24 03/24/24 History insulin glargine 100 unit/mL (3 0 unit subcut HS 03/24/24 03/24/24 History mL) subcutaneous pen (Lantus Solostar U-100 Insulin) Patient History Medical History Left inguinal hernia Osteoarthritis History of SIADH 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 no treatment per "it's not affecting his liver function so we are leaving it alone." Liver lesion Mesenteric mass Carotid stenosis neck CTA 08/2023 [place] DM type 2 (diabetes mellitus, type 2) Anxiety and depression Hypertension Subdural hematoma hx Hyperlipidemia Surgical History Hx of left cataract extraction History of liver biopsy History of hernia repair History of brain shunt Hx of colonoscopy H/O brain surgery decompressional subdural hematoma 12/2021 H/O knee surgery Family History Father , age 67 of heart issues Coronary heart disease Diabetes Myocardial infarction Mother , age 53 of heart issues Myocardial infarction Denies family history of Ovarian cancer Prostate cancer Breast cancer Colorectal cancer Cancer Social History Smoking Status: Former smoker Tobacco Type: Cigars Second Hand Exposure: No; Do You Dip or Chew Tobacco: No; Hx Alcohol Use: No Hx Substance Use: No Preferred Language: Namibian Communication Ability: Effective Visual Impairment: Limited Hearing Ability: Hard of Hearing Lining Cementer Required: No Beliefs That Will Affect Care: None marital status: Current Living Situation: Spouse Current Living Situation Comment: spouse is pt's caregiver current occupational status: retired 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 How many Children do You have: 2 Other Information That Helps Us Care for You: No Feels Safe at Home: Yes Safety Concerns: Feels Safe At This Time Childhood Exposure to Second-Hand Smoke: No Diet: regular caffeine: Yes (coffee) during the past year weight has: decreased > 10 lbs Dental Care, Regularly: Yes Physical Activity Frequency: 3-4 Times per Week Seatbelt Use: always Sunscreen Use: No Do you think of yourself as: straight/heterosexual Gender Identity: Male Assistive Devices: Bedside Commode, Cane, Walker, Wheelchair and Other Results & Data Vital Signs (Past 12 Hours) Vital Signs Temp Pulse Pulse Resp BP BP Pulse Ox 03/26/24 11:16 36.7 C 75 20 110/65 97 03/26/24 08:00 03/26/24 07:40 36.3 C L 69 19 94/48 L 100 O2 Del Method O2 Flow Rate 03/26/24 11:16 Nasal Cannula 03/26/24 08:00 Nasal Cannula 2 03/26/24 07:40 Nasal Cannula 3
--- NOTE | 2024-03-26 16:03 | Palliative Family Discussion ---
Date of Service March 26, 2024 Patient Directed Conference Time of Meetin to 4 PM via [employer] Participants: Amina Mustafa DNP Patient participation: No, lacks capacity Patient Support System: , daughter Cassie, daughter Franklin (former hospice superintendent) Other Healthcare Provider Participation: None Meeting Location: [employer] virtual platform Advanced Directive available: No A video [id number] advance care planning family meeting was held for PERRY Gonzalez AVERY. This meeting was necessary for determining the appropriate course of treatment. Topics of Discussion Topics of Discussion: 1. Infection of neurological injury reviewed. Results of swallow study reviewed. Overall performance status decline reviewed. Advised he is not a candidate for valve repair at this time given overall poor performance status and prognosis. Cancer is not the active problem and he does not need chemo, can remain on octreotide. 2. Franklin feels it is time to transition a focus to be more about comfort. They inquired about avoiding artificial nutrition and what could be done to allow patient to continue to eat and drink for quality of life. Reviewed recommendations from LINE CONSTRUCTION ENGINEER which include pured diet, thin liquids and no straws. Advised that of permissive aspiration plan of care for his nutrition would come with the transition of focusing more on comfort and quality of life. 3. and daughter Cassie state that in discussion with other providers, there was mention of that patient may currently be further declined because of the recent progression of his stroke. They wonder if a couple of days of a rtificial nutrition would help improve his swallow to where he could resume safe oral intake for pleasure and nutrition. We discussed a time-limited trial of an NG tube and I advised that this would not be something we would do for more than 3 days as a time-limited trial. If we see him worsening or not have some improvement, those would be additional signs that further escalating therapies are not going to yield a meaningful benefit. We talked about the overall risks of aspiration even with artificial nutrition means and how the [place] [employer] does not recommend artificial nutrition and hydration for patients who are at advanced, potentially end-of-life situation. We reinforced that it will not fix/cure/reverse the overall aspiration related complications. I very specifically explained a time limited NGT trial would be a 3 day trial and not permanent/cannot go home or to SNF with NGT. All parties verbalized their understanding. Other Content of Meetin. Opportunity given for participants to speak and ask questions. 2. Participants were assured of attention to patient comfort. 3. Reassurance provided. 4. Support was provided for informed, good-yeni decisions. 5. Emotions expressed by family were acknowledged and addressed. 6. Follow-up: Thea states that they will further discuss as a family and update the medical team when they reach a more formal decision. I asked them to please update the primary medical team by tomorrow because if a trial of an NG tube was desired, arrangements will have to be made for the appropriate consults to be done in order for that to be placed. 7. Family is very clear they do not want patient to return to a group home or rehab. They feel the best place for him after this admission will be to return home although the level of support in the home is what they are currently debating. Franklin is favoring bringing patient home with the addition of hospice however patient's and his other daughter Cassie feel additional conversation is needed before they can reach a consensus. They are able to agree however, that patient would not want to have any prolonged or artificial means of extending suffering at the end of life. A total of 45 minutes was spent on this encounter. 5 minutes was spent in chart review, 30 minutes was spent in a [id number] video advance care planning discussion, and 10 minutes was spent in updating the medical team. MDM complexity: High Thank you for allowing us to participate in the ongoing care of this patient. Please page with any additional concerns. Roman Mustafa DNP Director, Palliative Medicine
[2024-03-26] MEDS: SODIUM CHLORIDE 0.9% 1,000 ML IV SCH (20:06)
[2024-03-27 06:29] LABS: Basophils # (auto) 0.07 K/uL (0.00-0.20); Basophils % (auto) 0.7 %; Eosinophils # (auto) 0.14 K/uL (0.00-0.50); Eosinophils % (auto) 1.4 %; Hematocrit (blood only) 34.7 % (42.0-52.0); Immature Granulocytes # (auto) 0.07 K/uL (0.01-0.20); Immature Granulocytes % (auto) 0.7 %; Lymphocytes # (auto) 1.65 K/uL (1.20-3.40); Mean Corpuscular Hemoglobin 27.4 pg (25.0-34.0); Mean Corpuscular Hgb Conc 31.7 g/dL (32.0-36.0); Mean Corpuscular Volume 86.3 fL (80.0-100.0); Mean Platelet Volume 11.3 fL (9.4-12.4); Monocytes # (auto) 0.62 K/uL (0.11-0.59); Monocytes % (auto) 6.4 %; Neutrophils # (auto) 7.16 K/uL (1.40-6.50); Neutrophils % (auto) 73.8 %; Nucleated RBC # (auto) 0.03 K/uL (0.00-0.12); Nucleated RBC % (auto) 0.3 %; Platelet Count 329 K/uL (130-400); RDW Coefficient of Variation 15.2 % (11.5-14.5); RDW Standard Deviation 47.6 fL (36.4-46.3); Red Blood Count 4.02 M/uL (4.70-6.10); White Blood Count 9.71 K/ul (4.8-10.8)
[2024-03-27 06:43] LABS: Albumin Level 2.4 gm/dl (3.4-5.0); Bilirubin,Total 0.8 mg/dl (0.2-1.0); Calcium 7.9 mg/dl (8.6-10.3); Potassium 3.8 mmol/L (3.5-5.1)
[2024-03-27 06:49] LABS: Albumin Globulin Ratio 0.9 (0.9-2); BUN Creatinine Ratio 23.4 (10-20); Creatinine Clr Calc Pharmacy 70.4 ml/min; Est GFR (Non-African American) 76.8 ml/min; Globulin 2.8 gm/dl (2.5-4.0); Total Protein 5.2 gm/dl (6.0-8.3)
--- NOTE | 2024-03-27 13:09 | Pharmacy Report ---
Pharmacy Glycemic Short Note 2 - Date of Service March 27, 2024 - Glycemic Short BSG Results (Last 24 hours): 03/26/24 03/26/24 03/27/24 18:05 20:07 00:10 Glucose POC Glucose 243 H 231 H 186 H 03/27/24 03/27/24 03/27/24 05:47 06:08 07:15 Glucose 137 H POC Glucose 142 H 137 H 03/27/24 11:42 Glucose POC Glucose 186 H OUTPATIENT ANTIDIABETIC REGIMEN: * Toujeo sliding scale based on blood sugar (10 units per day per last diabetes visit) * Metformin 500 mg PO BIDM HbA1c: 7.3% (02/27/24) ASSESSMENT: 03/27: * BSGs [id number] mg/dL with clear liquid diet yesterday * Dextrose containing fluids were discontinued * Given upward trend and Fasting 142 mg/dL this morning, will add back 5 units of lantus today * Slightly tightened correction factor, carb ratio may need tightened as well 03/26/24: * Blood sugars very tightly controlled yesterday while NPO (ranging 66-91 mg/dL) * Patient received 6 units of Lantus evening prior (03/24/24), but no bolus insulin given yesterday * D5/NSS initiated around dinnertime last evening and blood sugars have increased * Plan is to continue IV fluids while NPO * Given hypoglycemia, will keep loose Novolog parameters and hold basal again this evening 03/25/24: * RR is a 79 year old male admitted on 03/24/24 w/ acute diverticulitis and 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 Will scale back basal today. PLAN FOR INPATIENT GLYCEMIC CONTROL: * Hold outpatient oral diabetes medications * Basal insulin * 5 units x1 * Bolus insulin * NovoLog per scale ACHS or Q6hrs while NPO * Goal Range: Low 110 mg/dL - High 140 mg/dL * Correction Factor: 40 mg/dL/unit * Nutritional / Prandial insulin per carb ratio of 1 unit per 15 grams CHO consumed
[2024-03-27] MEDS: LANTUS PER UNIT CHARGE SC ONE (13:32)
--- NOTE | 2024-03-27 15:28 | Hospitalist Progress Note ---
Date of Service March 27, 2024 Assessment & Plan (1) Cerebrovascular accident (CVA) with intracranial hemorrhage: Plan: L occipital lobe stroke with hemorrhagic transformation CTA head/neck in 2022 did NOT show disease of either NEPHROLOGY NURSE thus, low-flow state/hypotension may have precipitated this stroke event (severe , hypotension, etc) can't rule out embolic stroke as initial event but much less likely aspirin on hold due to ICH neurology assistance appreciated PT, OT, speech evals appreciated multiple serial head CTs with stable left-sided occipital lobe findings defer on MRI brain defer on CTAs head/neck - had them 09/12 - unlikely to have changed since that time defer on repeat echo - had such nearly 1 month ago (2) Acute metabolic encephalopathy: Plan: 2nd to #1 improved today (3) Acute diverticulitis: Plan: possible by history had had diarrhea at home and also abdominal pain day of admission continues with mild leukocytosis CT abd/pelvis with ? low-grade colitis or acute diverticulitis of sigmoid colon Cont Zosyn one more day then change to augmentin Blood cultures remain negative (4) Hypotension: Plan: BP 78/46 on arrival Patient received NSS 1500 mL IV in the ED with improvement in BPs Cont to hold all antihypertensive medications and diuretics Can stop IV fluids since he is eating/drinking (5) Neuroendocrine carcinoma metastatic to liver: Plan: Palliative care consult completed and appreciated Oncology consult appreciated Although he has carcinoid to this date it has never been treated Octreotide in the future if he is able to get thru #1 and recover? Rx of liver mets? in the scope of the long list of problems he has the most pressing issues are that of his acute CVA, the severe/symptomatic , etc (6) DM (diabetes mellitus), type 2: Plan: Last A1c at 7.3% on 02/27/2024 Hold metformin HOLD lantus/novolog since PO intake is very low Check BSGs ac/hs (7) CHF (congestive heart failure): Plan: Last echo revealed LVEF at 55 to 60% with severe left atrial dilation and severe aortic stenosis with possible aortic regurgitation holding coreg/diuretics for now remains compensated (8) Aortic stenosis: Plan: severe s2 not heard on examination symptomatic (frequent dizziness at home, etc) from the appreciate cardiology eval overall treatment plan is murky due to #1 and what type of recovery he will have from #1 nothing acute to do for the at this time (9) Generalized weakness: Plan: PT/OT if he has any recovery from #1 (10) History of CVA (cerebrovascular accident): Plan: right-sided periventricular stroke in 2020 (11) History of subdural hematoma: Plan: with craniotomy/evacuation of such - [facility] ultimately needed EMR TRAINER shunt placement (12) History of craniotomy: Plan: as above (13) History of SIADH: Plan: 2nd to prior SDH Na level is stable at this time BMP am Plan dysphagia - silently aspirates all consistencies based on video swallow eval discussed this with /daughters - either allow permissive aspiration OR strict NPO with NG tube placement family declines NG tube permissive aspiration moving forward advance to full liquids today, perhaps easy to chew diet tomorrow extensive update given to pt's & one of his daughters today at bedside Dr Mustafa's assistance greatly appreciated can d/c tele and move to med/surg Admission and Anticipated Discharge Date Admission Date: March 24, 2024 Subjective much more awake, alert, answering questions stayed awake the entire visit today & daughter along with grandson were all present they were pleased with his overall appearance today patient denied any specific complaints other than being tired he does admit to visual field loss on the right side denies weakness legs/arms when asked if he would want diet advancement he stated yes Review of Systems Review of Systems: CV - no chest pain pulm - no dyspnea GI - no pain or N/V Physical Exam Physical Exam: gen - NAD, much more awake/alert today; following commands head - shunt reservoir vertex of skull eyes - PERRL; right-sided homonymous hemianopsia neck - no JVD heart - RRR, s1, s2 NOT heard, 3/6 holosystolic murmur - loudest RUSB lungs - CTA b/l abd - soft NT ND BS+ ext - no edema, pulses 2+ b/l neuro - strength 5/5 x 4 exts except slight pronator drift on right; no facial droop Results & Data Results & Data Vital Signs (Past 12 Hours) Vital Signs Temp Pulse Resp BP Pulse Ox O2 Del Method O2 Flow Rate 03/27/24 12:00 36.7 C 63 18 125/66 95 Nasal Cannula 1 03/27/24 07:51 Nasal Cannula 2 03/27/24 07:30 36.8 C 70 20 120/71 92 Nasal Cannula 1 Laboratory Results Laboratory Results 03/26/24 03/27/24 03/27/24 20:07 00:10 05:47 WBC 9.71 RBC 4.02 L Hgb 11.0 L Hct 34.7 L MCV 86.3 MCH 27.4 MCHC 31.7 L RDW Std Deviation 47.6 H RDW Coeff of Taylor 15.2 H Plt Count 329 MPV 11.3 Immature Gran % (Auto) 0.7 Neut % (Auto) 73.8 Lymph % (Auto) 17.0 [place] % (Auto) 6.4 Eos % (Auto) 1.4 Baso % (Auto) 0.7 Neut # (Auto) 7.16 H Lymph # (Auto) 1.65 [place] # (Auto) 0.62 H Eos # (Auto) 0.14 Baso # (Auto) 0.07 Immature Gran # (Auto) 0.07 Absolute Nucleated RBC 0.03 Nucleated RBC % (auto) 0.3 Sodium 140 Potassium 3.8 Chloride 112 H Carbon Dioxide 21 Anion Gap 7 BUN 22 Creatinine 0.94 Est Cr Clr Drug Dosing 70.4 Est GFR ( Amer) 89.0 Est GFR (Non-Af Amer) 76.8 BUN/Creatinine Ratio 23.4 H Glucose 137 H POC Glucose 231 H 186 H Calcium 7.9 L Total Bilirubin 0.8 AST 27 ALT 50 Alkaline Phosphatase 110 H Total Protein 5.2 L Albumin 2.4 L Globulin 2.8 Albumin/Globulin Ratio 0.9 03/27/24 03/27/24 03/27/24 06:08 07:15 11:42 POC Glucose 142 H 137 H 186 H PG Care Time/CCT Total # of Minutes Spent Total Time Spent with Patient: Total time spent is greater than 50% in coordination of care (as documented) at patient's floor/unit and/or counseling patient: Coding Level of Care Code 44191 SUB INP/OBS CARE 2/35MIN Diagnoses Cerebrovascular accident (CVA) with intracranial hemorrhage I61.9 Acute metabolic encephalopathy G93.41 Acute diverticulitis K57.92 Hypotension E86.1 Hypotension type: hypotension due to hypovolemia Neuroendocrine carcinoma metastatic to liver C7A.8; C7B.8 Type 2 diabetes mellitus with other specified complication, with long-term current use of insulin E11.69; Z79.4 Diabetes mellitus complication status: with other specified complication Diabetes mellitus fpc insulin use: with fpc use CHF (congestive heart failure) I50.9 Heart failure chronicity: unspecified Heart failure type: unspecified Aortic stenosis I35.0 Cardiac valve disease etiology: etiology unspecified Generalized weakness R53.1 History of CVA (cerebrovascular accident) Z86.73 History of subdural hematoma Z86.79 History of craniotomy Z98.890 History of SIADH Z86.39 (4) Hypotension Hypotension type: hypotension due to hypovolemia Qualified Code(s): E86.1 - Hypovolemia (6) DM (diabetes mellitus), type 2 Diabetes mellitus complication status: with other specified complication Diabetes mellitus intermodal customer service insulin use: with intermodal customer service use Qualified Code(s): E11.69 - Type 2 diabetes mellitus with other specified complication; Z79.4 - termite inspector (current) use of insulin (7) CHF (congestive heart failure) Heart failure chronicity: unspecified Heart failure type: unspecified Qualified Code(s): I50.9 - Heart failure, unspecified (8) Aortic stenosis Cardiac valve disease etiology: etiology unspecified Qualified Code(s): I35.0 - Nonrheumatic aortic (valve) stenosis
[2024-03-27] MEDS: INSULIN ASPART PER UNIT CHARGE SC SCH (18:18)
--- NOTE | 2024-03-28 06:36 | Electrocardiogram Report ---
Test Reason : Blood Pressure : / mmHG Vent. Rate : 072 BPM Atrial Rate : 072 BPM P-R Int : 154 ms QRS Dur : 104 ms QT Int : 426 ms P-R-T Axes : 061 002 100 degrees QTc Int : 466 ms Normal sinus rhythm Low voltage QRS Nonspecific ST and T wave abnormality Possible Septal infarct Abnormal ECG When compared with ECG of 26-FEB-2024 17:49, T wave amplitude has increased in Anterior leads Confirmed by Cristi Fragoso ([id number]) on 03/28/2024 6:36:23 AM Referred By: Confirmed By:Cristi Fragoso
[2024-03-28] MEDS: LANTUS PER UNIT CHARGE SC SCH (11:47)
--- NOTE | 2024-03-28 17:36 | CT Scan Report ---
CT SCAN OF THE BRAIN WITHOUT IV CONTRAST CLINICAL HISTORY: Lethargy. Stroke. COMPARISON STUDY: CT of the brain dated 03/26/2024. TECHNIQUE: Unenhanced axial CT scan of the brain is performed from the vertex to the skull base. A do se lowering technique was utilized adhering to the principles of ALARA. CT DOSE: 703.85 mGy.cm FINDINGS: Brain parenchyma: A ventricular shunt catheter from a left frontal approach is unchanged in position. The tip terminates in the posterior body of the right lateral ventricle the several frontal and high right posterior parietal encephalomalacia are unchanged. There is age-related involutional change no ting moderate subcortical and periventricular microangiopathic disease. Chronic lacunar infarcts agai n seen in the white matter bilaterally. Again seen is a late subacute left occipital lobe infarct wit h laminar necrosis. There is likely trace petechial hemorrhage, which is unchanged to modestly decrea sed as compared to 03/26/2024. No additional foci of acute hemorrhage are seen. There is no mass effect or evidence of acute territorial ischemia by CT criteria. Mineralization is noted in the basal gangl ia. No extra-axial fluid collection is seen. Ventricles, sulci, cisterns: Prominent secondary to involutional change. Intracranial vasculature: There is atherosclerotic calcification of the cavernous carotid and vertebr al arteries. Calvarium: Craniotomy changes noted on the right. There are bilateral magdi holes. No destructive calv arial lesion is seen. Sinuses and mastoids: The visualized paranasal sinuses are clear. The mastoid air cells are well pneu matized. Orbits: The bony orbits are grossly intact. There are bilateral ocular lens implants. IMPRESSION: 1. Again seen is a late subacute left occipital lobe infarct with laminar necrosis. There is likely a small amount of petechial hemorrhage which is unchanged to modestly decreased as compared to 4. 2. No new focus of hemorrhage is seen. There is no mass effect or evidence of acute territorial ische jaime by CT criteria. 3. Additional chronic and postsurgical findings as above. ACT 112: Negative or not required by law. Electronically signed by: Rasta Cordova M.D. 03/28/2024 5:34 PM
[2024-03-28] MEDS: AMOXICILLIN/CLAVULANATE 875 MG TAB PO SCH (17:40)
--- NOTE | 2024-03-28 18:56 | Hospitalist Progress Note ---
Date of Service March 28, 2024 Assessment & Plan (1) Cerebrovascular accident (CVA) with intracranial hemorrhage: Plan: L occipital lobe stroke with hemorrhagic transformation CTA head/neck in 2022 did NOT show disease of either SEAFOOD TECHNOLOGY SPECIALIST thus, low-flow state/hypotension may have precipitated this stroke event (severe , hypotension, etc) can't rule out embolic stroke as initial event but much less likely aspirin on hold due to ICH neurology assistance appreciated PT, OT, speech evals appreciated multiple serial head CTs with stable left-sided occipital lobe findings MRI brain this week deferred also deferred on CTAs head/neck - had them 09/12 - unlikely to have changed since that time repeat echo deferred - had such nearly 1 month ago will obtain repeat CT head to exclude worsening hemorrhage in light of lethargy, apneas (which are likely central - he does not snore), etc (2) Acute metabolic encephalopathy: Plan: 2nd to #1 worse today see above (3) Acute diverticulitis: Plan: possible by history had had diarrhea at home and also abdominal pain day of admission continues with mild leukocytosis CT abd/pelvis with ? low-grade colitis or acute diverticulitis of sigmoid colon Previously on Zosyn --> change to augmentin BID today complete 10 days of IV/PO abx abdominal exam benign today Blood cultures -- negative (4) Hypotension: Plan: BP 78/46 on arrival Patient received NSS 1500 mL IV in the ED with improvement in BPs Cont to hold all antihypertensive medications and diuretics BPs are acceptable today (5) Neuroendocrine carcinoma metastatic to liver: Plan: Palliative care consult completed and appreciated Oncology consult appreciated Although he has carcinoid to this date it has never been treated Octreotide in the future if he is able to get thru #1 and recover? Rx of liver mets? in the scope of the long list of problems he has the most pressing issues are that of his acute CVA, the severe/symptomatic , etc (6) DM (diabetes mellitus), type 2: Plan: Last A1c at 7.3% on 02/27/2024 Hold metformin HOLD lantus/novolog since PO intake is very low Cont BSGs ac/hs (7) Chronic heart failure with preserved ejection fraction (HFpEF): Plan: Last echo revealed LVEF at 55 to 60% with severe left atrial dilation and severe aortic stenosis with possible aortic regurgitation holding coreg/diuretics for now remains compensated (8) Aortic stenosis: Plan: severe s2 not heard on examination symptomatic (frequent dizziness at home, etc) from the -- per his family appreciate cardiology eval overall treatment plan is murky due to #1 and what type of recovery he will have from #1 suspect he is not a candidate for TAVR at this time nothing acute to do for the avoid dehydration states (9) Generalized weakness: Plan: PT/OT (10) History of CVA (cerebrovascular accident): Plan: right-sided periventricular stroke in 2020 (11) History of subdural hematoma: Plan: with craniotomy/evacuation of such - [facility] ultimately needed ENDOSCOPE TECHNICIAN shunt placement (12) History of craniotomy: Plan: as above (13) History of SIADH: Plan: 2nd to prior SDH Na level is stable at this time BMP am Plan dysphagia - silently aspirates all consistencies based on video swallow eval discussed this with /daughters earlier this week - either allow permissive aspiration OR strict NPO with NG tube placement family declined NG tube permissive aspiration chosen advance to low fiber diet extensive update given to pt's & one of his daughters yesterday at bedside Dr Mustafa's assistance greatly appreciated prognosis is guarded Admission and Anticipated Discharge Date Admission Date: March 24, 2024 Subjective patient very lethargic during the bulk of the visit at one point had about a 30-second long episode of apnea he did finally wake up but was sleepy he did talk a little and denied having pain in any location staff report fair oral intake at most slept much of the day with some periods of wafefulness Review of Systems Review of Systems: CV - denies chest pain pulm - denies dyspnea GI - denies pain Physical Exam Physical Exam: gen - NAD, lethargic; while laying in bed he leans to the right constantly head - shunt reservoir vertex of skull eyes - PERRL neck - no JVD heart - RRR, s1, s2 NOT heard, 3/6 holosystolic murmur - loudest RUSB lungs - CTA b/l abd - soft NT ND BS+ ext - no edema, pulses 2+ b/l neuro - strength 5/5 x 4 exts - unchanged; smile is symmetric Results & Data Results & Data Vital Signs (Past 12 Hours) Vital Signs Temp Pulse Resp BP BP Pulse Ox O2 Del Method 06/08/24 14:24 36.8 C 79 16 103/61 96 Room Air 03/28/24 08:00 Room Air 03/28/24 07:52 36.5 C 78 17 118/64 99 Room Air Laboratory Results Laboratory Results - last 24 hr 03/27/24 03/28/24 03/28/24 20:10 07:39 11:38 POC Glucose 219 H 111 H 150 H 03/28/24 16:25 POC Glucose 146 H PG Care Time/CCT Total # of Minutes Spent Total Time Spent with Patient: Total time spent is greater than 50% in coordination of care (as documented) at patient's floor/unit and/or counseling patient: Coding Level of Care Code 28218 SUB INP/OBS CARE MIN Diagnoses Cerebrovascular accident (CVA) with intracranial hemorrhage I61.9 Acute metabolic encephalopathy G93.41 Acute diverticulitis K57.92 Hypotension E86.1 Hypotension type: hypotension due to hypovolemia Neuroendocrine carcinoma metastatic to liver C7A.8; C7B.8 Type 2 diabetes mellitus with other specified complication, with long-term current use of insulin E11.69; Z79.4 Diabetes mellitus complication status: with other specified complication 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 insulin use: with intermodal owner operator truck driver use Chronic heart failure with preserved ejection fraction (HFpEF) I50.32 Aortic stenosis I35.0 Cardiac valve disease etiology: etiology unspecified Generalized weakness R53.1 History of CVA (cerebrovascular accident) Z86.73 History of subdural hematoma Z86.79 History of craniotomy Z98.890 History of SIADH Z86.39 (4) Hypotension Hypotension type: hypotension due to hypovolemia Qualified Code(s): E86.1 - Hypovolemia (6) DM (diabetes mellitus), type 2 Diabetes mellitus complication status: with other specified complication Diabetes mellitus fci insulin use: with fci use Qualified Code(s): E11.69 - Type 2 diabetes mellitus with other specified complication; Z79.4 - supervisor intermediates (current) use of insulin (8) Aortic stenosis Cardiac valve disease etiology: etiology unspecified Qualified Code(s): I35.0 - Nonrheumatic aortic (valve) stenosis
[2024-03-29 09:21] LABS: Calcium 7.9 mg/dl (8.6-10.3); Magnesium 1.9 mg/dl (1.7-2.4); Potassium 3.5 mmol/L (3.5-5.1)
[2024-03-29 09:26] LABS: BUN Creatinine Ratio 14.8 (10-20); Creatinine Clr Calc Pharmacy 74.2 ml/min; Est GFR (African American) 94.7 ml/min; Est GFR (Non-African American) 81.7 ml/min
--- NOTE | 2024-03-29 20:02 | Hospitalist Progress Note ---
Date of Service March 29, 2024 Assessment & Plan (1) Cerebrovascular accident (CVA) with intracranial hemorrhage: Plan: L occipital lobe stroke with hemorrhagic transformation CTA head/neck in 2022 did NOT show disease of either FRONT END DRIVER thus, low-flow state/hypotension may have precipitated this stroke event (severe , hypotension, etc) can't rule out embolic stroke as initial event but much less likely aspirin on hold due to ICH neurology assistance appreciated PT, OT, speech evals appreciated multiple serial head CTs with stable left-sided occipital lobe findings including 03/28 CT (which actually showed some improvement in the hemorrhage) MRI brain deferred - MRI likely to not place change roof bolter also deferred on CTAs head/neck - had them 09/12 - unlikely to have changed since that time repeat echo deferred - had such nearly 1 month ago prognosis guarded (2) Acute metabolic encephalopathy: Plan: 2nd to #1 waxing/waning sleeping much of the day (3) Acute diverticulitis: Plan: possible/suspected by history had had diarrhea at home and also abdominal pain day of admission admission CT abd/pelvis with ? low-grade colitis or acute diverticulitis of sigmoid colon Previously on Zosyn --> changed to augmentin BID 03/28/24 complete 10 days of IV/PO abx abdominal exam again benign today Blood cultures -- negative (4) Hypotension: Plan: BP 78/46 on arrival Patient received NSS 1500 mL IV in the ED with improvement in BPs Cont to hold all antihypertensive medications and diuretics BPs remain acceptable (5) Neuroendocrine carcinoma metastatic to liver: Plan: Palliative care consult completed and appreciated Oncology consult appreciated Although he has carcinoid to this date it has never been treated Octreotide in the future if he is able to get thru #1 and recover? Rx of liver mets? in the scope of the long list of problems he has the most pressing issues are that of his acute CVA, the severe/symptomatic , etc (6) DM (diabetes mellitus), type 2: Plan: Last A1c at 7.3% on 02/27/2024 Hold metformin HOLD lantus since PO intake is very low Loost novolog coverage (7) Chronic heart failure with preserved ejection fraction (HFpEF): Plan: Last echo revealed LVEF at 55 to 60% with severe left atrial dilation and severe aortic stenosis with possible aortic regurgitation holding coreg/diuretics for now remains compensated on exam (8) Aortic stenosis: Plan: severe s2 not heard on examination symptomatic (frequent dizziness at home, etc) from the -- per his family appreciate cardiology eval overall treatment plan is murky due to #1 and what type of recovery he will have from #1 suspect he is not a candidate for TAVR at this time nothing acute to do for the avoid dehydration states (9) Generalized weakness: Plan: PT/OT (10) History of CVA (cerebrovascular accident): Plan: right-sided periventricular stroke in 2020 (11) History of subdural hematoma: Plan: with craniotomy/evacuation of such - [facility] ultimately needed SENSORY SCIENTIST shunt placement (12) History of craniotomy: Plan: as above (13) History of SIADH: Plan: 2nd to prior SDH Na level is stable at this time Plan dysphagia - silently aspirates all consistencies based on video swallow eval discussed this with /daughters earlier this week - either allow permissive aspiration OR strict NPO with NG tube placement family declined NG tube permissive aspiration chosen extensive update given to pt's at bedside today Dr Mustafa's assistance greatly appreciated prognosis is guarded ; best option is likely home with hospice given his prolonged periods of sleeping, poor oral intake, and his poor functional status even before his occipital lobe stroke counseled pt's on this today will update Dr Mustafa tomorrow Admission and Anticipated Discharge Date Admission Date: March 24, 2024 Subjective patient slept most of today according to nursing staff took next to nothing for breakfast and next to nothing for lunch did wake up for dinner was awake/alert and attempting to self-feed was at bedside and she was delighted he was awake/alert after just a couple of bites of food he fell asleep I was able to wake him but he said he just wanted to rest he did not want any further food he quickly went back to bed Review of Systems Review of Systems: gen - denied pain in any location cv - no cp pulm - no dyspnea GI - no vomiting; diarrhea/loose stools/incontinence per staff Physical Exam Physical Exam: gen - NAD; initially quite awake, then fell asleep while eating dinner, then remained lethargic thereafter head - shunt reservoir vertex of skull mouth - poor dentition, MM slightly dry neck - no JVD heart - RRR, s1, s2 NOT heard, 3/6 holosystolic murmur - loudest RUSB; 1/6 diastolic murmur LSB lungs - CTA b/l abd - soft NT ND BS+ ext - no edema, pulses 2+ b/l neuro - strength 5/5 x 4 exts - unchanged; smile is symmetric Results & Data Results & Data Vital Signs (Past 12 Hours) Vital Signs Temp Pulse Resp BP Pulse Ox O2 Del Method 03/29/24 14:55 36.3 C L 84 18 114/57 L 98 Room Air 03/29/24 09:55 Room Air Laboratory Results Laboratory Results - last 24 hr 03/28/24 03/29/24 03/29/24 20:25 07:34 08:43 Sodium 135 L Potassium 3.5 Chloride 106 Carbon Dioxide 21 Anion Gap 8 BUN 13 Creatinine 0.88 Est Cr Clr Drug Dosing 74.2 Est GFR ( Amer) 94.7 Est GFR (Non-Af Amer) 81.7 BUN/Creatinine Ratio 14.8 Glucose 125 H POC Glucose 193 H 120 H Calcium 7.9 L Magnesium 1.9 03/29/24 03/29/24 11:24 16:42 POC Glucose 124 H 111 H PG Care Time/CCT Total # of Minutes Spent Total Time Spent with Patient: Total time spent is greater than 50% in coordination of care (as documented) at patient's floor/unit and/or counseling patient: Coding Level of Care Code 88948 SUB INP/OBS CARE 2/35MIN Diagnoses Cerebrovascular accident (CVA) with intracranial hemorrhage I61.9 Acute metabolic encephalopathy G93.41 Acute diverticulitis K57.92 Hypotension E86.1 Hypotension type: hypotension due to hypovolemia Neuroendocrine carcinoma metastatic to liver C7A.8; C7B.8 Type 2 diabetes mellitus with other specified complication, with long-term current use of insulin E11.69; Z79.4 Diabetes mellitus complication status: with other specified complication Diabetes mellitus long lines operator insulin use: with long lines operator use Chronic heart failure with preserved ejection fraction (HFpEF) I50.32 Aortic stenosis I35.0 Cardiac valve disease etiology: etiology unspecified Generalized weakness R53.1 History of CVA (cerebrovascular accident) Z86.73 History of subdural hematoma Z86.79 History of craniotomy Z98.890 History of SIADH Z86.39 (4) Hypotension Hypotension type: hypotension due to hypovolemia Qualified Code(s): E86.1 - Hypovolemia (6) DM (diabetes mellitus), type 2 Diabetes mellitus complication status: with other specified complication Diabetes mellitus long lines operator insulin use: with long lines operator use Qualified Code(s): E11.69 - Type 2 diabetes mellitus with other specified complication; Z79.4 - snf (current) use of insulin (8) Aortic stenosis Cardiac valve disease etiology: etiology unspecified Qualified Code(s): I35.0 - Nonrheumatic aortic (valve) stenosis
[2024-03-30] MEDS: LANTUS PER UNIT CHARGE SC SCH (09:06)
--- NOTE | 2024-03-30 14:30 | Pharmacy Report ---
Pharmacy Glycemic Sign Off Nt - Date of Service March 30, 2024 - Assessment & Plan ASSESSMENT: * Pharmacy was consulted by MICHELL Paul on 03/24/24 for glycemic control and to write orders per [facility] inpatient glycemic control protocol. * Major changes made by pharmacy to antidiabetic regimen include: * basal insulin * Novolog SS * Patient has been receiving/requiring ~7 units of insulin per day for adequate glycemic control * BSGs ranging 84-193 mg/dl * Regimen has only required minor adjustments over the past 48hrs to achieve this level of control * Per progress notes, planning to transition to hospice/comfort care. Less stringent glycemic control needed at this time. PLAN FOR INPATIENT GLYCEMIC CONTROL: No changes needed to current regimen. * Basal insulin held due to BSGs below goal range this AM, low PO intake, and transition to comfort care. * Continue NovoLog per scale ACHS/Q6hrs while NPO * Goal range = 120-160 mg/dl * CF = 50 mg/dl/unit * CR = 1 unit for ever 15 g CHO consumed * Pharmacy is signing off of glycemic consult and will no longer be making adjustments to inpatient regimen. Please feel free to re-consult if needed. Thank you.
--- NOTE | 2024-03-30 20:07 | Hospitalist Progress Note ---
Date of Service March 30, 2024 Assessment & Plan (1) Cerebrovascular accident (CVA) with intracranial hemorrhage: Plan: L occipital lobe stroke with hemorrhagic transformation CTA head/neck in 2022 did NOT show disease of either FIRE BOSS thus, low-flow state/hypotension may have precipitated this stroke event (severe , hypotension, etc) can't rule out embolic stroke as initial event but much less likely aspirin on hold due to ICH neurology assistance appreciated PT, OT, speech evals appreciated multiple serial head CTs with stable left-sided occipital lobe findings including 03/28/24 CT (which actually showed some improvement in the hemorrhage) MRI brain deferred - MRI likely to not exchange specialist also deferred on CTAs head/neck - had them 09/12 - unlikely to have changed since that time repeat echo deferred - had such nearly 1 month ago prognosis guarded - he is 7+ days out from his event and there has been little global improvement (sleeping all day, poor appetite, failure to thrive, etc) (2) Acute metabolic encephalopathy: Plan: 2nd to #1 waxing/waning can't rule out a component of infection contributing to his altered MS (see #3 below) (3) Acute diverticulitis: Plan: possible/suspected by history had had diarrhea at home and also abdominal pain day of admission admission CT abd/pelvis with ? low-grade colitis or acute diverticulitis of sigmoid colon Previously on Zosyn --> changed to augmentin BID 03/28/24 complete 10 days of IV/PO abx today is day #7 of abx abdominal exam remains benign Blood cultures -- negative (4) Hypotension: Plan: BP 78/46 on arrival Patient received NSS 1500 mL IV in the ED with improvement in BPs Cont to hold all antihypertensive medications and diuretics BPs remain acceptable without them (5) Neuroendocrine carcinoma metastatic to liver: Plan: Palliative care consult completed and appreciated Oncology consult appreciated Although he has carcinoid to this date it has never been treated Octreotide in the future if he is able to get thru #1 and recover? Rx of liver mets? in the scope of the long list of problems he has the most pressing issues are that of his acute CVA, the severe/symptomatic , etc (6) DM (diabetes mellitus), type 2: Plan: Last A1c at 7.3% on 02/27/2024 Hold metformin HOLD lantus since PO intake is very low Loose novolog coverage but since not taking anything by mouth he has not required any insulin (7) Chronic heart failure with preserved ejection fraction (HFpEF): Plan: Last echo revealed LVEF at 55 to 60% with severe left atrial dilation and severe aortic stenosis with possible aortic regurgitation holding coreg/diuretics for now remains compensated on exam (8) Aortic stenosis: Plan: severe s2 not heard on examination symptomatic (frequent dizziness at home, etc) from the -- per his family appreciate cardiology eval suspect he is not a candidate for TAVR at this time given #1 and his other medical issues nothing acute to do for the avoid dehydration states (9) Generalized weakness: Plan: PT/OT were ordered but he has not been able to really participate (10) History of CVA (cerebrovascular accident): Plan: right-sided periventricular stroke in 2020 (11) History of subdural hematoma: Plan: with craniotomy/evacuation of such - [facility] ultimately needed SHADOWGRAPH SCALE OPERATOR shunt placement (12) History of craniotomy: Plan: as above (13) History of SIADH: Plan: 2nd to prior SDH Na levels have been stable Plan dysphagia - silently aspirates all consistencies based on video swallow eval discussed this with /daughters last week - permissive aspiration chosen as opposed to putting in a temporary NG tube extensive update given to pt's by phone this evening I also discussed his care with Dr Mustafa today by phone prognosis is very poor at this point best option is home with hospice given his prolonged periods of sleeping, poor oral intake, and his poor functional status even before his occipital lobe stroke I reiterated this recommendation to his this evening Admission and Anticipated Discharge Date Admission Date: March 24, 2024 Subjective staff report that he slept the majority of the day did not eat anything at breakfast or lunch during my visit he was sleeping did awaken, but it was hard to hear him talk he did shake his head yes that he was tired and weak asked if he was hungry and shook his head no denied pain in any location he quickly fell back asleep Review of Systems Review of Systems: Unobtainable due to cognitive status Physical Exam Physical Exam: gen - NAD; laying on his side in bed; sleepy/lethargic; was awake for <30 seconds during the entire visit head - shunt reservoir vertex of skull neck - no JVD heart - RRR, s1, s2 NOT heard, 3/6 holosystolic murmur - loudest RUSB; 1/6 diastolic murmur LSB lungs - CTA b/l abd - soft NT ND BS+ ext - no edema, pulses 2+ b/l neuro - handgrip 5/5 b/l; arm strength 5/5 b/l; wiggles toes b/l feet psych - could not assess orientation; lethargic/sleepy Results & Data Results & Data Vital Signs (Past 12 Hours) Vital Signs Temp Pulse Resp BP Pulse Ox O2 Del Method 03/30/24 19:42 36.4 C L 90 18 120/68 96 Room Air 03/30/24 15:16 36.3 C L 88 16 126/65 94 Room Air 03/30/24 10:30 Room Air Laboratory Results Laboratory Results - last 24 hr 03/29/24 03/30/24 03/30/24 20:33 07:45 11:53 POC Glucose 144 H 84 90 03/30/24 16:30 POC Glucose 109 H PG Care Time/CCT Total # of Minutes Spent Total Time Spent with Patient: Total time spent is greater than 50% in coordination of care (as documented) at patient's floor/unit and/or counseling patient: Coding Level of Care Code 82061 SUB INP/OBS CARE 11/14MIN Diagnoses Cerebrovascular accident (CVA) with intracranial hemorrhage I61.9 Acute metabolic encephalopathy G93.41 Acute diverticulitis K57.92 Hypotension E86.1 Hypotension type: hypotension due to hypovolemia Neuroendocrine carcinoma metastatic to liver C7A.8; C7B.8 Type 2 diabetes mellitus with other specified complication, with long-term current use of insulin E11.69; Z79.4 Diabetes mellitus complication status: with other specified complication Diabetes mellitus halfway insulin use: with terminal operator use Chronic heart failure with preserved ejection fraction (HFpEF) I50.32 Aortic stenosis I35.0 Cardiac valve disease etiology: etiology unspecified Generalized weakness R53.1 History of CVA (cerebrovascular accident) Z86.73 History of subdural hematoma Z86.79 History of craniotomy Z98.890 History of SIADH Z86.39 (4) Hypotension Hypotension type: hypotension due to hypovolemia Qualified Code(s): E86.1 - Hypovolemia (6) DM (diabetes mellitus), type 2 Diabetes mellitus complication status: with other specified complication Diabetes mellitus terminal operator insulin use: with halfway use Qualified Code(s): E11.69 - Type 2 diabetes mellitus with other specified complication; Z79.4 - rat exterminator (current) use of insulin (8) Aortic stenosis Cardiac valve disease etiology: etiology unspecified Qualified Code(s): I35.0 - Nonrheumatic aortic (valve) stenosis
[2024-03-31 09:44] LABS: Hematocrit (blood only) 36.6 % (42.0-52.0); Hemoglobin 11.8 g/dl (14.0-18.0); Mean Corpuscular Hemoglobin 27.1 pg (25.0-34.0); Mean Corpuscular Hgb Conc 32.2 g/dL (32.0-36.0); Mean Corpuscular Volume 84.1 fL (80.0-100.0); Mean Platelet Volume 10.4 fL (9.4-12.4); Platelet Count 329 K/uL (130-400); RDW Standard Deviation 47.8 fL (36.4-46.3); Red Blood Count 4.35 M/uL (4.70-6.10); White Blood Count 8.53 K/ul (4.8-10.8)
[2024-03-31 10:02] LABS: BUN Creatinine Ratio 13.8 (10-20); Calcium 8.2 mg/dl (8.6-10.3); Creatinine Clr Calc Pharmacy 103.2 ml/min; Est GFR (African American) 107.2 ml/min; Est GFR (Non-African American) 92.5 ml/min; Potassium 3.3 mmol/L (3.5-5.1)
[2024-03-31] MEDS: POTASSIUM CHLORIDE CRTAB 20 MEQ TABCR PO STA (11:22)
--- NOTE | 2024-03-31 14:29 | Hospitalist Progress Note ---
Date of Service March 31, 2024 Assessment & Plan (1) Cerebrovascular accident (CVA) with intracranial hemorrhage: Plan: L occipital lobe stroke with hemorrhagic transformation CTA head/neck in 2022 did NOT show disease of either BOARDER HAND thus, low-flow state/hypotension may have precipitated this stroke event (severe , hypotension, etc) can't rule out embolic stroke as initial event but much less likely aspirin on hold due to ICH multiple serial head CTs with stable left-sided occipital lobe findings including 03/28/24 CT (which actually showed some improvement in the hemorrhage) MRI brain deferred - MRI likely to not spinning frame changer also deferred on CTAs head/neck - had them 09/12 - unlikely to have changed since that time repeat echo deferred - had such nearly 1 month ago prognosis guarded - he is 7+ days out from his event and there has been little global improvement (sleeping all day, poor appetite, failure to thrive, etc) Per discussion on phone call with patient's on 03/31/2024, family has decided to bring patient home with hospice services (2) Acute metabolic encephalopathy: Plan: 2nd to #1 waxing/waning can't rule out a component of infection contributing to his altered MS (see #3 below) (3) Acute diverticulitis: Plan: possible/suspected by history had had diarrhea at home and also abdominal pain day of admission admission CT abd/pelvis with ? low-grade colitis or acute diverticulitis of sigmoid colon Previously on Zosyn --> changed to augmentin BID 03/28/24 complete 10 days of IV/PO abx Last dose of Augmentin 04/02/2024 abdominal exam remains benign Blood cultures -- negative (4) Hypotension: Plan: BP 78/46 on arrival Patient received NSS 1500 mL IV in the ED with improvement in BPs Cont to hold all antihypertensive medications and diuretics BPs remain acceptable without them (5) Neuroendocrine carcinoma metastatic to liver: Plan: Palliative care consult completed and appreciated Oncology consult appreciated Although he has carcinoid to this date it has never been treated Octreotide in the future if he is able to get thru #1 and recover? Rx of liver mets? in the scope of the long list of problems he has the most pressing issues are that of his acute CVA, the severe/symptomatic , etc (6) DM (diabetes mellitus), type 2: Plan: Last A1c at 7.3% on 02/27/2024 Hold metformin HOLD lantus since PO intake is very low Loose novolog coverage but since not taking anything by mouth he has not required any insulin (7) Chronic heart failure with preserved ejection fraction (HFpEF): Plan: Last echo revealed LVEF at 55 to 60% with severe left atrial dilation and severe aortic stenosis with possible aortic regurgitation holding coreg/diuretics for now remains compensated on exam Severe aortic stenosis suspect he is not a candidate for TAVR at this time given #1 and his other medical issues nothing acute to do for the avoid dehydration states (8) History of subdural hematoma: Plan: with craniotomy/evacuation of such - [facility] ultimately needed REFORESTATION WORKER shunt placement Plan Discussed case with palliative care Updated patient's via phone call. She reports family has decided to bring patient home on hospice Discussed discharge planning with case management Dysphagiafamily has elected to allow for permissive aspiration as opposed to trial of NG tube Prognosis is very poorprolonged periods of sleeping, poor oral intake, poor functional status even before his occipital lobe stroke Plan to set up home hospice services tomorrow, 04/01/2024. Patient's asks if patient can come home on 04/03/2024 due to her having appointments on 04/02 Admission and Anticipated Discharge Date Admission Date: March 24, 2024 Subjective Patient seen and evaluated at bedside. He woke up upon my arrival in the room. He reports that he feels fatigued and weak. He denies any pain or complaints. Patient fell back asleep during our conversation. Per nursing, patient was more awake during breakfast, but has been sleeping most of the day otherwise. Discussed the plan for discharge with patient's , Martha on the phone this evening. She reports the family has decided to bring him home on hospice. Physical Exam Physical Exam: General: No acute distress, nondiaphoretic. Lethargic/sleepy. Skin: The skin was without rashes, erythema, edema, or bruising. Cardiac: RRR, s1, s2 NOT heard, 3/6 holosystolic murmur - loudest RUSB; 1/6 diastolic murmur LSB. Pulm: Clear to auscultation bilaterally without wheezes, rales or rhonchi. No respiratory distress. Abdominal: Soft, nontender, nondistended. Bowel sounds present. Neuro: Cannot assess orientation due to patient being lethargic/sleepy. Results & Data Results & Data Vital Signs (Past 12 Hours) Vital Signs Temp Pulse Resp BP Pulse Ox O2 Del Method 03/31/24 08:05 Room Air 03/31/24 07:59 36.4 C L 88 16 145/70 H 94 Room Air Laboratory Results Reviewed CBC Reviewed BMP PG Care Time/CCT Total # of Minutes Spent Total Time Spent with Patient: Total time spent is greater than 50% in coordination of care (as documented) at patient's floor/unit and/or counseling patient: Coding Level of Care Code 60891 SUB INP/OBS CARE 3/50MIN Diagnoses Cerebrovascular accident (CVA) with intracranial hemorrhage I61.9 Acute metabolic encephalopathy G93.41 Acute diverticulitis K57.92 Hypotension E86.1 Hypotension type: hypotension due to hypovolemia Neuroendocrine carcinoma metastatic to liver C7A.8; C7B.8 Type 2 diabetes mellitus with other specified complication, with long-term current use of insulin E11.69; Z79.4 Diabetes mellitus complication status: with other specified complication Diabetes mellitus longterm insulin use: with termite control representative use Chronic heart failure with preserved ejection fraction (HFpEF) I50.32 History of subdural hematoma Z86.79 (4) Hypotension Hypotension type: hypotension due to hypovolemia Qualified Code(s): E86.1 - Hypovolemia (6) DM (diabetes mellitus), type 2 Diabetes mellitus complication status: with other specified complication Diabetes mellitus longterm insulin use: with longterm use Qualified Code(s): E11.69 - Type 2 diabetes mellitus with other specified complication; Z79.4 - senior care (current) use of insulin
[2024-03-31] MEDS: ACETAMINOPHEN 325 MG TAB PO PRN (23:18)
[2024-04-01 08:06] LABS: Hematocrit (blood only) 35.6 % (42.0-52.0); Hemoglobin 11.4 g/dl (14.0-18.0); Mean Corpuscular Volume 84.4 fL (80.0-100.0); Mean Platelet Volume 10.4 fL (9.4-12.4); Platelet Count 314 K/uL (130-400); RDW Standard Deviation 47.6 fL (36.4-46.3); Red Blood Count 4.22 M/uL (4.70-6.10); White Blood Count 7.72 K/ul (4.8-10.8)
[2024-04-01 08:19] LABS: BUN Creatinine Ratio 16.7 (10-20); Calcium 8.1 mg/dl (8.6-10.3); Creatinine Clr Calc Pharmacy 111.8 ml/min; Est GFR (African American) 110.8 ml/min; Est GFR (Non-African American) 95.6 ml/min; Potassium 3.4 mmol/L (3.5-5.1)
--- NOTE | 2024-04-01 11:51 | Hospitalist Progress Note ---
Date of Service April 01, 2024 Assessment & Plan (1) Cerebrovascular accident (CVA) with intracranial hemorrhage: Plan: L occipital lobe stroke with hemorrhagic transformation CTA head/neck in 2022 did NOT show disease of either HIDE TRIMMER thus, low-flow state/hypotension may have precipitated this stroke event (severe , hypotension, etc) can't rule out embolic stroke as initial event but much less likely aspirin held due to ICH multiple serial head CTs with stable left-sided occipital lobe findings including 03/28/24 CT (which actually showed some improvement in the hemorrhage) MRI brain deferred - MRI likely to not change control specialist also deferred on CTAs head/neck - had them 09/12 - unlikely to have changed since that time repeat echo deferred - had such nearly 1 month ago prognosis guarded - he is >7 days out from his event and there has been little global improvement (sleeping all day, poor appetite, failure to thrive, etc) Per discussion on phone call with patient's on 03/31/2024, family has decided to bring patient home with hospice services. Plan for discharge home on hospice on 04/02/2024. (2) Acute metabolic encephalopathy: Plan: 2nd to #1 waxing/waning can't rule out a component of infection contributing to his altered MS (see #3 below) (3) Acute diverticulitis: Plan: possible/suspected by history had had diarrhea at home and also abdominal pain day of admission admission CT abd/pelvis with ? low-grade colitis or acute diverticulitis of sigmoid colon Previously on Zosyn --> changed to augmentin BID 03/28/24 complete 10 days of IV/PO abx Last dose of Augmentin 04/02/2024 abdominal exam remains benign Blood cultures -- negative (4) Hypotension: Plan: BP 78/46 on arrival Patient received NSS 1500 mL IV in the ED with improvement in BPs Cont to hold all antihypertensive medications and diuretics BPs remain acceptable without them (5) Neuroendocrine carcinoma metastatic to liver: Plan: Palliative care consult completed and appreciated Oncology consult appreciated In the scope of the long list of problems he has the most pressing issues are that of his acute CVA, the severe/symptomatic , etc Patient/family have elected to move forward with hospice (6) DM (diabetes mellitus), type 2: Plan: Last A1c at 7.3% on 02/27/2024 Hold metformin HOLD lantus since PO intake is very low Loose novolog coverage but since not taking anything by mouth he has not required any insulin (7) Chronic heart failure with preserved ejection fraction (HFpEF): Plan: Last echo revealed LVEF at 55 to 60% with severe left atrial dilation and severe aortic stenosis with possible aortic regurgitation holding coreg/diuretics for now remains compensated on exam Severe aortic stenosis nothing acute to do for the avoid dehydration states (8) History of subdural hematoma: Plan: With craniotomy/evacuation of such - [facility] Ultimately needed STRUCTURAL STEEL SHOP SUPERVISOR shunt placement Plan Repleted potassium Discussed discharge planning with case management Dysphagiafamily has elected to allow for permissive aspiration as opposed to trial of NG tube Prognosis is very poorprolonged periods of sleeping, poor oral intake, poor functional status even before his occipital lobe stroke Case management is currently working to get hospice supplies delivered to the home. Plan for discharge on hospice 04/02/2024. Admission and Anticipated Discharge Date Admission Date: March 24, 2024 Subjective Patient seen and evaluated at bedside. He was awake with nursing when I entered the room. He reports feeling weak and tired. He had some sips of water and was coughing afterwardssuspect aspiration event. No respiratory distress, difficulty breathing, shortness of breath, remained stable on room air. Patient reported that he just wanted to go back to sleep. I explained that hospice services are being set up for home today, and he will be able to be discharged home with hospice tomorrow. Patient is understanding and agreeable. No additional complaints at this time. Physical Exam Physical Exam: General: No acute distress, nondiaphoretic. Lethargic/sleepy. Skin: The skin was without rashes, erythema, edema, or bruising. Cardiac: RRR, s1, s2 NOT heard, 3/6 holosystolic murmur - loudest RUSB; 1/6 diastolic murmur LSB. Pulm: Clear to auscultation bilaterally without wheezes, rales or rhonchi. No respiratory distress. 96% on room air. Abdominal: Soft, nontender, nondistended. Bowel sounds present. Neuro: Cannot assess orientation due to patient being lethargic/sleepy. Results & Data Results & Data Vital Signs (Past 12 Hours) Vital Signs Temp Pulse Resp BP Pulse Ox O2 Del Method 04/01/24 07:52 36.7 C 91 H 16 137/70 96 Room Air Laboratory Results Reviewed CBC Reviewed BMP PG Care Time/CCT Total # of Minutes Spent Total Time Spent with Patient: Total time spent is greater than 50% in coordination of care (as documented) at patient's floor/unit and/or counseling patient: Coding Level of Care Code 49682 SUB INP/OBS CARE 2/35MIN Diagnoses Cerebrovascular accident (CVA) with intracranial hemorrhage I61.9 Acute metabolic encephalopathy G93.41 Acute diverticulitis K57.92 Hypotension E86.1 Hypotension type: hypotension due to hypovolemia Neuroendocrine carcinoma metastatic to liver C7A.8; C7B.8 Type 2 diabetes mellitus with other specified complication, with long-term current use of insulin E11.69; Z79.4 Diabetes mellitus complication status: with other specified complication Diabetes mellitus long term care administrator insulin use: with retirement use Chronic heart failure with preserved ejection fraction (HFpEF) I50.32 History of subdural hematoma Z86.79 (4) Hypotension Hypotension type: hypotension due to hypovolemia Qualified Code(s): E86.1 - Hypovolemia (6) DM (diabetes mellitus), type 2 Diabetes mellitus complication status: with other specified complication Diabetes mellitus long term care administrator insulin use: with retirement use Qualified Code(s): E11.69 - Type 2 diabetes mellitus with other specified complication; Z79.4 - exterminator termite (current) use of insulin
[2024-04-01] MEDS: POTASSIUM CHLORIDE CRTAB 20 MEQ TABCR PO STA (11:58)
[2024-04-02 08:32] LABS: Hematocrit (blood only) 36.7 % (42.0-52.0); Hemoglobin 11.8 g/dl (14.0-18.0); Mean Corpuscular Hemoglobin 27.3 pg (25.0-34.0); Mean Corpuscular Hgb Conc 32.2 g/dL (32.0-36.0); Mean Corpuscular Volume 84.8 fL (80.0-100.0); Mean Platelet Volume 10.6 fL (9.4-12.4); Platelet Count 314 K/uL (130-400); RDW Standard Deviation 48.1 fL (36.4-46.3); Red Blood Count 4.33 M/uL (4.70-6.10); White Blood Count 9.24 K/ul (4.8-10.8)
[2024-04-02 09:14] LABS: Calcium 8.3 mg/dl (8.6-10.3); Magnesium 1.8 mg/dl (1.7-2.4); Potassium 3.5 mmol/L (3.5-5.1)
[2024-04-02 09:19] LABS: BUN Creatinine Ratio 16.1 (10-20); Creatinine Clr Calc Pharmacy 106.9 ml/min; Est GFR (African American) 109.4 ml/min; Est GFR (Non-African American) 94.4 ml/min
--- NOTE | 2024-04-02 11:12 | Discharge Summary ---
Date of Service April 02, 2024 Admission HPI Per Admitting Provider Chris is a 79-year-old male with PMH of neuroendocrine carcinoma metastatic to liver, SIADH, craniotomy, subdural hematoma, intracranial shunt, carotid stenosis bilaterally, T2DM, severe aortic stenosis, BPH, and CVA. He presented for weakness, confusion, and hypotension on 03/24. This has been a gradual decline since he was discharged from rehab on 03/19. Patient's (Martha) is at the bedside and provides additional history. She reports that he was walking fine with a walker from Saturday to Saturday, but then began to decline on Saturday. Eventually he became so weak that he was unable to eat, sit up, or stand up. He has had diarrhea x 4 days; no blood in stool. No prior episodes of diverticulitis. No sick contacts. He also endorses SOB that can occur both at rest and with exertion; worse when laying flat. Patient took some of his regular morning medications today (losartan, Coreg, metformin, and sodium tablets). He usually takes his insulin at night. Recent change in medication includes removing Norvasc due to low BP. Patient is not on supplemental oxygen at home. He is a former smoker, but quit 40 years ago. No recent alcohol use. Oriented to name and , but not location or month. Patient is hypotensive at 105/50 at time of admission; mildly bradycardic at 58 bpm and mildly hypothermic at 36.3 C. ED Course: NSS 1500 mL IV Zosyn 4.5 g IV ROS: Patient endorses generalized weakness, body aches, ambulatory dysfunction, intermittent dizziness (like the room is spinning), lightheadedness, SOB both at rest and with exertion, orthopnea, dry cough, chest palpitations daily (unsure how long it lasts for), and diarrhea x 4 episodes yesterday. Patient denies fever, chills, night-sweats, shoulder pain, HUGO, slurred speech, facial droop, unilateral deficits, chest pain, abdominal pain, N/V/D, blood in the urine/stool, or numbness/tingling in the arms or legs. Principal Diagnosis Subacute stroke, diverticulitis, metastatic carcinoid Discharge Exam PHYSICAL EXAMINATION Last 24h vital signs reviewed, see documentation in flowsheet General: comfortable appearing, no distress, sleeping in bed HEENT: Normocephalic, atraumatic, pupils round and equal, sclerae anicteric, no conjunctival injection, moist mucus membranes Lungs: Normal respiratory effort. Clear to auscultation bilaterally. No RRW Heart: Regular rate and rhythm, no murmurs. No JVD Abdomen: Soft, minimally tender mid lower abdomen without rigidity rebound or guarding, nondistended. Bowel sounds present. Extremities: Warm, dry, well-perfused. No extremity edema. Neuro: somnolent, aroused to tactile stimulation said few words, confused, face symmetric Discharge Data Allergies Allergy/AdvReac Type Severity Reaction Status Date / Time acesulfame AdvReac Intermediate Diarrhea Verified 03/24/24 18:05 aspartame AdvReac Intermediate Diarrhea Verified 03/24/24 18:05 lisinopril AdvReac Intermediate COUGH Verified 03/24/24 18:05 meclizine AdvReac Intermediate "goofy" Verified 03/24/24 18:05 sucralose AdvReac Intermediate Diarrhea Verified 03/24/24 18:05 [From Splenda (sucralose)] Consultations 03/24/24 18:41 ED Decision to Admit Stat 03/24/24 19:36 Consult Cardiology Routine Consult Oncology Routine Consult Palliative Care Routine 03/25/24 09:46 Consult Neurology Routine Ordered Studies 03/24/24 16:14 CT abd pelvis IV con only Stat 03/24/24 16:20 CT head/brain wo con Stat 03/25/24 08:[address] [CT head/brain wo con] Routine 03/26/24 07:00 CT head/brain wo con Routine 03/26/24 10:00 FL video swallow Routine 03/28/24 16:49 CT head/brain wo con Routine Hospital Course (1) Cerebrovascular accident (CVA) with intracranial hemorrhage: L occipital lobe stroke with hemorrhagic transformation CTA head/neck in 2022 did NOT show disease of either ACQUISITION MARKETING MANAGER thus, low-flow state/hypotension may have precipitated this stroke event (severe , hypotension, etc) can't rule out embolic stroke as initial event but much less likely aspirin held due to ICH multiple serial head CTs with stable left-sided occipital lobe findings including 03/28/24 CT (which actually showed some improvement in the hemorrhage) MRI brain deferred - MRI likely to not belt changer also deferred on CTAs head/neck - had them 09/12 - unlikely to have changed since that time repeat echo deferred - had such nearly 1 month ago prognosis poor especially in the context of multiple other comorbidities - he is >7 days out from his event and there has been little to no global improvement (sleeping all day, poor appetite/ oral intake, failure to thrive, poor functional status) Per discussion on phone call with patient's on 03/31/2024, family has decided to bring patient home with hospice services. home hospice was arranged, initial hospice comfort meds prescribed to his outpatient pharmacy (2) Acute metabolic encephalopathy: 2nd to #1 waxing/waning can't rule out a component of infection contributing to his altered MS (see #3 below) (3) Acute diverticulitis: possible/suspected by history had had diarrhea at home and also abdominal pain day of admission admission CT abd/pelvis with ? low-grade colitis or acute diverticulitis of sigmoid colon Previously on Zosyn --> changed to augmentin BID 03/28/24 and completed 10 days course on morning of discharge (4) Hypotension: BP 78/46 on arrival Patient received NSS 1500 mL IV in the ED with improvement in BPs Cont to hold all antihypertensive medications and diuretics (5) Neuroendocrine carcinoma metastatic to liver: Palliative care consult completed and appreciated Oncology consult appreciated In the scope of the long list of problems he has the most pressing issues are that of his acute CVA, the severe/symptomatic , etc Patient/family have elected to move forward with hospice (6) DM (diabetes mellitus), type 2: Last A1c at 7.3% on 02/27/2024 anti-antidiabetic medications and insulins were stopped (7) Chronic heart failure with preserved ejection fraction (HFpEF): Last echo revealed LVEF at 55 to 60% with severe left atrial dilation and severe aortic stenosis with possible aortic regurgitation remained compensated on exam this admission not a candidate for TAVR because of limited life expectancy less than 1 year and overall very poor functional status (8) History of subdural hematoma: With craniotomy/evacuation of such - [facility] Ultimately needed PRECISION INSTRUMENT MAKER shunt placement Plan Dysphagiafamily has elected to allow for permissive aspiration as opposed to trial of NG tube Prognosis is very poorprolonged periods of sleeping, poor oral intake, poor functional status even before his occipital lobe stroke return to home with home hospice 04/02 Total Time Total Time Spent Total Time Spent (In Minutes): I personally spent: 45 minutes today on clinical care activities including: reviewing chart notes and vital signs discussion with critical care rn examining and counseling the patient writing orders, discharge instructions discharge prescriptions documentation Discharge Plan Discharge Items Patient Disposition: Hospice - Home Reason For Visit: GENERALIZED WEAKNESS, FATIGUE, HYPOTENSION, DIARRH Discharge Diagnosis: stroke, metastatic neuroendocrine tumor, heart failure, severe aortic stenosis Activity: Per Instructions section Non-emergency contact: Primary Care Provider Call non-emergency contact if: you have any medication questions Follow-up/Referrals: Clary Yost CRNP [Primary Care Provider] - Diet: Regular Diet Texture: Easy to Chew Addtl Attending Provider Instructions: Contact hospice if you have any medication questions or uncontrolled symptoms such as pain, shortness of breath, nausea Pending Studies at Discharge: No Stand-Alone Forms: [facility] Medications and DC Order Prescriptions: New acetaminophen 325 mg Tablet 650 mg PO Q4H PRNQty: 0 0RF morphine concentrate 100 mg/5 mL (20 mg/mL) solution 10 mg buccal Q4H PRN (Reason: pain or shortness of breath) Qty: 30 0RF ondansetron 4 mg tablet,disintegrating 4 mg PO Q6H PRN (Reason: nausea and vomiting) Qty: 20 0RF lorazepam 1 mg tablet 1 mg sublingual Q6H PRN (Reason: anxiety, agitation, nausea) Qty: 20 0RF Continued triamcinolone acetonide [Nasacort] 55 mcg aerosol,spray 1 spray intranasal DAILY PRN (Reason: Congestion) Rx Instructions: administer into each nostril melatonin 3 mg capsule 3 mg PO HS PRN (Reason: Sleep) dutasteride 0.5 mg capsule 0.5 mg PO DAILY Qty: 90 3RF pantoprazole 40 mg tablet,delayed release (DR/EC) 40 mg PO DAILY PRN (Reason: Gastric Reflux) Rx Instructions: 40 mg orally as needed; carboxymethylcellulose sodium 1 % Drops, Liquid Gel 1 drp OPB QID escitalopram oxalate 20 mg tablet 20 mg PO QAM Rx Instructions: pt aware dose change Discontinued losartan 50 mg tablet 50 mg PO BID Qty: 180 3RF atorvastatin 80 mg tablet 80 mg PO QAM Qty: 90 3RF potassium chloride 10 mEq packet 10 meq PO QAM metformin 500 mg tablet extended release 24 hr 500 mg PO BID Qty: 180 3RF (DME) OneTouch Verio test strips Strip See Rx Instructions .ROUTE .MEDSUPPLY Qty: 300 3RF Rx Instructions: test TID mecobalamin (vitamin B12) 500 mcg tablet,chewable 500 mcg PO QAM cholecalciferol (vitamin D3) 125 mcg (5,000 unit) capsule 125 mcg PO QAM lutegold 1 tab PO HS (DME) pen needle, diabetic [BD Ultra-Fine Mini Pen Needle] 31 gauge x 3/16" needle See Rx Instructions .Route Qty: 50 6RF Rx Instructions: Daily with insulin injections (DME) Dexcom G7 Floorperson Misc See Rx Instructions .Route Qty: 1 3RF Rx Instructions: As directed change every 90 days (DME) Dexcom G7 Sensor Device See Rx Instructions .Route Qty: 9 3RF Rx Instructions: change sensor every 10 days aspirin [Adult Low Dose Aspirin] 81 mg tablet,delayed release (DR/EC) 81 mg PO Q OTHER DAY Patient Comments: CONFIRMED W/ PT AND ON [facility] DC SUMMARY 03/20 Rx Instructions: 81 mg orally EVERY OTHER DAY; sodium chloride 1,000 mg tablet,soluble 1,000 mg PO BID carvedilol 6.25 mg Tablet 6.25 mg PO BIDM Qty: 60 0RF Rx Instructions: PER PT'S SPOUSE "MD SAID TO CUT IN HALF(3.125 MG) BID NOW". furosemide 20 mg tablet 20 mg PO QAM Qty: 30 0RF carvedilol 6.25 mg tablet 3.125 mg PO BID Rx Instructions: PER PT'S SPOUSE "START TONIGHT (03/24/24) WITH 1/2 TABS BID". insulin glargine [Lantus Solostar U-100 Insulin] 100 unit/mL (3 mL) insulin pen 0 unit subcut HS Rx Instructions: Dose can change do to BSG PER PT DOES SLIDING SCALE BASED ON BSG. 03/24/24 Discharge Orders: Discharge Order (Routine); Ordered 04/02/24 Ordered By: Debra Croft Admission Data Admit Date/Time: 03/24/24 19:49 Attending Provider: Debra Croft Admit Provider: Deandre Cuellar Primary Care Provider: Clary Yost Other Providers: Deandre Cuellar; Srinath Ying; Rox Alvarez; Amina Mustafa; Cameron Brink; [facility] Other Interventions: Discharge Summary Assessment (RN) Last Done: 04/02/24 10:43 Coding Level of Care Code 86415 INP/OBS DISCH >30 MIN Diagnoses Cerebrovascular accident (CVA) with intracranial hemorrhage I61.9 Acute metabolic encephalopathy G93.41 Acute diverticulitis K57.92 Hypotension E86.1 Hypotension type: hypotension due to hypovolemia Neuroendocrine carcinoma metastatic to liver C7A.8; C7B.8 Type 2 diabetes mellitus with other specified complication, with long-term current use of insulin E11.69; Z79.4 Diabetes mellitus complication status: with other specified complication Diabetes mellitus oil heaterman insulin use: with oil heaterman use Chronic heart failure with preserved ejection fraction (HFpEF) I50.32 History of subdural hematoma Z86.79
== END 2024-04-02 12:29 | disposition hospice, home (50) | DRG 64 ==
LOC: ED 15:23 → SUATTDRO 19:49 → 2S 19:49 → 3N 03-27 21:23